=== PATIENT | male | born 1975 | race African-American/Black ===

== ENCOUNTER → 2016-12-22 | Outpatient (CLI) | payer MEDICARE, OTHER ==
[2016-12-22 14:58] LABS: ABSOLUTE EOSINOPHILS # (AUTO) 0.3 10^3/uL (0.0-0.6); ABSOLUTE LYMPHOCYTES (AUTO) 1.1 10^3/uL (0.5-4.7); ABSOLUTE MONOCYTES (AUTO) 0.8 10^3/uL (0.1-1.4); ABSOLUTE NEUT (AUTO) 9.3 10^3/uL (1.7-8.2); BASOPHILS % (AUTO) 0.4 % (0-2); EOSINOPHILS % (AUTO) 2.8 % (0-6); HEMATOCRIT 34.3 % (37.9-51.0); HEMOGLOBIN 10.4 g/dL (13.5-17.0); HGB HCT DIFFERENCE -3.1; LYMPHOCYTES % (AUTO) 9.8 % (13-45); MEAN CORPUSCULAR HEMOGLOBIN 25.9 pg (27.0-33.4); MEAN CORPUSCULAR HGB CONC 30.4 g/dL (32.0-36.0); MEAN CORPUSCULAR VOLUME 85 fl (80-97); MONOCYTES % (AUTO) 6.5 % (3-13); RED BLOOD COUNT 4.02 10^6/uL (4.35-5.55); RED CELL DISTRIBUTION WIDTH 18.9 % (11.5-14.0); SEGMENTED NEUTROPHILS % (AUTO) 80.5 % (42-78); WHITE BLOOD COUNT 11.6 10^3/uL (4.0-10.5)
[2016-12-22 15:19] LABS: ALANINE AMINOTRANSFERASE 25 U/L (21-72); ALKALINE PHOSPHATASE 111 U/L (38-126); ANION GAP 17 (5-19); ASPARTATE AMINO TRANSFERASE 13 U/L (17-59); BILIRUBIN,TOTAL 0.5 mg/dL (0.2-1.3); BLOOD UREA NITROGEN 10 mg/dL (7-20); C-REACTIVE PROTEIN 35.8 mg/L (<10.0); CALCIUM 9.6 mg/dL (8.4-10.2); CARBON DIOXIDE 27 mmol/L (22-30); CHLORIDE 99 mmol/L (98-107); CREATININE RESULT 0.44 mg/dL (0.52-1.25); GLUCOSE 138 mg/dL (75-110); TOTAL PROTEIN 8.3 g/dL (6.3-8.2)
[2016-12-22 15:35] LABS: ERYTHROCYTE SEDIMENTATION RATE 92 mm/hr (0-15)
== END ==
LOC: WC 13:48
PROVIDERS: ATTEND Surgery
DX: L89.104 Pressure ulcer of unspecified part of back, stage 4 (principal)
CPT/HCPCS: 36415; 72170; 80053; 85025; 85652; 86140

== ENCOUNTER 2017-01-15 22:07 | Emergency (ER) | payer MEDICARE, OTHER ==
[2017-01-16] LABS: ABSOLUTE BASOPHILS # (AUTO) 0.1 10^3/uL (0.0-0.2); ABSOLUTE EOSINOPHILS # (AUTO) 0.3 10^3/uL (0.0-0.6); ABSOLUTE LYMPHOCYTES (AUTO) 1.9 10^3/uL (0.5-4.7); ABSOLUTE MONOCYTES (AUTO) 0.8 10^3/uL (0.1-1.4); ABSOLUTE NEUT (AUTO) 7.8 10^3/uL (1.7-8.2); BASOPHILS % (AUTO) 0.7 % (0-2); EOSINOPHILS % (AUTO) 2.6 % (0-6); HEMATOCRIT 39.6 % (37.9-51.0); HEMOGLOBIN 12.7 g/dL (13.5-17.0); HGB HCT DIFFERENCE -1.5; LYMPHOCYTES % (AUTO) 17.2 % (13-45); MEAN CORPUSCULAR HEMOGLOBIN 27.5 pg (27.0-33.4); MEAN CORPUSCULAR HGB CONC 32.1 g/dL (32.0-36.0); MEAN CORPUSCULAR VOLUME 86 fl (80-97); MONOCYTES % (AUTO) 7.5 % (3-13); RED BLOOD COUNT 4.62 10^6/uL (4.35-5.55); RED CELL DISTRIBUTION WIDTH 18.1 % (11.5-14.0); WHITE BLOOD COUNT 10.9 10^3/uL (4.0-10.5)
[2017-01-16 00:08] LABS: APPEARANCE,URINE CLOUDY; BILIRUBIN,URINE NEGATIVE (NEGATIVE); CALCIUM OXALATE CRYSTALS,URINE MODERATE /HPF; GLUCOSE, URINE NEGATIVE (NEGATIVE); KETONES,URINE NEGATIVE (NEGATIVE); LEUKOCYTE ESTERASE,URINE LARGE (NEGATIVE); NITRITE,URINE POSITIVE (NEGATIVE); PROTEIN,URINE 100 mg/dL (NEGATIVE); URINE SPECIFIC GRAVITY 1.024; UROBILINOGEN,URINE NEGATIVE mg/dL (<2.0)
[2017-01-16 00:22] LABS: ALANINE AMINOTRANSFERASE 28 U/L (21-72); ALBUMIN 4.9 g/dL (3.5-5.0); ALKALINE PHOSPHATASE 150 U/L (38-126); ASPARTATE AMINO TRANSFERASE 21 U/L (17-59); BILIRUBIN,TOTAL 0.6 mg/dL (0.2-1.3); BLOOD UREA NITROGEN 18 mg/dL (7-20); CALCIUM 10.7 mg/dL (8.4-10.2); CREATININE RESULT 0.76 mg/dL (0.52-1.25); GLUCOSE 105 mg/dL (75-110); TOTAL PROTEIN 10.4 g/dL (6.3-8.2)
[2017-01-16 00:29] LABS: ANION GAP 18 (5-19); CARBON DIOXIDE 23 mmol/L (22-30); CHLORIDE 100 mmol/L (98-107); POTASSIUM 5.5 mmol/L (3.6-5.0); SODIUM 141.3 mmol/L (137-145)
[2017-01-16 02:22] LABS: PROTHROMBIN TIME 13.4 SEC (11.4-15.4)
[2017-01-16 02:37] LABS: VENOUS BLOOD BASE EXCESS 1.7 mmol/L; VENOUS BLOOD HCO3 28.6 mmol/L (20-32); VENOUS BLOOD PCO2 54.7 mmHg (35-63); VENOUS BLOOD PH 7.34 (7.30-7.42)
[2017-01-16] MEDS ORDERED: PIPERACILLIN/TAZOBACTAM 3.375 GM VIAL IV ONE (02:42)
--- NOTE | 2017-01-16 02:53 | ER Document Report ---
ED Neuro Symptoms/Deficit - General Mode of Arrival: Ambulatory Information source: Patient TRAVEL OUTSIDE OF THE [place] IN LAST 30 DAYS: No - HPI Patient complains to provider of: Other - Altered mental status Onset: Other - 2 days ago Baseline Cognitive: Alert, oriented X 3 Alert To: Name/Voice Associated symptoms: Other - see above <ALEX GUEVARA - Last Filed: 01/16/17 05:10> <GRACIE ORDONEZ - Last Filed: 01/16/17 08:13> - General Chief Complaint: Altered Mental Status Stated Complaint: ALTERED MENTAL STATUS/POSSIBLE UTI Notes: 41 year old male with history of multiple sclerosis presents to the ED accompanied by his who complains the patient has been confused an in an altered mental status for the past 2 days. states that the patient has been "in and out" and "delusion." also states that the patient's speech is "slowed" and that he is experiencing left sided weakness, both of which are typical during his MS flares. Patient denies any generalized pain or any new weakness. Patient has a [facility] Patient also has an ulcer to the right hip which is being monitored by the wound clinic. Patient had an MRI appointment today for his ulcer, but was unable to make it. Patient's neurologist is Dr. Durant. (ALEX GUEVARA) - Related Data Allergies/Adverse Reactions: No Known Allergies Allergy (Verified 01/15/17 22:54) Past Medical History - General Information source: Patient - Social History Smoking Status: Current Every Day Smoker Chew tobacco use (# tins/day): - <1/2 ppd Frequency of alcohol use: None Drug Abuse: None Family History: Reviewed & Not Pertinent Patient has suicidal ideation: No Patient has homicidal ideation: No Neurological Medical History: Reports: Other - multiple sclerosis Renal/ Medical History: Denies: Hx Peritoneal Dialysis Musculoskeltal Medical History: Reports Hx Multiple Sclerosis Surgical Hx: Negative - Immunizations Hx Diphtheria, Pertussis, Tetanus Vaccination: No <ALEX GUEVARA - Last Filed: 01/16/17 05:10> Physical Exam - General General appearance: Alert In distress: None - Respiratory Respiratory status: No respiratory distress Breath sounds: Normal - Cardiovascular Rhythm: Regular, Tachycardia - Abdominal Inspection: Normal Tenderness: Nontender - Back Back: Nontender - Extremities General upper extremity: Normal inspection General lower extremity: Normal inspection, Other - Lower extremities at baseline. Chronic weakness - Neurological Neuro grossly intact: Yes Cognition: Normal Orientation: AAOx4 Laie Coma Scale Eye Opening: Spontaneous Maria M Coma Scale Verbal: Oriented Laie Coma Scale Motor: Obeys Commands Laie Coma Scale Total: 15 Speech: Other - Slow speech <GRACIE ORDONEZ - Last Filed: 01/16/17 08:13> - Vital signs Vitals: Temp Pulse Resp BP Pulse Ox 98.1 F 96 20 110/68 100 01/15/17 22:40 01/15/17 22:40 01/15/17 22:40 01/15/17 22:40 01/15/17 22:40 (ALEX GUEVARA) (GRACIE ORDONEZ) Course - Laboratory Result Diagrams: 01/15/17 23:34 01/15/17 23:34 <ALEX GUEVARA - Last Filed: 01/16/17 05:10> - Laboratory Result Diagrams: 01/15/17 23:34 01/15/17 23:34 - Diagnostic Test Radiology reviewed: Reports reviewed <GRACIE ORDONEZ - Last Filed: 01/16/17 08:13> - Re-evaluation Re-evalutation: 01/16/17 04:22 Patient is a 41-year-old male who comes in with weakness of his left upper extremity and slow speech. This is consistent with his typical multiple sclerosis flare. Patient has been treated for urinary tract infection with Bactrim but significant other states that the patient is still having discharge from his Garcia catheter. Garcia catheter will be replaced. Microbiology has been reviewed. Patient will be switched to cephalosporin after being given a dose of Zosyn here in the emergency department. Patient feels better after fluids. Patient and significant other prefer that the patient home. Return immediately if any worsening or concerning symptoms. Also requesting high-dose steroids for MS flare. Solu-Medrol 500 given. Patient will be discharged home with prednisone is to call his neurologist later today. Understands agrees with plan. Stable at time of discharge. (GRACIE ORDONEZ) - Vital Signs Vital signs: Temp Pulse Resp BP Pulse Ox 97.5 F 107 H 18 119/71 100 01/16/17 03:23 01/16/17 02:06 01/16/17 03:41 01/16/17 03:41 01/16/17 03:41 (ALEX GUEVARA) (GRACIE ORDONEZ) - Laboratory Laboratory results interpreted by me: 01/15/17 01/15/17 01/15/17 23:34 23:34 23:34 WBC 10.9 H Hgb 12.7 L RDW 18.1 H Potassium 5.5 H Calcium 10.7 H Alkaline Phosphatase 150 H Total Protein 10.4 H Urine Protein 100 H Urine Blood MODERATE H Urine Nitrite POSITIVE H Ur Leukocyte Esterase LARGE H (ALEX GUEVARA) (GRACIE ORDONEZ) Discharge <ALEX GUEVARA - Last Filed: 01/16/17 05:10> <GRACIE ORDONEZ - Last Filed: 01/16/17 08:13> - Discharge Clinical Impression: Multiple sclerosis Urinary tract infection Qualifiers: Urinary tract infection type: site unspecified Hematuria presence: with hematuria Qualified Code(s): N39.0 - Urinary tract infection, site not specified ; R31.9 - Hematuria, unspecified Garcia catheter problem Qualifiers: Encounter type: initial encounter Qualified Code(s): T83.9XXA - Unspecified complication of genitourinary prosthetic device, implant and graft, initial encounter Condition: Stable Disposition: HOME, SELF-CARE Instructions: Urinary Tract Infection ([facility]), Steroid Medication Prescriptions: Cefdinir 300 mg PO BID #28 capsule Prednisone 80 mg PO DAILY #16 tablet Scribe Attestation: 01/16/17 08:13 I personally performed the services described in the documentation, reviewed and edited the documentation which was dictated to the scribe in my presence, and it accurately records my words and actions. (GRACIE ORDONEZ) Scribe Documentation - Scribe Written by Asmita:: Asmita Gonzalez, 01/16/2017 0530 acting as scribe for :: Aarti <ALEX GUEVARA - Last Filed: 01/16/17 05:10>
[2017-01-16] MEDS ORDERED: NORMAL SALINE 1000 ML 1,000 ML IV ONE (02:57)
[2017-01-16 04:08] VITALS: BP 119/71
[2017-01-16] MEDS ORDERED: METHYLPREDNISOLONE INJ 125 MG/2 ML SDV IV ONE (04:19)
--- NOTE | 2017-01-16 11:57 | EKG REPORT ---
SEVERITY:- ABNORMAL ECG - SINUS RHYTHM LORI, CONSIDER BIATRIAL ABNORMALITIES : Confirmed by: Carine Magallanes MD 16-Jan-2017 11:56:50
== END 2017-01-16 04:43 | disposition home or self-care (01) ==
LOC: ER 22:07
DX: R41.82 Altered mental status, unspecified (principal); G35 Multiple sclerosis; N39.0 Urinary tract infection, site not specified; T83.9XXA Unspecified complication of genitourinary prosthetic device, implant and graft, initial encounter; F17.210 Nicotine dependence, cigarettes, uncomplicated
CPT/HCPCS: 93005; 99285; 51702; 96375; 96365; 36415; 87040; 87086; 82962; 85025; 85610; 87088; 80053; 81001; 87186; 82803; 83605; 70450; 93010; J2930; J7030; J2543

== ENCOUNTER → 2017-01-23 | Outpatient (CLI) | payer MEDICARE, OTHER | LOC: RAD 10:53 | PROVIDERS: ATTEND Nurse Practitioner Family | DX: L97.322 Non-pressure chronic ulcer of left ankle with fat layer exposed (principal); M86.8X7 Other osteomyelitis, ankle and foot | CPT/HCPCS: 73720; A9576 ==

== ENCOUNTER 2017-01-24 13:22 | Emergency (ER) | payer MEDICARE, OTHER ==
[2017-01-24 14:22] LABS: APPEARANCE,URINE SLIGHTLY-CLOUDY; BILIRUBIN,URINE NEGATIVE (NEGATIVE); GLUCOSE, URINE NEGATIVE (NEGATIVE); KETONES,URINE NEGATIVE (NEGATIVE); LEUKOCYTE ESTERASE,URINE LARGE (NEGATIVE); NITRITE,URINE NEGATIVE (NEGATIVE); PROTEIN,URINE NEGATIVE (NEGATIVE); URINE SPECIFIC GRAVITY 1.013; UROBILINOGEN,URINE NEGATIVE mg/dL (<2.0)
--- NOTE | 2017-01-24 15:56 | ER Document Report ---
ED General - General Chief Complaint: Altered Mental Status Stated Complaint: ALTERED MENTAL STATUS Time seen by provider: 14:05 Mode of Arrival: Medic Information source: Patient Notes: 41-year-old male presented to ED for Y states hallucinations TRAVEL OUTSIDE OF THE [place] IN LAST 30 DAYS: No - HPI Onset: Other - 01/13/2017 Onset/Duration: Intermittent Quality of pain: No pain Severity: None Pain Level: Denies Associated symptoms: Other Exacerbated by: Denies Relieved by: Denies Similar symptoms previously: Yes Recently seen / treated by doctor: Yes - Related Data Allergies/Adverse Reactions: No Known Allergies Allergy (Verified 01/24/17 13:44) Home Medications: Current Home Medications Nitrofurantoin Monohyd/M-Cryst [Macrobid 100 mg Capsule] 100 mg PO BID 01/24/17 [History] Past Medical History - General Information source: Patient - Social History Smoking Status: Current Every Day Smoker Chew tobacco use (# tins/day): No Frequency of alcohol use: None Drug Abuse: None Family History: Reviewed & Not Pertinent Patient has suicidal ideation: No Patient has homicidal ideation: No - Past Medical History Cardiac Medical History: Reports: None Pulmonary Medical History: Reports: None EENT Medical History: Reports: None Neurological Medical History: Reports: Other - Multiple sclerosis, no feeling from waist down Endocrine Medical History: Reports: None Renal/ Medical History: Reports: Other - Indwelling Garcia catheter Musculoskeltal Medical History: Reports Hx Multiple Sclerosis Skin Medical History: Reports None Psychiatric Medical History: Reports: None Traumatic Medical History: Reports: None Infectious Medical History: Reports: None - Immunizations Hx Diphtheria, Pertussis, Tetanus Vaccination: No Review of Systems - Review of Systems Constitutional: No symptoms reported EENT: No symptoms reported Cardiovascular: No symptoms reported Respiratory: No symptoms reported Gastrointestinal: No symptoms reported Genitourinary: No symptoms reported Male Genitourinary: No symptoms reported Musculoskeletal: No symptoms reported Skin: No symptoms reported Hematologic/Lymphatic: No symptoms reported Neurological/Psychological: Other - His states he's been very confused and hallucinating at night. patient is alert oriented able to answer all questions appropriately when I examined him -: Yes All other systems reviewed and negative Physical Exam - Vital signs Vitals: Temp Pulse Resp BP Pulse Ox 98.3 F 72 16 142/90 H 100 01/24/17 13:39 01/24/17 13:39 01/24/17 13:39 01/24/17 13:39 01/24/17 13:39 Interpretation: Normal - General General appearance: Appears well, Alert Notes: Patient has a Garcia catheter is patent draining yellow cloudy urine. - HEENT Head: Normocephalic, Atraumatic Eyes: Normal Pupils: PERRL - Respiratory Respiratory status: No respiratory distress Chest status: Nontender Breath sounds: Normal Chest palpation: Normal - Cardiovascular Rhythm: Regular Heart sounds: Normal auscultation Murmur: No - Abdominal Inspection: Normal Distension: No distension Bowel sounds: Normal Tenderness: Nontender. No: Tender, McBurney's point Organomegaly: No organomegaly - Back Back: Normal, Nontender - Extremities General upper extremity: Normal inspection, Nontender, Normal color, Normal ROM , Normal temperature General lower extremity: Normal inspection, Nontender, Normal color, Normal ROM , Normal temperature, Normal weight bearing. No: Louis's sign - Neurological Neuro grossly intact: Yes Cognition: Normal Orientation: AAOx4 Maria M Coma Scale Eye Opening: Spontaneous Maria M Coma Scale Verbal: Oriented Aurora Coma Scale Motor: Obeys Commands Maria M Coma Scale Total: 15 Speech: Normal Motor strength normal: LUE, RUE, LLE, RLE Sensory: Normal - Psychological Associated symptoms: Normal affect, Normal mood - Skin Skin Temperature: Warm Skin Moisture: Dry Skin Color: Normal Course - Re-evaluation Re-evalutation: 01/24/17 16:01 Discussed patient's assessment his previous urine and today sure with Dr. Hand. He stated that the patient does not need to change antibiotics but to be sure to culture 2 days urine and have the patient call him on Sunday if he is unable to get li Goode on Sunday for the culture results. Paper with the urine results from last time and today given to patient with the phone number for Dr. Hand and Rupa call for the culture results. Patient to continue on his Macrobid which she has only had 1 dose of for his UTI. - Vital Signs Vital signs: Temp Pulse Resp BP Pulse Ox 98.3 F 72 16 142/90 H 100 01/24/17 13:39 01/24/17 13:39 01/24/17 13:39 01/24/17 13:39 01/24/17 13:39 - Laboratory Laboratory results interpreted by me: 01/24/17 14:08 Urine Blood MODERATE H Ur Leukocyte Esterase LARGE H Discharge - Discharge Clinical Impression: Urinary tract infection associated with catheterization of urinary tract Qualifiers: Encounter type: initial encounter Qualified Code(s): T83.51XA - Infection and inflammatory reaction due to indwelling urinary catheter, initial encounter Condition: Stable Disposition: HOME, SELF-CARE Additional Instructions: URINARY TRACT INFECTION: Your evaluation indicates that you have a urinary tract infection. This is due to germs growing in the bladder. This is a common problem. This infection usually responds quickly to antibiotics. Your antibiotic should be taken exactly as prescribed. Drink plenty of fluids -- three to four quarts a day. Occasionally, a bladder anesthetic will be prescribed to help stop the feeling of urgency until the antibiotic has a chance to clear the infection. This may cause your urine to be dark orange. Certain urine infections require a culture. If the doctor obtained a culture, the results will be back in two days. You should call to see if a change in treatment is needed. A repeat urinalysis after you finish treatment is often recommended. The physician will let you know if further testing is required. Call the doctor if you develop fever, chills, flank pain, inability to urinate, or blood in the urine. NITROFURANTOIN (MACRODANTIN, MACROBID): You have received a prescription for nitrofurantoin (Macrodantin). This antibiotic is used for urinary tract infections. Women who are or nursing should notify the physician before taking this medicine. If you have ever had a problem caused by this medication in the past, be sure the physician is aware of it. Common side effects of this medicine include nausea, vomiting, or decreased appetite. Notify your physician if these side effects become severe. Immediately stop this medicine and call the physician if you develop cough , shortness of breath, chest pain, weakness, jaundice (yellow color of the skin and whites of the eyes), or a skin rash. Insomnia Everybody has trouble sleeping now and then. When it becomes a frequent problem, you must look for an underlying cause. Depression can interfere with sleep. Anxiety keeps people from falling asleep, while true depression causes fitful sleep and early awakening. If you think anxiety or depression might be your problem, your doctor can help. Many medicines can interfere with sleep. Try cutting back or eliminating caffeine. Watch out for "energizing" vitamins and herbs! Alcohol interferes powerfully with normal sleep. "Rebound insomnia" results when you stop taking sedating medicines like antihistamines, antianxiety medicine, or sleeping pills. Any medical problem that causes pain or bladder discomfort can interfere with sleep. Discuss any problem you have with your doctor. Get regular exercise. Have regular sleep times. Don't "sleep in." Avoid late afternoon naps. Sleeping pills may be temporarily helpful, but are never a long-term solution. Diphenhydramine The use of diphenhydramine (Benadryl) has been recommended to control allergic symptoms. The 25 mg strength is available over- the-counter, as well as the elixir. This antihistamine is used for many symptoms. It's useful for itching, watering eyes and nose, allergic swelling, hives, and insect stings. The medication can be repeated four times daily. Age Elixir (12.5 mg/tsp) 25 mg pill 1 yr 1/4 tsp 2-3 yr 1/2 tsp 4-8 yr 1 tsp 9-14 yr 2 tsp one tab adult 1-2 tabs Antihistamines may cause drowsiness, especially with the first dose. Do not operate machinery or drive while under the effects of the medication. Do not combine the medication with alcohol, or with any other medication without talking to your doctor. FOLLOW-UP CARE: If you have been referred to a physician for follow-up care, call the physician s office for an appointment as you were instructed or within the next two days. If you experience worsening or a significant change in your symptoms, notify the physician immediately or return to the Emergency Department at any time for re-evaluation. Forms: Elevated Blood Pressure, Smoking Cessation Education
[2017-01-24 16:21] VITALS: BP 125/70
== END 2017-01-24 16:19 | disposition home or self-care (01) ==
LOC: ER 13:22
DX: T83.511A Infection and inflammatory reaction due to indwelling urethral catheter, initial encounter (principal); R41.82 Altered mental status, unspecified; F17.200 Nicotine dependence, unspecified, uncomplicated; G35 Multiple sclerosis
CPT/HCPCS: 81001; 87086; 87088; 87186; 99285

== ENCOUNTER 2017-02-03 18:45 | Inpatient (IN) | payer MEDICARE, OTHER ==
[2017-02-03] MEDS ORDERED: NORMAL SALINE 1000 ML 1,000 ML IV ONE (18:48)
[2017-02-03] MEDS ORDERED: CEFTRIAXONE 1 GM/D5W RTU 50 ML IV ONE (18:48)
--- NOTE | 2017-02-03 18:48 | ER Document Report ---
ED General - General Stated Complaint: ALTERED MENTAL STATUS Mode of Arrival: Medic Information source: Patient, Emergency Med Personnel, H Records Cannot obtain history due to: Altered mental status Notes: 41-year-old male history of multiple sclerosis presents by EMS for altered mental status. Patient has a history of recent UTI for which she is on Cipro before, as well as a wound sacral with wound VAC. Patient woke up today quite altered noted to be hypotensive tachycardic by EMS TRAVEL OUTSIDE OF THE [place] IN LAST 30 DAYS: No - HPI Onset: This morning Onset/Duration: Sudden Quality of pain: No pain Severity: Moderate Pain Level: Denies Associated symptoms: Weakness Exacerbated by: Denies Relieved by: Denies Similar symptoms previously: Yes Recently seen / treated by doctor: Yes - Related Data Allergies/Adverse Reactions: No Known Allergies Allergy (Verified 01/24/17 13:44) Past Medical History - Social History Smoking Status: Never Smoker Cigarette use (# per day): No Chew tobacco use (# tins/day): No Smoking Education Provided: No Family History: Reviewed & Not Pertinent Renal/ Medical History: Denies: Hx Peritoneal Dialysis Musculoskeltal Medical History: Reports Hx Multiple Sclerosis - Immunizations Hx Diphtheria, Pertussis, Tetanus Vaccination: No Review of Systems - Review of Systems Notes: REVIEW OF SYSTEMS: CONSTITUTIONAL : Denies fever, chills, or sweats. Denies recent illness. EENT: Denies eye, ear, throat, or mouth pain or symptoms. Denies nasal or sinus congestion or discharge. Denies throat, tongue, or mouth swelling or difficulty swallowing. CARDIOVASCULAR: Denies chest pain. Denies palpitations or racing or irregular heart beat. Denies ankle edema. RESPIRATORY: Denies cough, cold, or chest congestion. Denies shortness of breath, difficulty breathing, or wheezing. GASTROINTESTINAL: Denies abdominal pain or distention. Denies nausea, vomiting , or diarrhea. Denies blood in vomitus, stools, or per rectum. Denies black, tarry stools. Denies constipation. GENITOURINARY: Denies difficulty urinating, painful urination, burning, frequency, blood in urine, or discharge. MUSCULOSKELETAL: Denies back or neck pain or stiffness. Denies joint pain or swelling. SKIN: Denies rash, lesions or sores. HEMATOLOGIC : Denies easy bruising or bleeding. LYMPHATIC: Denies swollen, enlarged glands. NEUROLOGICAL: Admits to confusion weakness PSYCHIATRIC: Denies anxiety or stress. Denies depression, suicidal ideation, or homicidal ideation. ALL OTHER SYSTEMS REVIEWED AND NEGATIVE. Dictation was performed using [employer] voice recognition software PHYSICAL EXAMINATION: GENERAL: Well-appearing, well-nourished and in no acute distress. HEAD: Atraumatic, normocephalic. EYES: Pupils equal round and reactive to light, extraocular movements intact, sclera anicteric, conjunctiva are normal. ENT: Nares patent, oropharynx clear without exudates. Moist mucous membranes. NECK: Normal range of motion, supple without lymphadenopathy LUNGS: Breath sounds clear to auscultation bilaterally and equal. No wheezes rales or rhonchi. HEART: Tachycardic [id number] ABDOMEN: Soft, nontender, nondistended abdomen. No guarding, no rebound. Baclofen pump noted Musculoskeletal: Normal range of motion, no pitting or edema. No cyanosis. NEUROLOGICAL: Patient responds slowly to questioning but is alert PSYCH: Normal mood, normal affect. SKIN: Sacral decubitus wound with wound VAC in place Physical Exam - Vital signs Vitals: Resp Pulse Ox 16 98 02/03/17 18:56 02/03/17 18:56 Course - Re-evaluation Re-evalutation: 02/03/17 18:50 Patient meets sirs criteria with possible urinary tract infection as well. Lab work pending patient will be started on Rocephin IV fluids 02/03/17 21:01 Dr Stafford contacted, he will call back for admission uti noted 02/03/17 21:48 pt to be admitted for sepsis uti hypotension altered mental status - Vital Signs Vital signs: Temp Pulse Resp BP Pulse Ox 13 112/70 100 02/03/17 21:01 02/03/17 21:01 02/03/17 21:01 - Laboratory Result Diagrams: 02/03/17 19:00 02/03/17 20:12 Laboratory results interpreted by me: 02/03/17 02/03/17 02/03/17 19:00 20:12 20:20 WBC 25.8 H RBC 3.27 L Hgb 9.0 L Hct 28.3 L MCHC 31.8 L RDW 17.9 H Seg Neuts % (Manual) 86 H Band Neutrophils % 6 H Lymphocytes % (Manual) 4 L Abs Neuts (Manual) 23.7 H Glucose 112 H Albumin 3.3 L Urine Protein 100 H Urine Ketones TRACE H Urine Blood LARGE H Urine Urobilinogen 4.0 H Ur Leukocyte Esterase MODERATE H - Diagnostic Test Radiology reviewed: Image reviewed, Reports reviewed Critical Care Note - Critical Care Note Total time excluding time spent on procedures (mins): 34 Comments: minutes of critical care time spent in direct contact evaluating and reevaluating the patient, treating symptoms, reviewing labs and studies and speaking with family and consultants excluding any procedures Discharge - Discharge Clinical Impression: Multiple sclerosis, Acute focal neurological deficit Urinary tract infection associated with catheterization of urinary tract Qualifiers: Indwelling urinary catheter type: indwelling urethral catheter Encounter type: initial encounter Qualified Code(s): T83.511A - Infection and inflammatory reaction due to indwelling urethral catheter, initial encounter; N39.0 - Urinary tract infection, site not specified Sepsis Qualifiers: Sepsis type: sepsis due to unspecified organism Qualified Code(s): A41.9 - Sepsis, unspecified organism Condition: Fair Disposition: ADMITTED INPATIENT Admitting Provider: Hospitalist Unit Admitted: [facility]
[2017-02-03 19:21] LABS: VENOUS BLOOD BASE EXCESS 0.2 mmol/L; VENOUS BLOOD HCO3 26.2 mmol/L (20-32); VENOUS BLOOD PCO2 48.7 mmHg (35-63); VENOUS BLOOD PH 7.35 (7.30-7.42)
[2017-02-03 19:22] LABS: HEMATOCRIT 28.3 % (37.9-51.0); HGB HCT DIFFERENCE -1.3; MEAN CORPUSCULAR HEMOGLOBIN 27.5 pg (27.0-33.4); MEAN CORPUSCULAR HGB CONC 31.8 g/dL (32.0-36.0); MEAN CORPUSCULAR VOLUME 87 fl (80-97); RED BLOOD COUNT 3.27 10^6/uL (4.35-5.55); RED CELL DISTRIBUTION WIDTH 17.9 % (11.5-14.0); WHITE BLOOD COUNT 25.8 10^3/uL (4.0-10.5)
[2017-02-03 19:26] LABS: PROTHROMBIN TIME 15.4 SEC (11.4-15.4)
[2017-02-03 19:47] LABS: BAND NEUTROPHILS % (MANUAL) 6 % (3-5); BASOPHILS % (MANUAL) 0 % (0-2); EOSINOPHILS % (MANUAL) 1 % (0-6); LYMPHOCYTES % (MANUAL) 4 % (13-45); TOTAL CELLS COUNTED 100
[2017-02-03 19:49] LABS: ANISOCYTOSIS 1+; HYPOCHROMASIA SLIGHT; TOXIC GRANULATION 1+; TOXIC VACUOLATION PRESENT
[2017-02-03] MEDS: NORMAL SALINE 1000 ML 1,000 ML IV PRN ×2 (20:09→20:20)
[2017-02-03 20:42] LABS: ALANINE AMINOTRANSFERASE 34 U/L (21-72); ALBUMIN 3.3 g/dL (3.5-5.0); ALKALINE PHOSPHATASE 103 U/L (38-126); ANION GAP 9 (5-19); ASPARTATE AMINO TRANSFERASE 33 U/L (17-59); BILIRUBIN,TOTAL 0.7 mg/dL (0.2-1.3); BLOOD UREA NITROGEN 17 mg/dL (7-20); CALCIUM 8.7 mg/dL (8.4-10.2); CARBON DIOXIDE 26 mmol/L (22-30); CHLORIDE 106 mmol/L (98-107); CREATININE RESULT 0.64 mg/dL (0.52-1.25); GLUCOSE 112 mg/dL (75-110); POTASSIUM 3.8 mmol/L (3.6-5.0); SODIUM 140.9 mmol/L (137-145); TOTAL PROTEIN 7.3 g/dL (6.3-8.2)
[2017-02-03 20:46] LABS: APPEARANCE,URINE TURBID; BILIRUBIN,URINE NEGATIVE (NEGATIVE); GLUCOSE, URINE NEGATIVE (NEGATIVE); KETONES,URINE TRACE mg/dL (NEGATIVE); LEUKOCYTE ESTERASE,URINE MODERATE (NEGATIVE); NITRITE,URINE NEGATIVE (NEGATIVE); PROTEIN,URINE 100 mg/dL (NEGATIVE); URINE SPECIFIC GRAVITY 1.013
[2017-02-03] MEDS ORDERED: GENTAMICIN SULFATE 0 MG in DEXTROSE 5%-WATER 100 ML IV NR ×2 (21:45→23:45)
[2017-02-03] MEDS ORDERED: GENTAMICIN SULFATE INJ 80 MG/2 ML VIAL IV PRN (22:50)
[2017-02-03] MEDS ORDERED: DEXTROSE 5% IV SCH (23:00)
[2017-02-03] MEDS ORDERED: WATER IV SCH (23:00)
[2017-02-03] MEDS ORDERED: GENTAMICIN SULFATE IV SCH (23:00)
[2017-02-03] MEDS ORDERED: ACETAMINOPHEN 325 MG TABLET PO PRN (23:38)
[2017-02-03] MEDS ORDERED: POTASSI CL 20 MEQ/NS 1L 1,000 ML IV PRN (23:42)
[2017-02-04] MEDS ORDERED: GENTAMICIN SULFATE INJ 80 MG/2 ML VIAL IV PRN (00:10)
[2017-02-04 06:49] LABS: ABSOLUTE BASOPHILS # (AUTO) 0.1 10^3/uL (0.0-0.2); ABSOLUTE EOSINOPHILS # (AUTO) 0.2 10^3/uL (0.0-0.6); ABSOLUTE LYMPHOCYTES (AUTO) 1.2 10^3/uL (0.5-4.7); ABSOLUTE MONOCYTES (AUTO) 1.3 10^3/uL (0.1-1.4); ABSOLUTE NEUT (AUTO) 16.4 10^3/uL (1.7-8.2); BASOPHILS % (AUTO) 0.3 % (0-2); HEMATOCRIT 29.8 % (37.9-51.0); HEMOGLOBIN 9.5 g/dL (13.5-17.0); HGB HCT DIFFERENCE -1.3; LYMPHOCYTES % (AUTO) 6.4 % (13-45); MEAN CORPUSCULAR HEMOGLOBIN 27.6 pg (27.0-33.4); MEAN CORPUSCULAR VOLUME 86 fl (80-97); MONOCYTES % (AUTO) 6.9 % (3-13); RED BLOOD COUNT 3.45 10^6/uL (4.35-5.55); RED CELL DISTRIBUTION WIDTH 17.8 % (11.5-14.0); SEGMENTED NEUTROPHILS % (AUTO) 85.4 % (42-78); WHITE BLOOD COUNT 19.2 10^3/uL (4.0-10.5)
[2017-02-04] MEDS ORDERED: GENTAMICIN SULFATE 180 MG in DEXTROSE 5%-WATER 100 ML IV SCH (07:00)
[2017-02-04] MEDS ORDERED: ENOXAPARIN SODIUM INJ 40 MG/0.4 ML DISP.SYRIN SUBCUT SCH (08:00)
[2017-02-04] MEDS: DOCUSATE SODIUM 100 MG CAPSULE PO SCH ×2 (09:47→17:06)
--- NOTE | 2017-02-04 13:28 | OPERATIVE REPORT E ---
Operative Report NAME: VALENTE MOJICA : 1975 AGE: 41Y DATE OF SURGERY: 02/03/2017 ROOM: 322 INDICATION FOR PROCEDURE: This gentleman unfortunately has a history of multiple sclerosis and paralysis, cannot ambulate, bedridden. He has a decubitus ulceration in the sacral area and also in the right gluteal area. Admitted for a urinary tract infection, found to have some necrotic tissue in the decubitus ulcers. CONSULTATION: I examined him, and he has 2 ulcerations on the physical findings. One is in the sacral area up to the periosteum level, another one (the second one) in the right gluteal area. On examination, he does have some necrotic soft tissue. So, procedure was performed at the bedside. OPERATION: Excisional sharp debridement of necrotic soft tissue in the sacral decubitus ulcer and also in the right gluteal decubitus ulcer up to the fascia level. SURGEON: RUBI MONET M.D. PROCEDURE: Procedure was done at the bedside. Patient is already paraplegic, cannot feel any sensation. The area was cleaned and draped with sterile field. With a sharp curette, excisional debridement of all necrotic tissue was performed down to the fascial area until all the edges were clean and no more necrotic tissue was seen. Further wound care was advised to be wet-to-dry dressings, and I do not think he needs any further debridement in the near future. DICTATING PHYSICIAN: RUBI MONET M.D. [id number] PHY#: [id number] ID: [id number] JOB#: [id number] ACCT: [id number] cc:RUBI MONET M.D. >
[2017-02-04] MEDS: NICOTINE 14 MG/24 HR PATCH.TD24 TD SCH (15:09)
--- NOTE | 2017-02-04 17:25 | PDOC PROGRESS REPORT ---
Subjective Progress Note for:: 02/04/17 Subjective:: Patient remains slightly confused. He denies pain. Patient denies fever, chills , headache, new focal weakness, chest pain, shortness of breath, abdominal pain , nausea, vomiting, diarrhea, constipation. Physical Exam Vital Signs: Temp Pulse Resp BP Pulse Ox 97.4 F 89 18 113/74 100 02/04/17 15:14 02/04/17 15:14 02/04/17 15:14 02/04/17 15:14 02/04/17 15:14 Intake & Output 02/03/17 02/04/17 02/05/17 05:59 06:59 06:59 Intake Total Output Total Balance GENERAL: No acute distress HEENT: Conjunctiva clear, nonicteric, moist mucous membranes, no JVD, midline trachea RESPIRATORY: Clear to auscultation bilaterally, no wheezes, no rhonchi CARDIAC: Regular rate and rhythm, no murmurs/gallops/rubs ABDOMEN: Soft, nondistended, nontender, positive bowel sounds, no rebound, no guarding EXTREMETIES: No edema, cyanosis, clubbing NEUROLOGIC: Alert, oriented to person/place/time, CN's grossly intact, weakness and muscle wasting in all 4 extremities SKIN: No rash, wounds PSYCH: Normal mood, normal affect Results Laboratory Results: 02/04/17 06:30 02/04/17 06:30 WBC 19.2 H RBC 3.45 L Hgb 9.5 L Hct 29.8 L MCV 86 MCH 27.6 MCHC 32.0 RDW 17.8 H Plt Count 261 Seg Neutrophils % 85.4 H Lymphocytes % 6.4 L Monocytes % 6.9 Eosinophils % 1.0 Basophils % 0.3 Absolute Neutrophils 16.4 H Absolute Lymphocytes 1.2 Absolute Monocytes 1.3 Absolute Eosinophils 0.2 Absolute Basophils 0.1 Impressions: Chest X-Ray 02/03/17 18:49 IMPRESSION: NO SIGNIFICANT RADIOGRAPHIC FINDING IN THE CHEST. Assessment & Plan - Diagnosis (1) SIRS (systemic inflammatory response syndrome) Is this a current diagnosis for this admission?: YesPlan: Likely secondary to complicated urinary tract infection. Patient was started on IV gentamicin by admitting physician. (2) Urinary tract infection associated with catheterization of urinary tract Qualifiers: Indwelling urinary catheter type: indwelling urethral catheter Encounter type: initial encounter Qualified Code(s): T83.511A - Infection and inflammatory reaction due to indwelling urethral catheter, initial encounter ; N39.0 - Urinary tract infection, site not specified Is this a current diagnosis for this admission?: YesPlan: Continue IV gentamicin pending further cultures. It is noted that urine culture from 01/24/2017 grew Pseudomonas and Klebsiella both sensitive to gentamicin. (3) Acute encephalopathy Is this a current diagnosis for this admission?: YesPlan: Likely secondary to urinary tract infection. MS may also be contributing. (4) Anemia Qualifiers: Anemia type: unspecified type Qualified Code(s): D64.9 - Anemia, unspecified Is this a current diagnosis for this admission?: Yes (5) Multiple sclerosis Is this a current diagnosis for this admission?: YesPlan: Followed by Dr. Durant of neurology in [facility]. Patient takes Avonex 30 g IM weekly on Sunday. Patient has home health services in place already. (6) Presence of intrathecal baclofen pump Is this a current diagnosis for this admission?: Yes (7) Sacral decubitus ulcer Qualifiers: Pressure ulcer stage: unspecified pressure ulcer stage Qualified Code(s): L89.159 - Pressure ulcer of sacral region, unspecified stage Is this a current diagnosis for this admission?: YesPlan: Surgical consult appreciated. Patient had bedside debridement performed on 10/2017. - Time Time Spent with patient: 35 or more minutes - Inpatient Certification Based on my medical assessment, after consideration of the patient's comorbidities, presenting symptoms, or acuity I expect that the services needed warrant INPATIENT care.: Yes I certify that my determination is in accordance with my understanding of Medicare's requirements for reasonable and necessary INPATIENT services [42 CFR 412.3e].: Yes Medical Necessity: Significant Comorbidiites Make Outpatient Treatment Too Risky , Need Close Monitoring Due to Risk of Patient Decompensation, Need for IV Antibiotics, Need for Surgery
--- NOTE | 2017-02-04 17:46 | PDOC PROGRESS REPORT ---
Subjective Progress Note for:: 02/04/17 Physical Exam Vital Signs: Temp Pulse Resp BP Pulse Ox 97.4 F 89 18 113/74 100 02/04/17 15:14 02/04/17 15:14 02/04/17 15:14 02/04/17 15:14 02/04/17 15:14 Intake & Output 02/03/17 02/04/17 02/05/17 05:59 06:59 06:59 Intake Total Output Total Balance Results Laboratory Results: 02/04/17 06:30 02/04/17 06:30 WBC 19.2 H RBC 3.45 L Hgb 9.5 L Hct 29.8 L MCV 86 MCH 27.6 MCHC 32.0 RDW 17.8 H Plt Count 261 Seg Neutrophils % 85.4 H Lymphocytes % 6.4 L Monocytes % 6.9 Eosinophils % 1.0 Basophils % 0.3 Absolute Neutrophils 16.4 H Absolute Lymphocytes 1.2 Absolute Monocytes 1.3 Absolute Eosinophils 0.2 Absolute Basophils 0.1 Impressions: Chest X-Ray 02/03/17 18:49 IMPRESSION: NO SIGNIFICANT RADIOGRAPHIC FINDING IN THE CHEST. Assessment & Plan - Plan Summary Plan Summary: Cosult dictated Sacral decub ulcers debrided Wet to dressings.
[2017-02-04] MEDS ORDERED: NICOTINE 14 MG/24 HR PATCH.TD24 TD SCH (18:00)
--- NOTE | 2017-02-04 20:01 | EKG REPORT ---
SEVERITY:- BORDERLINE ECG - SINUS TACHYCARDIA ATRIAL PREMATURE COMPLEX BORDERLINE PROLONGED QT INTERVAL : Confirmed by: Jacek Tello 04-Feb-2017 20:00:48
[2017-02-04] MEDS ORDERED: LORAZEPAM INJ 2 MG/1 ML VIAL IV PRN (21:20)
[2017-02-04] MEDS: GENTAMICIN SULFATE 140 MG in DEXTROSE 5%-WATER 100 ML IV SCH (21:58)
[2017-02-05] MEDS: GENTAMICIN SULFATE 140 MG in DEXTROSE 5%-WATER 100 ML IV SCH (05:26)
[2017-02-05 05:51] LABS: ABSOLUTE BASOPHILS # (AUTO) 0.1 10^3/uL (0.0-0.2); ABSOLUTE EOSINOPHILS # (AUTO) 0.3 10^3/uL (0.0-0.6); ABSOLUTE LYMPHOCYTES (AUTO) 1.6 10^3/uL (0.5-4.7); ABSOLUTE MONOCYTES (AUTO) 1.2 10^3/uL (0.1-1.4); ABSOLUTE NEUT (AUTO) 10.3 10^3/uL (1.7-8.2); BASOPHILS % (AUTO) 0.5 % (0-2); HEMATOCRIT 30.8 % (37.9-51.0); HEMOGLOBIN 9.8 g/dL (13.5-17.0); HGB HCT DIFFERENCE -1.4; LYMPHOCYTES % (AUTO) 12.2 % (13-45); MEAN CORPUSCULAR HEMOGLOBIN 27.4 pg (27.0-33.4); MEAN CORPUSCULAR HGB CONC 31.9 g/dL (32.0-36.0); MEAN CORPUSCULAR VOLUME 86 fl (80-97); MONOCYTES % (AUTO) 9.2 % (3-13); RED CELL DISTRIBUTION WIDTH 17.7 % (11.5-14.0); SEGMENTED NEUTROPHILS % (AUTO) 76.1 % (42-78); WHITE BLOOD COUNT 13.5 10^3/uL (4.0-10.5)
[2017-02-05 06:06] LABS: ANION GAP 14 (5-19); BLOOD UREA NITROGEN 11 mg/dL (7-20); CALCIUM 9.5 mg/dL (8.4-10.2); CARBON DIOXIDE 22 mmol/L (22-30); CHLORIDE 104 mmol/L (98-107); CREATININE RESULT 0.43 mg/dL (0.52-1.25); GLUCOSE 90 mg/dL (75-110); SODIUM 140.2 mmol/L (137-145)
[2017-02-05 06:07] LABS: POTASSIUM 3.6 mmol/L (3.6-5.0)
[2017-02-05] MEDS: MULTIVITAMIN TABLET PO SCH (09:03)
[2017-02-05] MEDS: DOCUSATE SODIUM 100 MG CAPSULE PO SCH ×2 (09:03→17:09)
[2017-02-05] MEDS ORDERED: FERROUS SULFATE 325 MG TABLET PO SCH (10:00)
--- NOTE | 2017-02-05 11:34 | PDOC PROGRESS REPORT ---
Subjective Progress Note for:: 02/05/17 Subjective:: Patient continues to be very confused. He has pulled out his own Garcia catheter with balloon intact. He chewed through his telemetry leads. Review of systems is limited by the fact that he is making statements that don't make any sense. Physical Exam Vital Signs: Temp Pulse Resp BP Pulse Ox 98.0 F 100 20 131/60 H 100 02/05/17 07:33 02/05/17 08:22 02/05/17 07:33 02/05/17 07:33 02/05/17 07:33 Intake & Output 02/04/17 02/05/17 02/06/17 06:59 06:59 06:59 Intake Total 282 Output Total 925 Balance -643 Weight 62.5 kg GENERAL: No acute distress HEENT: Conjunctiva clear, nonicteric, moist mucous membranes, no JVD, midline trachea RESPIRATORY: Clear to auscultation bilaterally, no wheezes, no rhonchi CARDIAC: Regular rate and rhythm, no murmurs/gallops/rubs ABDOMEN: Soft, nondistended, nontender, positive bowel sounds, no rebound, no guarding EXTREMETIES: No edema, cyanosis, clubbing NEUROLOGIC: Alert, disoriented, CN's grossly intact, weakness and muscle wasting in all 4 extremities SKIN: No rash, wounds PSYCH: Normal mood, normal affect Results Laboratory Results: 02/05/17 04:37 02/05/17 04:37 02/05/17 02/05/17 04:37 04:37 WBC 13.5 H RBC 3.60 L Hgb 9.8 L Hct 30.8 L MCV 86 MCH 27.4 MCHC 31.9 L RDW 17.7 H Plt Count 288 Seg Neutrophils % 76.1 Lymphocytes % 12.2 L Monocytes % 9.2 Eosinophils % 2.0 Basophils % 0.5 Absolute Neutrophils 10.3 H Absolute Lymphocytes 1.6 Absolute Monocytes 1.2 Absolute Eosinophils 0.3 Absolute Basophils 0.1 Sodium 140.2 Potassium 3.6 Chloride 104 Carbon Dioxide 22 Anion Gap 14 BUN 11 Creatinine 0.43 L Est GFR ( Amer) > 60 Est GFR (Non-Af Amer) > 60 Glucose 90 Calcium 9.5 Impressions: Chest X-Ray 02/03/17 18:49 IMPRESSION: NO SIGNIFICANT RADIOGRAPHIC FINDING IN THE CHEST. Assessment & Plan - Diagnosis (1) SIRS (systemic inflammatory response syndrome) Is this a current diagnosis for this admission?: YesPlan: Likely secondary to complicated urinary tract infection. White blood count improving. Patient afebrile. (2) Urinary tract infection associated with catheterization of urinary tract Qualifiers: Indwelling urinary catheter type: indwelling urethral catheter Encounter type: initial encounter Qualified Code(s): T83.511A - Infection and inflammatory reaction due to indwelling urethral catheter, initial encounter ; N39.0 - Urinary tract infection, site not specified Is this a current diagnosis for this admission?: YesPlan: Urine culture growing Klebsiella sensitive to doxycycline. His continue IV gentamicin. Start oral doxycycline. Patient has chronic Garcia catheter and carries diagnosis of neurogenic bladder. (3) Acute encephalopathy Is this a current diagnosis for this admission?: YesPlan: Likely secondary to urinary tract infection. MS may also be contributing. If patient's mental status does not improve over the next couple days with treatment of infection we may need to consider repeat MRI of the brain and discussion with his neurologist. At this point we will have to use soft limb restraints and order a sitter so the patient doesn't harm himself. (4) Anemia Qualifiers: Anemia type: unspecified type Qualified Code(s): D64.9 - Anemia, unspecified Is this a current diagnosis for this admission?: Yes (5) Multiple sclerosis Is this a current diagnosis for this admission?: YesPlan: Followed by Dr. Durant of neurology in [facility]. Patient takes Avonex 30 g IM weekly on Sunday. Patient has home health services in place already and he lives with his is very supportive. (6) Presence of intrathecal baclofen pump Is this a current diagnosis for this admission?: Yes (7) Sacral decubitus ulcer Qualifiers: Pressure ulcer stage: unspecified pressure ulcer stage Qualified Code(s): L89.159 - Pressure ulcer of sacral region, unspecified stage Is this a current diagnosis for this admission?: YesPlan: Surgical consult appreciated. Patient had bedside debridement performed on 10/2017. - Time Time Spent with patient: 35 or more minutes
[2017-02-05] MEDS ORDERED: DOXYCYCLINE HYCLATE 100 MG TABLET PO ONE (12:30)
[2017-02-05] MEDS: NICOTINE 14 MG/24 HR PATCH.TD24 TD SCH (14:16)
[2017-02-05] MEDS: DOXYCYCLINE HYCLATE 100 MG TABLET PO SCH (22:00)
[2017-02-06 06:48] LABS: CREATININE RESULT 0.64 mg/dL (0.52-1.25)
[2017-02-06 06:59] LABS: GENTAMICIN-TROUGH < 0.6 ug/mL (<2.0)
[2017-02-06] MEDS: FERROUS SULFATE 325 MG TABLET PO SCH (09:10)
[2017-02-06] MEDS: MULTIVITAMIN TABLET PO SCH (09:10)
[2017-02-06] MEDS: DOXYCYCLINE HYCLATE 100 MG TABLET PO SCH ×2 (09:11→21:06)
[2017-02-06] MEDS: DOCUSATE SODIUM 100 MG CAPSULE PO SCH ×2 (09:11→17:11)
--- NOTE | 2017-02-06 11:17 | PDOC PROGRESS REPORT ---
Subjective Progress Note for:: 02/06/17 Subjective:: Patient is seen on morning rounds. He remains confused and at times agitated. He has periods of less confusion according to the nursing staff. There is no family presently at the bedside. Unable to do review of systems due to patient' s mentation. Physical Exam Vital Signs: Temp Pulse Resp BP Pulse Ox 98.5 F 96 20 109/64 99 02/06/17 07:40 02/06/17 08:23 02/06/17 07:40 02/06/17 07:40 02/06/17 07:40 Intake & Output 02/05/17 02/06/17 02/07/17 06:59 06:59 06:59 Intake Total 282 393 Output Total 925 900 Balance -643 -507 Weight 62.5 kg 64.1 kg General appearance: PRESENT: no acute distress, thin, well-developed Eye exam: PRESENT: conjunctiva pink, EOMI, PERRLA. ABSENT: scleral icterus Ear exam: PRESENT: normal external ear exam Mouth exam: PRESENT: moist, tongue midline Neck exam: ABSENT: carotid bruit, JVD, lymphadenopathy, thyromegaly Respiratory exam: PRESENT: clear to auscultation mirian. ABSENT: rales, rhonchi, wheezes Cardiovascular exam: PRESENT: RRR. ABSENT: diastolic murmur, rubs, systolic murmur Pulses: PRESENT: normal dorsalis pedis pul GI/Abdominal exam: PRESENT: normal bowel sounds, soft. ABSENT: distended, guarding, mass, organolmegaly, rebound, tenderness Rectal exam: PRESENT: deferred Extremities exam: PRESENT: full ROM. ABSENT: calf tenderness, clubbing, pedal edema Neurological exam: PRESENT: alert, altered, CN II-XII grossly intact Psychiatric exam: PRESENT: agitated Skin exam: PRESENT: other - Sacral wound with Results Laboratory Results: 02/05/17 04:37 02/06/17 05:41 02/06/17 05:41 Creatinine 0.64 Est GFR ( Amer) > 60 Est GFR (Non-Af Amer) > 60 Impressions: Chest X-Ray 02/03/17 18:49 IMPRESSION: NO SIGNIFICANT RADIOGRAPHIC FINDING IN THE CHEST. Assessment & Plan - Diagnosis (1) Acute encephalopathy Is this a current diagnosis for this admission?: YesPlan: Secondary to sepsis, improving with antibiotics and fluid (2) Sepsis Qualifiers: Sepsis type: sepsis due to unspecified organism Qualified Code(s): A41.9 - Sepsis, unspecified organism Is this a current diagnosis for this admission?: YesPlan: Improving . Patient with Klebsiella pneumonia. Blood cultures remain negative. No longer tachycardic or hypotensive (3) Urinary tract infection associated with catheterization of urinary tract Qualifiers: Indwelling urinary catheter type: indwelling urethral catheter Encounter type: initial encounter Qualified Code(s): T83.511A - Infection and inflammatory reaction due to indwelling urethral catheter, initial encounter ; N39.0 - Urinary tract infection, site not specified Is this a current diagnosis for this admission?: YesPlan: Patient with Klebsiella pneumoniae infection. 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 Sensitive to Doxycyline (4) Decubitus ulcer Qualifiers: Pressure ulcer location: foot, unspecified location Pressure ulcer stage: stage 4 Is this a current diagnosis for this admission?: YesPlan: Patient underwent debridement of both wounds by surgialist service (5) Multiple sclerosis Is this a current diagnosis for this admission?: YesPlan: Patient is followed by neurologist , Dr Durant. He lives at home with supportive and has home health services (6) Anemia Qualifiers: Anemia type: unspecified type Qualified Code(s): D64.9 - Anemia, unspecified Is this a current diagnosis for this admission?: YesPlan: Hemoglobin and hematocrit presently stable (7) Presence of intrathecal baclofen pump Is this a current diagnosis for this admission?: YesPlan: Continue - Time Time Spent with patient: 25-34 minutes Critical Time spent with patient: 15-24 minutes Medications reviewed and adjusted accordingly: Yes Anticipated discharge: Home with Homehealth
[2017-02-06] MEDS: NICOTINE 14 MG/24 HR PATCH.TD24 TD SCH (15:19)
[2017-02-07 06:03] LABS: ABSOLUTE BASOPHILS # (AUTO) 0.1 10^3/uL (0.0-0.2); ABSOLUTE EOSINOPHILS # (AUTO) 0.3 10^3/uL (0.0-0.6); ABSOLUTE LYMPHOCYTES (AUTO) 2.3 10^3/uL (0.5-4.7); ABSOLUTE MONOCYTES (AUTO) 0.9 10^3/uL (0.1-1.4); ABSOLUTE NEUT (AUTO) 6.2 10^3/uL (1.7-8.2); BASOPHILS % (AUTO) 0.8 % (0-2); EOSINOPHILS % (AUTO) 3.2 % (0-6); HEMATOCRIT 31.6 % (37.9-51.0); HGB HCT DIFFERENCE -1.6; LYMPHOCYTES % (AUTO) 23.7 % (13-45); MEAN CORPUSCULAR HEMOGLOBIN 27.2 pg (27.0-33.4); MEAN CORPUSCULAR HGB CONC 31.8 g/dL (32.0-36.0); MEAN CORPUSCULAR VOLUME 86 fl (80-97); MONOCYTES % (AUTO) 9.4 % (3-13); RED CELL DISTRIBUTION WIDTH 17.7 % (11.5-14.0); SEGMENTED NEUTROPHILS % (AUTO) 62.9 % (42-78); WHITE BLOOD COUNT 9.8 10^3/uL (4.0-10.5)
[2017-02-07 06:39] LABS: ALANINE AMINOTRANSFERASE 22 U/L (21-72); ALBUMIN 3.5 g/dL (3.5-5.0); ALKALINE PHOSPHATASE 98 U/L (38-126); ANION GAP 10 (5-19); ASPARTATE AMINO TRANSFERASE 13 U/L (17-59); BILIRUBIN,TOTAL 0.4 mg/dL (0.2-1.3); BLOOD UREA NITROGEN 19 mg/dL (7-20); CALCIUM 9.7 mg/dL (8.4-10.2); CARBON DIOXIDE 28 mmol/L (22-30); CHLORIDE 104 mmol/L (98-107); CREATININE RESULT 0.48 mg/dL (0.52-1.25); GLUCOSE 96 mg/dL (75-110); POTASSIUM 4.2 mmol/L (3.6-5.0); SODIUM 142.3 mmol/L (137-145); TOTAL PROTEIN 7.8 g/dL (6.3-8.2)
[2017-02-07] MEDS: FERROUS SULFATE 325 MG TABLET PO SCH (07:23)
[2017-02-07] MEDS: DOCUSATE SODIUM 100 MG CAPSULE PO SCH ×2 (09:56→17:05)
[2017-02-07] MEDS: MULTIVITAMIN TABLET PO SCH (09:56)
[2017-02-07] MEDS: DOXYCYCLINE HYCLATE 100 MG TABLET PO SCH ×2 (09:57→21:02)
[2017-02-07] MEDS: NICOTINE 14 MG/24 HR PATCH.TD24 TD SCH (14:44)
--- NOTE | 2017-02-07 15:18 | PDOC PROGRESS REPORT ---
Subjective Progress Note for:: 02/07/17 Subjective:: Patient is seen on morning rounds. He is appropriate today. He has periods of less confusion according to the nursing staff. There is no family presently at the bedside. He denies any fevers or chills. He denies any pain at the present time. Physical Exam Vital Signs: Temp Pulse Resp BP Pulse Ox 98.6 F 81 16 103/63 99 02/07/17 11:16 02/07/17 14:00 02/07/17 11:16 02/07/17 11:16 02/07/17 11:16 Intake & Output 02/06/17 02/07/17 02/08/17 06:59 06:59 06:59 Intake Total 393 690 Output Total 900 1100 Balance -507 -410 Weight 64.1 kg 63.6 kg General appearance: PRESENT: no acute distress, well-developed, well-nourished Head exam: PRESENT: atraumatic, normocephalic Eye exam: PRESENT: conjunctiva pink, EOMI, PERRLA. ABSENT: scleral icterus Ear exam: PRESENT: normal external ear exam Mouth exam: PRESENT: moist, tongue midline Neck exam: ABSENT: carotid bruit, JVD, lymphadenopathy, thyromegaly Respiratory exam: PRESENT: clear to auscultation mirian. ABSENT: rales, rhonchi, wheezes Cardiovascular exam: PRESENT: RRR. ABSENT: diastolic murmur, rubs, systolic murmur Pulses: PRESENT: normal dorsalis pedis pul Rectal exam: PRESENT: deferred Extremities exam: PRESENT: full ROM. ABSENT: calf tenderness, clubbing, pedal edema Neurological exam: PRESENT: alert, awake, oriented to person, oriented to place , oriented to situation, CN II-XII grossly intact. ABSENT: motor sensory deficit Psychiatric exam: PRESENT: appropriate affect, normal mood. ABSENT: homicidal ideation, suicidal ideation Skin exam: PRESENT: dry, intact, warm. ABSENT: cyanosis, rash Results Laboratory Results: 02/07/17 04:54 02/07/17 04:54 02/07/17 02/07/17 04:54 04:54 WBC 9.8 RBC 3.70 L Hgb 10.0 L Hct 31.6 L MCV 86 MCH 27.2 MCHC 31.8 L RDW 17.7 H Plt Count 366 Seg Neutrophils % 62.9 Lymphocytes % 23.7 Monocytes % 9.4 Eosinophils % 3.2 Basophils % 0.8 Absolute Neutrophils 6.2 Absolute Lymphocytes 2.3 Absolute Monocytes 0.9 Absolute Eosinophils 0.3 Absolute Basophils 0.1 Sodium 142.3 Potassium 4.2 Chloride 104 Carbon Dioxide 28 Anion Gap 10 BUN 19 Creatinine 0.48 L Est GFR ( Amer) > 60 Est GFR (Non-Af Amer) > 60 Glucose 96 Calcium 9.7 Total Bilirubin 0.4 AST 13 L ALT 22 Alkaline Phosphatase 98 Total Protein 7.8 Albumin 3.5 Impressions: Chest X-Ray 02/03/17 18:49 IMPRESSION: NO SIGNIFICANT RADIOGRAPHIC FINDING IN THE CHEST. Assessment & Plan - Diagnosis (1) Acute encephalopathy Is this a current diagnosis for this admission?: YesPlan: Secondary to sepsis, improving with antibiotics and fluid (2) Sepsis Qualifiers: Sepsis type: sepsis due to unspecified organism Qualified Code(s): A41.9 - Sepsis, unspecified organism Is this a current diagnosis for this admission?: YesPlan: Improving . Patient with Klebsiella pneumonia. Blood cultures remain negative. No longer tachycardic or hypotensive (3) Urinary tract infection associated with catheterization of urinary tract Qualifiers: Indwelling urinary catheter type: indwelling urethral catheter Encounter type: initial encounter Qualified Code(s): T83.511A - Infection and inflammatory reaction due to indwelling urethral catheter, initial encounter ; N39.0 - Urinary tract infection, site not specified Is this a current diagnosis for this admission?: YesPlan: Patient with Klebsiella pneumoniae infection. 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 Sensitive to Doxycyline (4) Decubitus ulcer Qualifiers: Pressure ulcer location: foot, unspecified location Pressure ulcer stage: stage 4 Is this a current diagnosis for this admission?: YesPlan: Patient underwent debridement of both wounds by surgialist service (5) Multiple sclerosis Is this a current diagnosis for this admission?: YesPlan: Patient is followed by neurologist , Dr Durant. He lives at home with supportive and has home health services (6) Anemia Qualifiers: Anemia type: unspecified type Qualified Code(s): D64.9 - Anemia, unspecified Is this a current diagnosis for this admission?: YesPlan: Hemoglobin and hematocrit presently stable (7) Presence of intrathecal baclofen pump Is this a current diagnosis for this admission?: YesPlan: Continue - Time Time Spent with patient: 25-34 minutes Medications reviewed and adjusted accordingly: Yes Anticipated discharge: Home with Homehealth
[2017-02-08] MEDS: FERROUS SULFATE 325 MG TABLET PO SCH (07:52)
--- NOTE | 2017-02-08 08:57 | PDOC PROGRESS REPORT ---
Subjective Progress Note for:: 02/08/17 Subjective:: Patient is seen on morning rounds. He is appropriate today. He has periods of less confusion according to the nursing staff. There is no family presently at the bedside. He denies any fevers or chills. He denies any pain at the present time. Physical Exam Vital Signs: Temp Pulse Resp BP Pulse Ox 98.4 F 96 16 104/72 100 02/08/17 07:49 02/08/17 08:46 02/08/17 07:49 02/08/17 07:49 02/08/17 07:49 Intake & Output 02/07/17 02/08/17 02/09/17 06:59 06:59 06:59 Intake Total 690 953 Output Total 1100 1350 Balance -410 -397 Weight 63.6 kg 64.5 kg General appearance: PRESENT: no acute distress, thin, well-developed Head exam: PRESENT: atraumatic, normocephalic Eye exam: PRESENT: conjunctiva pink, EOMI, PERRLA. ABSENT: scleral icterus Ear exam: PRESENT: normal external ear exam Mouth exam: PRESENT: moist, tongue midline Respiratory exam: PRESENT: clear to auscultation mirian. ABSENT: rales, rhonchi, wheezes Cardiovascular exam: PRESENT: RRR. ABSENT: diastolic murmur, rubs, systolic murmur Pulses: PRESENT: normal dorsalis pedis pul Vascular exam: PRESENT: normal capillary refill GI/Abdominal exam: PRESENT: normal bowel sounds, soft. ABSENT: distended, guarding, mass, organolmegaly, rebound, tenderness Rectal exam: PRESENT: deferred Extremities exam: PRESENT: full ROM. ABSENT: calf tenderness, clubbing, pedal edema Neurological exam: PRESENT: alert, awake, oriented to person, oriented to place , CN II-XII grossly intact. ABSENT: motor sensory deficit Psychiatric exam: PRESENT: appropriate affect, normal mood. ABSENT: homicidal ideation, suicidal ideation Skin exam: PRESENT: dry, intact, warm. ABSENT: cyanosis, rash Results Laboratory Results: 02/07/17 04:54 02/07/17 04:54 Impressions: Chest X-Ray 02/03/17 18:49 IMPRESSION: NO SIGNIFICANT RADIOGRAPHIC FINDING IN THE CHEST. Assessment & Plan - Diagnosis (1) Acute encephalopathy Is this a current diagnosis for this admission?: YesPlan: Secondary to sepsis, improving with antibiotics and fluid (2) Sepsis Qualifiers: Sepsis type: sepsis due to unspecified organism Qualified Code(s): A41.9 - Sepsis, unspecified organism Is this a current diagnosis for this admission?: YesPlan: Improving . Patient with Klebsiella pneumonia. Blood cultures remain negative. No longer tachycardic or hypotensive (3) Urinary tract infection associated with catheterization of urinary tract Qualifiers: Indwelling urinary catheter type: indwelling urethral catheter Encounter type: initial encounter Qualified Code(s): T83.511A - Infection and inflammatory reaction due to indwelling urethral catheter, initial encounter ; N39.0 - Urinary tract infection, site not specified Is this a current diagnosis for this admission?: YesPlan: Patient with Klebsiella pneumoniae infection. 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 Sensitive to Doxycyline (4) Decubitus ulcer Qualifiers: Pressure ulcer location: foot, unspecified location Pressure ulcer stage: stage 4 Is this a current diagnosis for this admission?: YesPlan: Patient underwent debridement of both wounds by surgialist service (5) Multiple sclerosis Is this a current diagnosis for this admission?: YesPlan: Patient is followed by neurologist , Dr Durant. He lives at home with supportive and has home health services (6) Anemia Qualifiers: Anemia type: unspecified type Qualified Code(s): D64.9 - Anemia, unspecified Is this a current diagnosis for this admission?: YesPlan: Hemoglobin and hematocrit presently stable (7) Presence of intrathecal baclofen pump Is this a current diagnosis for this admission?: YesPlan: Continue - Time Time Spent with patient: 25-34 minutes Medications reviewed and adjusted accordingly: Yes Anticipated discharge: Home with Homehealth Within: within 24 hours
[2017-02-08] MEDS: DOXYCYCLINE HYCLATE 100 MG TABLET PO SCH ×2 (09:13→21:45)
[2017-02-08] MEDS: MULTIVITAMIN TABLET PO SCH (09:13)
[2017-02-08] MEDS: DOCUSATE SODIUM 100 MG CAPSULE PO SCH ×2 (09:13→17:38)
--- NOTE | 2017-02-08 11:12 | EKG REPORT ---
SEVERITY:- NORMAL ECG - SINUS RHYTHM : Confirmed by: Jacek Tello 08-Feb-2017 11:11:57
[2017-02-08] MEDS: NICOTINE 14 MG/24 HR PATCH.TD24 TD SCH (14:38)
[2017-02-09 04:45] LABS: ABSOLUTE BASOPHILS # (AUTO) 0.1 10^3/uL (0.0-0.2); ABSOLUTE EOSINOPHILS # (AUTO) 0.4 10^3/uL (0.0-0.6); ABSOLUTE LYMPHOCYTES (AUTO) 2.1 10^3/uL (0.5-4.7); ABSOLUTE NEUT (AUTO) 7.5 10^3/uL (1.7-8.2); BASOPHILS % (AUTO) 0.7 % (0-2); EOSINOPHILS % (AUTO) 3.4 % (0-6); HEMATOCRIT 33.2 % (37.9-51.0); HEMOGLOBIN 10.6 g/dL (13.5-17.0); HGB HCT DIFFERENCE -1.4; LYMPHOCYTES % (AUTO) 19.2 % (13-45); MEAN CORPUSCULAR HEMOGLOBIN 27.5 pg (27.0-33.4); MEAN CORPUSCULAR HGB CONC 31.8 g/dL (32.0-36.0); MEAN CORPUSCULAR VOLUME 86 fl (80-97); RED BLOOD COUNT 3.85 10^6/uL (4.35-5.55); RED CELL DISTRIBUTION WIDTH 17.8 % (11.5-14.0); SEGMENTED NEUTROPHILS % (AUTO) 67.7 % (42-78); WHITE BLOOD COUNT 11.1 10^3/uL (4.0-10.5)
[2017-02-09] MEDS: FERROUS SULFATE 325 MG TABLET PO SCH (07:39)
[2017-02-09] MEDS: MULTIVITAMIN TABLET PO SCH (09:08)
[2017-02-09] MEDS: DOXYCYCLINE HYCLATE 100 MG TABLET PO SCH (09:08)
[2017-02-09] MEDS: DOCUSATE SODIUM 100 MG CAPSULE PO SCH (09:08)
[2017-02-09 13:28] VITALS: BP 106/59
--- NOTE | 2017-02-09 15:07 | PDOC DISCHARGE SUMMARY ---
General - Admit/Disc Date/PCP Admission Date/Primary Care Provider: 02/03/17 23:38 Discharge Date: 02/09/17 - Discharge Diagnosis (1) Acute encephalopathy Is this a current diagnosis for this admission?: YesSummary: Resolved. Secondary to urinary tract infection. Negative bacteremia (2) Sepsis Is this a current diagnosis for this admission?: YesSummary: Ruled out. Patient had negative blood cultures. Urine cultures show klebsiella pneumonaie (3) Urinary tract infection associated with catheterization of urinary tract Is this a current diagnosis for this admission?: YesSummary: Culture postive for Klebsiella pneumaonia (4) Decubitus ulcer Is this a current diagnosis for this admission?: YesSummary: Continue wound care per wound care center. Wound vac (5) Multiple sclerosis Is this a current diagnosis for this admission?: Yes (6) Anemia Is this a current diagnosis for this admission?: Yes (7) Presence of intrathecal baclofen pump Is this a current diagnosis for this admission?: Yes - Additional Information Resuscitation Status: Full Code Discharge Diet: Regular Discharge Activity: Activity As Tolerated Home Medications: Ferrous Sulfate [Feosol 325 mg Tablet] 325 mg PO DAILY 02/04/17 Interferon Beta-1A [Avonex Pen] 30 mcg IM SA@1000 02/04/17 Multivitamin [Multivitamins] 1 each PO DAILY 02/04/17 Acetaminophen [Tylenol 325 mg Tablet] 650 mg PO Q4HP PRN tablet 02/09/17 Docusate Sodium [Colace 100 mg Capsule] 100 mg PO BID #0 capsule 02/09/17 Doxycycline Hyclate [Vibramycin 100 mg Tablet] 100 mg PO Q12 #14 tablet History of Present Illness Patient complains of: Altered mental status History of Present Illness: VALENTE MOJICA is a 41 year old -Af[place] male with history of multiple sclerosis presented to [place] emergency room on 02/03/2017 with altered mental status. Patient has history of her recent he T I which he's been on Cipro for as well as a sacral decubitus wound with wound VAC. He woke up from a nap this afternoon was quite altered noted by his to be hypotensive and tachycardic. She states she did not have a fever. He's been like this before its use because he had some bad infection. She called 911 and he was brought to the emergency room. Hospital Course Hospital Course: Patient was admitted to the hospitalist service on telemetry in the [facility]. This started on empiric broad-spectrum antibiotics after blood cultures 2 were obtained and urine culture. Surgery was consult for sacral wound management. There is no signs of infection of the wound. They recommended wet-to-dry dressing changes to his sacrum and his left ankle decubitus while he was here. His tachycardia resolved with fluid. Blood cultures were shown to be negative for bacteremia. Urine culture grew Klebsiella pneumonia with multiple resistance, one being fluoroquinolones. He was placed on doxycycline which was sensitive. His mentation has improved back to baseline. He is eating well. He is back to his baseline. He will resume home health services and local wound care per wound management clinic Physical Exam Vital Signs: Temp Pulse Resp BP Pulse Ox 98.6 F 89 16 105/68 100 02/09/17 10:24 02/09/17 10:24 02/09/17 10:24 02/09/17 10:24 02/09/17 10:24 Intake & Output 02/08/17 02/09/17 02/10/17 06:59 06:59 06:59 Intake Total 953 869 Output Total 1350 800 Balance -397 69 Weight 64.5 kg 65.3 kg General appearance: PRESENT: no acute distress, thin, well-developed, well- nourished Head exam: PRESENT: atraumatic, normocephalic Eye exam: PRESENT: conjunctiva pink, EOMI, PERRLA. ABSENT: scleral icterus Ear exam: PRESENT: normal external ear exam Mouth exam: PRESENT: moist, tongue midline Neck exam: ABSENT: carotid bruit, JVD, lymphadenopathy, thyromegaly Respiratory exam: PRESENT: clear to auscultation mirian. ABSENT: rales, rhonchi, wheezes Cardiovascular exam: PRESENT: RRR. ABSENT: diastolic murmur, rubs, systolic murmur Pulses: PRESENT: normal carotid pulses, normal radial pulses Vascular exam: PRESENT: normal capillary refill GI/Abdominal exam: PRESENT: normal bowel sounds, soft. ABSENT: distended, guarding, mass, organolmegaly, rebound, tenderness Rectal exam: PRESENT: deferred Gentrourinary exam: PRESENT: other - indwelling hodge in place Extremities exam: PRESENT: other - left ankle decubitus with no drainage Musculoskeletal exam: PRESENT: other - paraplegic and wheelchair bound Neurological exam: PRESENT: alert, awake, oriented to person, oriented to place , oriented to time, oriented to situation, CN II-XII grossly intact. ABSENT: motor sensory deficit Psychiatric exam: PRESENT: appropriate affect, normal mood. ABSENT: homicidal ideation, suicidal ideation Skin exam: PRESENT: other Results Laboratory Results: 02/09/17 04:28 02/07/17 04:54 02/09/17 04:28 WBC 11.1 H RBC 3.85 L Hgb 10.6 L Hct 33.2 L MCV 86 MCH 27.5 MCHC 31.8 L RDW 17.8 H Plt Count 390 Seg Neutrophils % 67.7 Lymphocytes % 19.2 Monocytes % 9.0 Eosinophils % 3.4 Basophils % 0.7 Absolute Neutrophils 7.5 Absolute Lymphocytes 2.1 Absolute Monocytes 1.0 Absolute Eosinophils 0.4 Absolute Basophils 0.1 Impressions: Chest X-Ray 02/03/17 18:49 IMPRESSION: NO SIGNIFICANT RADIOGRAPHIC FINDING IN THE CHEST. Qualifiers PATEINT BEING DISCHARGED WITH ANY OF THE FOLLOWING DIAGNOSIS?: No Plan Discharge Plan: Home with home health and wound care clinic follow-up. Time Spent: Less than 30 Minutes
[2017-02-10] MEDS ORDERED: INTERFERON BETA 30 MCG IM SCH (10:00)
[2017-02-10] MEDS ORDERED: ALBUMIN IM SCH (10:00)
[2017-02-10] MEDS ORDERED: INTERFERON BETA IM SCH (10:00)
--- NOTE | 2017-02-13 19:17 | PDOC H&P ---
History of Present Illness Admission Date/PCP: 02/03/17 22:13 PCP [facility] Dr. May, [facility] Patient complains of: Altered mental status History of Present Illness: VALENTE MOJICA is a 41 year old -Finnish male with underlying multiple sclerosis, bedbound due to same, with chronic sacral decubitus ulcer secondary to same, currently on wound VAC and every Sunday dressing change, who presents to the emergency room for evaluation of above complaint. Patient has been discussed with emergency room physician who evaluated the patient. Patient himself seems somewhat vague about recent history, although is more knowledgeable about his chronic history. , who is his surrogate health care decision maker, and who is present at his side with his approval, is more knowledgeable and quite helpful concerning his recent medical history. She describes a 10 day history of intermittent confusion. no nausea vomiting, fever or chills, diarrhea, chest or abdominal pain. seen in the emergency room on the first of this month and started on Macrobid. started on Cipro 250 mg by mouth twice a day on the sixth of this month. Has a history of recurrent urinary tract infections. At one time, was self catheterizing. Now has a chronic indwelling Garcia, changed monthly. When EMS arrived this evening, he was reportedly hypotensive, although does not know a specific blood pressure. Was also reportedly tachycardic. Per nursing staff, has been hemodynamically stable in the emergency room. No temperature is recorded. Skin feels normothermic. Review of urine culture results from the first of this month reveals 2 organisms sensitive to amikacin, meropenem, and gentamicin. Discussed with emergency room physician. Gentamicin has been given. Not on daily prednisone. Baclofen pump is recharged every 6 months.. Laboratory results are listed in [facility] and are reviewed. X-ray summary results are listed below, with full report(s) reviewed. . EKG reviewed and compared to tracing from of last month. Social history/personal habits: . 3 children. Lives with . On disability due to long-standing multiple sclerosis. Nonambulatory. Occasional tobacco use, but not very much or very often. No alcohol or illicit drug use. Allergies/adverse reactions NKDA. Home medications Home medications initially autopopulated into [employer] may not accurately reflect patient's true medications, dosages, and/or frequencies. Unfortunately, patient uncertain of medications/dosages/frequencies. Order has been entered for staff to contact family, outpatient physician, and/or pharmacy to more accurately determine medications, dosages, and frequencies and to contact physician when that has been accomplished. REVIEW OF SYSTEMS: Constitutional: No fever or chills. Eyes: Wears glasses. ENT: No swallowing problems or complaints. Partial hearing loss. Pulmonary: No current complaints. Cardiovascular: No current complaints, including chest pain. Gastrointestinal: No current complaints, including nausea or vomiting. Skin: See history and present illness. Hematologic: No unusual easy bruising or bleeding. Neurologic: See history and present illness. No motor function or sensation in his lower extremities. Musculoskeletal: No current complaints, including painful joints. Psychiatric: No current complaints, including anxiety or depression. Endocrine: No current complaints, including polyuria. Genitourinary: No current complaints, including dysuria. PHYSICAL EXAMINATION: Temperature is not recorded on the chart. 5 feet 9 inches tall. 68.9 kg. Blood pressure 118/72. Pulse 86 and regular. 100% saturation on room air. Respirations are 12 and unlabored. Thin otherwise well-nourished well-developed -Finnish male appearing approximately his stated age. Pleasant awake alert and cooperative. Slightly fatigued in appearance. Mildly anxious, without agitation. Skin is warm and dry. No grossly obvious evidence of rash in areas of skin examined. No subcutaneous nodules palpated. Clean dry and intact dressings are present over the lateral aspect of his left foot and left ankle, and are left in place. Wound VAC dressing is present over his sacrum; this is left in place. ENT: Hearing grossly normal to normal conversation. Tongue midline on protrusion pink and slightly moist. Eyes: No scleral icterus. Pupils equal and reactive to light at 4 mm. Holmen conjunctivae. Neck is supple and nontender to gentle active range of motion and palpation. Midline trachea. No palpable thyroid nodule mass enlargement or tenderness. Lymphatic: No palpable cervical or clavicular nodes. Neck and lymphatic exams limited by patient body habitus. Psychiatric: Reasonable insight into chronic medical issues. Seems a bit confused as to recent events; thought it was 2016.. Lungs: Auscultation reveals clear and equal breath sounds bilaterally. No use of accessory respiratory muscles. Cardiovascular: Heart regular rate and rhythm, without gallop murmur or rub. No carotid or abdominal aortic bruits. No ankle or pedal edema. palpable dorsalis pedis pulses. Abdomen: soft, , slightly distended nontender with positive bowel sounds. Unable to adequately evaluate abdomen for masses or organomegaly due to distention. Extremities: Feet are warm and dry. No calf tenderness to compression. No grossly obvious visual evidence of calf swelling. Gentle manipulation of lower extremities decreased range of motion in knees and hips, likely due to long- standing nonambulatory status.. Neurologic: Moves upper extremities grossly normally. Light touch absent at feet, a chronic finding according to patient.. Flaccid lower extremities.. Past Medical History Cardiac Medical History: Denies: Coronary Artery Disease, DVT, Myocardial Infarction, Hyperlipidema, Hypertension, Pulmonary Embolism Pulmonary Medical History: Denies: Asthma, Chronic Obstructive Pulmonary Disease (COPD) EENT Medical History: Reports: Eyes - Glasses, Ears - Partial hearing loss Denies: Throat Neurological Medical History: Reports: Multiple Sclerosis Denies: Hemorrhagic CVA, Ischemic CVA, Seizures Endocrine Medical History: Denies: Diabetes Mellitus Type 1, Diabetes Mellitus Type 2, Hyperthyroidism, Hypothyroidism Renal/ Medical History: Reports: Other - Recurrent UTIs. GI Medical History: Denies: Cirrhosis, Gastroesophageal Reflux Disease, Hepatitis, Peptic Ulcer Disease Musculoskeltal Medical History: Reports: None Skin Medical History: Reports: Other - Chronic sacral decubitus ulcer Psychiatric Medical History: Reports: Tobacco Dependency - Smokes "on occasion. " Denies: Alcohol Dependency, Depression, General Anxiety Disorder, Substance Abuse Hematology: Reports: None Infectious Medical History: Denies: Hepatitis B, Hepatitis C Past Surgical History Past Surgical History: Reports: Other - Implantation of baclofen pump Social History Information Source: Patient, Emergency Med Personnel, [facility] Records Lives with: Spouse/Significant other Smoking Status: Current Some Day Smoker Frequency of Alcohol Use: None Hx Recreational Drug Use: No Hx Prescription Drug Abuse: No - Advance Directive Resuscitation Status: Full Code Surrogate healthcare decision maker:: Family History Family History: Reviewed & Not Pertinent Parental Family History Reviewed: Yes Children Family History Reviewed: Yes Sibling(s) Family History Reviewed.: Yes Medication/Allergy Home Medications: Ferrous Sulfate [Feosol 325 mg Tablet] 325 mg PO DAILY 02/04/17 Interferon Beta-1A [Avonex Pen] 30 mcg IM SA@1000 02/04/17 Multivitamin [Multivitamins] 1 each PO DAILY 02/04/17 Acetaminophen [Tylenol 325 mg Tablet] 650 mg PO Q4HP PRN tablet 02/09/17 Docusate Sodium [Colace 100 mg Capsule] 100 mg PO BID #0 capsule 02/09/17 Doxycycline Hyclate [Vibramycin 100 mg Tablet] 100 mg PO Q12 #14 tablet Allergies/Adverse Reactions: No Known Allergies Allergy (Verified 01/24/17 13:44) Physical Exam Vital Signs: Temp Pulse Resp BP Pulse Ox 13 112/70 100 02/03/17 21:01 02/03/17 21:01 02/03/17 21:01 Results Impressions: Chest X-Ray 02/03/17 18:49 IMPRESSION: NO SIGNIFICANT RADIOGRAPHIC FINDING IN THE CHEST. Assessment & Plan - Diagnosis (1) Acute encephalopathy Is this a current diagnosis for this admission?: YesPlan: Likely secondary to urinary tract infection, as has been the case in the past, per . Should resolve with time and treatment. (2) Urinary tract infection associated with catheterization of urinary tract Qualifiers: Indwelling urinary catheter type: indwelling urethral catheter Encounter type: initial encounter Qualified Code(s): T83.511A - Infection and inflammatory reaction due to indwelling urethral catheter, initial encounter; N39.0 - Urinary tract infection, site not specified Is this a current diagnosis for this admission?: YesPlan: Intravenous gentamicin, per culture results from the first of this month. blood and urine cultures have been redrawn. Knee high SCDs for DVT prophylaxis, along with subcutaneous Lovenox . Impression and plans were discussed with patient, and , both of whom concur. Time spent in evaluation and management of patient: 64 minutes. (3) Anemia Qualifiers: Anemia type: unspecified type Qualified Code(s): D64.9 - Anemia, unspecified Is this a current diagnosis for this admission?: YesPlan: Follow-up CBC with differential. No need for transfusion at present time. (4) Decubitus ulcer of left ankle Qualifiers: Pressure ulcer stage: unspecified pressure ulcer stage Qualified Code(s): L89.529 - Pressure ulcer of left ankle, unspecified stage Is this a current diagnosis for this admission?: YesPlan: Surgery consult. Innovative mattress. Turn every 2 hours. Dietary consult. (5) Decubitus ulcer of left foot Qualifiers: Pressure ulcer stage: unspecified pressure ulcer stage Qualified Code(s): L89.899 - Pressure ulcer of other site, unspecified stage Is this a current diagnosis for this admission?: Yes (6) Multiple sclerosis Is this a current diagnosis for this admission?: YesPlan: Resume home medications as appropriate once these have been determined and reviewed. (7) Presence of intrathecal baclofen pump Is this a current diagnosis for this admission?: Yes (8) Sacral decubitus ulcer Qualifiers: Pressure ulcer stage: unspecified pressure ulcer stage Qualified Code(s): L89.159 - Pressure ulcer of sacral region, unspecified stage Is this a current diagnosis for this admission?: Yes - Inpatient Certification Based on my medical assessment, after consideration of the patient's comorbidities, presenting symptoms, or acuity I expect that the services needed warrant INPATIENT care.: Yes I certify that my determination is in accordance with my understanding of Medicare's requirements for reasonable and necessary INPATIENT services [42 CFR 412.3e].: Yes Medical Necessity: Need Close Monitoring Due to Risk of Patient Decompensation, Need For IV Fluids, Need For Continuous Telemetry Monitoring, Need for IV Antibiotics, Risk of Complication if Not Cared For in Hospital, Risk of Diagnosis Which Will Require Inpatient Eval/Care/Monitoring Post Hospital Care: D/C or Transfer Summary
== END 2017-02-09 13:50 | disposition home health service (06) | DRG 673 ==
LOC: ER 18:45 → UNDOADMIN 22:13 → EH 22:13 → 3W 02-04 05:58
PROVIDERS: ADMIT Family Medicine; ATTEND Family Medicine
PROC: 0JB70ZZ Excision of Back Subcutaneous Tissue and Fascia, Open Approach (ICD-10-PCS; principal; 2017-02-03)
PROC: 0JB90ZZ Excision of Buttock Subcutaneous Tissue and Fascia, Open Approach (ICD-10-PCS; 2017-02-03)
DX: T83.511A Infection and inflammatory reaction due to indwelling urethral catheter, initial encounter (principal); L89.624 Pressure ulcer of left heel, stage 4; L89.523 Pressure ulcer of left ankle, stage 3; L89.154 Pressure ulcer of sacral region, stage 4; L89.313 Pressure ulcer of right buttock, stage 3; L89.893 Pressure ulcer of other site, stage 3; B96.1 Klebsiella pneumoniae [K. pneumoniae] as the cause of diseases classified elsewhere; N39.0 Urinary tract infection, site not specified; G35 Multiple sclerosis; D64.9 Anemia, unspecified; N31.9 Neuromuscular dysfunction of bladder, unspecified; I95.9 Hypotension, unspecified; Z78.1 Physical restraint status; Z16.23 Resistance to quinolones and fluoroquinolones; Z74.01 Bed confinement status; Z96.89 Presence of other specified functional implants; F43.10 Post-traumatic stress disorder, unspecified; Z99.3 Dependence on wheelchair; Z86.14 Personal history of Methicillin resistant Staphylococcus aureus infection
CPT/HCPCS: 11042; 11043; 11046; 36415; 71010; 80048; 80053; 80170; 81001; 82565; 82803; 83605; 85025; 85610; 87040; 87086; 87088; 87186; 93005; 93010; 96361; 96365; 97605; 99291; J0696; J1580; J1650; J2060; J3480; J3490; J7030

== ENCOUNTER 2017-03-05 23:48 | Emergency (ER) | payer MEDICARE, OTHER ==
--- NOTE | 2017-03-06 00:08 | ER Document Report ---
ED GI/ - General Stated Complaint: URINARY CATH REMOVED Time seen by provider: 00:06 Notes: Patient is a 41-year-old male that comes emergency department for chief complaint of accidental removal of his Garcia catheter earlier today. He states that he has multiple sclerosis, he is bedridden, he is dependent on a chronic indwelling Garcia catheter. He states the catheter was actually pulled out when it got caught on his shorts when his was helping him remove his shorts earlier. He states he had minimal bleeding. He denies any other symptoms. He states he was supposed to get his Garcia changed 2 weeks ago but had not made it back to his urologist yet. TRAVEL OUTSIDE OF THE [place] IN LAST 30 DAYS: No - Related Data Allergies/Adverse Reactions: No Known Allergies Allergy (Verified 03/06/17 00:32) Past Medical History - General Information source: Patient - Social History Smoking Status: Never Smoker Frequency of alcohol use: None Drug Abuse: None Lives with: Family Family History: Reviewed & Not Pertinent - Past Medical History Cardiac Medical History: Denies: Hx Coronary Artery Disease, Hx DVT, Hx Heart Attack, Hx Hypercholesterolemia, Hx Hypertension, Hx Pulmonary Embolism Pulmonary Medical History: Denies: Hx Asthma, Hx COPD Neurological Medical History: Reports: Other - Multiple sclerosis. Denies: Hx Seizures Endocrine Medical History: Denies: Hx Diabetes Mellitus Type 1, Hx Diabetes Mellitus Type 2, Hx Hyperthyroidism, Hx Hypothyroidism Renal/ Medical History: Denies: Hx Peritoneal Dialysis GI Medical History: Denies: Hx Cirrhosis, Hx Gastroesophageal Reflux Disease, Hx Hepatitis Musculoskeltal Medical History: Reports Hx Multiple Sclerosis Psychiatric Medical History: Denies: Hx Depression Infectious Medical History: Denies: Hx Hepatitis Past Surgical History: Reports: Hx Abdominal Surgery - wound pump, Other - Implantation of baclofen pump - Immunizations Hx Diphtheria, Pertussis, Tetanus Vaccination: No Review of Systems - Review of Systems Constitutional: No symptoms reported EENT: No symptoms reported Cardiovascular: No symptoms reported Respiratory: No symptoms reported Gastrointestinal: No symptoms reported Genitourinary: See HPI Male Genitourinary: No symptoms reported Musculoskeletal: No symptoms reported Skin: No symptoms reported Hematologic/Lymphatic: No symptoms reported Neurological/Psychological: No symptoms reported Physical Exam - Vital signs Vitals: Temp Pulse Resp BP Pulse Ox 98.3 F 85 16 147/88 H 100 03/05/17 23:49 03/05/17 23:49 04/10/17 23:49 03/05/17 23:49 03/05/17 23:49 Interpretation: Normal - General General appearance: Appears well, Alert In distress: None - HEENT Head: Normocephalic, Atraumatic Eyes: Normal Pupils: PERRL - Respiratory Respiratory status: No respiratory distress Chest status: Nontender Breath sounds: Normal Chest palpation: Normal - Cardiovascular Rhythm: Regular Heart sounds: Normal auscultation Murmur: No - Abdominal Inspection: Normal Distension: No distension Bowel sounds: Normal Tenderness: Nontender Organomegaly: No organomegaly - Genitourinary Inspection: Blood at meatus - Very small amount, no current hemorrhage Tenderness: Nontender Scrotum: Normal. No: Swelling, Redness, Hot to touch - Back Back: Normal, Nontender - Extremities General upper extremity: Normal inspection, Nontender, Normal color, Normal ROM , Normal temperature General lower extremity: Other - Somewhat emaciated lower extremities with normal distal vascular exam - Neurological Neuro grossly intact: Yes Cognition: Normal Orientation: AAOx4 [place] Coma Scale Eye Opening: Spontaneous Maria M Coma Scale Verbal: Oriented Maria M Coma Scale Motor: Obeys Commands Maria M Coma Scale Total: 15 Speech: Normal Motor strength normal: LUE, RUE, LLE, RLE Sensory: Normal - Psychological Associated symptoms: Normal affect, Normal mood - Skin Skin Temperature: Warm Skin Moisture: Dry Skin Color: Normal Course - Re-evaluation Re-evalutation: On examination patient has a small amount of dried blood at the urethra, after this was wiped away no additional bleeding was noted, I did not appreciate any gross hematuria or other abnormality in the newly placed Garcia catheter, no signs of trauma otherwise. Urinalysis is nonspecific given the trauma, does show white blood cells and red blood cells, no nitrites, culture placed. Spoke with , she states that patient was acting strange earlier today and has been doing so every day for the past couple of weeks, she states he is making statements like I need to go to my house when he is at home etc. On initial evaluation patient alert and oriented with no confusion, I reexamined him, he can tell me his name, location, the month, and responded any and all questions appropriately. No evidence of confusion. I did tell this to the , she states that she plans on taking him to the [place] for additional neurology and psychiatry evaluation, she declines having him stay for further evaluation, patient wants to go home when asked. Because of uncertain urine, frequent urinary tract infections and history of urosepsis reported, patient will be given dose of Rocephin and placed on Keflex pending urine culture. Discussed return precautions with patient and significant other. They state understanding and agreement. - Vital Signs Vital signs: Temp Pulse Resp BP Pulse Ox 98.5 F 81 16 153/80 H 100 03/06/17 02:59 03/06/17 02:59 03/06/17 02:59 03/06/17 02:59 03/06/17 02:59 - Laboratory Laboratory results interpreted by me: 03/06/17 01:31 Urine Protein 30 H Urine Blood LARGE H Ur Leukocyte Esterase LARGE H Discharge - Discharge Clinical Impression: Garcia catheter problem Qualifiers: Encounter type: initial encounter Qualified Code(s): T83.9XXA - Unspecified complication of genitourinary prosthetic device, implant and graft, initial encounter Condition: Stable Disposition: HOME, SELF-CARE Additional Instructions: There may be some minimal bleeding noted because of the injury. Urine is nonspecific, could be traumatic versus infectious, we have a urine culture growing in our lab. Please take the antibiotic as directed, you have been given a dose of Rocephin here tonight. Follow-up closely within the next several days with your urologist for a reevaluation. Return immediately for any concerning or worsening symptoms including abdominal pain, worsening or concerning bleeding, confusion, fever, or any other concerning symptoms. Prescriptions: Cephalexin Monohydrate [Keflex 500 mg Capsule] 500 mg PO BID #14 capsule
[2017-03-06 02:03] LABS: APPEARANCE,URINE CLOUDY; BILIRUBIN,URINE NEGATIVE (NEGATIVE); GLUCOSE, URINE NEGATIVE (NEGATIVE); KETONES,URINE NEGATIVE (NEGATIVE); LEUKOCYTE ESTERASE,URINE LARGE (NEGATIVE); NITRITE,URINE NEGATIVE (NEGATIVE); PROTEIN,URINE 30 mg/dL (NEGATIVE); UROBILINOGEN,URINE NEGATIVE mg/dL (<2.0)
[2017-03-06] MEDS ORDERED: CEFTRIAXONE INJ 1000 MG VIAL IM ONE (02:10)
[2017-03-06] MEDS ORDERED: LIDOCAINE 1% INJ-PF (10 MG/ML) 30 ML SDV INJ ONE (02:10)
[2017-03-06 03:06] VITALS: BP 153/80
== END 2017-03-06 03:18 | disposition home or self-care (01) ==
LOC: ER 23:48
DX: T83.9XXA Unspecified complication of genitourinary prosthetic device, implant and graft, initial encounter (principal)
CPT/HCPCS: 99283; 96372; 51702; 87086; 81001; J3490; J0696

== ENCOUNTER 2017-04-06 01:46 | Emergency (ER) | payer MEDICARE, OTHER ==
[2017-04-06 03:09] LABS: ALANINE AMINOTRANSFERASE 20 U/L (21-72); ALBUMIN 4.1 g/dL (3.5-5.0); ALKALINE PHOSPHATASE 116 U/L (38-126); ANION GAP 16 (5-19); ASPARTATE AMINO TRANSFERASE 18 U/L (17-59); BILIRUBIN,DIRECT 0.5 mg/dL (0.0-0.4); BILIRUBIN,TOTAL 0.8 mg/dL (0.2-1.3); BLOOD UREA NITROGEN 17 mg/dL (7-20); CALCIUM 9.7 mg/dL (8.4-10.2); CARBON DIOXIDE 25 mmol/L (22-30); CHLORIDE 99 mmol/L (98-107); CREATINE KINASE 49 U/L (55-170); CREATININE RESULT 0.49 mg/dL (0.52-1.25); GLUCOSE 96 mg/dL (75-110); POTASSIUM 4.7 mmol/L (3.6-5.0); SODIUM 139.7 mmol/L (137-145); TOTAL PROTEIN 9.1 g/dL (6.3-8.2)
[2017-04-06 03:26] LABS: APPEARANCE,URINE CLOUDY; BILIRUBIN,URINE NEGATIVE (NEGATIVE); GLUCOSE, URINE NEGATIVE (NEGATIVE); KETONES,URINE NEGATIVE (NEGATIVE); LEUKOCYTE ESTERASE,URINE LARGE (NEGATIVE); NITRITE,URINE POSITIVE (NEGATIVE); PROTEIN,URINE NEGATIVE (NEGATIVE); URINE SPECIFIC GRAVITY 1.013; UROBILINOGEN,URINE NEGATIVE mg/dL (<2.0)
[2017-04-06 03:55] LABS: ABSOLUTE EOSINOPHILS # (AUTO) 0.2 10^3/uL (0.0-0.6); ABSOLUTE LYMPHOCYTES (AUTO) 1.9 10^3/uL (0.5-4.7); ABSOLUTE MONOCYTES (AUTO) 1.1 10^3/uL (0.1-1.4); ABSOLUTE NEUT (AUTO) 4.2 10^3/uL (1.7-8.2); BASOPHILS % (AUTO) 0.4 % (0-2); EOSINOPHILS % (AUTO) 3.2 % (0-6); HEMATOCRIT 33.6 % (37.9-51.0); HEMOGLOBIN 10.7 g/dL (13.5-17.0); HGB HCT DIFFERENCE -1.5; LYMPHOCYTES % (AUTO) 25.5 % (13-45); MEAN CORPUSCULAR VOLUME 88 fl (80-97); MONOCYTES % (AUTO) 14.3 % (3-13); RED BLOOD COUNT 3.83 10^6/uL (4.35-5.55); RED CELL DISTRIBUTION WIDTH 16.9 % (11.5-14.0); SEGMENTED NEUTROPHILS % (AUTO) 56.6 % (42-78); WHITE BLOOD COUNT 7.4 10^3/uL (4.0-10.5)
--- NOTE | 2017-04-06 05:03 | ER Document Report ---
ED GI/ - General Mode of Arrival: Medic Information source: Relative TRAVEL OUTSIDE OF THE [place] IN LAST 30 DAYS: No <ARTHUR DODGE - Last Filed: 04/06/17 07:07> <RC MCDANIEL - Last Filed: 04/06/17 10:31> - General Chief Complaint: Urinary Problem Stated Complaint: ALTERED MENTAL STATUS Time Seen by Provider: 04/06/17 02:54 Notes: Patient is a 42-year-old -Maur[place] male brought into the emergency department by EMS for altered mental status per . Patient has multiple sclerosis and dementia and has been admitted here multiple times for altered mental status due to urinary tract infection. also states that he was started on Haldol, new medication 8 days ago. She states that it is 0.5 mg once a day at bedtime and that she has noticed no change with his "delusions." She states that his altered mental status this time began approximately 2 days ago, but that he goes from "being normal one-day to the next day being delusional and altered." She says "nobody will tell me what's wrong." He does have an indwelling urinary catheter. She denies a he's had any fevers that she knows of, vomiting, diarrhea. She describes his altered mental status as him "talking out of his head." She says that he says things that don't make sense or that you can't understand what's "coming out of his mouth." (ARTHUR DODGE) - Related Data Allergies/Adverse Reactions: No Known Allergies Allergy (Verified 03/06/17 00:32) Past Medical History - General Information source: Patient - Social History Smoking Status: Never Smoker Chew tobacco use (# tins/day): No Frequency of alcohol use: None Drug Abuse: None Family History: Reviewed & Not Pertinent Patient has suicidal ideation: No Patient has homicidal ideation: No - Past Medical History Cardiac Medical History: Denies: Hx Coronary Artery Disease, Hx DVT, Hx Heart Attack, Hx Hypercholesterolemia, Hx Hypertension, Hx Pulmonary Embolism Pulmonary Medical History: Denies: Hx Asthma, Hx COPD Neurological Medical History: Denies: Hx Seizures Endocrine Medical History: Denies: Hx Diabetes Mellitus Type 1, Hx Diabetes Mellitus Type 2, Hx Hyperthyroidism, Hx Hypothyroidism Renal/ Medical History: Denies: Hx Peritoneal Dialysis GI Medical History: Denies: Hx Cirrhosis, Hx Gastroesophageal Reflux Disease, Hx Hepatitis Musculoskeltal Medical History: Reports Hx Multiple Sclerosis Psychiatric Medical History: Denies: Hx Depression Infectious Medical History: Denies: Hx Hepatitis Past Surgical History: Reports: Hx Abdominal Surgery - wound pump, Other - Implantation of baclofen pump - Immunizations Hx Diphtheria, Pertussis, Tetanus Vaccination: No <ARTHUR DODGE - Last Filed: 04/06/17 07:07> Review of Systems - Review of Systems Constitutional: No symptoms reported EENT: No symptoms reported Cardiovascular: No symptoms reported Respiratory: No symptoms reported Gastrointestinal: No symptoms reported Genitourinary: See HPI Male Genitourinary: No symptoms reported Musculoskeletal: No symptoms reported Skin: No symptoms reported Hematologic/Lymphatic: No symptoms reported Neurological/Psychological: See HPI <ARTHUR DODGE - Last Filed: 04/06/17 07:07> Physical Exam <ARTHUR DODGE - Last Filed: 04/06/17 07:07> <RC MCDANIEL - Last Filed: 04/06/17 10:31> - Vital signs Vitals: Temp Pulse Resp BP Pulse Ox 97.8 F 84 16 116/75 99 04/06/17 02:00 04/06/17 02:00 04/06/17 02:00 04/06/17 02:00 04/06/17 02:00 - Notes Notes: PHYSICAL EXAMINATION: GENERAL: Obviously altered, rolling around in the bed, in no acute distress. HEAD: Atraumatic, normocephalic. EYES: Pupils equal round and reactive to light, extraocular movements intact, sclera anicteric, conjunctiva are normal. NECK: Normal range of motion, supple without lymphadenopathy LUNGS: CTAB and equal. No wheezes rales or rhonchi. HEART: Regular rate and rhythm without murmurs ABDOMEN: Soft, no tenderness. No guarding, no rebound GI/: Catheter in place, No CVA tenderness EXTREMITIES: Limited range of motion lower extremities, no pitting edema. No cyanosis. NEUROLOGICAL: Obviously altered, unable to assess PSYCH: Unable to assess SKIN: Warm, Dry, normal turgor, pressure ulcers on bilateral buttocks and left heel (ARTHUR DODGE) Course - Laboratory Result Diagrams: 04/06/17 03:43 04/06/17 02:30 <ARTHUR DODGE - Last Filed: 04/06/17 07:07> - Laboratory Result Diagrams: 04/06/17 03:43 04/06/17 02:30 - Diagnostic Test Radiology reviewed: Reports reviewed <RC MCDANIEL - Last Filed: 04/06/17 10:31> - Re-evaluation Re-evalutation: 04/06/17 06:33 Patient is afebrile with a normal white blood cell count, other lab work today is unremarkable except for urinalysis which reveals positive nitrites, large leukocytes in the 115 white blood cells. Patient does have an indwelling urinary catheter so it is unclear if this is a true infection or if this is bacteria growing in the catheter. Patient was started on Haldol 8 days ago, does admit that occasionally he'll go back and forth between her normal state of awareness and delusions. I am not quite sure today that he has any type of true emergent altered mental status or if this is just his dementia progressing. I have spoken with my attending about this patient who agrees that we should treat UTI, but without fever or WBC elevated and with history from that this mental status has been ongoing, it is more likely that this is part of his dementia then anything acute. 04/06/17 07:07 (ARTHUR DODGE) 04/06/17 07:25 Bedside report received from Olaf YOUNG. 04/06/17 08:00 Patient resting in room, patient alert and oriented. Discussed patient's , length of marriage and number of kids that he has at home. Patient answers questions appropriately. Patient repositioned. Patient requesting a breakfast tray. Radiologist called report of CT to this provider, consulted with Dr. farr regarding results and patient disposition. Agrees with plan of care. Spoke with patient's Victorina regarding plan of care and plan for discharge. Recommends calling [facility] 04/06/17 10:26 Patient's called stating that patient is again confused and talking to people in the room who weren't there. states that he has been having symptoms like this off and on since July of last year but symptoms seem to be worsening over the past few months. states that his primary doctor has mentioned dementia, although patient has not been formally diagnosed with dementia. states that he has acted like this in the past when he has had a UTI. states that she has been capable of handling his symptoms of paralysis but is having difficulty at home managing his episodes of confusion and when he attempts to pull out his Garcia catheter. states that she has been told by his primary doctor that they may need to see a mental health provider as well for his anger outbursts and occasional confusion. states these symptoms do come and go. states that she went into the room and he was answering appropriately, and that she left the room and that he started talking to someone who wasn't in the room. concerned that she is not capable of managing his condition. Discussed patient's diagnostic tests again with . Discussed outpatient follow-up with his primary doctor as well as a mental health provider. Advised that if she feels that he needs reevaluation that she can definitely have him sent back here for a repeat examination. Discussed conversation with with Dr. Walter who advises that if is concerned she may have has been brought back care for a reevaluation. (RC MCDANIEL) - Vital Signs Vital signs: Temp Pulse Resp BP Pulse Ox 98.2 F 88 18 122/74 97 04/06/17 08:19 04/06/17 08:19 04/06/17 08:19 04/06/17 08:19 04/06/17 08:19 - Laboratory Laboratory results interpreted by me: 04/06/17 04/06/17 04/06/17 02:30 02:30 03:43 RBC 3.83 L Hgb 10.7 L Hct 33.6 L RDW 16.9 H Monocytes % 14.3 H Creatinine 0.49 L Direct Bilirubin 0.5 H ALT 20 L Creatine Kinase 49 L Total Protein 9.1 H Urine Nitrite POSITIVE H Ur Leukocyte Esterase LARGE H Urine Ascorbic Acid 40 H 04/06/17 08:01 04/06/17 08:01 Labs- Entire Visit 04/06/17 04/06/17 04/06/17 02:30 02:30 02:30 WBC RBC Hgb Hct MCV MCH MCHC RDW Plt Count Seg Neutrophils % Lymphocytes % Monocytes % Eosinophils % Basophils % Absolute Neutrophils Absolute Lymphocytes Absolute Monocytes Absolute Eosinophils Absolute Basophils Sodium 139.7 Potassium 4.7 Chloride 99 Carbon Dioxide 25 Anion Gap 16 BUN 17 Creatinine 0.49 L Est GFR ( Amer) > 60 Est GFR (Non-Af Amer) > 60 Glucose 96 Calcium 9.7 Total Bilirubin 0.8 Direct Bilirubin 0.5 H Indirect Bilirubin Not Reportable Neonat Total Bilirubin Not Reportable AST 18 ALT 20 L Alkaline Phosphatase 116 Creatine Kinase 49 L CK-MB (CK-2) Troponin I Total Protein 9.1 H Albumin 4.1 Urine Color YELLOW Urine Appearance CLOUDY Urine pH 6.0 Ur Specific [place] 1.013 Urine Protein NEGATIVE Urine Glucose (UA) NEGATIVE Urine Ketones NEGATIVE Urine Blood NEGATIVE Urine Nitrite POSITIVE H Urine Bilirubin NEGATIVE Urine Urobilinogen NEGATIVE Ur Leukocyte Esterase LARGE H Urine WBC (Auto) 112 Urine RBC (Auto) 11 Urine Bacteria (Auto) 3+ Urine WBC Clumps MOD Urine Mucus (Auto) RARE Urine Ascorbic Acid 40 H Urine Opiates Screen Urine Methadone Screen Ur Barbiturates Screen Ur Phencyclidine Scrn Ur Amphetamines Screen U Benzodiazepines Scrn Urine Cocaine Screen U Marijuana (THC) Screen Serum Alcohol < 10 04/06/17 04/06/17 04/06/17 02:30 03:43 03:43 WBC 7.4 RBC 3.83 L Hgb 10.7 L Hct 33.6 L MCV 88 MCH 28.0 MCHC 32.0 RDW 16.9 H Plt Count 368 Seg Neutrophils % 56.6 Lymphocytes % 25.5 Monocytes % 14.3 H Eosinophils % 3.2 Basophils % 0.4 Absolute Neutrophils 4.2 Absolute Lymphocytes 1.9 Absolute Monocytes 1.1 Absolute Eosinophils 0.2 Absolute Basophils 0.0 Sodium Potassium Chloride Carbon Dioxide Anion Gap BUN Creatinine Est GFR ( Amer) Est GFR (Non-Af Amer) Glucose Calcium Total Bilirubin Direct Bilirubin Indirect Bilirubin Neonat Total Bilirubin AST ALT Alkaline Phosphatase Creatine Kinase CK-MB (CK-2) 0.82 Troponin I Total Protein Albumin Urine Color Urine Appearance Urine pH Ur Specific [place] Urine Protein Urine Glucose (UA) Urine Ketones Urine Blood Urine Nitrite Urine Bilirubin Urine Urobilinogen Ur Leukocyte Esterase Urine WBC (Auto) Urine RBC (Auto) Urine Bacteria (Auto) Urine WBC Clumps Urine Mucus (Auto) Urine Ascorbic Acid Urine Opiates Screen NEGATIVE Urine Methadone Screen NEGATIVE Ur Barbiturates Screen NEGATIVE Ur Phencyclidine Scrn NEGATIVE Ur Amphetamines Screen NEGATIVE U Benzodiazepines Scrn NEGATIVE Urine Cocaine Screen NEGATIVE U Marijuana (THC) Screen NEGATIVE Serum Alcohol 04/06/17 03:43 WBC RBC Hgb Hct MCV MCH MCHC RDW Plt Count Seg Neutrophils % Lymphocytes % Monocytes % Eosinophils % Basophils % Absolute Neutrophils Absolute Lymphocytes Absolute Monocytes Absolute Eosinophils Absolute Basophils Sodium Potassium Chloride Carbon Dioxide Anion Gap BUN Creatinine Est GFR ( Amer) Est GFR (Non-Af Amer) Glucose Calcium Total Bilirubin Direct Bilirubin Indirect Bilirubin Neonat Total Bilirubin AST ALT Alkaline Phosphatase Creatine Kinase CK-MB (CK-2) Troponin I < 0.012 Total Protein Albumin Urine Color Urine Appearance Urine pH Ur Specific [place] Urine Protein Urine Glucose (UA) Urine Ketones Urine Blood Urine Nitrite Urine Bilirubin Urine Urobilinogen Ur Leukocyte Esterase Urine WBC (Auto) Urine RBC (Auto) Urine Bacteria (Auto) Urine WBC Clumps Urine Mucus (Auto) Urine Ascorbic Acid Urine Opiates Screen Urine Methadone Screen Ur Barbiturates Screen Ur Phencyclidine Scrn Ur Amphetamines Screen U Benzodiazepines Scrn Urine Cocaine Screen U Marijuana (THC) Screen Serum Alcohol (RC MCDANIEL) Discharge <ARTHUR DODGE - Last Filed: 04/06/17 07:07> <RC MCDANIEL - Last Filed: 04/06/17 10:31> - Discharge Clinical Impression: Urinary tract infection associated with catheterization of urinary tract Qualifiers: Indwelling urinary catheter type: indwelling urethral catheter Encounter type: initial encounter Qualified Code(s): T83.511A - Infection and inflammatory reaction due to indwelling urethral catheter, initial encounter Dementia Qualifiers: Dementia type: associated with other underlying disease Dementia behavioral disturbance: with behavioral disturbance Qualified Code(s): F02.81 - Dementia in other diseases classified elsewhere with behavioral disturbance Condition: Stable Disposition: HOME, SELF-CARE Additional Instructions: Return immediately for any new or worsening symptoms. Follow up with primary care provider, call tomorrow to make followup appointment. Prescriptions: Amox Tr/Potassium Clavulanate [Augmentin 875-125 Tablet] 1 tab PO BID 10 Days
[2017-04-06 05:21] LABS: URINE BARBITURATES SCREEN NEGATIVE; URINE METHADONE SCREEN NEGATIVE; URINE OPIATES LOW NEGATIVE; URINE PHENCYCLIDINE SCREEN NEGATIVE
[2017-04-06] MEDS ORDERED: AMOXICILLIN TR/POT CLAVULANATE 500-125 MG TAB PO ONE (07:07)
[2017-04-06 08:20] VITALS: BP 122/74
--- NOTE | 2017-04-06 11:31 | EKG REPORT ---
SEVERITY:- BORDERLINE ECG - SINUS RHYTHM PROBABLE LEFT ATRIAL ABNORMALITY BORDERLINE PROLONGED QT INTERVAL : Confirmed by: Jacek Tello 06-Apr-2017 11:30:43
== END 2017-04-06 08:43 | disposition home or self-care (01) ==
LOC: ER 01:46
DX: T83.511A Infection and inflammatory reaction due to indwelling urethral catheter, initial encounter (principal); N39.0 Urinary tract infection, site not specified; Y73.8 Miscellaneous gastroenterology and urology devices associated with adverse incidents, not elsewhere classified; F02.81 Dementia in other diseases classified elsewhere, unspecified severity, with behavioral disturbance; G35 Multiple sclerosis; L89.329 Pressure ulcer of left buttock, unspecified stage; L89.319 Pressure ulcer of right buttock, unspecified stage; L89.629 Pressure ulcer of left heel, unspecified stage; Z79.899 Other long term (current) drug therapy
CPT/HCPCS: 93005; 99285; 36415; 87086; 82553; 80307 ×2; 82550; 85025; 87088; 80053; 81001; 84484; 87186; 71010; 70450; 93010; A9270

== ENCOUNTER 2017-04-07 01:28 | Emergency (ER) | payer MEDICARE, OTHER ==
[2017-04-07] MEDS ORDERED: CEFTRIAXONE INJ 1000 MG VIAL IV ONE ×2 (02:16→12:53)
--- NOTE | 2017-04-07 02:32 | ER Document Report ---
ED General - General Chief Complaint: Altered Mental Status Stated Complaint: ALTERED MENTAL STATUS Time Seen by Provider: 04/07/17 02:12 Mode of Arrival: Medic Information source: Patient, Relative TRAVEL OUTSIDE OF THE [place] IN LAST 30 DAYS: No - HPI Notes: 42-year-old male with history of advanced multiple sclerosis, currently bedbound with decubitus ulcers presents to the emergency department with report of gradually progressive psychosis and hallucinations and delirium since this past August. Patient was seen yesterday and diagnosed with a UTI and started on Augmentin, but he was afebrile with a normal white blood cell count and a chronic indwelling catheter that always showed contamination. Urine culture from yesterday grew gram-negative rods with further sensitivity pending. Patient has chronic decubiti on the sacral region and left foot and is single wound care clinic every Sunday and every Sunday home health comes by to change the wound dressings. Patient's states that the decubitus wounds are slightly improved. Patient has not had any fevers or cough, and he denies any abdominal pain or chest pain or headache or neck pain. There's been no head injury. Patient had a negative CT scan for acute intracranial process yesterday. Atrophy was demonstrated on CT scan. Patient's states his delirium is intermittent but gradually progressively worsening. - Related Data Allergies/Adverse Reactions: No Known Allergies Allergy (Verified 03/06/17 00:32) Past Medical History - General Information source: Patient, Relative - Social History Smoking Status: Never Smoker Frequency of alcohol use: Rare Drug Abuse: None Lives with: Family Family History: Reviewed & Not Pertinent Patient has suicidal ideation: No Patient has homicidal ideation: No - Past Medical History Cardiac Medical History: Denies: Hx Coronary Artery Disease, Hx DVT, Hx Heart Attack, Hx Hypercholesterolemia, Hx Hypertension, Hx Pulmonary Embolism Pulmonary Medical History: Denies: Hx Asthma, Hx COPD Neurological Medical History: Denies: Hx Seizures Endocrine Medical History: Denies: Hx Diabetes Mellitus Type 1, Hx Diabetes Mellitus Type 2, Hx Hyperthyroidism, Hx Hypothyroidism Renal/ Medical History: Denies: Hx Peritoneal Dialysis GI Medical History: Denies: Hx Cirrhosis, Hx Gastroesophageal Reflux Disease, Hx Hepatitis Musculoskeltal Medical History: Reports Hx Multiple Sclerosis Psychiatric Medical History: Denies: Hx Depression Infectious Medical History: Denies: Hx Hepatitis Past Surgical History: Reports: Hx Abdominal Surgery - wound pump, Other - Implantation of baclofen pump - Immunizations Hx Diphtheria, Pertussis, Tetanus Vaccination: No Review of Systems - Review of Systems Notes: REVIEW OF SYSTEMS: CONSTITUTIONAL : Denies fever, chills, or sweats. EENT: Denies eye, ear, throat, or mouth pain or symptoms. Denies nasal or sinus congestion or discharge. Denies throat, tongue, or mouth swelling or difficulty swallowing. CARDIOVASCULAR: Denies chest pain. Denies palpitations or racing or irregular heart beat. Denies ankle edema. RESPIRATORY: Denies cough, cold, or chest congestion. Denies shortness of breath, difficulty breathing, or wheezing. GASTROINTESTINAL: Denies abdominal pain or distention. Denies nausea, vomiting , or diarrhea. Denies blood in vomitus, stools, or per rectum. Denies black, tarry stools. Denies constipation. GENITOURINARY: Denies difficulty urinating, painful urination, burning, frequency, blood in urine, or discharge. MUSCULOSKELETAL: Denies back or neck pain or stiffness. Denies joint pain or swelling. SKIN: Decubitus ulcers and gluteal region and left foot HEMATOLOGIC : Denies easy bruising or bleeding. LYMPHATIC: Denies swollen, enlarged glands. NEUROLOGICAL: Denies passing out or loss of consciousness. Denies dizziness or lightheadedness. Denies headache. Denies weakness or paralysis or loss of use of either side. Denies problems with gait or speech. Denies sensory loss, numbness, or tingling. Denies seizures. PSYCHIATRIC: Denies anxiety or stress. Denies depression, suicidal ideation, or homicidal ideation. Patient's states that the patient has not been sleeping at night. Patient has active hallucinations intermittently. ALL OTHER SYSTEMS REVIEWED AND NEGATIVE. Dictation was performed using [employer] recognition software Physical Exam - Vital signs Vitals: Resp Pulse Ox 12 100 04/07/17 02:10 04/07/17 02:10 - Notes Notes: PHYSICAL EXAMINATION: GENERAL: Well-appearing, well-nourished and in no acute distress. Patient intermittently answers questions that nobody is asking. He does have flight of ideas. HEAD: Atraumatic, normocephalic. EYES: Pupils equal round and reactive to light, extraocular movements intact, sclera anicteric, conjunctiva are normal. ENT: Nares patent, oropharynx clear without exudates. Moist mucous membranes. NECK: Normal range of motion, supple without lymphadenopathy. No meningismus. LUNGS: Breath sounds clear to auscultation bilaterally and equal. No wheezes rales or rhonchi. HEART: Regular rate and rhythm without murmurs ABDOMEN: Soft, nontender, nondistended abdomen. No guarding, no rebound. No masses appreciated. Musculoskeletal: Normal range of motion, no pitting or edema. No cyanosis. NEUROLOGICAL: Normal speech at times and mumbles and other times. Cranial nerves II through XII are intact. There is mild bilateral weakness in both upper extremities with profound weakness and contractures in both lower extremities. Patient is in a diaper chronically. Mild tremor noted. PSYCH: Labile affect. Patient is responding to some internal hallucinations, but will answer questions correctly at times. No suicidal or homicidal ideation. SKIN: Warm, Dry, normal turgor, decubitus ulceration stage IV on the gluteal region and sacral region with a decubitus stage III on the left foot lateral aspect. No gross evidence for cellulitis or active abscess. Course - Re-evaluation Re-evalutation: 04/07/17 07:11 Wounds were cleaned and dressed. Medication list was reviewed which showed that the patient was only taking 0.5 mg of Haldol daily at bedtime which had started 5 days ago related to the psychosis. This is thought to be an extremely low dose and most likely is unaffected. Patient is given Risperdal 1 mg and Cogentin 1 mg to better combat the psychosis. Discussion was undertaken with the hospitalist to agree that there was no medical reason to admit him with improved decubitus ulcers and no fever or elevation of the white blood cell count that would signify a severe UTI. Patient was given Rocephin 1 g IV to cover for UTI. Urine culture from 04/06/17 still pending but didn't show gram-negative rods preliminarily. Patient is medically cleared for psychiatric evaluation, and a psychiatric consultation is ordered. No evidence for significant anemia or SIRS or sepsis or significant dehydration or hypoglycemia. 04/07/17 07:13 - Vital Signs Vital signs: Temp Pulse Resp BP Pulse Ox 13 143/88 H 100 04/07/17 06:01 04/07/17 06:01 04/07/17 02:10 - Laboratory Result Diagrams: 04/07/17 02:18 04/07/17 02:18 Laboratory results interpreted by me: 04/07/17 04/07/17 02:18 02:18 RBC 4.27 L Hgb 12.2 L Hct 37.6 L RDW 17.3 H Chloride 97 L Creatinine 0.45 L Alkaline Phosphatase 127 H Total Protein 9.2 H Discharge - Discharge Clinical Impression: Decubital ulcer Qualifiers: Pressure ulcer location: foot, unspecified location Pressure ulcer stage: stage 3 Laterality: left Qualified Code(s): L89.893 - Pressure ulcer of other site, stage 3 UTI (urinary tract infection) Qualifiers: Urinary tract infection type: catheter-associated UTI Indwelling urinary catheter type: indwelling urethral catheter Encounter type: initial encounter Qualified Code(s): T83.511A - Infection and inflammatory reaction due to indwelling urethral catheter, initial encounter Psychosis Qualifiers: Psychosis type: unspecified psychosis type Qualified Code(s): F29 - Unspecified psychosis not due to a substance or known physiological condition
[2017-04-07 03:13] LABS: ABSOLUTE BASOPHILS # (AUTO) 0.1 10^3/uL (0.0-0.2); ABSOLUTE EOSINOPHILS # (AUTO) 0.3 10^3/uL (0.0-0.6); ABSOLUTE LYMPHOCYTES (AUTO) 1.7 10^3/uL (0.5-4.7); ABSOLUTE MONOCYTES (AUTO) 0.8 10^3/uL (0.1-1.4); ABSOLUTE NEUT (AUTO) 5.3 10^3/uL (1.7-8.2); BASOPHILS % (AUTO) 0.8 % (0-2); EOSINOPHILS % (AUTO) 3.2 % (0-6); HEMATOCRIT 37.6 % (37.9-51.0); HEMOGLOBIN 12.2 g/dL (13.5-17.0); LYMPHOCYTES % (AUTO) 21.3 % (13-45); MEAN CORPUSCULAR HEMOGLOBIN 28.6 pg (27.0-33.4); MEAN CORPUSCULAR HGB CONC 32.5 g/dL (32.0-36.0); MEAN CORPUSCULAR VOLUME 88 fl (80-97); MONOCYTES % (AUTO) 9.4 % (3-13); RED BLOOD COUNT 4.27 10^6/uL (4.35-5.55); RED CELL DISTRIBUTION WIDTH 17.3 % (11.5-14.0); SEGMENTED NEUTROPHILS % (AUTO) 65.3 % (42-78); WHITE BLOOD COUNT 8.1 10^3/uL (4.0-10.5)
[2017-04-07 04:44] LABS: ALANINE AMINOTRANSFERASE 23 U/L (21-72); ALBUMIN 4.2 g/dL (3.5-5.0); ALKALINE PHOSPHATASE 127 U/L (38-126); ANION GAP 18 (5-19); ASPARTATE AMINO TRANSFERASE 18 U/L (17-59); BILIRUBIN,DIRECT 0.4 mg/dL (0.0-0.4); BILIRUBIN,TOTAL 0.5 mg/dL (0.2-1.3); BLOOD UREA NITROGEN 10 mg/dL (7-20); CARBON DIOXIDE 26 mmol/L (22-30); CHLORIDE 97 mmol/L (98-107); CREATININE RESULT 0.45 mg/dL (0.52-1.25); GLUCOSE 107 mg/dL (75-110); POTASSIUM 4.6 mmol/L (3.6-5.0); SODIUM 140.7 mmol/L (137-145); TOTAL PROTEIN 9.2 g/dL (6.3-8.2)
[2017-04-07] MEDS ORDERED: RISPERIDONE 1 MG TABLET PO ONE (05:47)
[2017-04-07] MEDS ORDERED: BENZTROPINE MESYLATE 1 MG TABLET PO ONE (05:47)
--- NOTE | 2017-04-07 10:08 | ER Document Report ---
Doctor's Note Notes: 04/07/17 10:07 As the rounding physician for our psychiatric patients, I have reviewed the chart, vitals, lab work. Patient has been examined and noted to be stable. I am awaiting mental health in put.
--- NOTE | 2017-04-07 17:01 | PSYCHOLOGICAL NOTE ---
Psych Note - Psych Note Psych Note: 42-year-old male with history of advanced multiple sclerosis, currently bedbound with decubitus ulcers presents to the emergency department with report of gradually progressive psychosis and hallucinations and delirium since this past August. c had some concerns about mental health Clinician was unable to wake patient. Clinician spoke with patient's . She states "He is not being himself. I can't have a conversations with him when he is not there." She continued to disclose the patient is having auditory and visual hallucinations; seen by talking to himself. She states he verbalizes wanting to and be with his mother. She is concerned he is a danger to himself becuase "he threw himself off the bed because 'they told him to get on the ground.'" "Its like he is schizophrenic and it is mainly at night." she states that he pulled his Garcia out. 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 Patient's reported behaviors are congruent with his advanced multiple sclerosis diagnosis. It is also noted the patient currently has a urinary tract infection which could also affect his mental status. Behavior health team provided medication recommendations. Dr. Timmons was consulted on the care and management of this patient; attending physician is in agreement with recommendations and disposition.
[2017-04-07] MEDS ORDERED: BUSPIRONE HCL 10 MG TABLET PO SCH (22:00)
[2017-04-08] MEDS ORDERED: DIVALPROEX SODIUM 250 MG TAB.SR.24H PO ONE (04:00)
[2017-04-08] MEDS: DIVALPROEX SODIUM 250 MG TAB.SR.24H PO SCH ×2 (11:28→18:08)
[2017-04-08] MEDS ORDERED: AMOXICILLIN TR/POT CLAVULANATE 500-125 MG TAB PO SCH (18:30)
--- NOTE | 2017-04-09 09:44 | ER Document Report ---
Doctor's Note Notes: 04/09/17 09:40 Asked by nurse nicole srinivasan to see the patient he was pending discharge planning. Patient was recently brought to the emergency department by significant other he has end-stage MS chronic indwelling Garcia catheter with UTI. According to the case management [facility]'re [facility] as they have decreased her ability to have home health care for him. On examination the patient is awake alert he is afebrile with mild dementia which is consistent with his baseline. Discharge planning has been involved and they don't feel like he needs anything additional. They spoke with his nicole [email or web address] who states he can come home where she can care for him until the [facility] the plan for potentially prison placement. At this point discharge instructions have been written for by the initial physician that saw him including pressure ulcers urinary tract infection. Patient has history of hallucinations he has been seen by psychiatric folks and deemed not needing to stay or be transferred to a facility. This sideways recommended follow-up with his primary care physician in 2-3 days and discussed reasons for ED return sooner
[2017-04-09 10:20] VITALS: BP 138/85
== END 2017-04-09 10:33 | disposition home or self-care (01) ==
LOC: ER 01:28
DX: F29 Unspecified psychosis not due to a substance or known physiological condition (principal); T83.511A Infection and inflammatory reaction due to indwelling urethral catheter, initial encounter; N39.0 Urinary tract infection, site not specified; B96.20 Unspecified Escherichia coli [E. coli] as the cause of diseases classified elsewhere; Y73.8 Miscellaneous gastroenterology and urology devices associated with adverse incidents, not elsewhere classified; L89.154 Pressure ulcer of sacral region, stage 4; L89.304 Pressure ulcer of unspecified buttock, stage 4; L89.893 Pressure ulcer of other site, stage 3; G35 Multiple sclerosis; Z74.01 Bed confinement status
CPT/HCPCS: 99285; 51702; 96365; 36415; 87040; 87070; 87205; 85025; 87075; 87077; 80053; 87186; A9270 ×2; J0696

== ENCOUNTER 2017-05-24 10:11 | Emergency (ER) | payer MEDICARE, OTHER ==
[2017-05-24] MEDS ORDERED: CLONIDINE HCL 0.1 MG TABLET PO ONE ×2 (10:52→11:48)
--- NOTE | 2017-05-24 11:07 | ER Document Report ---
ED General - General Chief Complaint: Decreased LOC Stated Complaint: ALTERED MENTAL STATUS Time Seen by Provider: 05/24/17 10:24 Mode of Arrival: Medic Information source: Patient Notes: 6-year-old male history of progressive multiple sclerosis presents with complaints of blood pressure. notes no previous history of high blood pressure that has been treated however he has had intermittent high blood pressure in the past Was recently discharged after an extensive workup for his worsening altered mental status which was diagnosed as worsening multiple sclerosis TRAVEL OUTSIDE OF THE [place] IN LAST 30 DAYS: No - HPI Onset: Just prior to arrival Onset/Duration: Sudden Quality of pain: No pain Severity: Mild Pain Level: Denies Associated symptoms: Other Exacerbated by: Denies Relieved by: Denies Similar symptoms previously: Yes Recently seen / treated by doctor: Yes - Related Data Allergies/Adverse Reactions: No Known Allergies Allergy (Verified 05/24/17 10:37) Past Medical History - Social History Smoking Status: Never Smoker Cigarette use (# per day): No Chew tobacco use (# tins/day): No Smoking Education Provided: No Frequency of alcohol use: None Drug Abuse: None Family History: Reviewed & Not Pertinent Patient has suicidal ideation: No Patient has homicidal ideation: No - Past Medical History Cardiac Medical History: Denies: Hx Coronary Artery Disease, Hx DVT, Hx Heart Attack, Hx Hypercholesterolemia, Hx Hypertension, Hx Pulmonary Embolism Pulmonary Medical History: Denies: Hx Asthma, Hx COPD Neurological Medical History: Denies: Hx Seizures Endocrine Medical History: Denies: Hx Diabetes Mellitus Type 1, Hx Diabetes Mellitus Type 2, Hx Hyperthyroidism, Hx Hypothyroidism Renal/ Medical History: Denies: Hx Peritoneal Dialysis GI Medical History: Denies: Hx Cirrhosis, Hx Gastroesophageal Reflux Disease, Hx Hepatitis Musculoskeltal Medical History: Reports Hx Multiple Sclerosis Psychiatric Medical History: Denies: Hx Depression Infectious Medical History: Denies: Hx Hepatitis Past Surgical History: Reports: Hx Abdominal Surgery - wound pump, Other - Implantation of baclofen pump - Immunizations Hx Diphtheria, Pertussis, Tetanus Vaccination: No Review of Systems - Review of Systems Notes: REVIEW OF SYSTEMS: CONSTITUTIONAL : Denies fever, chills, or sweats. Denies recent illness. EENT: Denies eye, ear, throat, or mouth pain or symptoms. Denies nasal or sinus congestion or discharge. Denies throat, tongue, or mouth swelling or difficulty swallowing. CARDIOVASCULAR: Denies chest pain. Denies palpitations or racing or irregular heart beat. Denies ankle edema. RESPIRATORY: Denies cough, cold, or chest congestion. Denies shortness of breath, difficulty breathing, or wheezing. GASTROINTESTINAL: Denies abdominal pain or distention. Denies nausea, vomiting , or diarrhea. Denies blood in vomitus, stools, or per rectum. Denies black, tarry stools. Denies constipation. GENITOURINARY: Denies difficulty urinating, painful urination, burning, frequency, blood in urine, or discharge. MUSCULOSKELETAL: Denies back or neck pain or stiffness. Denies joint pain or swelling. SKIN: Denies rash, lesions or sores. HEMATOLOGIC : Denies easy bruising or bleeding. LYMPHATIC: Denies swollen, enlarged glands. NEUROLOGICAL: Weakness altered mental status PSYCHIATRIC: Denies anxiety or stress. Denies depression, suicidal ideation, or homicidal ideation. ALL OTHER SYSTEMS REVIEWED AND NEGATIVE. Dictation was performed using [employer] voice recognition software PHYSICAL EXAMINATION: GENERAL: Well-appearing, well-nourished and in no acute distress. HEAD: Atraumatic, normocephalic. EYES: Anisocoria noted right eye dilated chronic ENT: Nares patent, oropharynx clear without exudates. Moist mucous membranes. NECK: Normal range of motion, supple without lymphadenopathy LUNGS: Breath sounds clear to auscultation bilaterally and equal. No wheezes rales or rhonchi. HEART: Regular rate and rhythm without murmurs ABDOMEN: Soft, nontender, nondistended abdomen. No guarding, no rebound. No masses appreciated. pain pump RLQ NEUROLOGICAL: chronic altered mental status SKIN: Warm, Dry, normal turgor, no rashes or lesions noted. Physical Exam - Vital signs Vitals: Temp Pulse Resp BP Pulse Ox 97.4 F 67 10 L 186/112 H 100 05/24/17 10:13 05/24/17 10:13 05/24/17 10:13 05/24/17 10:13 05/24/17 10:13 Course - Re-evaluation Re-evalutation: 05/24/17 11:04 Physical examination notes no acute abnormality however the patient is quite altered, he has had an extensive workup and I believe hospice care is necessary at this point. I will treat the patient's high blood pressure and have family evaluate findings 3 times a day 05/24/17 14:50 Patient's blood pressures improved significantly, last recheck of blood pressures 138/112. He will be discharged at this time After performing a Medical Screening Examination, I estimate there is LOW risk for ACUTE CORONARY SYNDROME, RESPIRATORY FAILURE, SEPSIS OR MENINGITIS, thus I consider the discharge disposition reasonable. I have reevaluated this patient multiple times and no significant life threatening changes are noted. The patients and I have discussed the diagnosis and risks, and we agree with discharging home with close follow-up. We also discussed returning to the Emergency Department immediately if new or worsening symptoms occur. We have discussed the symptoms which are most concerning (e.g., changing or worsening pain, trouble swallowing or breathing, neck stiffness, fever) that necessitate immediate return. - Vital Signs Vital signs: Temp Pulse Resp BP Pulse Ox 97.4 F 68 12 140/109 H 98 05/24/17 10:13 05/24/17 11:30 05/24/17 13:50 05/24/17 13:50 05/24/17 13:50 Discharge - Discharge Clinical Impression: Altered mental state Qualifiers: Altered mental status type: persistent vegetative state Qualified Code(s): R40.3 - Persistent vegetative state Hypertension Qualifiers: Hypertension type: essential hypertension Qualified Code(s): I10 - Essential ( primary) hypertension Condition: Stable Disposition: HOME, SELF-CARE Additional Instructions: Follow up with your physician tomorrow for further care or return to the ED IMMEDIATELY if symptoms worsen or new concerns occur. If you cannot afford to follow up with your primary care physician a list of low cost clinics have been provided at the end of your discharge papers as well. Prescriptions: Clonidine HCl 0.1 mg PO DAILY #30 tablet Forms: Elevated Blood Pressure
[2017-05-24 20:26] VITALS: BP 162/112
== END 2017-05-24 20:15 | disposition home or self-care (01) ==
LOC: ER 10:11
DX: I10 Essential (primary) hypertension (principal); G35 Multiple sclerosis; R40.3 Persistent vegetative state; H57.02 Anisocoria
CPT/HCPCS: 99285; A9270

== ENCOUNTER 2017-05-25 17:43 | Emergency (ER) | payer MEDICARE, OTHER ==
[2017-05-25 18:08] LABS: ABSOLUTE BASOPHILS # (AUTO) 0.1 10^3/uL (0.0-0.2); ABSOLUTE EOSINOPHILS # (AUTO) 0.2 10^3/uL (0.0-0.6); ABSOLUTE LYMPHOCYTES (AUTO) 1.5 10^3/uL (0.5-4.7); ABSOLUTE MONOCYTES (AUTO) 0.7 10^3/uL (0.1-1.4); ABSOLUTE NEUT (AUTO) 4.5 10^3/uL (1.7-8.2); BASOPHILS % (AUTO) 0.9 % (0-2); EOSINOPHILS % (AUTO) 2.6 % (0-6); HEMATOCRIT 33.7 % (37.9-51.0); HEMOGLOBIN 10.7 g/dL (13.5-17.0); HGB HCT DIFFERENCE -1.6; LYMPHOCYTES % (AUTO) 21.5 % (13-45); MEAN CORPUSCULAR HEMOGLOBIN 27.9 pg (27.0-33.4); MEAN CORPUSCULAR HGB CONC 31.7 g/dL (32.0-36.0); MEAN CORPUSCULAR VOLUME 88 fl (80-97); MONOCYTES % (AUTO) 10.2 % (3-13); RED BLOOD COUNT 3.83 10^6/uL (4.35-5.55); RED CELL DISTRIBUTION WIDTH 15.7 % (11.5-14.0); SEGMENTED NEUTROPHILS % (AUTO) 64.8 % (42-78)
[2017-05-25 18:22] LABS: ALANINE AMINOTRANSFERASE 15 U/L (21-72); ALKALINE PHOSPHATASE 89 U/L (38-126); ANION GAP 19 (5-19); ASPARTATE AMINO TRANSFERASE 29 U/L (17-59); BILIRUBIN,DIRECT 0.4 mg/dL (0.0-0.4); BILIRUBIN,TOTAL 0.5 mg/dL (0.2-1.3); BLOOD UREA NITROGEN 67 mg/dL (7-20); CALCIUM 9.9 mg/dL (8.4-10.2); CARBON DIOXIDE 24 mmol/L (22-30); CHLORIDE 112 mmol/L (98-107); CREATININE RESULT 2.02 mg/dL (0.52-1.25); GLUCOSE 126 mg/dL (75-110); MAGNESIUM 2.2 mg/dL (1.6-2.3); POTASSIUM 4.4 mmol/L (3.6-5.0); SODIUM 154.8 mmol/L (137-145); TOTAL PROTEIN 9.1 g/dL (6.3-8.2)
[2017-05-25 18:32] LABS: ALCOHOL < 10 mg/dL (NONE DETECTED)
--- NOTE | 2017-05-25 18:34 | ER Document Report ---
ED General - General Chief Complaint: Seizure Stated Complaint: POSSIBLE SEIZURE Time Seen by Provider: 05/25/17 18:28 Mode of Arrival: Medic Information source: Relative Notes: This is a 42-year-old man with a history of MS (followed in [place] by Dr. Durant), hypertension, PTSD brought in by EMS after 3 witnessed generalized tonic -clonic seizures. Patient does not have a history of seizure disorder. Patient is accompanied by his who is his caregiver. The patient's baseline is ambulatory (gets around in a wheelchair) and is communicative. Patient's states that the patient was here yesterday for elevated blood pressure. She states that the systolic blood pressure was 220 at that time. Treated with an oral medicine and the blood pressure did come down and he was discharged TRAVEL OUTSIDE OF THE [place] IN LAST 30 DAYS: No - HPI Onset: Just prior to arrival Onset/Duration: Sudden Quality of pain: No pain Associated symptoms: None. denies: Diarrhea, Fever, Nausea, Vomiting Exacerbated by: Denies Relieved by: Denies Similar symptoms previously: No Recently seen / treated by doctor: Yes - Related Data Allergies/Adverse Reactions: No Known Allergies Allergy (Verified 05/25/17 18:07) Past Medical History - General Information source: Parent - Social History Smoking Status: Never Smoker Cigarette use (# per day): No Chew tobacco use (# tins/day): No Frequency of alcohol use: None Drug Abuse: None Lives with: Family Family History: Reviewed & Not Pertinent Patient has suicidal ideation: No Patient has homicidal ideation: No - Past Medical History Cardiac Medical History: Reports: Hx Hypertension Denies: Hx Coronary Artery Disease, Hx DVT, Hx Heart Attack, Hx Hypercholesterolemia, Hx Pulmonary Embolism Pulmonary Medical History: Denies: Hx Asthma, Hx COPD Neurological Medical History: Denies: Hx Seizures Endocrine Medical History: Denies: Hx Diabetes Mellitus Type 1, Hx Diabetes Mellitus Type 2, Hx Hyperthyroidism, Hx Hypothyroidism Renal/ Medical History: Denies: Hx Peritoneal Dialysis GI Medical History: Denies: Hx Cirrhosis, Hx Gastroesophageal Reflux Disease, Hx Hepatitis Musculoskeltal Medical History: Reports Hx Multiple Sclerosis Psychiatric Medical History: Denies: Hx Depression Infectious Medical History: Denies: Hx Hepatitis Past Surgical History: Reports: Hx Abdominal Surgery - wound pump, Other - Implantation of baclofen pump - Immunizations Hx Diphtheria, Pertussis, Tetanus Vaccination: No Review of Systems - Review of Systems Constitutional: denies: Chills, Fever EENT: No symptoms reported Cardiovascular: No symptoms reported Respiratory: No symptoms reported Gastrointestinal: No symptoms reported Genitourinary: No symptoms reported Male Genitourinary: No symptoms reported Musculoskeletal: No symptoms reported Skin: No symptoms reported Hematologic/Lymphatic: No symptoms reported Neurological/Psychological: See HPI Physical Exam - Vital signs Vitals: Resp 20 05/25/17 17:45 Notes: Physical exam: GENERAL: 32-year-old man, appears lethargic, eyes open, nonverbal. He is lethargic as per patient's HEAD: Atraumatic, normocephalic. EYES: Pupils equal round and reactive to light, extraocular movements intact, sclera anicteric, conjunctiva are normal. ENT: TMs normal, nares patent, oropharynx clear without exudates. Moist mucous membranes. NECK: Supple, no obvious lymphadenopathy LUNGS: Breath sounds clear to auscultation bilaterally and equal. No wheezes rales or rhonchi. HEART: Regular rate and rhythm without murmurs, rubs or gallops. ABDOMEN: Soft, normoactive bowel sounds. No tenderness to palpation. No guarding, no rebound. No masses appreciated. EXTREMITIES: Does have an ulcer to the lateral portion of the left foot which is clean, no odor, no foul smell. Back: No decubiti appears clean, no foul odor, no discharge, no erythema. NEUROLOGICAL: Allergic, eyes open. Obvious seizure activity at this time. He is postictal at this time. He does not have any open areas lower extremities. PSYCH: Normal mood, normal affect. SKIN: Warm, Dry, normal turgor, no rashes or lesions noted. Course - Re-evaluation Re-evalutation: 05/26/17 00:[address] Reed of neurosurgery at [facility]. I have spoken with Dr Fiore at MICU at [facility]. He will accept the patient to the MICU with neurosurgery consulting. SONU Husain given. Spoken to the family about the results of the CT scan - Vital Signs Vital signs: Temp Pulse Resp BP Pulse Ox 97.9 F 67 14 126/89 H 99 05/25/17 21:50 05/25/17 19:15 05/25/17 21:01 05/25/17 20:00 05/25/17 21:01 - Laboratory Result Diagrams: 05/25/17 17:45 05/25/17 17:45 Laboratory results interpreted by me: 05/25/17 05/25/17 05/25/17 17:45 17:45 19:04 RBC 3.83 L Hgb 10.7 L Hct 33.7 L MCHC 31.7 L RDW 15.7 H Sodium 154.8 H Chloride 112 H BUN 67 H Creatinine 2.02 H Est GFR ( Amer) 44 L Est GFR (Non-Af Amer) 37 L Glucose 126 H ALT 15 L Total Protein 9.1 H Ur Leukocyte Esterase TRACE H - Diagnostic Test Radiology reviewed: Image reviewed, Reports reviewed - The head shows 25 mm left frontal bleed with 2 mm shift. Patient also has left midbrain bleeding at approximately 11 mm in diameter. no Mass-effect Critical Care Note - Critical Care Note Total time excluding time spent on procedures (mins): 90 Discharge - Discharge Clinical Impression: Intracranial bleed, New onset seizure Condition: Serious Disposition: [facility] Referrals: [facility] [Primary Care Provider] - Follow up as needed
--- NOTE | 2017-05-25 19:19 | RADIOLOGY REPORT (SQ) ---
EXAM DESCRIPTION: CT HEAD WITHOUT COMPLETED DATE/TIME: 05/25/2017 7:09 pm REASON FOR STUDY: seizure-new onset COMPARISON: 04/06/2017 TECHNIQUE: Axial images acquired through the brain without intravenous contrast. Images reviewed wi th bone, brain and subdural windows. Images stored on PACS. All CT scanners at this facility use dose modulation, iterative reconstruction, and/or weight based d osing when appropriate to reduce radiation dose to as low as reasonably achievable (ALARA). [facility]: Dose Right [facility]: CareDose [facility]: Dose Right [facility]: Teradose 4D [facility]: [employer] RADIATION DOSE: mGy. LIMITATIONS: None. FINDINGS: VENTRICLES: Prominent. CEREBRUM: Acute hematoma in the left frontal lobe measuring 3 x 2.6 cm. 2.4 mm midline shift. 1.2 c m hemorrhage in the left midbrain without significant mass effect. . No masses. Areas of low densi ty in the white matter most likely due to chronic micro-vascular ischemic change. No evidence for ac elim ira infarction. CEREBELLUM: No masses. No hemorrhage. No alteration of density. No evidence for acute infarction. EXTRAAXIAL SPACES: Age-related involutional change. No fluid collections. No masses. ORBITS AND GLOBE: No intra- or extraconal masses. Normal contour of globe without masses. CALVARIUM: No fracture. PARANASAL SINUSES: No fluid or mucosal thickening. SOFT TISSUES: No mass or hematoma. OTHER: No other significant finding. IMPRESSION: Acute hematoma left frontal lobe and in the left midbrain without significant mass effec t. 2.4 mm midline shift. CHRONIC CHANGES OF ATROPHY AND MICROVASCULAR ISCHEMIA. NO ACUTE PROCESS. COMMENT: Pertinent findings on the imaging study reported as a CRITICAL RESULT to NU RAMOS MD at19:14 on 05/25/2017. Category of Critical Result: Acute cerebral hemorrhage TECHNICAL DOCUMENTATION: JOB ID: [id number] Quality ID # [id number]: Final reports with documentation of one or more dose reduction techniques (e.g., Au tomated exposure control, adjustment of the mA and/or kV according to patient size, use of iterative reconstruction technique) 2010 [employer]- All Rights Reserved
--- NOTE | 2017-05-25 19:22 | RADIOLOGY REPORT (SQ) ---
EXAM DESCRIPTION: CHEST SINGLE VIEW COMPLETED DATE/TIME: 05/25/2017 7:14 pm REASON FOR STUDY: seizure COMPARISON: 04/06/2017 EXAM PARAMETERS: NUMBER OF VIEWS: One view. TECHNIQUE: Single frontal radiographic view of the chest acquired. RADIATION DOSE: NA LIMITATIONS: None. FINDINGS: LUNGS AND PLEURA: No opacities, masses or pneumothorax. No pleural effusion. MEDIASTINUM AND HILAR STRUCTURES: No masses. Contour normal. HEART AND VASCULAR STRUCTURES: Heart normal in size. Normal vasculature. BONES: No acute findings. HARDWARE: None in the chest. OTHER: No other significant finding. IMPRESSION: NO ACUTE RADIOGRAPHIC FINDING IN THE CHEST. TECHNICAL DOCUMENTATION: JOB ID: [id number]
[2017-05-25 19:26] LABS: APPEARANCE,URINE CLEAR; BILIRUBIN,URINE NEGATIVE (NEGATIVE); GLUCOSE, URINE NEGATIVE (NEGATIVE); KETONES,URINE NEGATIVE (NEGATIVE); LEUKOCYTE ESTERASE,URINE TRACE (NEGATIVE); NITRITE,URINE NEGATIVE (NEGATIVE); PROTEIN,URINE NEGATIVE (NEGATIVE); URINE SPECIFIC GRAVITY 1.012; UROBILINOGEN,URINE NEGATIVE mg/dL (<2.0)
[2017-05-25 19:36] LABS: URINE BARBITURATES SCREEN NEGATIVE; URINE METHADONE SCREEN NEGATIVE; URINE OPIATES LOW NEGATIVE; URINE PHENCYCLIDINE SCREEN NEGATIVE
[2017-05-25] MEDS ORDERED: 1/2 NORMAL SALINE 1,000 ML IV ONE (20:09)
[2017-05-25] MEDS ORDERED: LEVETIRACETAM 1000 MG/NACL-ISO 100 ML IV ONE (20:09)
[2017-05-25 21:46] VITALS: BP 126/89
== END 2017-05-25 22:23 | disposition short-term general hospital (02) ==
LOC: ER 17:43
DX: I62.9 Nontraumatic intracranial hemorrhage, unspecified (principal); R56.9 Unspecified convulsions; I10 Essential (primary) hypertension; G35 Multiple sclerosis; L97.529 Non-pressure chronic ulcer of other part of left foot with unspecified severity
CPT/HCPCS: 99291; 99292; 96361; 96374; 36415; 80307 ×2; 83735; 85025; 80053; 81001; 71010; 70450; J1953

== ENCOUNTER → 2017-07-12 | Outpatient (CLI) | payer MEDICARE, OTHER ==
--- NOTE | 2017-07-13 18:34 | RADIOLOGY REPORT (SQ) ---
EXAM DESCRIPTION: CT HEAD WITHOUT COMPLETED DATE/TIME: 07/12/2017 1:23 pm REASON FOR STUDY: NONTRAUMATIC INTRACEREBRAL HEMORRHAGE, UNSPECIFIED I61.9 NONTRAUMATIC INTRACEREBR AL HEMORRHAGE, UNSPECIFIED COMPARISON: CT brain 05/25/2017, 04/06/2017, 09/18/2014 TECHNIQUE: Axial images acquired through the brain without intravenous contrast. Images reviewed wi th bone, brain and subdural windows. Images stored on PACS. All CT scanners at this facility use dose modulation, iterative reconstruction, and/or weight based d osing when appropriate to reduce radiation dose to as low as reasonably achievable (ALARA). [facility]: Dose Right [facility]: CareDose [facility]: Dose Right [facility]: Teradose 4D [facility]: [employer] RADIATION DOSE: 48 mGy. LIMITATIONS: None. FINDINGS: VENTRICLES: Mild prominence of the cerebral ventricles, similar compared to 05/25/2017, new compared to the baseline CT in 2013. CEREBRUM: Left frontal white matter and left full buckner X parenchymal hemorrhages seen on 05/25/2017 are no longer identified. No acute parenchymal hemorrhage is identified. There is extensive bifrontal and biparietal low atten uation in the white matter from small vessel disease. CEREBELLUM: Cerebellar and pontine atrophy with prominent CSF spaces. No hemorrhage. No alteration of density. No evidence for acute infarction. EXTRAAXIAL SPACES: Prominent extra-axial CSF spaces, similar compared to 05/25/2017, new compared to b aseline CT in 2013. ORBITS AND GLOBE: No intra- or extraconal masses. Normal contour of globe without masses. CALVARIUM: No fracture. PARANASAL SINUSES: No fluid or mucosal thickening. SOFT TISSUES: No mass or hematoma. OTHER: No other significant finding. IMPRESSION: Brain parenchymal hemorrhages seen on 05/25/2017 have resolved. Atrophy, white matter disease. No acute findings on today's study TECHNICAL DOCUMENTATION: JOB ID: [id number] Quality ID # [id number]: Final reports with documentation of one or more dose reduction techniques (e.g., Au tomated exposure control, adjustment of the mA and/or kV according to patient size, use of iterative reconstruction technique) 2010 [employer]- All Rights Reserved
== END ==
LOC: RAD 13:08
PROVIDERS: ATTEND Internal Medicine
DX: I61.9 Nontraumatic intracerebral hemorrhage, unspecified (principal)
CPT/HCPCS: 70450

== ENCOUNTER 2018-01-15 09:22 | Inpatient (IN) | payer MEDICARE ==
[2018-01-15] MEDS ORDERED: SILVER NITRATE APPLICATOR 1 APPLIC STICK..EA. 10/PACKAGE TOP ONE (09:35)
[2018-01-15] MEDS ORDERED: LIDOCAINE 2% URO-JET 5 ML KIT MM ONE (09:37)
--- NOTE | 2018-01-15 09:37 | ER Document Report ---
ED General - General Stated Complaint: URINARY ISSUES Time Seen by Provider: 01/15/18 09:34 Notes: 42-year-old male with history of stroke currently on Lovenox with PEG and indwelling Garcia presents from [facility] after pulling out his Garcia catheter and having bleeding. History not available either from EMS or the facility. Unknown Garcia size. Limited urologic records available, patient cannot give a history secondary to dementia. TRAVEL OUTSIDE OF THE [place] IN LAST 30 DAYS: No - Related Data Allergies/Adverse Reactions: Sulfa (Sulfonamide Antibiotics) Allergy (Verified 01/15/18 09:59) Past Medical History - General Cannot obtain history due to: Dementia - Social History Smoking Status: Unknown if Ever Smoked Family History: Reviewed & Not Pertinent - Past Medical History Cardiac Medical History: Reports: Hx Hypertension Denies: Hx Coronary Artery Disease, Hx DVT, Hx Heart Attack, Hx Hypercholesterolemia, Hx Pulmonary Embolism Pulmonary Medical History: Denies: Hx Asthma, Hx COPD Neurological Medical History: Denies: Hx Seizures Endocrine Medical History: Denies: Hx Diabetes Mellitus Type 1, Hx Diabetes Mellitus Type 2, Hx Hyperthyroidism, Hx Hypothyroidism Renal/ Medical History: Denies: Hx Peritoneal Dialysis GI Medical History: Denies: Hx Cirrhosis, Hx Gastroesophageal Reflux Disease, Hx Hepatitis Musculoskeltal Medical History: Reports Hx Multiple Sclerosis Psychiatric Medical History: Denies: Hx Depression Infectious Medical History: Denies: Hx Hepatitis Past Surgical History: Reports: Hx Abdominal Surgery - wound pump, Other - Implantation of baclofen pump - Immunizations Hx Diphtheria, Pertussis, Tetanus Vaccination: No Review of Systems - Review of Systems Notes: REVIEW OF SYSTEMS Obtain secondary to dementia PHYSICAL EXAMINATION General: No acute distress, well-nourished Head: Atraumatic, normocephalic. Chronic scaly rash with exudates on the left face along the line of the cox. ENT: Mouth normal, oropharynx moist, no exudates or tonsillar enlargement Eyes: Conjunctiva normal, pupils equal, lids normal Neck: No JVD, supple, no guarding CVS: Normal rate, regular rhythm, no murmurs Resp: No resp distress, equal and normal breath sounds bilaterally GI: Nondistended, soft, no tenderness to palpation, no rebound or guarding. PEG tube in place. Genitourinary: Superficial excoriations and ulcerations on the penis and scrotum. There is oozing blood from the urethral meatus, which is severely eroded in the inferior aspect of the penis Ext: No deformities, no edema, normal range of motion in upper and lower ext Back: No CVA or midline TTP Skin: Rash on face Lymphatic: No lymphadeopathy noted Neuro: Arouses to loud voice. Chronic contractures. -: Yes ROS unobtainable due to patient's medical condition Physical Exam - Vital signs Vitals: Resp Pulse Ox 10 L 96 01/15/18 11:20 01/15/18 11:20 Course - Re-evaluation Re-evalutation: 01/15/18 09:50 Acute injury to the urethral mucosa after pulling out Garcia. Chronic erosion and Lovenox complicates the picture. Patient looks overall quite well and the bleeding is slowing oozing. Will place a Garcia in hopes of [place] nodding injury , will cauterize as needed with silver nitrate. At this time I do not think there is any need for a full workup on the patient. 01/15/18 11:14 Garcia has been inserted. Juan Jose blood is coming out and there is blood leaking around. Discussed with on-call urologist Dr. Manriquez who said that it is very difficult to manage these and surgical correction does not work especially if they are on anticoagulation. He recommended over inflating the Garcia balloon pulling traction on the Garcia intermittent irrigation and admission for observation. He will consult. Page Dr. Bettencourt for admission at 11:10 AM. - Vital Signs Vital signs: Temp Pulse Resp BP Pulse Ox 11 L 101/81 100 01/15/18 15:01 01/15/18 15:00 01/15/18 15:01 - Laboratory Result Diagrams: 01/15/18 13:58 01/15/18 13:58 Discharge - Discharge Clinical Impression: Bleeding from urethra in male Condition: Fair Disposition: ADMITTED INPATIENT Admitting Provider: Hospitalist Unit Admitted: Medical Floor
--- NOTE | 2018-01-15 13:00 | PDOC H&P ---
History of Present Illness Admission Date/PCP: 01/15/18 11:58 FOLRINA LYNCH Patient complains of: hematuria History of Present Illness: VALENTE MOJICA is a 42 year old male with history of multiple sclerosis, chronic sacral decub, and recurrent UTIs who presents from [facility] after pulling out his indwelling hodge catheter. He was brought to the ED due to hematuria. Per discussion with ER physician, patient has a history of hemorrhagic CVA however there is no documentation of stroke in previous charts. He also is currently on Lovenox for reasons that are also not clear. Patient was unable to provide any information at time of my evaluation. I also attempted to call his (home and mobile phone on record) without success. A hodge was placed in ER today however he continues to have hematuria. Case was discussed with local urologist who will see patient, however no emergent procedure was needed at this time. Labs are currently pending. Past Medical History Past Medical History: Unable to verify due to patient status Cardiac Medical History: Reports: Hypertension Denies: Coronary Artery Disease, DVT, Myocardial Infarction, Hyperlipidema, Pulmonary Embolism Pulmonary Medical History: Denies: Asthma, Chronic Obstructive Pulmonary Disease (COPD) Neurological Medical History: Reports: Multiple Sclerosis Denies: Seizures Endocrine Medical History: Denies: Diabetes Mellitus Type 1, Diabetes Mellitus Type 2, Hyperthyroidism, Hypothyroidism GI Medical History: Denies: Cirrhosis, Gastroesophageal Reflux Disease, Hepatitis Skin History Note: Sacral decub ulcer Psychiatric Medical History: Denies: Depression Past Surgical History Past Surgical History: Reports: Other - Implantation of baclofen pump Social History Information Source: [facility] Records Lives with: Custodial Smoking Status: Never Smoker Frequency of Alcohol Use: None Hx Recreational Drug Use: No Drugs: None Hx Prescription Drug Abuse: No Family History Family History: Reviewed & Not Pertinent Parental Family History Reviewed: No - unable to obtain Children Family History Reviewed: Unknown Sibling(s) Family History Reviewed.: Unknown Medication/Allergy Home Medications: Ferrous Sulfate [Feosol 325 mg Tablet] 325 mg PO DAILY 02/04/17 Interferon Beta-1A [Avonex Pen] 30 mcg IM SA@1000 02/04/17 Multivitamin [Multivitamins] 1 each PO DAILY 02/04/17 Acetaminophen [Tylenol 325 mg Tablet] 650 mg PO Q4HP PRN tablet 02/09/17 Docusate Sodium [Colace 100 mg Capsule] 100 mg PO BID #0 capsule 02/09/17 Doxycycline Hyclate [Vibramycin 100 mg Tablet] 100 mg PO Q12 #14 tablet Cephalexin Monohydrate [Keflex 500 mg Capsule] 500 mg PO BID #14 capsule Amox Tr/Potassium Clavulanate [Augmentin 875-125 Tablet] 1 tab PO BID 10 Days tablet 04/06/17 Clonidine HCl 0.1 mg PO DAILY #30 tablet 05/24/17 Allergies/Adverse Reactions: Sulfa (Sulfonamide Antibiotics) Allergy (Verified 01/15/18 09:59) Review of Systems All systems: reviewed and no additional remarkable complaints except as stated - Unable to obtain due to patient's status Physical Exam Vital Signs: Temp Pulse Resp BP Pulse Ox 12 112/75 96 01/15/18 11:24 01/15/18 11:25 01/15/18 11:25 General appearance: PRESENT: no acute distress, well-developed, well-nourished, other - Sleeping, opened eyes but not answering questions. Head exam: PRESENT: atraumatic, normocephalic Mouth exam: PRESENT: moist Respiratory exam: PRESENT: clear to auscultation mirian - Anteriorly, symmetrical, unlabored Cardiovascular exam: PRESENT: RRR, +S1, +S2 GI/Abdominal exam: PRESENT: soft. ABSENT: distended, tenderness Gentrourinary exam: PRESENT: other - Per ER description "Superficial excoriations and ulcerations on the penis and scrotum. There is oozing blood from the urethral meatus, which is severely eroded in the inferior aspect of the penis". Did not re-exam to prevent pt discomfort Skin exam: PRESENT: other - Facial rash on left side noted Results Laboratory Results: Labs currently pending. Assessment & Plan - Diagnosis (1) Bleeding from urethra in male Plan: Patient was baseline indwelling hodge catheter, pulled out today at nursing facility - Hodge changed in ER today - Noted to have persistent hematuria - Labs including H&H checked, baseline Hg ~8-9 - If persistent bleeding, low threshold to transfusion. Hg goal >7 - Urology aware, will see patient, appreciate recommendations (2) Sacral decubitus ulcer Qualifiers: Pressure ulcer stage: unspecified pressure ulcer stage Qualified Code(s): L89.159 - Pressure ulcer of sacral region, unspecified stage Plan: Known history of decub ulcer. CTM (3) Anticoagulation adequate Is this a current diagnosis for this admission?: Yes Plan: Patient is currently on Lovenox at home for unclear reasons. Will need to evaluate further - Will hold for now given hematuria. Of note patient reportedly has history of hemorrhagic stroke - Will not given DVT ppx in setting of active bleeding - Time Time Spent: 50 to 70 Minutes Critical Time spent with patient: Less than 15 minutes Anticipated discharge: SNF Within: within 72 hours - Inpatient Certification Medical Necessity: Significant Comorbidiites Make Outpatient Treatment Too Risky , Risk of Complication if Not Cared For in Hospital
[2018-01-15 14:18] LABS: ABSOLUTE EOSINOPHILS # (AUTO) 0.5 10^3/uL (0.0-0.6); ABSOLUTE LYMPHOCYTES (AUTO) 1.1 10^3/uL (0.5-4.7); ABSOLUTE MONOCYTES (AUTO) 0.7 10^3/uL (0.1-1.4); ABSOLUTE NEUT (AUTO) 12.3 10^3/uL (1.7-8.2); BASOPHILS % (AUTO) 0.3 % (0-2); EOSINOPHILS % (AUTO) 3.4 % (0-6); HEMATOCRIT 33.2 % (37.9-51.0); HEMOGLOBIN 10.7 g/dL (13.5-17.0); LYMPHOCYTES % (AUTO) 7.5 % (13-45); MEAN CORPUSCULAR HEMOGLOBIN 26.1 pg (27.0-33.4); MEAN CORPUSCULAR HGB CONC 32.1 g/dL (32.0-36.0); MEAN CORPUSCULAR VOLUME 81 fl (80-97); MONOCYTES % (AUTO) 4.8 % (3-13); PLATELET COUNT 283 10^3/uL (150-450); RED BLOOD COUNT 4.08 10^6/uL (4.35-5.55); RED CELL DISTRIBUTION WIDTH 20.2 % (11.5-14.0); TOTAL CELLS COUNTED % (AUTO) 100 %; WHITE BLOOD COUNT 14.6 10^3/uL (4.0-10.5)
[2018-01-15 14:22] LABS: ANION GAP 13 (5-19); BLOOD UREA NITROGEN 16 mg/dL (7-20); CALCIUM 9.4 mg/dL (8.4-10.2); CARBON DIOXIDE 30 mmol/L (22-30); CHLORIDE 102 mmol/L (98-107); GLUCOSE 96 mg/dL (75-110); POTASSIUM 3.7 mmol/L (3.6-5.0)
[2018-01-15] MEDS: PANTOT AC/MIN OIL/PET HY-PHL OINT 50 GM TOP SCH (20:33)
[2018-01-15] MEDS: LEVETIRACETAM ORAL SOLN 500 MG/5 ML UDCUP PEG SCH (21:38)
[2018-01-15] MEDS: QUETIAPINE FUMARATE 25 MG TABLET PEG SCH (21:38)
[2018-01-16] MEDS ORDERED: NORMAL SALINE 500 ML IV ONE (01:45)
[2018-01-16 07:06] LABS: PROTHROMBIN TIME 14.9 SEC (11.4-15.4)
[2018-01-16 07:21] LABS: HEMATOCRIT 28.1 % (37.9-51.0); HEMOGLOBIN 9.1 g/dL (13.5-17.0); MEAN CORPUSCULAR HEMOGLOBIN 26.3 pg (27.0-33.4); MEAN CORPUSCULAR HGB CONC 32.3 g/dL (32.0-36.0); MEAN CORPUSCULAR VOLUME 81 fl (80-97); RED BLOOD COUNT 3.46 10^6/uL (4.35-5.55); RED CELL DISTRIBUTION WIDTH 19.8 % (11.5-14.0); WHITE BLOOD COUNT 11.9 10^3/uL (4.0-10.5)
[2018-01-16 07:34] LABS: PLATELET COUNT 263 10^3/uL (150-450)
[2018-01-16 08:00] LABS: ANION GAP 16 (5-19); BLOOD UREA NITROGEN 24 mg/dL (7-20); CALCIUM 9.3 mg/dL (8.4-10.2); CARBON DIOXIDE 28 mmol/L (22-30); CHLORIDE 103 mmol/L (98-107); GLUCOSE 131 mg/dL (75-110); POTASSIUM 3.7 mmol/L (3.6-5.0); SODIUM 146.7 mmol/L (137-145)
[2018-01-16] MEDS ORDERED: CLONIDINE HCL 0.1 MG TABLET PEG SCH (10:00)
[2018-01-16] MEDS: LEVETIRACETAM ORAL SOLN 500 MG/5 ML UDCUP PEG SCH ×2 (11:41→21:36)
[2018-01-16] MEDS: SERTRALINE HCL 50 MG TABLET PEG SCH (11:42)
[2018-01-16] MEDS: PANTOT AC/MIN OIL/PET HY-PHL OINT 50 GM TOP SCH ×2 (11:43→21:37)
[2018-01-16] MEDS: QUETIAPINE FUMARATE 25 MG TABLET PEG SCH (21:37)
--- NOTE | 2018-01-16 22:59 | PDOC PROGRESS REPORT ---
Subjective Progress Note for:: 01/16/18 Subjective:: With MS who resides at [facility] presenting after he pulled out his Garcia resulting in hematuria. Patient did spike a temp of 100.6. Patient states he is doing okay. Reason For Visit: BLEEDING FROM URETHRA IN MALE Physical Exam Vital Signs: Temp Pulse Resp BP Pulse Ox 98.3 F 101 H 16 106/54 L 98 01/16/18 19:27 01/16/18 19:27 01/16/18 19:27 01/16/18 19:27 01/16/18 19:27 Intake & Output 01/15/18 01/16/18 01/17/18 06:59 06:59 06:59 Intake Total 505 260 Output Total 200 230 Balance 305 30 Weight 64.7 kg 67.8 kg General appearance: PRESENT: no acute distress Head exam: PRESENT: normocephalic Eye exam: PRESENT: EOMI. ABSENT: scleral icterus Ear exam: PRESENT: normal external ear exam Mouth exam: PRESENT: moist Neck exam: ABSENT: carotid bruit, JVD, lymphadenopathy, thyromegaly Respiratory exam: PRESENT: clear to auscultation mirian. ABSENT: rales, rhonchi, wheezes Cardiovascular exam: PRESENT: RRR. ABSENT: diastolic murmur, rubs, systolic murmur Pulses: PRESENT: normal dorsalis pedis pul Vascular exam: PRESENT: normal capillary refill GI/Abdominal exam: PRESENT: normal bowel sounds, soft, other - Tube in place. ABSENT: distended, guarding, mass, organolmegaly, rebound, tenderness Rectal exam: PRESENT: deferred Gentrourinary exam: PRESENT: lesions - The scrotal area with urethral tear, indwelling catheter - Sediment and catheter Extremities exam: PRESENT: other - Clubbing of the left foot. ABSENT: calf tenderness, clubbing, pedal edema Neurological exam: PRESENT: alert, awake, oriented to person, other - Patient moves his left hand but flaccid on the right side. ABSENT: motor sensory deficit Psychiatric exam: PRESENT: appropriate affect, normal mood. ABSENT: homicidal ideation, suicidal ideation Skin exam: PRESENT: dry, intact, warm, other - Flaking and hyperkeratotic areas on the face especially in the bearded area. ABSENT: cyanosis, rash Results Laboratory Results: 01/16/18 06:08 01/16/18 06:08 01/15/18 01/16/18 01/16/18 13:58 06:08 06:08 WBC 11.9 H RBC 3.46 L Hgb 9.1 L Hct 28.1 L MCV 81 MCH 26.3 L MCHC 32.3 RDW 19.8 H Plt Count 263 Sodium 146.7 H Potassium 3.7 Chloride 103 Carbon Dioxide 28 Anion Gap 16 BUN 24 H Creatinine 0.46 L Est GFR ( Amer) > 60 Est GFR (Non-Af Amer) > 60 Glucose 131 H Calcium 9.3 Antibody Screen NEGATIVE Assessment & Plan - Diagnosis (1) Anticoagulation adequate Is this a current diagnosis for this admission?: Yes Plan: Patient was on Lovenox which she is being held. Patient apparently has a history of hemorrhagic stroke therefore should not be on Lovenox. Does not know why patient is on Lovenox. (2) Bleeding from urethra in male Is this a current diagnosis for this admission?: Yes Plan: Secondary to trauma from patient pulling out his Garcia. Patient no longer has bleeding. Patient hemoglobin did trend down however patient was given fluids. Despite it being 9.1 this appears to be about his baseline. Will continue to trend. (3) Fever Qualifiers: Fever type: unspecified Qualified Code(s): R50.9 - Fever, unspecified Is this a current diagnosis for this admission?: Yes Plan: She did have a low-grade temp but has a history of recurrent UTIs. Will check UA and urine culture. Patient may require a course of antibiotics. Will monitor for any further fevers and start antibiotics if patient continues to spike temps. (4) Multiple sclerosis Plan: Continue supportive care. (5) Sacral decubitus ulcer Qualifiers: Pressure ulcer stage: unspecified pressure ulcer stage Qualified Code(s): L89.159 - Pressure ulcer of sacral region, unspecified stage Is this a current diagnosis for this admission?: Yes Plan: Continue wound care. (6) Hypernatremia Is this a current diagnosis for this admission?: Yes Plan: With mild hyponatremia. Patient free water flushes have been adjusted. Will monitor and follow-up sodium in the morning. - Time Time Spent with patient: Less than 15 minutes Anticipated discharge: SNF Within: within 72 hours
[2018-01-17 00:07] LABS: AMORPHOUS SEDIMENT,URINE TRACE /HPF; APPEARANCE,URINE CLOUDY; BILIRUBIN,URINE NEGATIVE (NEGATIVE); CALCIUM OXALATE CRYSTALS,URINE FEW /HPF; COLOR,URINE YELLOW; GLUCOSE, URINE NEGATIVE (NEGATIVE); KETONES,URINE NEGATIVE (NEGATIVE); LEUKOCYTE ESTERASE,URINE LARGE (NEGATIVE); NITRITE,URINE POSITIVE (NEGATIVE); PROTEIN,URINE 100 mg/dL (NEGATIVE); TRIPLE PHOSPHATE CRYSTAL,URINE FEW /HPF; URINE SPECIFIC GRAVITY 1.018; UROBILINOGEN,URINE NEGATIVE mg/dL (<2.0)
[2018-01-17] MEDS ORDERED: CEFEPIME 1 GM/D5W RTU 1 GM/50 ML RTUPB IV ONE (03:00)
[2018-01-17] MEDS ORDERED: CEFEPIME INJ 1 GM VIAL ONE (03:09)
[2018-01-17 08:07] LABS: ABSOLUTE EOSINOPHILS # (AUTO) 0.6 10^3/uL (0.0-0.6); ABSOLUTE NEUT (AUTO) 8.5 10^3/uL (1.7-8.2); BASOPHILS % (AUTO) 0.4 % (0-2); EOSINOPHILS % (AUTO) 4.9 % (0-6); HEMATOCRIT 28.3 % (37.9-51.0); LYMPHOCYTES % (AUTO) 16.3 % (13-45); MEAN CORPUSCULAR HEMOGLOBIN 25.6 pg (27.0-33.4); MEAN CORPUSCULAR HGB CONC 31.7 g/dL (32.0-36.0); MEAN CORPUSCULAR VOLUME 81 fl (80-97); MONOCYTES % (AUTO) 8.6 % (3-13); PLATELET COUNT 269 10^3/uL (150-450); RED CELL DISTRIBUTION WIDTH 19.5 % (11.5-14.0); SEGMENTED NEUTROPHILS % (AUTO) 69.8 % (42-78); TOTAL CELLS COUNTED % (AUTO) 100 %; WHITE BLOOD COUNT 12.1 10^3/uL (4.0-10.5)
[2018-01-17 08:32] LABS: ALANINE AMINOTRANSFERASE 24 U/L (21-72); ALBUMIN 3.5 g/dL (3.5-5.0); ALKALINE PHOSPHATASE 103 U/L (38-126); ANION GAP 13 (5-19); ASPARTATE AMINO TRANSFERASE 20 U/L (17-59); BILIRUBIN,DIRECT 0.1 mg/dL (0.0-0.4); BILIRUBIN,TOTAL 0.3 mg/dL (0.2-1.3); BLOOD UREA NITROGEN 21 mg/dL (7-20); CALCIUM 9.4 mg/dL (8.4-10.2); CARBON DIOXIDE 32 mmol/L (22-30); CHLORIDE 103 mmol/L (98-107); GLUCOSE 123 mg/dL (75-110); POTASSIUM 3.8 mmol/L (3.6-5.0); SODIUM 148.1 mmol/L (137-145); TOTAL PROTEIN 7.9 g/dL (6.3-8.2)
--- NOTE | 2018-01-17 09:12 | Physician Advisory Note ---
Physician Advisor ProgressNote .: Pursuant to the plan for [facility], I have reviewed the medical record for this patient. Physician Advisor Statement: Please consider documenting, if you agree ( & [facility] 1. "sacral decubitus ulcer, stage II, present on adm" (need to specify stage of any decubs) 2. "paraplegia due to ____", "Rt hemiparesis due to " 3. "suspected protein-calorie malnutrition [state mild, mod, or severe] with BMI 21.2, low Cr, PEG tube feedings, ____[?wt loss, ?appetite loss, ]" [if possible, give specifics on intake, wt loss, loss of SQ fat & muscle mass, diminished hand computer programming manager strength, & clinical importance such as (A) nutritional assessment ordered, (B) modified diet or supplements ordered, (C) additional labs ordered, (D) prolonged wound healing time, (E) delayed infxn clearance] Thanks! CK
[2018-01-17] MEDS: LEVETIRACETAM ORAL SOLN 500 MG/5 ML UDCUP PEG SCH ×2 (09:55→21:43)
[2018-01-17] MEDS: SERTRALINE HCL 50 MG TABLET PEG SCH (09:55)
[2018-01-17] MEDS: CEFEPIME 1 GM/D5W RTU 1 GM/50 ML RTUPB IV SCH ×2 (09:55→21:43)
[2018-01-17] MEDS: PANTOT AC/MIN OIL/PET HY-PHL OINT 50 GM TOP SCH ×2 (09:56→17:36)
--- NOTE | 2018-01-17 11:53 | PROGRESS NOTE E ---
Progress Note NAME: VALENTE MOJICA : 1975 AGE: 42Y DATE: 01/17/2018 ROOM: 427 SUBJECTIVE: The patient is lying in bed. The patient appears to be at his baseline. He is nonverbal but does respond to noxious stimuli. The patient has had no episodes of vomiting, diarrhea. There has been no evidence of any more bleeding. The patient's temp yesterday at 1616 was 100.6. The patient has had no episodes of vomiting nor diarrhea. The patient is unable to voice any concerns at this time. REVIEW OF SYSTEMS A full review of systems cannot be appreciated given the patient's mental status. MEDICATIONS Medications have been reviewed. OBJECTIVE: GENERAL: The patient is an unfortunate 42-year-old -[place] male that is nonverbal. He does not appear to be distressed. VITAL SIGNS: As follows: Temperature 97.4, pulse 78, respirations 14, blood pressure is 118/87, oxygen saturation 99% on room air. SKIN: Warm, dry. The patient does have significant erosive, hyperkeratosis-appearing areas of his face especially in his cox. He does have some areas that appear excoriated from trauma from the patient picking at them. HEENT: Pupils are reactive. There is no evidence of JVP. Mucous membranes appear moist. CARDIOVASCULAR: Heart is regular. No rubs. CHEST: Clear, symmetrical, and unlabored. ABDOMEN: Soft, nontender, nondistended. EXTREMITIES: No clubbing, cyanosis, contracted. GENITOURINARY: Garcia is draining clear yellow urine. DIAGNOSTICS: Lab values are as follows: Hematology done on 01/17/2018: WBC 12.1, hemoglobin is 9.0, hematocrit is 28.3, platelet count is 269,000. Chemistries done on 01/17/2018: Sodium is 148, potassium 3.8, chloride 103, carbon dioxide 32. BUN 21, creatinine is 0.51. Glucose is 123. Calcium is 5.4, magnesium is 3.4. Bilirubin is 0.3. AST 20, ALT 24. IMPRESSION AND PLAN: 1. Bleeding from urethra in male. Overall, this is improved. This was secondary to trauma from the Garcia being pulled out. Hemoglobin did trend down but was given fluids. Will monitor in the a.m. 2. Abnormal urinalysis. Given this paired with the patient's fever, I am concerned for a urinary tract infection. We will continue antibiotic coverage. The patient also has a white count. Will follow. 3. Multiple sclerosis. Continue supportive care. 4. Stage 2 sacral decubitus ulcer present on admission. Continue wound care. 5. Hypernatremia. Will increase the patient's free water flushes. 6. Paraplegia secondary to the patient's multiple sclerosis. 7. Right hemiparesis. The patient is not exhibiting given his poor response; however, the patient did have a hemorrhagic cerebrovascular accident it appears back in 2012. 8. Protein/calorie malnourishment. We will Dietary to see the patient. DISPOSITION The patient is a FULL CODE. Pending the patient's symptomatology and diagnostic findings, we will reevaluate in the a.m. Time spent on this followup including assessment, plan, physical examination, patient education, review of records is 25 minutes. DICTATING PHYSICIAN: BOBBY OCONNOR NP [id number] PHY#: [id number] ID: [id number] JOB#: [id number] ACCT: [id number] cc: >
[2018-01-17] MEDS: QUETIAPINE FUMARATE 25 MG TABLET PEG SCH (21:43)
[2018-01-17] MEDS: SILVER SULFADIAZINE 1% CREAM 50 GM TP SCH (23:21)
[2018-01-18 05:06] LABS: HEMATOCRIT 27.5 % (37.9-51.0); HEMOGLOBIN 9.1 g/dL (13.5-17.0); MEAN CORPUSCULAR HEMOGLOBIN 26.7 pg (27.0-33.4); MEAN CORPUSCULAR HGB CONC 33.1 g/dL (32.0-36.0); MEAN CORPUSCULAR VOLUME 81 fl (80-97); PLATELET COUNT 249 10^3/uL (150-450); RED CELL DISTRIBUTION WIDTH 19.6 % (11.5-14.0); WHITE BLOOD COUNT 10.2 10^3/uL (4.0-10.5)
[2018-01-18 05:26] LABS: ANION GAP 11 (5-19); BLOOD UREA NITROGEN 22 mg/dL (7-20); CALCIUM 9.8 mg/dL (8.4-10.2); CARBON DIOXIDE 34 mmol/L (22-30); CHLORIDE 103 mmol/L (98-107); GLUCOSE 106 mg/dL (75-110); POTASSIUM 4.2 mmol/L (3.6-5.0); SODIUM 148.1 mmol/L (137-145)
[2018-01-18] MEDS ORDERED: VANCOMYCIN HCL 0 MG in DEXTROSE 5%-WATER 250 ML IV NR (08:30)
[2018-01-18] MEDS: LEVETIRACETAM ORAL SOLN 500 MG/5 ML UDCUP PEG SCH ×2 (09:21→21:24)
[2018-01-18] MEDS: SERTRALINE HCL 50 MG TABLET PEG SCH (09:22)
[2018-01-18] MEDS: SILVER SULFADIAZINE 1% CREAM 50 GM TP SCH ×2 (09:22→21:14)
[2018-01-18] MEDS: MEROPENEM 1 GM in NORMAL SALINE 100 ML IV SCH ×2 (09:29→17:03)
[2018-01-18] MEDS: PANTOT AC/MIN OIL/PET HY-PHL OINT 50 GM TOP SCH ×2 (09:30→17:03)
[2018-01-18] MEDS ORDERED: MEROPENEM 1 GM in NORMAL SALINE 50 ML IV SCH (10:00)
--- NOTE | 2018-01-18 12:03 | PROGRESS NOTE E ---
Progress Note NAME: VALENTE MOJICA : 1975 AGE: 42Y DATE: 01/18/2018 ROOM: 427 SUBJECTIVE: The patient is lying in bed. The patient overall clinically appears about the same as he did yesterday. He is minimally responsive. The patient has been hypothermic this morning and there have been no reported episodes of vomiting nor diarrhea. The patient's heart rate has been in acceptable range. I called and discussed the patient's care with his , Gema, who is also his surrogate decision maker. I reached her at [phone]. She was helping her son move into an apartment in college about 4 hours away. She stated that the patient had made his wishes clear to her that he wanted a natural should the time occur. I did communicate the patient's clinical status at this point and all questions were answered. REVIEW OF SYSTEMS: Unobtainable. MEDICATIONS: Medications have been reviewed. OBJECTIVE: GENERAL: The patient is a 42-year-old -[place] male who is minimally responsive and does not appear to be distressed. VITAL SIGNS: Temperature is 94, pulse rate 63, respirations 16, blood pressure is 136/79, oxygen saturation is 100% on room air. SKIN: The patient does have excessive dryness of his cox with areas of excoriation, ulceration. He is not diaphoretic. HEENT: The patient does have conjunctival irritation, scleral irritation of the right eye. No evidence of JVP. CARDIOVASCULAR SYSTEM: Heart is regular. No rub. CHEST: Clear, symmetrical, unlabored. ABDOMEN: Soft, nontender, nondistended. EXTREMITIES: No edema. The patient does have chronic pema. PSYCHIATRIC: Unable to assess. DIAGNOSTICS: Lab values are as follows: Hematology obtained on 01/18/2018: WBCs are 10.2, hemoglobin is 9.1, hematocrit is 37.5, platelet count is 249,000. Chemistry obtained on 01/18/2018: Sodium is 148, potassium 4.2, chloride is 103, carbon dioxide 34, BUN 22, creatinine is 0.23, glucose 106, calcium is 9.8, magnesium is 2.4. IMPRESSION AND PLAN: 1. GRAM-NEGATIVE PAULO URINARY TRACT INFECTION. Will expand the patient's antibiotic coverage for now given that the patient appears to be having a septic response. Will obtain blood cultures and follow. 2. SEPSIS SECONDARY TO NUMBER 1. The patient has been appropriately volume resuscitated, is however, hypothermic at this time. Will place him on a warming blanket. 3. BLEEDING FROM THE URETHRA IN MALE. OVERALL IMPROVED. MOST LIKELY DUE TO BERMAN TRAUMA FROM HIM PULLING HIS OWN BERMAN OUT. The patient's chronic Lovenox has been stopped. He was receiving Lovenox for chronic DVT prophylaxis given his immobility. 4. MULTIPLE SCLEROSIS. Continue supportive care. The patient would be an excellent candidate for palliative management. 5. STAGE 2 SACRAL DECUBITUS PRESENT ON ADMISSION. Will continue wound care. 6. HYPERNATREMIA. Have increased the patient's free water flushes. 7. PARAPLEGIA SECONDARY TO THE PATIENT'S MS. 8. RIGHT HEMIPARESIS. The patient does not have any symptoms of this given his poor response. The patient had an hemorrhagic cerebrovascular accident back in 2012. 9. PROTEIN CALORIE MALNOURISHMENT. DISPOSITION: The patient is a DO NOT RESUSCITATE/DO NOT INTUBATE. Pending patient's symptomatology and diagnostic findings, will re-evaluate in the a.m. Time spent on this followup including assessment, plan, physical examination, patient education, review of records, and family discussion is 30 minutes. DICTATING PHYSICIAN: BOBBY OCONNOR NP [id number] PHY#: [id number] ID: [id number] JOB#: [id number] ACCT: [id number] cc: >
[2018-01-18] MEDS: VANCOMYCIN HCL 1,000 MG in DEXTROSE 5%-WATER 250 ML IV SCH ×2 (13:14→21:25)
[2018-01-18] MEDS: QUETIAPINE FUMARATE 25 MG TABLET PEG SCH (21:24)
[2018-01-19] MEDS: MEROPENEM 1 GM in NORMAL SALINE 100 ML IV SCH ×3 (02:29→17:51)
[2018-01-19] MEDS: VANCOMYCIN HCL 1,000 MG in DEXTROSE 5%-WATER 250 ML IV SCH ×3 (05:10→21:38)
[2018-01-19 06:50] LABS: ABSOLUTE BASOPHILS # (AUTO) 0.1 10^3/uL (0.0-0.2); ABSOLUTE EOSINOPHILS # (AUTO) 1.2 10^3/uL (0.0-0.6); ABSOLUTE LYMPHOCYTES (AUTO) 1.9 10^3/uL (0.5-4.7); ABSOLUTE MONOCYTES (AUTO) 0.6 10^3/uL (0.1-1.4); ABSOLUTE NEUT (AUTO) 5.6 10^3/uL (1.7-8.2); BASOPHILS % (AUTO) 0.6 % (0-2); HEMATOCRIT 27.1 % (37.9-51.0); HEMOGLOBIN 8.9 g/dL (13.5-17.0); LYMPHOCYTES % (AUTO) 19.9 % (13-45); MEAN CORPUSCULAR HGB CONC 32.9 g/dL (32.0-36.0); MEAN CORPUSCULAR VOLUME 82 fl (80-97); MONOCYTES % (AUTO) 6.5 % (3-13); PLATELET COUNT 244 10^3/uL (150-450); RED BLOOD COUNT 3.31 10^6/uL (4.35-5.55); RED CELL DISTRIBUTION WIDTH 19.1 % (11.5-14.0); TOTAL CELLS COUNTED % (AUTO) 100 %; WHITE BLOOD COUNT 9.4 10^3/uL (4.0-10.5)
[2018-01-19 07:32] LABS: ALANINE AMINOTRANSFERASE 23 U/L (21-72); ALBUMIN 3.3 g/dL (3.5-5.0); ALKALINE PHOSPHATASE 98 U/L (38-126); ANION GAP 13 (5-19); ASPARTATE AMINO TRANSFERASE 23 U/L (17-59); BILIRUBIN,DIRECT 0.1 mg/dL (0.0-0.4); BILIRUBIN,TOTAL 0.1 mg/dL (0.2-1.3); BLOOD UREA NITROGEN 19 mg/dL (7-20); CALCIUM 9.2 mg/dL (8.4-10.2); CARBON DIOXIDE 31 mmol/L (22-30); CHLORIDE 102 mmol/L (98-107); GLUCOSE 124 mg/dL (75-110); POTASSIUM 4.3 mmol/L (3.6-5.0); SODIUM 146.1 mmol/L (137-145); TOTAL PROTEIN 7.7 g/dL (6.3-8.2)
[2018-01-19] MEDS: LEVETIRACETAM ORAL SOLN 500 MG/5 ML UDCUP PEG SCH ×2 (10:19→21:38)
[2018-01-19] MEDS: SERTRALINE HCL 50 MG TABLET PEG SCH (10:19)
[2018-01-19] MEDS: PANTOT AC/MIN OIL/PET HY-PHL OINT 50 GM TOP SCH ×2 (10:20→17:50)
[2018-01-19] MEDS: SILVER SULFADIAZINE 1% CREAM 50 GM TP SCH ×2 (10:20→21:32)
[2018-01-19 14:29] LABS: VANCOMYCIN,TROUGH 17.2 ug/mL (5.0-20.0)
--- NOTE | 2018-01-19 16:25 | PDOC PROGRESS REPORT ---
Subjective Progress Note for:: 01/19/18 Subjective:: Patient seen laying in bed. She was actually able to communicate somewhat with me. He denies any pain. Of course he is confused. His left eye is noted to be red but patient denies any pain or difficulty with his vision. It appears patient was pancultured yesterday due to suspicion of a sepsis. He has since remained afebrile. Reason For Visit: BLEEDING FROM URETHRA IN MALE Physical Exam Vital Signs: Temp Pulse Resp BP Pulse Ox 97.5 F 79 12 131/71 H 97 01/19/18 11:16 01/19/18 11:16 01/19/18 11:16 01/19/18 11:16 01/19/18 11:16 Intake & Output 01/18/18 01/19/18 01/20/18 06:59 06:59 06:59 Intake Total 1658 2598 Output Total 930 Balance 728 2598 Weight 68.6 kg 68.6 kg General appearance: PRESENT: no acute distress, other - chronically ill looking Head exam: PRESENT: atraumatic Eye exam: PRESENT: conjunctival injection Mouth exam: PRESENT: dry mucosa Neck exam: ABSENT: carotid bruit, JVD, lymphadenopathy, thyromegaly Cardiovascular exam: PRESENT: RRR. ABSENT: diastolic murmur, rubs, systolic murmur GI/Abdominal exam: PRESENT: other - PEG tube in place Extremities exam: ABSENT: full ROM Neurological exam: PRESENT: other - R sided hemiparesis Results Laboratory Results: 01/19/18 05:30 01/19/18 01/19/18 05:30 05:30 WBC 9.4 RBC 3.31 L Hgb 8.9 L Hct 27.1 L MCV 82 MCH 27.0 MCHC 32.9 RDW 19.1 H Plt Count 244 Seg Neutrophils % 60.0 Lymphocytes % 19.9 Monocytes % 6.5 Eosinophils % 13.0 H Basophils % 0.6 Absolute Neutrophils 5.6 Absolute Lymphocytes 1.9 Absolute Monocytes 0.6 Absolute Eosinophils 1.2 H Absolute Basophils 0.1 Sodium 146.1 H Potassium 4.3 Chloride 102 Carbon Dioxide 31 H Anion Gap 13 BUN 19 Creatinine 0.39 L Est GFR ( Amer) > 60 Est GFR (Non-Af Amer) > 60 Glucose 124 H Calcium 9.2 Magnesium 2.1 Total Bilirubin 0.1 L AST 23 ALT 23 Alkaline Phosphatase 98 Total Protein 7.7 Albumin 3.3 L 01/17/18 03:00 Nasophary (Mrsa Only) MRSA Surveillance Culture - Final MRSA RECOVERED Assessment & Plan - Time Time Spent with patient: 15-24 minutes Medications reviewed and adjusted accordingly: Yes Within: within 72 hours - Plan Summary Plan Summary: P Assessment and plan Urinary tract infection secondary to gram-negative lizzie. Will reevaluate cultures and de-escalate antibiotics as appropriate. 2. Sepsis secondary to above which appears to have resolved. Patient was volume resuscitated and apparently was hypothermic. 3. Likely conjunctival hemorrhage with no intervention planned 4. Hematuria apparently secondary to trauma from Garcia catheter secondary to patient pulling this out he was receiving Lovenox for chronic DVT but this has been discontinued. This of course places patient at a higher risk for DVT due to his immobility. 5. Multiple sclerosis currently on supportive management 6. Stage II sacral decubitus present on admission 7. Hypernatremia will follow labs 8. Paraplegia secondary to multiple sclerosis 9. Protein calorie malnutrition continue supplemental nutrition 10. Right hemiparesis secondary to old cerebrovascular accident. 11. Patient is a DO NOT RESUSCITATE
[2018-01-19] MEDS: QUETIAPINE FUMARATE 25 MG TABLET PEG SCH (21:38)
[2018-01-20] MEDS: MEROPENEM 1 GM in NORMAL SALINE 100 ML IV SCH ×2 (02:00→11:15)
[2018-01-20] MEDS: VANCOMYCIN HCL 1,000 MG in DEXTROSE 5%-WATER 250 ML IV SCH (05:32)
[2018-01-20] MEDS: LEVETIRACETAM ORAL SOLN 500 MG/5 ML UDCUP PEG SCH ×2 (11:14→21:06)
[2018-01-20] MEDS: SERTRALINE HCL 50 MG TABLET PEG SCH (11:14)
[2018-01-20] MEDS: PANTOT AC/MIN OIL/PET HY-PHL OINT 50 GM TOP SCH ×2 (11:15→18:00)
[2018-01-20] MEDS: SILVER SULFADIAZINE 1% CREAM 50 GM TP SCH ×2 (11:15→21:06)
[2018-01-20] MEDS: AMOXICILLIN TR/POT CLAVULANATE 500-125 MG TAB PO SCH (21:06)
[2018-01-20] MEDS: QUETIAPINE FUMARATE 25 MG TABLET PEG SCH (21:06)
[2018-01-21] MEDS: AMOXICILLIN TR/POT CLAVULANATE 500-125 MG TAB PO SCH ×3 (05:02→21:29)
[2018-01-21] MEDS: SERTRALINE HCL 50 MG TABLET PEG SCH (10:07)
[2018-01-21] MEDS: SILVER SULFADIAZINE 1% CREAM 50 GM TP SCH ×2 (10:07→21:30)
[2018-01-21] MEDS: LEVETIRACETAM ORAL SOLN 500 MG/5 ML UDCUP PEG SCH ×2 (10:07→21:29)
[2018-01-21] MEDS: PANTOT AC/MIN OIL/PET HY-PHL OINT 50 GM TOP SCH ×2 (10:08→18:15)
--- NOTE | 2018-01-21 16:33 | PDOC PROGRESS REPORT ---
Subjective Progress Note for:: 01/20/18 Subjective:: Patient seen laying in bed. She was actually able to communicate somewhat with me. He denies any pain. Of course he is confused. His left eye is noted to be red but patient denies any pain or difficulty with his vision. It appears patient was pancultured due to suspicion of a sepsis with negative reults. He has since remained afebrile. Reason For Visit: BLEEDING FROM URETHRA IN MALE Physical Exam Vital Signs: Temp Pulse Resp BP Pulse Ox 98.8 F 89 12 109/64 97 01/20/18 07:19 01/20/18 07:19 01/20/18 07:19 01/20/18 07:19 01/20/18 07:19 Intake & Output 01/19/18 01/20/18 01/21/18 06:59 06:59 06:59 Intake Total 2598 1875 Output Total 1980 Balance 2598 -105 Weight 68.6 kg 71.9 kg General appearance: PRESENT: no acute distress, other - chronically ill looking Head exam: PRESENT: atraumatic Eye exam: PRESENT: conjunctival injection Neck exam: ABSENT: carotid bruit, JVD, lymphadenopathy, thyromegaly Respiratory exam: PRESENT: clear to auscultation mirian. ABSENT: accessory muscle use, crackles, rales, retraction, stridor Cardiovascular exam: PRESENT: RRR. ABSENT: diastolic murmur, rubs, systolic murmur Rectal exam: PRESENT: deferred Musculoskeletal exam: PRESENT: other - contracted RUE Neurological exam: PRESENT: awake, oriented to person, oriented to place, motor sensory deficit - paraplegic, RUE plegia Skin exam: PRESENT: abrasion, rash - xple skin scabs and lesions on face and abdominal wall, urticaria, other - multiple scabs and lesions on face and abdominal wall Decubitus ulcer on sacrum Results Laboratory Results: 01/19/18 05:30 01/19/18 13:32 01/19/18 13:32 Creatinine 0.41 L Est GFR ( Amer) > 60 Est GFR (Non-Af Amer) > 60 01/16/18 23:36 Catheterized Urine Urine Culture - Final Proteus Mirabilis Staph Coagulase Negative Assessment & Plan - Plan Summary Plan Summary: Urinary tract infection secondary to gram-negative lizzie. Changed to Augmentin 2. Sepsis secondary to above which appears to have resolved. 3. Likely conjunctival hemorrhage with no intervention planned- improved 4. Hematuria apparently secondary to trauma from Garcia catheter secondary to patient pulling this out he was receiving Lovenox for chronic DVT. This has been restarted 5. Multiple sclerosis currently on supportive management 6. Stage II sacral decubitus present on admission 7. Hypernatremia will follow labs 8. Paraplegia secondary to multiple sclerosis 9. Protein calorie malnutrition continue supplemental nutrition 10. Right hemiparesis secondary to old cerebrovascular accident. 11. Patient is a DO NOT RESUSCITATE 12. DC IV antibiotics, start Augmentin and dc home in am if stable. F?U with PCP re lesions on face Decubitus ulcer, tunnel sacral, present on admission
--- NOTE | 2018-01-21 16:46 | PDOC PROGRESS REPORT ---
Subjective Progress Note for:: 01/21/18 Subjective:: Patient seen laying in bed. She was actually able to communicate somewhat with me. He denies any pain. Of course he is confused. His left eye is noted to be red but patient denies any pain or difficulty with his vision. It appears patient was pancultured due to suspicion of a sepsis with negative reults. He has since remained afebrile. Feels better today Reason For Visit: BLEEDING FROM URETHRA IN MALE Physical Exam Vital Signs: Temp Pulse Resp BP Pulse Ox 98.0 F 90 18 108/69 99 01/21/18 16:00 01/21/18 16:00 01/21/18 16:00 01/21/18 16:00 01/21/18 16:00 Intake & Output 01/20/18 01/21/18 01/22/18 06:59 06:59 06:59 Intake Total 1875 1697 Output Total 1980 900 Balance -105 797 Weight 71.9 kg 71.5 kg General appearance: PRESENT: thin - chronically ill looking Head exam: PRESENT: atraumatic Eye exam: PRESENT: conjunctival injection - less erythematous Ear exam: PRESENT: normal external ear exam Neck exam: ABSENT: carotid bruit, JVD, lymphadenopathy, thyromegaly Respiratory exam: PRESENT: clear to auscultation mirian. ABSENT: rales, rhonchi, wheezes Cardiovascular exam: PRESENT: RRR. ABSENT: diastolic murmur, rubs, systolic murmur GI/Abdominal exam: PRESENT: normal bowel sounds, soft, other - PEG tube. ABSENT : distended, guarding, mass, organolmegaly, rebound, tenderness Rectal exam: PRESENT: deferred Skin exam: PRESENT: other - Xple scab, lesions on face and anterior abdominal and chest wall Decubitus ulcer on sacrum Results Laboratory Results: 01/19/18 05:30 01/19/18 13:32 Assessment & Plan - Time Time Spent with patient: 15-24 minutes Medications reviewed and adjusted accordingly: Yes Anticipated discharge: SNF Within: within 72 hours - Inpatient Certification Medical Necessity: Need for Surgery - Decubitus ulcers - Plan Summary Plan Summary: 1.Urinary tract infection secondary to gram-negative lizzie. Completed treatment then patient developed a fever so was started on antibiotics and now changed to oral Augmentin 2. Sepsis secondary to above which appears to have resolved. 3. Likely conjunctival hemorrhage with no intervention planned- Resolving 4. Hematuria apparently secondary to trauma from Garcia catheter secondary to patient pulling this out he was receiving Lovenox for chronic DVT. This has been restarted 5. Multiple sclerosis currently on supportive management 6. Stage II sacral decubitus present on admission- surgical consult 7. Hypernatremia will follow labs 8. Paraplegia secondary to multiple sclerosis 9. Protein calorie malnutrition continue supplemental nutrition 10. Right hemiparesis secondary to old cerebrovascular accident. 11. Patient is a DO NOT RESUSCITATE 12. DC IV antibiotics, start Augmentin and dc home in am if stable. F?U with PCP re lesions on face Decubitus ulcer, tunnel sacral, present on admission
[2018-01-21] MEDS: QUETIAPINE FUMARATE 25 MG TABLET PEG SCH (21:29)
[2018-01-22] MEDS: AMOXICILLIN TR/POT CLAVULANATE 500-125 MG TAB PO SCH ×3 (05:12→22:24)
[2018-01-22 05:16] LABS: HEMATOCRIT 26.7 % (37.9-51.0); HEMOGLOBIN 8.5 g/dL (13.5-17.0); MEAN CORPUSCULAR HEMOGLOBIN 26.3 pg (27.0-33.4); MEAN CORPUSCULAR HGB CONC 31.8 g/dL (32.0-36.0); MEAN CORPUSCULAR VOLUME 83 fl (80-97); PLATELET COUNT 293 10^3/uL (150-450); RED BLOOD COUNT 3.23 10^6/uL (4.35-5.55); RED CELL DISTRIBUTION WIDTH 19.1 % (11.5-14.0); WHITE BLOOD COUNT 10.7 10^3/uL (4.0-10.5)
[2018-01-22 05:33] LABS: ANION GAP 12 (5-19); BLOOD UREA NITROGEN 26 mg/dL (7-20); CALCIUM 9.2 mg/dL (8.4-10.2); CARBON DIOXIDE 30 mmol/L (22-30); CHLORIDE 101 mmol/L (98-107); GLUCOSE 110 mg/dL (75-110); POTASSIUM 4.5 mmol/L (3.6-5.0); SODIUM 142.8 mmol/L (137-145)
[2018-01-22] MEDS: SILVER SULFADIAZINE 1% CREAM 50 GM TP SCH ×2 (10:25→22:24)
[2018-01-22] MEDS: SERTRALINE HCL 50 MG TABLET PEG SCH (10:25)
[2018-01-22] MEDS: PANTOT AC/MIN OIL/PET HY-PHL OINT 50 GM TOP SCH ×2 (10:25→18:31)
[2018-01-22] MEDS: LEVETIRACETAM ORAL SOLN 500 MG/5 ML UDCUP PEG SCH ×2 (10:25→22:24)
--- NOTE | 2018-01-22 16:06 | PDOC PROGRESS REPORT ---
Subjective Progress Note for:: 01/22/18 Subjective:: Patient seen laying in bed. She was actually able to communicate somewhat with me. He denies any pain. Of course he is confused. His left eye is noted to be red but patient denies any pain or difficulty with his vision. It appears patient was pancultured due to suspicion of a sepsis with negative reults. He has since remained afebrile on Augmentin. Feels better today Reason For Visit: BLEEDING FROM URETHRA IN MALE Physical Exam Vital Signs: Temp Pulse Resp BP Pulse Ox 98.3 F 95 18 108/67 96 01/22/18 11:58 01/22/18 11:58 01/22/18 11:58 01/22/18 11:58 01/22/18 11:58 Intake & Output 01/21/18 01/22/18 01/23/18 06:59 06:59 06:59 Intake Total 0288 142 5055 Output Total 900 300 Balance 029 200 1285 Weight 71.5 kg 71 kg General appearance: PRESENT: no acute distress, other - Chronically ill looking Head exam: PRESENT: atraumatic Eye exam: PRESENT: conjunctival injection - Resolving mild Cardiovascular exam: PRESENT: RRR. ABSENT: diastolic murmur, rubs, systolic murmur Pulses: PRESENT: normal dorsalis pedis pul Rectal exam: PRESENT: deferred Extremities exam: ABSENT: full ROM Musculoskeletal exam: PRESENT: deformity. ABSENT: ambulatory Neurological exam: PRESENT: awake, motor sensory deficit, other - Right-sided hemiplegia as well as left lower extremity. ABSENT: oriented to person, oriented to place, oriented to time, oriented to situation, CN II-XII grossly intact Skin exam: PRESENT: abrasion, rash - There is lesions on face as well as on anterior abdominal and chest wall Results Laboratory Results: 01/22/18 05:00 01/22/18 05:00 01/22/18 01/22/18 05:00 05:00 WBC 10.7 H RBC 3.23 L Hgb 8.5 L Hct 26.7 L MCV 83 MCH 26.3 L MCHC 31.8 L RDW 19.1 H Plt Count 293 Sodium 142.8 Potassium 4.5 Chloride 101 Carbon Dioxide 30 Anion Gap 12 BUN 26 H Creatinine 0.49 L Est GFR ( Amer) > 60 Est GFR (Non-Af Amer) > 60 Glucose 110 Calcium 9.2 Assessment & Plan - Time Time Spent with patient: 15-24 minutes Medications reviewed and adjusted accordingly: Yes Anticipated discharge: SNF Within: within 48 hours - Plan Summary Plan Summary: 1.Urinary tract infection secondary to gram-negative lizzie. Completed treatment then patient developed a fever so was started on antibiotics and now changed to oral Augmentin I would likely DC antibiotics in a.m. 2. Sepsis secondary to above which has resolved. 3. Likely conjunctival hemorrhage with no intervention planned- Resolving 4. Hematuria apparently secondary to trauma from Garcia catheter secondary to patient pulling this out he was receiving Lovenox for chronic DVT. This has been restarted 5. Multiple sclerosis currently on supportive management 6. Stage II sacral decubitus present on admission- surgical consult 7. Hypernatremia -resolved 8. Paraplegia secondary to multiple sclerosis 9. Protein calorie malnutrition continue supplemental nutrition 10. Right hemiparesis secondary to old cerebrovascular accident. 11. Patient is a DO NOT RESUSCITATE 12.F/U with PCP re lesions on face Decubitus ulcer, tunnel sacral, present on admission
[2018-01-22] MEDS: QUETIAPINE FUMARATE 25 MG TABLET PEG SCH (22:24)
--- NOTE | 2018-01-23 00:12 | PDOC CONSULTATION ---
Consultation Consult Date: 01/22/18 Consult reason:: sacral decubitus History of Present Illness Admission Date/PCP: 01/15/18 11:58 FLORINA LYNCH History of Present Illness: Patient apparently had stroke and bedridden. Noted sacral decubitus Past Medical History Cardiac Medical History: Reports: Hypertension Denies: Coronary Artery Disease, DVT, Myocardial Infarction, Hyperlipidema, Pulmonary Embolism Pulmonary Medical History: Denies: Asthma, Chronic Obstructive Pulmonary Disease (COPD) Neurological Medical History: Reports: Multiple Sclerosis, Seizures Endocrine Medical History: Denies: Diabetes Mellitus Type 1, Diabetes Mellitus Type 2, Hyperthyroidism, Hypothyroidism GI Medical History: Reports: Gastroesophageal Reflux Disease Denies: Cirrhosis, Hepatitis Psychiatric Medical History: Reports: Depression - PTSD Hematology: Reports: Anemia Past Surgical History Past Surgical History: Reports: Other - Implantation of baclofen pump Social History Lives with: Assisted Smoking Status: Former Smoker Cigarettes Packs Per Day: 0.3 Number of Years Smokin Last Time Smoked: 02/24/2013 Frequency of Alcohol Use: None Hx Recreational Drug Use: No Drugs: None Hx Prescription Drug Abuse: No Family History Family History: Reviewed & Not Pertinent Parental Family History Reviewed: No Children Family History Reviewed: No Sibling(s) Family History Reviewed.: No Medication/Allergy Home Medications: Clonidine HCl [Catapres 0.1 mg Tablet] 0.1 mg PEG DAILY 01/15/18 Ferrous Sulfate [Ferrous Sulfate Liquid 300 mg/5 ml Udcup] 325 mg PEG DAILY Interferon Beta-1A/Albumin [Avonex Inj 30 Mcg Kit] 30 mcg IM TH@0800 01/15/18 Levetiracetam 1,000 mg PEG Q12 01/15/18 Petrolatum,White [Aquaphor] 1 applic TOP BID 01/15/18 Polyethylene Glycol 3350 [Miralax Powder 17 gm/Packet] 17 gm PEG DAILY 01/15/18 Quetiapine Fumarate [Seroquel 25 mg Tablet] 25 mg PEG QHS 01/15/18 Sennosides [Senna] 8.6 mg PEG DAILY 01/15/18 Sertraline HCl [Zoloft] 100 mg PEG DAILY 01/15/18 Allergies/Adverse Reactions: Sulfa (Sulfonamide Antibiotics) Allergy (Verified 01/15/18 09:59) Review of Systems Review of Systems: unable to obtain because patient is noncommunicative Physical Exam Vital Signs: Temp Pulse Resp BP Pulse Ox 97.5 F 78 18 109/60 94 01/22/18 16:32 01/22/18 16:32 01/22/18 16:32 01/22/18 16:32 01/22/18 16:32 Intake & Output 01/21/18 01/22/18 01/23/18 06:59 06:59 06:59 Intake Total 7250 656 5278 Output Total 900 300 760 Balance 797 656 810 Weight 71.5 kg 71 kg General appearance: PRESENT: no acute distress Head exam: PRESENT: atraumatic Eye exam: PRESENT: conjunctiva pink Mouth exam: PRESENT: moist Respiratory exam: PRESENT: clear to auscultation mirian Cardiovascular exam: PRESENT: RRR Pulses: PRESENT: normal radial pulses Vascular exam: PRESENT: normal capillary refill GI/Abdominal exam: PRESENT: soft Rectal exam: PRESENT: deferred Neurological exam: PRESENT: awake, other - non communicative Skin exam: PRESENT: other - Has a 1.5 cm sacral ulcer with what appears to be bone underneath Results Laboratory Results: 01/22/18 05:00 01/22/18 05:00 01/22/18 01/22/18 05:00 05:00 WBC 10.7 H RBC 3.23 L Hgb 8.5 L Hct 26.7 L MCV 83 MCH 26.3 L MCHC 31.8 L RDW 19.1 H Plt Count 293 Sodium 142.8 Potassium 4.5 Chloride 101 Carbon Dioxide 30 Anion Gap 12 BUN 26 H Creatinine 0.49 L Est GFR ( Amer) > 60 Est GFR (Non-Af Amer) > 60 Glucose 110 Calcium 9.2 Assessment & Plan - Diagnosis (1) Sacral decubitus ulcer Qualifiers: Pressure ulcer stage: unspecified pressure ulcer stage Qualified Code(s): L89.159 - Pressure ulcer of sacral region, unspecified stage Is this a current diagnosis for this admission?: Yes - Time Time Spent: 30 to 50 Minutes - Plan Summary Plan Summary: Ordered a wound vac. Follow up with wound care center on OPD basis when discharged
[2018-01-23] MEDS: AMOXICILLIN TR/POT CLAVULANATE 500-125 MG TAB PO SCH ×3 (05:30→21:44)
[2018-01-23] MEDS: SERTRALINE HCL 50 MG TABLET PEG SCH (11:12)
[2018-01-23] MEDS: LEVETIRACETAM ORAL SOLN 500 MG/5 ML UDCUP PEG SCH ×2 (11:12→21:44)
[2018-01-23] MEDS: PANTOT AC/MIN OIL/PET HY-PHL OINT 50 GM TOP SCH ×2 (11:20→18:41)
[2018-01-23] MEDS: SILVER SULFADIAZINE 1% CREAM 50 GM TP SCH ×2 (11:20→21:45)
--- NOTE | 2018-01-23 14:41 | PDOC PROGRESS REPORT ---
Subjective Progress Note for:: 01/23/18 Subjective:: Bleeding from Garcia, irrigated with blood clots retrieved Patient seen laying in bed. She was actually able to communicate somewhat with me. He denies any pain. Of course he is confused. His left eye is noted to be red but patient denies any pain or difficulty with his vision. It appears patient was pancultured due to suspicion of a sepsis with negative reults. He has since remained afebrile on Augmentin. Reason For Visit: BLEEDING FROM URETHRA IN MALE Physical Exam Vital Signs: Temp Pulse Resp BP Pulse Ox 98.3 F 108 H 18 107/56 L 97 01/23/18 11:20 01/23/18 11:20 01/23/18 11:20 01/23/18 11:20 01/23/18 11:20 Intake & Output 01/22/18 01/23/18 01/24/18 06:59 06:59 06:59 Intake Total 956 1570 Output Total 300 1120 Balance 656 450 Weight 71 kg 76.2 kg General appearance: PRESENT: thin, other - chronically ill looking Head exam: PRESENT: atraumatic Eye exam: PRESENT: conjunctival injection Mouth exam: PRESENT: dry mucosa Neck exam: ABSENT: carotid bruit, JVD, lymphadenopathy, thyromegaly Respiratory exam: PRESENT: clear to auscultation mirian. ABSENT: rales, rhonchi, wheezes Pulses: PRESENT: normal dorsalis pedis pul GI/Abdominal exam: PRESENT: normal bowel sounds, soft, other - PEG tube in place. ABSENT: distended, guarding, mass, organolmegaly, rebound, tenderness Rectal exam: PRESENT: deferred Gentrourinary exam: PRESENT: other - Hematuria Musculoskeletal exam: ABSENT: ambulatory, full ROM Neurological exam: PRESENT: alert, awake, other - paraplegic. ABSENT: oriented to person, oriented to place, oriented to time, oriented to situation Psychiatric exam: PRESENT: appropriate affect Skin exam: PRESENT: abrasion, rash, other - Multiple rashes and lesions on his face and upper abdominal and chest wall Results Laboratory Results: 01/22/18 05:00 01/22/18 05:00 01/18/18 12:08 Blood Blood Culture - Final NO GROWTH IN 5 DAYS 01/18/18 12:15 Blood Blood Culture - Final NO GROWTH IN 5 DAYS Assessment & Plan - Time Time Spent with patient: 15-24 minutes Medications reviewed and adjusted accordingly: Yes Anticipated discharge: Acute Rehab Within: within 72 hours - Plan Summary Plan Summary: 1. Hematuria, unclear etiology. This was the presenting etiology. It had cleared but returned today. Will obtain Sonogram, Urology consult when available, dc Lovenox, monitor H and h 2. Sepsis secondary to above which has resolved. 3. Likely conjunctival hemorrhage with no intervention planned- Resolved 4. Urinary tract infection secondary to gram-negative lizzie. Completed treatment then patient developed a fever so was started on antibiotics and now changed to oral Augmentin 5. Multiple sclerosis currently on supportive management 6. Stage II sacral decubitus present on admission- surgical consult appreciated. 7. Hypernatremia -resolved 8. Paraplegia secondary to multiple sclerosis 9. Protein calorie malnutrition continue supplemental nutrition 10. Right hemiparesis secondary to old cerebrovascular accident. 11. Patient is a DO NOT RESUSCITATE 12.F/U with PCP re lesions on face Decubitus ulcer, tunnel sacral, present on admission
[2018-01-23] MEDS: QUETIAPINE FUMARATE 25 MG TABLET PEG SCH (21:44)
--- NOTE | 2018-01-23 22:07 | RADIOLOGY REPORT (SQ) ---
EXAM DESCRIPTION: U/S RETROPERITON LTD COMPLETED DATE/TIME: 01/23/2018 9:58 pm REASON FOR STUDY: Hematuria COMPARISON: None. TECHNIQUE: Dynamic and static grayscale images acquired of the kidneys and bladder and recorded on P ACS. Additional selected color Doppler and spectral images recorded. LIMITATIONS: Limited study due to bowel gas and limited patient mobility. FINDINGS: RIGHT KIDNEY: Poorly visualized. No gross lesions or significant hydronephrosis. LEFT KIDNEY: Obscured by bowel gas. BLADDER: Catheter present. OTHER FINDINGS: No other significant finding. IMPRESSION: MARKEDLY LIMITED STUDY. LEFT KIDNEY NOT VISUALIZED. TECHNICAL DOCUMENTATION: JOB ID: [id number] [facility]- All Rights Reserved Reading location - IP/workstation name: [email or web address]
[2018-01-24] MEDS: AMOXICILLIN TR/POT CLAVULANATE 500-125 MG TAB PO SCH ×3 (05:34→21:27)
[2018-01-24 05:53] LABS: HEMATOCRIT 25.2 % (37.9-51.0); MEAN CORPUSCULAR HEMOGLOBIN 26.7 pg (27.0-33.4); MEAN CORPUSCULAR HGB CONC 31.5 g/dL (32.0-36.0); MEAN CORPUSCULAR VOLUME 85 fl (80-97); PLATELET COUNT 318 10^3/uL (150-450); RED BLOOD COUNT 2.98 10^6/uL (4.35-5.55); RED CELL DISTRIBUTION WIDTH 19.4 % (11.5-14.0); WHITE BLOOD COUNT 11.2 10^3/uL (4.0-10.5)
[2018-01-24 06:06] LABS: ANION GAP 10 (5-19); BLOOD UREA NITROGEN 35 mg/dL (7-20); CALCIUM 9.2 mg/dL (8.4-10.2); CARBON DIOXIDE 34 mmol/L (22-30); CHLORIDE 103 mmol/L (98-107); GLUCOSE 104 mg/dL (75-110); SODIUM 146.5 mmol/L (137-145)
[2018-01-24 06:16] LABS: POTASSIUM 4.4 mmol/L (3.6-5.0)
[2018-01-24] MEDS: SERTRALINE HCL 50 MG TABLET PEG SCH (11:28)
[2018-01-24] MEDS: LEVETIRACETAM ORAL SOLN 500 MG/5 ML UDCUP PEG SCH ×2 (11:29→21:27)
[2018-01-24] MEDS: SILVER SULFADIAZINE 1% CREAM 50 GM TP SCH ×2 (11:36→21:33)
[2018-01-24] MEDS: PANTOT AC/MIN OIL/PET HY-PHL OINT 50 GM TOP SCH ×2 (11:36→18:18)
--- NOTE | 2018-01-24 11:48 | PDOC PROGRESS REPORT ---
Subjective Progress Note for:: 01/24/18 Subjective:: Bleeding from Garcia, irrigated with blood clots retrieved Patient seen laying in bed. She was actually able to communicate somewhat with me. He denies any pain. Of course he is confused. His left eye is noted to be red but patient denies any pain or difficulty with his vision. It appears patient was pancultured due to suspicion of a sepsis with negative reults. He has since remained afebrile. Will dc Augmentin. Patient continues to have hematuria, Renal sono was not very revealing Reason For Visit: BLEEDING FROM URETHRA IN MALE Physical Exam Vital Signs: Temp Pulse Resp BP Pulse Ox 97.7 F 80 16 100/58 L 94 01/24/18 07:20 01/24/18 07:20 01/24/18 07:20 01/24/18 07:20 01/24/18 07:20 Intake & Output 01/23/18 01/24/18 01/25/18 06:59 06:59 06:59 Intake Total 1570 781 Output Total 1120 700 Balance 450 81 Weight 76.2 kg 69.1 kg General appearance: PRESENT: no acute distress, thin Head exam: PRESENT: atraumatic Eye exam: PRESENT: PERRLA. ABSENT: conjunctival injection Ear exam: PRESENT: normal external ear exam Neck exam: ABSENT: carotid bruit, JVD, lymphadenopathy, thyromegaly Respiratory exam: PRESENT: clear to auscultation mirian. ABSENT: rales, rhonchi, wheezes Cardiovascular exam: PRESENT: RRR. ABSENT: diastolic murmur, rubs, systolic murmur GI/Abdominal exam: PRESENT: normal bowel sounds, soft, other - PEG in place Rectal exam: PRESENT: deferred Gentrourinary exam: PRESENT: other - hematuria Musculoskeletal exam: PRESENT: other - Bedridden Neurological exam: PRESENT: alert, awake, motor sensory deficit - Paraplegia. ABSENT: oriented to person, oriented to time, oriented to situation Skin exam: PRESENT: abrasion, rash, other - xple lesions on face and ant abdominal and chest wall Decubitus ulcer Results Laboratory Results: 01/24/18 05:21 01/24/18 05:21 01/24/18 01/24/18 05:21 05:21 WBC 11.2 H RBC 2.98 L Hgb 8.0 L Hct 25.2 L MCV 85 MCH 26.7 L MCHC 31.5 L RDW 19.4 H Plt Count 318 Sodium 146.5 H Potassium 4.4 Chloride 103 Carbon Dioxide 34 H Anion Gap 10 BUN 35 H Creatinine 0.50 L Est GFR ( Amer) > 60 Est GFR (Non-Af Amer) > 60 Glucose 104 Calcium 9.2 01/18/18 12:08 Blood Blood Culture - Final NO GROWTH IN 5 DAYS 01/18/18 12:15 Blood Blood Culture - Final NO GROWTH IN 5 DAYS Impressions: Renal Ultrasound 01/23/18 00:00 IMPRESSION: MARKEDLY LIMITED STUDY. LEFT KIDNEY NOT VISUALIZED. Assessment & Plan - Plan Summary Plan Summary: 1. Hematuria, unclear etiology. This was the initial presenting etiology and apparently this was thought to be due to trauma. It had cleared but returned and continues today. Sonogram really shows no significant findings and I have ordered a CT of the abdomen and pelvis for further review. Unfortunately there is no urologist information resources director today but will await CT findings before any further decisions as to management. Patient's hemoglobin is noted to be trending down slightly and he also has azotemia so he will need to have further management prior to discharge. He is off Lovenox, continue to monitor H and h and transfuse as needed 2. Sepsis secondary to above which has resolved. 3. Likely conjunctival hemorrhage with no intervention planned- Resolved 4. Urinary tract infection secondary to gram-negative lizzie. Completed treatment then patient developed a fever so was started on antibiotics and now changed to oral Augmentin which will be discontinued today 5. Multiple sclerosis currently on supportive management 6. Stage II sacral decubitus present on admission- surgical consult appreciated. No further interventions planned 7. Hypernatremia -resolved 8. Paraplegia secondary to multiple sclerosis 9. Protein calorie malnutrition continue supplemental nutrition. He is also able to eat orally 10. Right hemiparesis secondary to old cerebrovascular accident. 11. Patient is a DO NOT RESUSCITATE 12.F/U with PCP re lesions on face Decubitus ulcer, present on admission 13. Anemia secondary to chronic disease with acute worsening from the acute illness and hematuria
[2018-01-24] MEDS: QUETIAPINE FUMARATE 25 MG TABLET PEG SCH (21:27)
[2018-01-25] MEDS: AMOXICILLIN TR/POT CLAVULANATE 500-125 MG TAB PO SCH ×3 (05:30→21:13)
[2018-01-25 06:10] LABS: ABSOLUTE BASOPHILS # (AUTO) 0.1 10^3/uL (0.0-0.2); ABSOLUTE EOSINOPHILS # (AUTO) 0.9 10^3/uL (0.0-0.6); ABSOLUTE LYMPHOCYTES (AUTO) 2.1 10^3/uL (0.5-4.7); BASOPHILS % (AUTO) 0.8 % (0-2); HEMATOCRIT 21.9 % (37.9-51.0); LYMPHOCYTES % (AUTO) 20.8 % (13-45); MEAN CORPUSCULAR HEMOGLOBIN 26.9 pg (27.0-33.4); MEAN CORPUSCULAR HGB CONC 32.4 g/dL (32.0-36.0); MEAN CORPUSCULAR VOLUME 83 fl (80-97); MONOCYTES % (AUTO) 9.6 % (3-13); PLATELET COUNT 404 10^3/uL (150-450); RED BLOOD COUNT 2.64 10^6/uL (4.35-5.55); RED CELL DISTRIBUTION WIDTH 19.3 % (11.5-14.0); SEGMENTED NEUTROPHILS % (AUTO) 59.8 % (42-78); TOTAL CELLS COUNTED % (AUTO) 100 %
[2018-01-25 06:31] LABS: ANION GAP 9 (5-19); BLOOD UREA NITROGEN 28 mg/dL (7-20); CALCIUM 9.1 mg/dL (8.4-10.2); CARBON DIOXIDE 34 mmol/L (22-30); CHLORIDE 100 mmol/L (98-107); GLUCOSE 110 mg/dL (75-110); POTASSIUM 4.7 mmol/L (3.6-5.0); SODIUM 143.3 mmol/L (137-145)
[2018-01-25 06:34] LABS: HEMOGLOBIN 7.1 g/dL (13.5-17.0)
--- NOTE | 2018-01-25 08:20 | RADIOLOGY REPORT (SQ) ---
EXAM DESCRIPTION: CT ABD/PELVIS WITH IV ORAL COMPLETED DATE/TIME: 01/24/2018 6:52 pm REASON FOR STUDY: Hematuria, Anemia COMPARISON: Renal ultrasound dated 01/23/2018 TECHNIQUE: CT scan of the abdomen and pelvis performed with intravenous and oral contrast using kristina jewel scanning technique with dynamic intravenous contrast injection. Images reviewed with lung, soft t issue, and bone windows. Reconstructed coronal and sagittal MPR images reviewed. Delayed images for e valuation of the urinary system also acquired. All images stored on PACS. All CT scanners at this facility use dose modulation, iterative reconstruction, and/or weight based d osing when appropriate to reduce radiation dose to as low as reasonably achievable (ALARA). [facility]: Dose Right [facility]: CareDose [facility]: Dose Right [facility]: Teradose 4D [facility]: lmbang CONTRAST TYPE AND DOSE: contrast/concentration: Isovue 370.00 mg/ml; Total Contrast Delivered: 100.0 ml; Total Saline Delivered: 40.9 ml RENAL FUNCTION: Creatinine 0.5 RADIATION DOSE: CT Rad equipment meets quality standard of care and radiation dose reduction techniq ues were employed. CTDIvol: 5.5 - 6.4 mGy. DLP: 637 mGy-cm. . LIMITATIONS: None. FINDINGS: LOWER CHEST: No significant findings. No nodules or infiltrates. Calcified granuloma is i dentified in the left lung base. Linear scarring or subsegmental atelectasis is identified in the le ft lung base LIVER: Normal size. No masses. No dilated ducts. SPLEEN: Normal size. No focal lesions. PANCREAS: No masses. No significant calcifications. No adjacent inflammation or peripancreatic fluid collections. Pancreatic duct not dilated. GALLBLADDER: No identified stones by CT criteria. No inflammatory changes to suggest cholecystitis. ADRENAL GLANDS: No significant masses or asymmetry. RIGHT KIDNEY AND URETER: No solid masses. No significant calcifications. No hydronephrosis or hyd roureter. LEFT KIDNEY AND URETER: No solid masses. No significant calcifications. No hydronephrosis or hydr oureter. AORTA AND VESSELS: No aneurysm. No dissection. Renal arteries, SMA, celiac without stenosis. RETROPERITONEUM: No retroperitoneal adenopathy, hemorrhage or masses. BOWEL AND PERITONEAL CAVITY: No obstruction. No visualized masses. No free fluid. No inflammatory ch anges or thickening of bowel wall. A large amount of fecal material is identified in the distal sigm oid colon and rectosigmoid and the possibility of a fecal impaction should be considered. APPENDIX: Not identified PELVIS: No significant masses. Garcia catheter is identified in the bladder. No free fluid. ABDOMINAL WALL: No masses. No hernias. BONES: No significant or acute findings. OTHER: No other significant finding. IMPRESSION: Large amount of fecal material in the distal sigmoid colon and rectosigmoid and the poss ibility of fecal impaction should be considered. Other findings as noted above TECHNICAL DOCUMENTATION: JOB ID: [id number] Quality ID # [id number]: Final reports with documentation of one or more dose reduction techniques (e.g., Au tomated exposure control, adjustment of the mA and/or kV according to patient size, use of iterative reconstruction technique) 2010 [employer]- All Rights Reserved Reading location - IP/workstation name: [email or web address]
[2018-01-25] MEDS: SERTRALINE HCL 50 MG TABLET PEG SCH (10:51)
[2018-01-25] MEDS: PANTOT AC/MIN OIL/PET HY-PHL OINT 50 GM TOP SCH ×2 (10:52→17:59)
[2018-01-25] MEDS: LEVETIRACETAM ORAL SOLN 500 MG/5 ML UDCUP PEG SCH ×2 (10:52→21:13)
[2018-01-25] MEDS: SILVER SULFADIAZINE 1% CREAM 50 GM TP SCH ×2 (10:53→21:13)
--- NOTE | 2018-01-25 18:07 | PDOC PROGRESS REPORT ---
Subjective Progress Note for:: 01/25/18 Subjective:: Patient is very sleepy this afternoon, wants to take a nap, agrees to let me examine him but does not want to talk. Nods yes or no to a few things. He nods no to are you having any new pain. He nods no to are you hungry. When asked if he is comfortable he nods yes. Reason For Visit: BLEEDING FROM URETHRA IN MALE Physical Exam Vital Signs: Temp Pulse Resp BP Pulse Ox 98.2 F 75 17 103/54 L 93 01/25/18 07:21 01/25/18 07:21 01/25/18 07:21 01/25/18 07:21 01/25/18 07:21 Intake & Output 01/24/18 01/25/18 01/26/18 06:59 06:59 06:59 Intake Total 781 680 Output Total 700 1000 Balance 81 -320 Weight 69.1 kg 71.9 kg General appearance: PRESENT: no acute distress, thin Head exam: PRESENT: atraumatic, normocephalic Eye exam: PRESENT: conjunctiva pink. ABSENT: scleral icterus Mouth exam: PRESENT: moist Respiratory exam: PRESENT: clear to auscultation mirian, unlabored. ABSENT: rales , rhonchi, wheezes Cardiovascular exam: PRESENT: RRR, systolic murmur Pulses: PRESENT: normal radial pulses GI/Abdominal exam: PRESENT: hypoactive bowel sounds, soft. ABSENT: distended, guarding, tenderness Rectal exam: PRESENT: deferred Extremities exam: PRESENT: other - Bilateral feet and pressure reduction boots Musculoskeletal exam: ABSENT: ambulatory Neurological exam: PRESENT: other - Difficult to assess as patient not willing to participate with exam and interview today. Psychiatric exam: ABSENT: agitated, anxious Skin exam: PRESENT: dry, warm Results Laboratory Results: 01/25/18 05:28 01/25/18 05:28 01/25/18 01/25/18 05:28 05:28 WBC 10.0 RBC 2.64 L Hgb 7.1 L Hct 21.9 L MCV 83 MCH 26.9 L MCHC 32.4 RDW 19.3 H Plt Count 404 Seg Neutrophils % 59.8 Lymphocytes % 20.8 Monocytes % 9.6 Eosinophils % 9.0 H Basophils % 0.8 Absolute Neutrophils 6.0 Absolute Lymphocytes 2.1 Absolute Monocytes 1.0 Absolute Eosinophils 0.9 H Absolute Basophils 0.1 Sodium 143.3 Potassium 4.7 Chloride 100 Carbon Dioxide 34 H Anion Gap 9 BUN 28 H Creatinine 0.64 Est GFR ( Amer) > 60 Est GFR (Non-Af Amer) > 60 Glucose 110 Calcium 9.1 Impressions: Renal Ultrasound 01/23/18 00:00 IMPRESSION: MARKEDLY LIMITED STUDY. LEFT KIDNEY NOT VISUALIZED. Abdomen/Pelvis CT 01/24/18 00:00 IMPRESSION: Large amount of fecal material in the distal sigmoid colon and rectosigmoid and the possibility of fecal impaction should be considered. Other findings as noted above Assessment & Plan - Diagnosis (1) Acute blood loss anemia Is this a current diagnosis for this admission?: Yes Plan: Patient has been having intermittent hematuria. Etiology not entirely clear though he does have a urinary tract infection. Hemoglobin is 7.1 today. He is not actively bleeding now. Check hemoglobin again in the morning or if he starts bleeding to see if transfusion is warranted. Also if patient continues to bleed will need to have urology consult. (2) Hematuria Is this a current diagnosis for this admission?: Yes Plan: Etiology unclear. Possibly due to UTI that we are treating. Does have chronic Garcia. There was some Garcia trauma. Please see plan above. (3) Urinary tract infection associated with catheterization of urinary tract Qualifiers: Indwelling urinary catheter type: indwelling urethral catheter Encounter type: initial encounter Qualified Code(s): T83.511A - Infection and inflammatory reaction due to indwelling urethral catheter, initial encounter Is this a current diagnosis for this admission?: Yes Plan: Patient grew Proteus in his urine. Continue current antibiotic to which the bacteria is susceptible, for 10-14 days. (4) Multiple sclerosis Is this a current diagnosis for this admission?: Yes Plan: Advanced, patient has paraplegia and spasticity. He is bedbound and has an indwelling Garcia catheter. Continue his current medications. - Time Time Spent with patient: 25-34 minutes Medications reviewed and adjusted accordingly: Yes - Inpatient Certification Based on my medical assessment, after consideration of the patient's comorbidities, presenting symptoms, or acuity I expect that the services needed warrant INPATIENT care.: Yes I certify that my determination is in accordance with my understanding of Medicare's requirements for reasonable and necessary INPATIENT services [42 CFR 412.3e].: Yes Medical Necessity: Significant Comorbidiites Make Outpatient Treatment Too Risky , Need Close Monitoring Due to Risk of Patient Decompensation, Risk of Complication if Not Cared For in Hospital
[2018-01-25] MEDS: QUETIAPINE FUMARATE 25 MG TABLET PEG SCH (21:13)
[2018-01-26] MEDS: AMOXICILLIN TR/POT CLAVULANATE 500-125 MG TAB PO SCH ×3 (05:09→21:30)
[2018-01-26 05:10] LABS: HEMATOCRIT 22.6 % (37.9-51.0); MEAN CORPUSCULAR HEMOGLOBIN 26.7 pg (27.0-33.4); MEAN CORPUSCULAR HGB CONC 31.6 g/dL (32.0-36.0); MEAN CORPUSCULAR VOLUME 85 fl (80-97); PLATELET COUNT 487 10^3/uL (150-450); RED BLOOD COUNT 2.68 10^6/uL (4.35-5.55); RED CELL DISTRIBUTION WIDTH 19.5 % (11.5-14.0); WHITE BLOOD COUNT 10.7 10^3/uL (4.0-10.5)
[2018-01-26 05:31] LABS: HEMOGLOBIN 7.1 g/dL (13.5-17.0)
[2018-01-26] MEDS: SERTRALINE HCL 50 MG TABLET PEG SCH (11:30)
[2018-01-26] MEDS: PANTOT AC/MIN OIL/PET HY-PHL OINT 50 GM TOP SCH ×2 (11:30→17:50)
[2018-01-26] MEDS: SILVER SULFADIAZINE 1% CREAM 50 GM TP SCH ×2 (11:30→21:30)
[2018-01-26] MEDS: LEVETIRACETAM ORAL SOLN 500 MG/5 ML UDCUP PEG SCH ×2 (11:31→21:30)
--- NOTE | 2018-01-26 20:39 | PDOC PROGRESS REPORT ---
Subjective Progress Note for:: 01/26/18 Subjective:: Pt is only speaking a little bit today. Did say a few words. His aunt is in his room feeding him. She believes that he is getting back to his usual self. Patient reports no new pain. No new weakness though difficult to assess given his underlying comorbidities, he slept well last night. Appetite is pretty good. Reason For Visit: BLEEDING FROM URETHRA IN MALE Physical Exam Vital Signs: Temp Pulse Resp BP Pulse Ox 97.3 F 85 16 125/67 100 01/26/18 16:00 01/26/18 16:00 01/26/18 16:00 01/26/18 16:00 01/26/18 16:00 Intake & Output 01/25/18 01/26/18 01/27/18 06:59 06:59 06:59 Intake Total 680 3139 549 Output Total 1000 1575 Balance -320 1564 549 Weight 71.9 kg 71.9 kg General appearance: PRESENT: no acute distress, cooperative, thin Head exam: PRESENT: atraumatic, normocephalic Eye exam: PRESENT: conjunctival injection, other - Right eye, erythema improving Ear exam: PRESENT: normal external ear exam Mouth exam: PRESENT: moist Respiratory exam: PRESENT: clear to auscultation mirian, unlabored Pulses: PRESENT: normal radial pulses GI/Abdominal exam: PRESENT: normal bowel sounds, soft. ABSENT: distended, tenderness Rectal exam: PRESENT: deferred Gentrourinary exam: PRESENT: indwelling catheter - No blood in Garcia bag today Musculoskeletal exam: PRESENT: other. ABSENT: ambulatory - Patient has chronic weakness and debility secondary to multiple sclerosis. Neurological exam: PRESENT: alert, awake, oriented to person, oriented to place Psychiatric exam: PRESENT: appropriate affect. ABSENT: anxious Skin exam: PRESENT: dry, warm Results Laboratory Results: 01/26/18 04:44 01/25/18 05:28 01/26/18 04:44 WBC 10.7 H RBC 2.68 L Hgb 7.1 L Hct 22.6 L MCV 85 MCH 26.7 L MCHC 31.6 L RDW 19.5 H Plt Count 487 H Impressions: Renal Ultrasound 01/23/18 00:00 IMPRESSION: MARKEDLY LIMITED STUDY. LEFT KIDNEY NOT VISUALIZED. Abdomen/Pelvis CT 01/24/18 00:00 IMPRESSION: Large amount of fecal material in the distal sigmoid colon and rectosigmoid and the possibility of fecal impaction should be considered. Other findings as noted above Assessment & Plan - Diagnosis (1) Acute blood loss anemia Is this a current diagnosis for this admission?: Yes Plan: Globin low but stable. No active bleeding. Continue to monitor again overnight and check CBC tomorrow. If he drops below 7 we will transfuse. (2) Hematuria Is this a current diagnosis for this admission?: Yes Plan: Possibly secondary to urinary tract infection versus Garcia trauma versus other such as tumor. Patient will need urologic evaluation. (3) Urinary tract infection associated with catheterization of urinary tract Qualifiers: Indwelling urinary catheter type: indwelling urethral catheter Encounter type: initial encounter Qualified Code(s): T83.511A - Infection and inflammatory reaction due to indwelling urethral catheter, initial encounter Is this a current diagnosis for this admission?: Yes Plan: Continue Augmentin 10 days. (4) Multiple sclerosis Is this a current diagnosis for this admission?: Yes Plan: Continue current medications. Patient seems to be close to baseline. No new pain reported. - Time Time Spent with patient: 25-34 minutes Medications reviewed and adjusted accordingly: Yes Anticipated discharge: SNF - Inpatient Certification Based on my medical assessment, after consideration of the patient's comorbidities, presenting symptoms, or acuity I expect that the services needed warrant INPATIENT care.: Yes I certify that my determination is in accordance with my understanding of Medicare's requirements for reasonable and necessary INPATIENT services [42 CFR 412.3e].: Yes Medical Necessity: Significant Comorbidiites Make Outpatient Treatment Too Risky , Need Close Monitoring Due to Risk of Patient Decompensation, Risk of Complication if Not Cared For in Hospital
[2018-01-26] MEDS: QUETIAPINE FUMARATE 25 MG TABLET PEG SCH (21:30)
[2018-01-27] MEDS: AMOXICILLIN TR/POT CLAVULANATE 500-125 MG TAB PO SCH ×2 (05:32→16:13)
[2018-01-27 05:52] LABS: MEAN CORPUSCULAR HEMOGLOBIN 27.1 pg (27.0-33.4); MEAN CORPUSCULAR HGB CONC 31.7 g/dL (32.0-36.0); MEAN CORPUSCULAR VOLUME 85 fl (80-97); PLATELET COUNT 557 10^3/uL (150-450); RED BLOOD COUNT 2.46 10^6/uL (4.35-5.55); RED CELL DISTRIBUTION WIDTH 19.2 % (11.5-14.0); WHITE BLOOD COUNT 11.4 10^3/uL (4.0-10.5)
[2018-01-27 05:54] LABS: HEMOGLOBIN 6.6 g/dL (13.5-17.0)
[2018-01-27] MEDS ORDERED: NORMAL SALINE 250 ML IV PRN ×2 (08:23)
[2018-01-27] MEDS ORDERED: (PENDING PHARMACY ID) (Sennosides [Senna] 8.6 MG) PEG SCH (10:00)
[2018-01-27] MEDS: POLYETHYLENE GLYCOL 3350 POWDER 17 GM/1 PACKET PEG SCH (11:45)
[2018-01-27] MEDS: SERTRALINE HCL 50 MG TABLET PEG SCH (11:46)
[2018-01-27] MEDS: SILVER SULFADIAZINE 1% CREAM 50 GM TP SCH ×2 (11:47→23:33)
[2018-01-27] MEDS: PANTOT AC/MIN OIL/PET HY-PHL OINT 50 GM TOP SCH ×2 (11:47→18:03)
[2018-01-27] MEDS: FERROUS SULFATE LIQUID 300 MG/5 ML UDC PEG SCH (11:47)
[2018-01-27] MEDS: LEVETIRACETAM ORAL SOLN 500 MG/5 ML UDCUP PEG SCH ×2 (11:47→23:32)
[2018-01-27] MEDS: SENNOSIDES/DOCUSATE 8.6-50 MG 1 EACH TABLET PEG SCH (11:48)
--- NOTE | 2018-01-27 16:41 | PDOC PROGRESS REPORT ---
Subjective Progress Note for:: 01/27/18 Subjective:: Pt more animated today, tells me he is ready for supper tray, no new pain, no new shortness of breath. His speech is somewhat slurred and difficult to comprehend. He is following commands appropriately. No adverse events overnight per RN. No blood in hodge overnight or today. Reason For Visit: BLEEDING FROM URETHRA IN MALE Physical Exam Vital Signs: Temp Pulse Resp BP Pulse Ox 98.6 F 92 18 120/57 L 99 01/27/18 12:05 01/27/18 12:05 01/27/18 08:00 01/27/18 12:05 01/27/18 12:05 Intake & Output 01/26/18 01/27/18 01/28/18 06:59 06:59 06:59 Intake Total 3139 1134 Output Total 1575 1150 Balance 1564 -16 Weight 71.9 kg 76.3 kg General appearance: PRESENT: no acute distress, cooperative, disheveled Head exam: PRESENT: atraumatic, normocephalic Eye exam: PRESENT: conjunctiva pink, EOMI Mouth exam: PRESENT: moist, neck supple Respiratory exam: PRESENT: clear to auscultation mirian, unlabored. ABSENT: crackles, rhonchi, tachypnea, wheezes Cardiovascular exam: PRESENT: RRR, systolic murmur Pulses: PRESENT: normal radial pulses GI/Abdominal exam: PRESENT: normal bowel sounds, soft, other - feeding tube in place without complication, tube feed infusing. ABSENT: distended, tenderness Rectal exam: PRESENT: deferred Gentrourinary exam: PRESENT: indwelling catheter, other - yellow clear urine, no blood or discoloration or clots Neurological exam: PRESENT: alert, awake, oriented to person, oriented to place Psychiatric exam: PRESENT: appropriate affect. ABSENT: anxious Skin exam: PRESENT: dry, warm Results Laboratory Results: 01/27/18 05:20 01/25/18 05:28 01/27/18 01/27/18 05:20 09:57 WBC 11.4 H RBC 2.46 L Hgb 6.6 L Hct 21.0 L MCV 85 MCH 27.1 MCHC 31.7 L RDW 19.2 H Plt Count 557 H Blood Type O POSITIVE Antibody Screen NEGATIVE Impressions: Renal Ultrasound 01/23/18 00:00 IMPRESSION: MARKEDLY LIMITED STUDY. LEFT KIDNEY NOT VISUALIZED. Abdomen/Pelvis CT 01/24/18 00:00 IMPRESSION: Large amount of fecal material in the distal sigmoid colon and rectosigmoid and the possibility of fecal impaction should be considered. Other findings as noted above Assessment & Plan - Diagnosis (1) Acute blood loss anemia Is this a current diagnosis for this admission?: Yes Plan: today hgb dropped below 7. 2 units PRBC ordered and will chk CBC in the am. No sign of active bleeding today. (2) Hematuria Is this a current diagnosis for this admission?: Yes Plan: either due to infection which is being treated, hodge trauma or other. WIll need urology eval once they are available or once he is DCed from [facility]. (3) Urinary tract infection associated with catheterization of urinary tract Qualifiers: Indwelling urinary catheter type: indwelling urethral catheter Encounter type: initial encounter Qualified Code(s): T83.511A - Infection and inflammatory reaction due to indwelling urethral catheter, initial encounter Is this a current diagnosis for this admission?: Yes Plan: proteus sensitive to augmentin. Today is day 8 of either -14. (4) Multiple sclerosis Is this a current diagnosis for this admission?: Yes Plan: stable, lives in SNF, no med changes today, he states he is comfortable. (6) Seizure disorder Is this a current diagnosis for this admission?: Yes Plan: stable, cont keppra - Time Time Spent with patient: 25-34 minutes Medications reviewed and adjusted accordingly: Yes Anticipated discharge: SNF - Inpatient Certification Based on my medical assessment, after consideration of the patient's comorbidities, presenting symptoms, or acuity I expect that the services needed warrant INPATIENT care.: Yes I certify that my determination is in accordance with my understanding of Medicare's requirements for reasonable and necessary INPATIENT services [42 CFR 412.3e].: Yes Medical Necessity: Need Close Monitoring Due to Risk of Patient Decompensation, Risk of Complication if Not Cared For in Hospital
[2018-01-27] MEDS: QUETIAPINE FUMARATE 25 MG TABLET PEG SCH (23:32)
[2018-01-28 03:29] LABS: ABSOLUTE LYMPHOCYTES (AUTO) 1.9 10^3/uL (0.5-4.7); ABSOLUTE MONOCYTES (AUTO) 0.7 10^3/uL (0.1-1.4); ABSOLUTE NEUT (AUTO) 8.9 10^3/uL (1.7-8.2); BASOPHILS % (AUTO) 0.3 % (0-2); HEMATOCRIT 26.4 % (37.9-51.0); HEMOGLOBIN 8.6 g/dL (13.5-17.0); LYMPHOCYTES % (AUTO) 15.3 % (13-45); MEAN CORPUSCULAR HEMOGLOBIN 27.9 pg (27.0-33.4); MEAN CORPUSCULAR HGB CONC 32.5 g/dL (32.0-36.0); MEAN CORPUSCULAR VOLUME 86 fl (80-97); MONOCYTES % (AUTO) 5.7 % (3-13); PLATELET COUNT 567 10^3/uL (150-450); RED BLOOD COUNT 3.08 10^6/uL (4.35-5.55); RED CELL DISTRIBUTION WIDTH 18.6 % (11.5-14.0); SEGMENTED NEUTROPHILS % (AUTO) 70.7 % (42-78); TOTAL CELLS COUNTED % (AUTO) 100 %; WHITE BLOOD COUNT 12.6 10^3/uL (4.0-10.5)
[2018-01-28] MEDS: LEVETIRACETAM ORAL SOLN 500 MG/5 ML UDCUP PEG SCH ×2 (09:30→21:26)
[2018-01-28] MEDS: SENNOSIDES/DOCUSATE 8.6-50 MG 1 EACH TABLET PEG SCH (09:31)
[2018-01-28] MEDS: SERTRALINE HCL 50 MG TABLET PEG SCH (09:31)
[2018-01-28] MEDS: POLYETHYLENE GLYCOL 3350 POWDER 17 GM/1 PACKET PEG SCH (09:31)
[2018-01-28] MEDS: FERROUS SULFATE LIQUID 300 MG/5 ML UDC PEG SCH (09:31)
[2018-01-28] MEDS: PANTOT AC/MIN OIL/PET HY-PHL OINT 50 GM TOP SCH ×2 (09:39→21:27)
[2018-01-28] MEDS: SILVER SULFADIAZINE 1% CREAM 50 GM TP SCH ×2 (09:50→21:27)
--- NOTE | 2018-01-28 10:06 | PDOC PROGRESS REPORT ---
Subjective Progress Note for:: 01/28/18 Subjective:: Pt awake today, being moved by staff in bed, tells me he has no new pain, feels hungry, nods no that he does not need anything, slept well overnight.Per staging technician was calm. No adverse reactions to transfusion. Reason For Visit: BLEEDING FROM URETHRA IN MALE Physical Exam Vital Signs: Temp Pulse Resp BP Pulse Ox 97.5 F 70 16 118/72 100 01/28/18 08:35 01/28/18 08:35 01/28/18 00:30 01/28/18 08:35 01/28/18 08:35 Intake & Output 01/27/18 01/28/18 01/29/18 06:59 06:59 06:59 Intake Total 1134 3312 Output Total 1150 1700 Balance -16 1612 Weight 76.3 kg 75.7 kg General appearance: PRESENT: no acute distress, cooperative, disheveled Head exam: PRESENT: other - left face and scalp with lesions that could be ? hidrandinitis though he does nto carry this diagnosis. RN states says this is a [facility] problem. Not new. Lesions not draining or bleeding but he picks at them and they then bleed. Eye exam: PRESENT: conjunctiva pink. ABSENT: scleral icterus Mouth exam: PRESENT: moist, tongue midline. ABSENT: neck supple Respiratory exam: PRESENT: clear to auscultation mirian, unlabored. ABSENT: rales , rhonchi, tachypnea, wheezes GI/Abdominal exam: PRESENT: soft, other - ?pump in place right abd wall. ABSENT : distended, tenderness Rectal exam: PRESENT: deferred Gentrourinary exam: PRESENT: indwelling catheter, other - clear yellow non bloody urine in bag Extremities exam: PRESENT: pedal edema Neurological exam: PRESENT: alert, awake, oriented to person, oriented to place Psychiatric exam: PRESENT: appropriate affect. ABSENT: anxious Skin exam: PRESENT: other Results Laboratory Results: 01/28/18 03:10 01/25/18 05:28 01/27/18 01/28/18 09:57 03:10 WBC 12.6 H RBC 3.08 L Hgb 8.6 L Hct 26.4 L MCV 86 MCH 27.9 MCHC 32.5 RDW 18.6 H Plt Count 567 H Seg Neutrophils % 70.7 Lymphocytes % 15.3 Monocytes % 5.7 Eosinophils % 8.0 H Basophils % 0.3 Absolute Neutrophils 8.9 H Absolute Lymphocytes 1.9 Absolute Monocytes 0.7 Absolute Eosinophils 1.0 H Absolute Basophils 0.0 Blood Type O POSITIVE Antibody Screen NEGATIVE Impressions: Renal Ultrasound 01/23/18 00:00 IMPRESSION: MARKEDLY LIMITED STUDY. LEFT KIDNEY NOT VISUALIZED. Abdomen/Pelvis CT 01/24/18 00:00 IMPRESSION: Large amount of fecal material in the distal sigmoid colon and rectosigmoid and the possibility of fecal impaction should be considered. Other findings as noted above Assessment & Plan - Diagnosis (1) Acute blood loss anemia Is this a current diagnosis for this admission?: Yes Plan: 2 units PRBC given yesterday for hgb below 6, hgb up 2 pints and appropriate, no bleeding seen today in hodge bag (2) Hematuria Is this a current diagnosis for this admission?: Yes Plan: Resolved for past 3 days, etiology due to infectio vs hodge trauma vs other and will need urology eval once DCed. We have no availability in this hospital until 02/01. (3) Urinary tract infection associated with catheterization of urinary tract Qualifiers: Indwelling urinary catheter type: indwelling urethral catheter Encounter type: initial encounter Qualified Code(s): T83.511A - Infection and inflammatory reaction due to indwelling urethral catheter, initial encounter; N39.0 - Urinary tract infection, site not specified; N39.0 - Urinary tract infection, site not specified Is this a current diagnosis for this admission?: Yes Plan: cont augmentin for 10-14 days for proteus in urine. (4) Multiple sclerosis Is this a current diagnosis for this admission?: Yes Plan: stable, lives in RN home, cont current meds (5) Sacral decubitus ulcer, stage IV Plan: I viewed his wound today while wound vac being changed. There was no obvious drainage or flutuance, This is a deep tissue wound with some areas of beefy red tissue developing. There was a foul odor. Will consult surgeon to eval due to odor and increasing WBC count (without other obvious source). (6) Seizure disorder Is this a current diagnosis for this admission?: Yes Plan: no sxrs while admitted, shashi munson (7) Leukocytosis Is this a current diagnosis for this admission?: Yes Plan: No clear etiology, no fever, no other vitals instability, treating UTI. acral decub wound vac removed today and there is a foul odor. WIll consult surgeon to eval wound to see if there may be a deeper infection. - Time Time Spent with patient: 35 or more minutes Medications reviewed and adjusted accordingly: Yes Anticipated discharge: SNF - Inpatient Certification Based on my medical assessment, after consideration of the patient's comorbidities, presenting symptoms, or acuity I expect that the services needed warrant INPATIENT care.: Yes I certify that my determination is in accordance with my understanding of Medicare's requirements for reasonable and necessary INPATIENT services [42 CFR 412.3e].: Yes Medical Necessity: Need Close Monitoring Due to Risk of Patient Decompensation, Risk of Complication if Not Cared For in Hospital
--- NOTE | 2018-01-28 17:00 | PDOC PROGRESS REPORT ---
Subjective Reason For Visit: BLEEDING FROM URETHRA IN MALE Patient noncommunicative Physical Exam Vital Signs: Temp Pulse Resp BP Pulse Ox 97.5 F 70 16 118/72 100 01/28/18 08:35 01/28/18 08:35 01/28/18 00:30 01/28/18 08:35 01/28/18 08:35 Intake & Output 01/27/18 01/28/18 01/29/18 06:59 06:59 06:59 Intake Total 1134 3312 120 Output Total 1150 1700 Balance -16 1612 120 Weight 76.3 kg 75.7 kg General appearance: PRESENT: no acute distress Rectal exam: PRESENT: other - Patient rolled in the right lateral decubitus position. All dressings removed including wound VAC over the sacral decubitus and a some absorbent dressing over the patient's right ischial decubitus Findings are significant for chronic wounds that are essentially epithelialized. The only non-epithelialized areas to the central portion of the sacral decubitus. There is no fecal contamination Results Laboratory Results: 01/28/18 03:10 01/25/18 05:28 01/27/18 01/28/18 09:57 03:10 WBC 12.6 H RBC 3.08 L Hgb 8.6 L Hct 26.4 L MCV 86 MCH 27.9 MCHC 32.5 RDW 18.6 H Plt Count 567 H Seg Neutrophils % 70.7 Lymphocytes % 15.3 Monocytes % 5.7 Eosinophils % 8.0 H Basophils % 0.3 Absolute Neutrophils 8.9 H Absolute Lymphocytes 1.9 Absolute Monocytes 0.7 Absolute Eosinophils 1.0 H Absolute Basophils 0.0 Blood Type O POSITIVE Antibody Screen NEGATIVE Impressions: Renal Ultrasound 01/23/18 00:00 IMPRESSION: MARKEDLY LIMITED STUDY. LEFT KIDNEY NOT VISUALIZED. Abdomen/Pelvis CT 01/24/18 00:00 IMPRESSION: Large amount of fecal material in the distal sigmoid colon and rectosigmoid and the possibility of fecal impaction should be considered. Other findings as noted above Assessment & Plan - Diagnosis (1) Sacral decubitus ulcer, stage IV Is this a current diagnosis for this admission?: Yes Plan: This is my first encounter with this wound. The chronic pressure wounds of the sacral issue region have epithelialized satisfactorily. There is no indication for further VAC therapy Recommendations: 1. Discontinue VAC therapy 2. Continue side to side rotation, keeping pressure off of the mid sacrum 3. Suggested Allevyn dressings to the mid sacral and right ischial wounds. 4. Will sign off for now; reconsult if needed
[2018-01-28] MEDS: QUETIAPINE FUMARATE 25 MG TABLET PEG SCH (21:26)
[2018-01-29 07:31] LABS: HEMATOCRIT 27.3 % (37.9-51.0); HEMOGLOBIN 8.8 g/dL (13.5-17.0); MEAN CORPUSCULAR HEMOGLOBIN 27.8 pg (27.0-33.4); MEAN CORPUSCULAR HGB CONC 32.1 g/dL (32.0-36.0); MEAN CORPUSCULAR VOLUME 87 fl (80-97); RED BLOOD COUNT 3.15 10^6/uL (4.35-5.55); RED CELL DISTRIBUTION WIDTH 18.8 % (11.5-14.0); WHITE BLOOD COUNT 11.9 10^3/uL (4.0-10.5)
[2018-01-29 08:38] LABS: PLATELET COUNT 428 10^3/uL (150-450)
[2018-01-29 08:42] LABS: ABSOLUTE LYMPHOCYTES# (MANUAL) 3.5 10^3/uL (0.5-4.7); ABSOLUTE MONOCYTES # (MANUAL) 0.2 10^3/uL (0.1-1.4); BASOPHILS % (MANUAL) 1 % (0-2); EOSINOPHILS % (MANUAL) 7 % (0-6); LYMPHOCYTES % (MANUAL) 28 % (13-45); MONOCYTES % (MANUAL) 2 % (3-13); SEGMENTED NEUTROPHILS % (MAN) 60 % (42-78); TOTAL CELLS COUNTED 100
[2018-01-29 08:43] LABS: ABSOLUTE NEUTROPHILS# (MANUAL) 7.3 10^3/uL (1.7-8.2); METAMYELOCYTES % (MANUAL) 1 % (0)
[2018-01-29 08:44] LABS: ANISOCYTOSIS 2+; POLYCHROMASIA 1+
[2018-01-29 08:45] LABS: HYPOCHROMASIA SLIGHT; PLATELET CLUMPS PRESENT; STOMATOCYTES 1+; TOXIC GRANULATION SLIGHT; TOXIC VACUOLATION PRESENT
[2018-01-29] MEDS: SERTRALINE HCL 50 MG TABLET PEG SCH (10:55)
[2018-01-29] MEDS: LEVETIRACETAM ORAL SOLN 500 MG/5 ML UDCUP PEG SCH ×2 (10:55→22:20)
[2018-01-29] MEDS: FERROUS SULFATE LIQUID 300 MG/5 ML UDC PEG SCH (10:55)
[2018-01-29] MEDS: POLYETHYLENE GLYCOL 3350 POWDER 17 GM/1 PACKET PEG SCH (10:55)
[2018-01-29] MEDS: PANTOT AC/MIN OIL/PET HY-PHL OINT 50 GM TOP SCH ×2 (10:56→17:08)
[2018-01-29] MEDS: SILVER SULFADIAZINE 1% CREAM 50 GM TP SCH ×2 (10:56→22:21)
[2018-01-29] MEDS: SENNOSIDES/DOCUSATE 8.6-50 MG 1 EACH TABLET PEG SCH (11:21)
[2018-01-29 16:41] LABS: APPEARANCE,URINE CLEAR; BILIRUBIN,URINE NEGATIVE (NEGATIVE); COLOR,URINE YELLOW; GLUCOSE, URINE NEGATIVE (NEGATIVE); KETONES,URINE NEGATIVE (NEGATIVE); LEUKOCYTE ESTERASE,URINE NEGATIVE (NEGATIVE); NITRITE,URINE NEGATIVE (NEGATIVE); PROTEIN,URINE NEGATIVE (NEGATIVE)
--- NOTE | 2018-01-29 16:49 | PDOC PROGRESS REPORT ---
Subjective Progress Note for:: 01/29/18 Subjective:: With MS who resides at [facility] presenting after he pulled out his Garcia resulting in hematuria. Patient no longer having hematuria. Patient did have a UTI. Patient had an infection of his decubiti. Patient was to the OR for debridement. Patient now receiving local dressing. Patient appears to be doing well. Will discharge patient back to [facility] in a day or so. Reason For Visit: BLEEDING FROM URETHRA IN MALE Physical Exam Vital Signs: Temp Pulse Resp BP Pulse Ox 97.8 F 67 18 106/62 100 01/29/18 12:00 01/29/18 12:00 01/29/18 12:00 01/29/18 12:00 01/29/18 12:00 Intake & Output 01/28/18 01/29/18 01/30/18 06:59 06:59 06:59 Intake Total 3312 1302 Output Total 1700 975 Balance 1612 327 Weight 75.7 kg 76.7 kg General appearance: PRESENT: no acute distress Head exam: PRESENT: normocephalic Eye exam: PRESENT: EOMI. ABSENT: scleral icterus Ear exam: PRESENT: normal external ear exam Mouth exam: PRESENT: moist Neck exam: ABSENT: carotid bruit, JVD, lymphadenopathy, thyromegaly Respiratory exam: PRESENT: clear to auscultation mirian. ABSENT: rales, rhonchi, wheezes Cardiovascular exam: PRESENT: RRR. ABSENT: diastolic murmur, rubs, systolic murmur GI/Abdominal exam: PRESENT: normal bowel sounds, soft, other - PEG tube in place. ABSENT: distended, guarding, mass, organolmegaly, rebound, tenderness Rectal exam: PRESENT: deferred Extremities exam: PRESENT: full ROM. ABSENT: calf tenderness, clubbing, pedal edema Neurological exam: PRESENT: alert, awake, oriented to person. ABSENT: motor sensory deficit Psychiatric exam: PRESENT: appropriate affect, normal mood. ABSENT: homicidal ideation, suicidal ideation Skin exam: PRESENT: dry, intact, warm, other - Wounds on face in cox line. ABSENT: cyanosis, rash Results Laboratory Results: 01/29/18 06:50 01/25/18 05:28 01/29/18 06:50 WBC 11.9 H RBC 3.15 L Hgb 8.8 L Hct 27.3 L MCV 87 MCH 27.8 MCHC 32.1 RDW 18.8 H Plt Count 428 Seg Neutrophils % Not Reportable Lymphocytes % Not Reportable Monocytes % Not Reportable Eosinophils % Not Reportable Basophils % Not Reportable Absolute Neutrophils Not Reportable Absolute Lymphocytes Not Reportable Absolute Monocytes Not Reportable Absolute Eosinophils Not Reportable Absolute Basophils Not Reportable Impressions: Renal Ultrasound 01/23/18 00:00 IMPRESSION: MARKEDLY LIMITED STUDY. LEFT KIDNEY NOT VISUALIZED. Abdomen/Pelvis CT 01/24/18 00:00 IMPRESSION: Large amount of fecal material in the distal sigmoid colon and rectosigmoid and the possibility of fecal impaction should be considered. Other findings as noted above Assessment & Plan - Diagnosis (1) Sacral decubitus ulcer, stage IV Is this a current diagnosis for this admission?: Yes Plan: Patient was taken to the OR for debridement. Patient had a wound VAC in place. Wound VAC has since been removed. Patient now with local wound care. Will start patient on keflex. (2) Anticoagulation adequate Is this a current diagnosis for this admission?: Yes Plan: Patient was on Lovenox which she is being held. Patient apparently has a history of hemorrhagic stroke therefore should not be on Lovenox. Does not know why patient is on Lovenox. (3) Bleeding from urethra in male Is this a current diagnosis for this admission?: Yes Plan: Secondary to trauma from patient pulling out his Garcia. Bleeding improved. Will check UA to see if there is any blood present. (4) Fever Qualifiers: Fever type: unspecified Qualified Code(s): R50.9 - Fever, unspecified Is this a current diagnosis for this admission?: Yes Plan: Resolved. Likely secondary to UTI. (5) Multiple sclerosis Is this a current diagnosis for this admission?: Yes Plan: Continue supportive care. (6) Hypernatremia Is this a current diagnosis for this admission?: Yes (7) Acute blood loss anemia Is this a current diagnosis for this admission?: Yes Plan: Certain of the cause of the blood loss. Patient was transfused 2 units of packed RBCs. Hemoglobin went from 6-8 which is appropriate. Will monitor hemoglobin. If stable will transfer back to [facility]. (8) Hematuria Is this a current diagnosis for this admission?: Yes (9) Leukocytosis Is this a current diagnosis for this admission?: Yes Plan: Possibly leukemoid reaction. Patient also had a debridement of his sacral wound. Patient currently on Keflex for both his UTI and wounds. (10) Seizure disorder Is this a current diagnosis for this admission?: Yes Plan: Continue Keppra. - Time Time Spent with patient: Less than 15 minutes Anticipated discharge: SNF Within: within 24 hours
[2018-01-29] MEDS: LACTOBACILLUS ACIDOPHILUS 250 MG TAB PO SCH (17:07)
[2018-01-29] MEDS: QUETIAPINE FUMARATE 25 MG TABLET PEG SCH (22:19)
[2018-01-29] MEDS: CEPHALEXIN 500 MG CAPSULE PO SCH (22:19)
[2018-01-30] MEDS: CEPHALEXIN 500 MG CAPSULE PO SCH ×3 (05:27→21:28)
[2018-01-30 06:17] LABS: ABSOLUTE BASOPHILS # (AUTO) 0.1 10^3/uL (0.0-0.2); ABSOLUTE EOSINOPHILS # (AUTO) 0.6 10^3/uL (0.0-0.6); ABSOLUTE LYMPHOCYTES (AUTO) 1.6 10^3/uL (0.5-4.7); ABSOLUTE MONOCYTES (AUTO) 0.8 10^3/uL (0.1-1.4); BASOPHILS % (AUTO) 1.2 % (0-2); EOSINOPHILS % (AUTO) 5.3 % (0-6); HEMATOCRIT 27.1 % (37.9-51.0); LYMPHOCYTES % (AUTO) 13.1 % (13-45); MEAN CORPUSCULAR HEMOGLOBIN 28.5 pg (27.0-33.4); MEAN CORPUSCULAR VOLUME 86 fl (80-97); MONOCYTES % (AUTO) 6.9 % (3-13); PLATELET COUNT 645 10^3/uL (150-450); RED BLOOD COUNT 3.14 10^6/uL (4.35-5.55); SEGMENTED NEUTROPHILS % (AUTO) 73.5 % (42-78); TOTAL CELLS COUNTED % (AUTO) 100 %; WHITE BLOOD COUNT 12.2 10^3/uL (4.0-10.5)
[2018-01-30 06:41] LABS: ANION GAP 15 (5-19); BLOOD UREA NITROGEN 21 mg/dL (7-20); CALCIUM 9.6 mg/dL (8.4-10.2); CARBON DIOXIDE 24 mmol/L (22-30); CHLORIDE 106 mmol/L (98-107); GLUCOSE 101 mg/dL (75-110); POTASSIUM 4.8 mmol/L (3.6-5.0)
[2018-01-30] MEDS: SENNOSIDES/DOCUSATE 8.6-50 MG 1 EACH TABLET PEG SCH (09:22)
[2018-01-30] MEDS: LACTOBACILLUS ACIDOPHILUS 250 MG TAB PO SCH ×2 (09:22→18:05)
[2018-01-30] MEDS: POLYETHYLENE GLYCOL 3350 POWDER 17 GM/1 PACKET PEG SCH (09:22)
[2018-01-30] MEDS: LEVETIRACETAM ORAL SOLN 500 MG/5 ML UDCUP PEG SCH ×2 (09:22→21:28)
[2018-01-30] MEDS: SERTRALINE HCL 50 MG TABLET PEG SCH (09:22)
[2018-01-30] MEDS: FERROUS SULFATE LIQUID 300 MG/5 ML UDC PEG SCH (09:22)
[2018-01-30] MEDS: SILVER SULFADIAZINE 1% CREAM 50 GM TP SCH ×2 (09:23→21:28)
[2018-01-30] MEDS: PANTOT AC/MIN OIL/PET HY-PHL OINT 50 GM TOP SCH ×2 (09:23→18:02)
--- NOTE | 2018-01-30 17:32 | PDOC TRANSFER SUMMARY ---
General - Admit/Disc Date/PCP Admission Date/Primary Care Provider: 01/15/18 11:58 FLORINA LYNCH Discharge Date: 01/30/18 - Discharge Diagnosis (1) Sacral decubitus ulcer, stage IV Is this a current diagnosis for this admission?: Yes (2) Anticoagulation adequate Is this a current diagnosis for this admission?: Yes (3) Bleeding from urethra in male Is this a current diagnosis for this admission?: Yes (4) Fever Is this a current diagnosis for this admission?: Yes (5) Multiple sclerosis Is this a current diagnosis for this admission?: Yes (6) Hypernatremia Is this a current diagnosis for this admission?: Yes (7) Acute blood loss anemia Is this a current diagnosis for this admission?: Yes (8) Hematuria Is this a current diagnosis for this admission?: Yes (9) Leukocytosis Is this a current diagnosis for this admission?: Yes (10) Seizure disorder Is this a current diagnosis for this admission?: Yes - Additional Information Discharge Activity: Bedrest Prescriptions: Cephalexin Monohydrate [Keflex 500 mg Capsule] 500 mg PO Q8 10 Days #30 capsule Lactobacillus Acidophilus [Acidophilus Lactobacilli] 1 each PO BID 10 Days #20 capsule Home Medications: Clonidine HCl [Catapres 0.1 mg Tablet] 0.1 mg PEG DAILY 01/15/18 Ferrous Sulfate [Ferrous Sulfate Liquid 300 mg/5 ml Udcup] 325 mg PEG DAILY Interferon Beta-1A/Albumin [Avonex Inj 30 Mcg Kit] 30 mcg IM TH@0800 01/15/18 Levetiracetam 1,000 mg PEG Q12 01/15/18 Petrolatum,White [Aquaphor] 1 applic TOP BID 01/15/18 Polyethylene Glycol 3350 [Miralax Powder 17 gm/Packet] 17 gm PEG DAILY 01/15/18 Quetiapine Fumarate [Seroquel 25 mg Tablet] 25 mg PEG QHS 01/15/18 Sennosides [Senna] 8.6 mg PEG DAILY 01/15/18 Sertraline HCl [Zoloft] 100 mg PEG DAILY 01/15/18 Cephalexin Monohydrate [Keflex 500 mg Capsule] 500 mg PO Q8 10 Days #30 capsule 01/30/18 Lactobacillus Acidophilus [Acidophilus Lactobacilli] 1 each PO BID 10 Days #20 capsule 01/30/18 Silver Sulfadiazine [Silvadene 1% Cream 50 gm] 1 applic TP Q12 tube 01/30/18 History of Present Illness Admission Date/PCP: 01/15/18 11:58 FLORINA LYNCH History of Present Illness: VALENTE MOJICA is a 42 year old male with history of multiple sclerosis, chronic sacral decub, and recurrent UTIs who presents from [facility] after pulling out his indwelling hodge catheter. He was brought to the ED due to hematuria. Per discussion with ER physician, patient has a history of hemorrhagic CVA however there is no documentation of stroke in previous charts. He also is currently on Lovenox for reasons that are also not clear. Patient was unable to provide any information at time of my evaluation. I also attempted to call his (home and mobile phone on record) without success. A hodge was placed in ER today however he continues to have hematuria. Case was discussed with local urologist who will see patient, however no emergent procedure was needed at this time. Labs are currently pending. Hospital Course Hospital Course: Presented with hematuria. Patient was on Lovenox which was being held. Uncertain as to why patient was on Lovenox as he did have a history of hemorrhagic stroke in the past. Patient Lovenox was held. Patient was bleeding most likely due to his anticoagulation. Patient was found to have a UTI. Patient was started on treatment for his Proteus UTI with ceftriaxone. Patient was transitioned to Keflex. Patient was evaluated by surgery for his chronic right sacral decubiti and left heel ulcer. Patient had a wound VAC placed briefly. Per surgery the pressure wounds have epithelialized satisfactorily. Patient then had the wound VAC removed and Allevyn dressing was placed. Patient advised to follow-up at the wound clinic. Also developed acute blood loss anemia. Patient hemoglobin dropped to 6. There is no clear signs of bleeding. Patient was transfused 2 units. Patient hemoglobin increased to 8. Patient hemoglobin is 9. Patient has leukocytosis which could be a leukemoid reaction. Patient remained afebrile with mild leukocytosis. Patient will complete treatment for UTI with Keflex. Patient was continued on Keppra for his seizure disorder. Patient did not demonstrate any seizure activity. Patient did have some mild hypernatremia which was corrected during his hospitalization. Physical Exam Vital Signs: Temp Pulse Resp BP Pulse Ox 99.4 F 87 18 112/62 95 01/29/18 22:44 01/29/18 22:44 01/29/18 22:44 01/29/18 22:44 01/29/18 22:44 Intake & Output 01/29/18 01/30/18 01/31/18 06:59 06:59 06:59 Intake Total 1302 1568 358 Output Total 975 1400 400 Balance 327 168 -42 Weight 76.7 kg 75 kg General appearance: PRESENT: no acute distress, well-nourished Head exam: PRESENT: normocephalic Eye exam: PRESENT: EOMI. ABSENT: scleral icterus Mouth exam: PRESENT: moist Neck exam: ABSENT: carotid bruit, JVD, lymphadenopathy, thyromegaly Respiratory exam: PRESENT: clear to auscultation mirian. ABSENT: rales, rhonchi, wheezes Cardiovascular exam: PRESENT: RRR. ABSENT: diastolic murmur, rubs, systolic murmur GI/Abdominal exam: PRESENT: normal bowel sounds, soft, other - PEG tube in place. ABSENT: distended, guarding, mass, organolmegaly, rebound, tenderness Rectal exam: PRESENT: deferred Extremities exam: PRESENT: full ROM. ABSENT: calf tenderness, clubbing, pedal edema Musculoskeletal exam: PRESENT: deformity Neurological exam: PRESENT: alert, altered, awake, oriented to person. ABSENT: motor sensory deficit Psychiatric exam: PRESENT: appropriate affect. ABSENT: homicidal ideation, suicidal ideation Skin exam: PRESENT: dry, intact, warm. ABSENT: cyanosis, rash Results Laboratory Results: 01/30/18 05:37 01/30/18 05:37 01/30/18 01/30/18 05:37 05:37 WBC 12.2 H RBC 3.14 L Hgb 9.0 L Hct 27.1 L MCV 86 MCH 28.5 MCHC 33.0 RDW 19.0 H Plt Count 645 H Seg Neutrophils % 73.5 Lymphocytes % 13.1 Monocytes % 6.9 Eosinophils % 5.3 Basophils % 1.2 Absolute Neutrophils 9.0 H Absolute Lymphocytes 1.6 Absolute Monocytes 0.8 Absolute Eosinophils 0.6 Absolute Basophils 0.1 Sodium 145.0 Potassium 4.8 Chloride 106 Carbon Dioxide 24 Anion Gap 15 BUN 21 H Creatinine 0.43 L Est GFR ( Amer) > 60 Est GFR (Non-Af Amer) > 60 Glucose 101 Calcium 9.6 Magnesium 2.0 Impressions: Renal Ultrasound 01/23/18 00:00 IMPRESSION: MARKEDLY LIMITED STUDY. LEFT KIDNEY NOT VISUALIZED. Abdomen/Pelvis CT 01/24/18 00:00 IMPRESSION: Large amount of fecal material in the distal sigmoid colon and rectosigmoid and the possibility of fecal impaction should be considered. Other findings as noted above Transfer Plan - Time Spent with Patient Time spent with patient: Greater than 30 Minutes - Patient being discharge back to [facility] on keflex. Patient to continue wound care with the application of Allevyn to the mid sacral and right ischial wounds. Patient to follow up in wound clinic. Qualifiers - * PATEINT BEING DISCHARGED WITH ANY OF THE FOLLOWING DIAGNOSIS?: No Plan Time Spent: Greater than 30 Minutes
[2018-01-30] MEDS: QUETIAPINE FUMARATE 25 MG TABLET PEG SCH (21:28)
[2018-01-31] MEDS: CEPHALEXIN 500 MG CAPSULE PO SCH ×2 (05:35→13:51)
[2018-01-31] MEDS ORDERED: INTERFERON BETA IM SCH (08:00)
[2018-01-31] MEDS ORDERED: ALBUMIN IM SCH (08:00)
[2018-01-31] MEDS: FERROUS SULFATE LIQUID 300 MG/5 ML UDC PEG SCH (11:39)
[2018-01-31] MEDS: LACTOBACILLUS ACIDOPHILUS 250 MG TAB PO SCH (11:39)
[2018-01-31] MEDS: SERTRALINE HCL 50 MG TABLET PEG SCH (11:39)
[2018-01-31] MEDS: SENNOSIDES/DOCUSATE 8.6-50 MG 1 EACH TABLET PEG SCH (11:39)
[2018-01-31] MEDS: LEVETIRACETAM ORAL SOLN 500 MG/5 ML UDCUP PEG SCH (11:40)
[2018-01-31] MEDS: POLYETHYLENE GLYCOL 3350 POWDER 17 GM/1 PACKET PEG SCH (11:41)
[2018-01-31] MEDS: SILVER SULFADIAZINE 1% CREAM 50 GM TP SCH (11:41)
[2018-01-31] MEDS: PANTOT AC/MIN OIL/PET HY-PHL OINT 50 GM TOP SCH (11:41)
[2018-01-31 13:02] VITALS: BP 122/76
--- NOTE | 2018-01-31 13:27 | PDOC PROGRESS REPORT ---
Subjective Progress Note for:: 01/31/18 Subjective:: With MS who resides at [facility] presenting after he pulled out his Garcia resulting in hematuria. Patient no longer having hematuria. Patient did have a UTI. She has been on antibiotics. Patient has some scleral injection of the right eye. Patient is not in any pain. Patient is going back to [facility] today. Reason For Visit: BLEEDING FROM URETHRA IN MALE Physical Exam Vital Signs: Temp Pulse Resp BP Pulse Ox 98.7 F 79 20 122/76 100 01/31/18 12:00 01/31/18 12:00 01/31/18 12:00 01/31/18 12:00 01/31/18 12:00 Intake & Output 01/30/18 01/31/18 02/01/18 06:59 06:59 06:59 Intake Total 1568 822 60 Output Total 1400 700 900 Balance 168 122 -840 Weight 75 kg 75.2 kg General appearance: PRESENT: no acute distress, well-developed, well-nourished Head exam: PRESENT: normocephalic Eye exam: PRESENT: conjunctival injection - Right eye, EOMI. ABSENT: scleral icterus Ear exam: PRESENT: normal external ear exam Mouth exam: PRESENT: moist Neck exam: ABSENT: carotid bruit, JVD, lymphadenopathy, thyromegaly Respiratory exam: PRESENT: clear to auscultation mirian. ABSENT: rales, rhonchi, wheezes Cardiovascular exam: PRESENT: RRR. ABSENT: diastolic murmur, rubs, systolic murmur GI/Abdominal exam: PRESENT: normal bowel sounds, soft. ABSENT: distended, guarding, mass, organolmegaly, rebound, tenderness Rectal exam: PRESENT: deferred Extremities exam: PRESENT: full ROM. ABSENT: calf tenderness, clubbing, pedal edema Neurological exam: PRESENT: alert, awake. ABSENT: motor sensory deficit Psychiatric exam: PRESENT: appropriate affect, normal mood. ABSENT: homicidal ideation, suicidal ideation Skin exam: PRESENT: dry, intact, warm, other - Ulcerations in the hairline especially in the bearded area. Patient also has decubiti. Patient has a left foot ulcer. ABSENT: cyanosis, rash Results Laboratory Results: 01/30/18 05:37 01/30/18 05:37 Impressions: Renal Ultrasound 01/23/18 00:00 IMPRESSION: MARKEDLY LIMITED STUDY. LEFT KIDNEY NOT VISUALIZED. Abdomen/Pelvis CT 01/24/18 00:00 IMPRESSION: Large amount of fecal material in the distal sigmoid colon and rectosigmoid and the possibility of fecal impaction should be considered. Other findings as noted above Assessment & Plan - Diagnosis (1) Sacral decubitus ulcer, stage IV Is this a current diagnosis for this admission?: Yes Plan: The patient was actually evaluated at bedside and wound VAC was placed. Patient had a wound VAC in place. Wound VAC has since been removed. Patient now with local wound care. Continue Keflex (2) Anticoagulation adequate Is this a current diagnosis for this admission?: Yes Plan: Patient was on Lovenox which she is being held. Patient apparently has a history of hemorrhagic stroke therefore should not be on Lovenox. Does not know why patient is on Lovenox. (3) Bleeding from urethra in male Is this a current diagnosis for this admission?: Yes Plan: Secondary to trauma from patient pulling out his Garcia. Bleeding improved. Patient urine did grow Proteus. Patient being treated for UTI. (4) Fever Qualifiers: Fever type: unspecified Qualified Code(s): R50.9 - Fever, unspecified Is this a current diagnosis for this admission?: Yes Plan: Resolved. Likely secondary to UTI. (5) Multiple sclerosis Is this a current diagnosis for this admission?: Yes Plan: Continue supportive care. (6) Hypernatremia Is this a current diagnosis for this admission?: Yes Plan: With mild hypernatremia. Patient free water flushes have been adjusted. Will monitor and follow-up sodium in the morning. (7) Acute blood loss anemia Is this a current diagnosis for this admission?: Yes Plan: Certain of the cause of the blood loss. Patient was transfused 2 units of packed RBCs. Hemoglobin went from 6-8 which is appropriate. Will monitor hemoglobin. Plan is for transfer back to [facility] today. (8) Hematuria Is this a current diagnosis for this admission?: Yes Plan: Most likely secondary to trauma. Now resolved. (9) Leukocytosis Is this a current diagnosis for this admission?: Yes Plan: Possibly leukemoid reaction. Patient also had a debridement of his sacral wound. Patient currently on Keflex for both his UTI and wounds. (10) Seizure disorder Is this a current diagnosis for this admission?: Yes Plan: Continue Keppra. - Time Time Spent with patient: Less than 15 minutes Anticipated discharge: SNF Within: Other - Today
[2018-01-31] MEDS ORDERED: POLYVINYL ALCOHOL 1.4% OPH SOLN 15 ML OD ONE (15:30)
[2018-01-31] MEDS ORDERED: POLYVINYL ALCOHOL 1.4% OPH SOLN 15 ML OD SCH (18:00)
== END 2018-01-31 17:15 | DRG 698 ==
LOC: ER 09:22 → EH 11:58 → 4S 23:48
PROVIDERS: ADMIT Emergency Medicine; ATTEND Emergency Medicine
PROC: 30233N1 Transfusion of Nonautologous Red Blood Cells into Peripheral Vein, Percutaneous Approach (ICD-10-PCS; principal; 2018-01-27)
DX: S37.39XA Other injury of urethra, initial encounter (principal); L89.154 Pressure ulcer of sacral region, stage 4; N39.0 Urinary tract infection, site not specified; N02.8 Recurrent and persistent hematuria with other morphologic changes; E87.0 Hyperosmolality and hypernatremia; E46 Unspecified protein-calorie malnutrition; I69.351 Hemiplegia and hemiparesis following cerebral infarction affecting right dominant side; Z66 Do not resuscitate; D64.9 Anemia, unspecified; I10 Essential (primary) hypertension; G35 Multiple sclerosis; G40.909 Epilepsy, unspecified, not intractable, without status epilepticus; F03.90 Unspecified dementia, unspecified severity, without behavioral disturbance, psychotic disturbance, mood disturbance, and anxiety; B96.4 Proteus (mirabilis) (morganii) as the cause of diseases classified elsewhere; X58.XXXA Exposure to other specified factors, initial encounter; Y92.129 Unspecified place in nursing home as the place of occurrence of the external cause; Z79.01 Long term (current) use of anticoagulants; Z93.1 Gastrostomy status; Z46.6 Encounter for fitting and adjustment of urinary device; Z68.24 Body mass index [BMI] 24.0-24.9, adult
CPT/HCPCS: 36415; 36430; 51702; 74177; 76775; 80048; 80053; 80202; 81001; 82565; 83735; 85025; 85027; 85610; 86850; 86900; 86901; 86920; 87040; 87086; 87088; 87186; 99284; G8996-GN; G8997-GN; G8998-GN; J0692; J2185; J3370; J3490; J7050; J7060; P9016; Q3027

== ENCOUNTER 2018-02-19 06:19 | Emergency (ER) | payer MEDICARE ==
[2018-02-19] MEDS ORDERED: NORMAL SALINE 1000 ML 1,000 ML IV ONE (06:34)
--- NOTE | 2018-02-19 06:37 | ER Document Report ---
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 Currently patient is sleeping. Cannot get any history from him directly. REVIEW OF SYSTEMS: not possible to obtain, postictal ALL OTHER SYSTEMS REVIEWED AND NEGATIVE. Dictation was performed using [employer] voice recognition software PHYSICAL EXAMINATION: GENERAL: Sleepy, contracted upper and lower limbs HEAD: Atraumatic, normocephalic. EYES: Pupils equal round and reactive to light, extraocular movements intact, sclera anicteric, conjunctiva are normal. ENT: Nares patent, oropharynx clear without exudates. Moist mucous membranes. NECK: Normal range of motion, supple without lymphadenopathy LUNGS: Breath sounds clear to auscultation bilaterally and equal. No wheezes rales or rhonchi. HEART: Regular rate and rhythm without murmurs ABDOMEN: Soft, nontender, nondistended abdomen. No guarding, no rebound. No masses appreciated. Musculoskeletal: Normal range of motion, no pitting or edema. No cyanosis. NEUROLOGICAL: Cranial nerves grossly intact. Normal speech, normal gait. Normal sensory, motor exams PSYCH: Normal mood, normal affect. SKIN: Warm, Dry, normal turgor, no rashes or lesions noted. (DORINA VELASQUEZ) - Related Data Allergies/Adverse Reactions: Sulfa (Sulfonamide Antibiotics) Allergy (Verified 02/19/18 08:21) Past Medical History - Social History Smoking Status: Unknown if Ever Smoked Frequency of alcohol use: Unknown Drug Abuse: Other - Unknown Family History: Reviewed & Not Pertinent - Past Medical History Cardiac Medical History: Reports: Hx Hypertension Denies: Hx Coronary Artery Disease, Hx DVT, Hx Heart Attack, Hx Hypercholesterolemia, Hx Pulmonary Embolism Pulmonary Medical History: Denies: Hx Asthma, Hx COPD Neurological Medical History: Reports: Hx Seizures Endocrine Medical History: Denies: Hx Diabetes Mellitus Type 1, Hx Diabetes Mellitus Type 2, Hx Hyperthyroidism, Hx Hypothyroidism Renal/ Medical History: Denies: Hx Peritoneal Dialysis GI Medical History: Reports: Hx Gastroesophageal Reflux Disease. Denies: Hx Cirrhosis, Hx Hepatitis Musculoskeltal Medical History: Reports Hx Multiple Sclerosis Psychiatric Medical History: Reports: Hx Depression - PTSD Infectious Medical History: Denies: Hx Hepatitis Past Surgical History: Reports: Hx Abdominal Surgery, Other - Implantation of baclofen pump - Immunizations Hx Diphtheria, Pertussis, Tetanus Vaccination: No <DORINA VELASQUEZ - Last Filed: 02/19/18 16:05> Review of Systems - Review of Systems -: Yes ROS unobtainable due to patient's medical condition <DORINA VELASQUEZ - Last Filed: 02/19/18 16:05> - Vital signs Vitals: Resp 10 L 02/19/18 06:45 Course - Laboratory Result Diagrams: 02/19/18 06:05 02/19/18 06:05 <DORINA VELASQUEZ - Last Filed: 02/19/18 16:05> - Laboratory Result Diagrams: 02/19/18 06:05 02/19/18 06:05 <JYOTI YAÑEZ - Last Filed: 02/19/18 23:36> - Re-evaluation Re-evalutation: 02/19/18 16:06 He had multiple seizures in the ER most of them petit mal seizures. Therefore he was given rather started on Dilantin IV (DORINA VELASQUEZ) 02/19/18 19:[address] Velasquez, phenytoin was given at 1630, no further seizures since 1630. Patient is borderline febrile with a temperature of 100.2 however there is no focal evidence of infection on Dr. Velasquez's exam. Urinalysis appears to be colonized rather than true infection however this been sent for culture. Acetaminophen will not be given at this time, care facility will be asked to continue to monitor the patient's temperature and if he develops a true fever of 100.4 or greater they should continue to monitor for him for any concerning signs of infection and return for further workup should they be concerned. 02/19/18 19:50 Patient had another seizure while transport crew was at bedside, he just been taken off a environmental professional and IV had been discontinued, it is localized to his right arm which is rhythmic jerking as well as some twitching to the right side of his face and his eyes have horizontal nystagmus to the right. At this point patient will be given another milligram of Ativan and I will discuss his case further with his , likely will be need to be transferred to a tertiary facility for continuous EEG for status epilepticus. 02/19/18 23:33 As previously noted sign out was received from Dr. Velasquez. Patient had been seizure-free for at least 2 hours and then as he was about to be transferred back to the care facility he had another focal seizure as noted in the record above. Patient continued to have 2 more seizures here in the emergency department each which were treated with Ativan. I did have an extensive discussion with his regarding the need for transfer to a center that has neurology and continuous EEG. is agreeable to transfer, patient has received care before at [facility], she would like us to avoid intubation if at all possible however if he continues to seize and has to be intubated for seizure control or due to unacceptable levels of sedation she is agreeable to having him intubated. I spoke with Ayde the neurology PA who accepted the patient on behalf of Dr. Nguyen to the ICU at [facility]. At present the patient is sedated but still protecting his airway continuing to have intermittent seizures but no desaturations. I did order a chest x-ray given the leukocytosis and the elevated temperature that did not quite meet fever criteria. It shows left lower lobe pneumonia. This pneumonia is likely what is causing his lowered seizure threshold. Patient was covered with vancomycin and Zosyn for possible infection causing these seizures prior to receiving the results of the chest x-ray. (JYOTI YAÑEZ) - Vital Signs Vital signs: Temp Pulse Resp BP Pulse Ox 99.5 F 18 125/75 96 02/19/18 22:10 02/19/18 19:00 02/19/18 19:00 02/19/18 19:00 - Laboratory Laboratory results interpreted by me: 02/19/18 02/19/18 02/19/18 06:05 06:05 06:58 WBC 13.9 H RBC 4.07 L Hgb 11.2 L Hct 35.6 L MCHC 31.6 L RDW 18.0 H Seg Neutrophils % 88.3 H Lymphocytes % 6.6 L Absolute Neutrophils 12.3 H Sodium 145.4 H Creatinine 0.41 L Glucose 115 H POC Glucose Total Bilirubin 0.1 L ALT 17 L Alkaline Phosphatase 133 H Total Protein 9.2 H Urine Protein 100 H Urine Blood LARGE H Ur Leukocyte Esterase TRACE H Urine Ascorbic Acid 20 H 02/19/18 18:55 WBC RBC Hgb Hct MCHC RDW Seg Neutrophils % Lymphocytes % Absolute Neutrophils Sodium Creatinine Glucose POC Glucose 129 H Total Bilirubin ALT Alkaline Phosphatase Total Protein Urine Protein Urine Blood Ur Leukocyte Esterase Urine Ascorbic Acid Discharge <DORINA VELASQUEZ - Last Filed: 02/19/18 16:05> <JYOTI YAÑEZ - Last Filed: 02/19/18 23:36> - Discharge Clinical Impression: 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 Seizure disorder, complex partial Qualifiers: Epilepsy type: partial symptomatic Intractability: not intractable Status epilepticus: without status epilepticus Qualified Code(s): G40.209 - Localization-related (focal) (partial) symptomatic epilepsy and epileptic syndromes with complex partial seizures, not intractable, without status epilepticus Pneumonia Qualifiers: Pneumonia type: due to unspecified organism Laterality: left Lung location: lower lobe of lung Qualified Code(s): J18.1 - Lobar pneumonia, unspecified organism Condition: Serious Disposition: [facility] Prescriptions: Lorazepam [Ativan 1 mg Tablet] 1 mg PO Q4 PRN #30 tab PRN Reason: Phenytoin [Dilantin Susp 100 Mg/4 Ml Udcup] 200 mg GT BID #480 ml
[2018-02-19] MEDS ORDERED: LEVETIRACETAM 1500 MG/NACL-ISO 1,500 MG/100 ML RTUPB IV ONE (06:42)
[2018-02-19 06:52] LABS: ABSOLUTE EOSINOPHILS # (AUTO) 0.3 10^3/uL (0.0-0.6); ABSOLUTE LYMPHOCYTES (AUTO) 0.9 10^3/uL (0.5-4.7); ABSOLUTE MONOCYTES (AUTO) 0.4 10^3/uL (0.1-1.4); ABSOLUTE NEUT (AUTO) 12.3 10^3/uL (1.7-8.2); BASOPHILS % (AUTO) 0.2 % (0-2); EOSINOPHILS % (AUTO) 1.9 % (0-6); HEMATOCRIT 35.6 % (37.9-51.0); HEMOGLOBIN 11.2 g/dL (13.5-17.0); LYMPHOCYTES % (AUTO) 6.6 % (13-45); MEAN CORPUSCULAR HEMOGLOBIN 27.6 pg (27.0-33.4); MEAN CORPUSCULAR HGB CONC 31.6 g/dL (32.0-36.0); MEAN CORPUSCULAR VOLUME 88 fl (80-97); PLATELET COUNT 207 10^3/uL (150-450); RED BLOOD COUNT 4.07 10^6/uL (4.35-5.55); SEGMENTED NEUTROPHILS % (AUTO) 88.3 % (42-78); TOTAL CELLS COUNTED % (AUTO) 100 %; WHITE BLOOD COUNT 13.9 10^3/uL (4.0-10.5)
[2018-02-19 07:15] LABS: ALANINE AMINOTRANSFERASE 17 U/L (21-72); ALBUMIN 4.1 g/dL (3.5-5.0); ALKALINE PHOSPHATASE 133 U/L (38-126); ANION GAP 18 (5-19); ASPARTATE AMINO TRANSFERASE 27 U/L (17-59); BILIRUBIN,DIRECT 0.1 mg/dL (0.0-0.4); BILIRUBIN,TOTAL 0.1 mg/dL (0.2-1.3); BLOOD UREA NITROGEN 13 mg/dL (7-20); CALCIUM 9.5 mg/dL (8.4-10.2); CARBON DIOXIDE 27 mmol/L (22-30); CHLORIDE 100 mmol/L (98-107); GLUCOSE 115 mg/dL (75-110); POTASSIUM 4.2 mmol/L (3.6-5.0); SODIUM 145.4 mmol/L (137-145); TOTAL PROTEIN 9.2 g/dL (6.3-8.2)
[2018-02-19 07:16] LABS: ALCOHOL < 10 mg/dL (NONE DETECTED)
[2018-02-19 07:27] LABS: AMORPHOUS SEDIMENT,URINE TRACE /HPF; APPEARANCE,URINE SLIGHTLY-CLOUDY; BILIRUBIN,URINE NEGATIVE (NEGATIVE); COLOR,URINE YELLOW; GLUCOSE, URINE NEGATIVE (NEGATIVE); KETONES,URINE NEGATIVE (NEGATIVE); LEUKOCYTE ESTERASE,URINE TRACE (NEGATIVE); NITRITE,URINE NEGATIVE (NEGATIVE); PROTEIN,URINE 100 mg/dL (NEGATIVE); URINE SPECIFIC GRAVITY 1.014; UROBILINOGEN,URINE NEGATIVE mg/dL (<2.0)
[2018-02-19 07:41] LABS: URINE AMPHETAMINES SCREEN NEGATIVE; URINE BARBITURATES SCREEN NEGATIVE; URINE BENZODIAZEPINES SCREEN NEGATIVE; URINE COCAINE SCREEN NEGATIVE; URINE MARIJUANA (THC) SCREEN NEGATIVE; URINE METHADONE SCREEN NEGATIVE; URINE PHENCYCLIDINE SCREEN NEGATIVE
[2018-02-19] MEDS: NORMAL SALINE 1000 ML 1,000 ML IV PRN ×2 (07:51→21:55)
[2018-02-19] MEDS ORDERED: LORAZEPAM INJ 2 MG/1 ML VIAL IV ONE ×5 (09:23→21:44)
[2018-02-19] MEDS ORDERED: LEVETIRACETAM 1500 MG/NACL-ISO 1,500 MG/100 ML RTUPB IV SCH (10:00)
[2018-02-19] MEDS ORDERED: LEVETIRACETAM 500 MG/NACL-ISO 500 MG/100 ML RTUPB IV ONE (12:50)
--- NOTE | 2018-02-19 15:22 | RADIOLOGY REPORT (SQ) ---
EXAM DESCRIPTION: CT HEAD WITHOUT COMPLETED DATE/TIME: 02/19/2018 3:07 pm REASON FOR STUDY: Persistent seizure COMPARISON: 07/12/2017 TECHNIQUE: Axial images acquired through the brain without intravenous contrast. Images reviewed wi th bone, brain and subdural windows. Images stored on PACS. All CT scanners at this facility use dose modulation, iterative reconstruction, and/or weight based d osing when appropriate to reduce radiation dose to as low as reasonably achievable (ALARA). [facility]: Dose Right [facility]: CareDose [facility]: Dose Right [facility]: Teradose 4D [facility]: [employer] [facility] RADIATION DOSE: mGy. LIMITATIONS: Motion. Positioning. FINDINGS: VENTRICLES: Prominent. CEREBRUM: No masses. No hemorrhage. No midline shift. Old left TIFFANIE territory infarct. Areas of lo w density in the white matter most likely due to chronic micro-vascular ischemic change. No evidence for acute infarction. CEREBELLUM: No masses. No hemorrhage. No alteration of density. No evidence for acute infarction. EXTRAAXIAL SPACES: Age-related involutional change. No fluid collections. No masses. ORBITS AND GLOBE: No intra- or extraconal masses. Normal contour of globe without masses. CALVARIUM: No fracture. PARANASAL SINUSES: No fluid or mucosal thickening. SOFT TISSUES: No mass or hematoma. OTHER: No other significant finding. IMPRESSION: CHRONIC CHANGES OF ATROPHY AND MICROVASCULAR ISCHEMIA. NO ACUTE PROCESS. EVIDENCE OF ACUTE STROKE: NO. TECHNICAL DOCUMENTATION: JOB ID: [id number] Quality ID # [id number]: Final reports with documentation of one or more dose reduction techniques (e.g., Au tomated exposure control, adjustment of the mA and/or kV according to patient size, use of iterative reconstruction technique) 2010 [employer]- All Rights Reserved Reading location - IP/workstation name: [email or web address]
[2018-02-19] MEDS ORDERED: PHENYTOIN SODIUM INJ/PF 250 MG/5 ML SDV IV ONE (15:34)
[2018-02-19] MEDS ORDERED: VANCOMYCIN HCL INJ 1000 MG VIAL IV ONE (21:55)
[2018-02-19] MEDS ORDERED: PIPERACILLIN/TAZOBACTAM 3.375 GM VIAL IV ONE (21:55)
--- NOTE | 2018-02-19 22:30 | RADIOLOGY REPORT (SQ) ---
EXAM DESCRIPTION: CHEST SINGLE VIEW COMPLETED DATE/TIME: 02/19/2018 10:16 pm REASON FOR STUDY: AMS, increased seizures COMPARISON: 05/25/2017 EXAM PARAMETERS: NUMBER OF VIEWS: One view. TECHNIQUE: Single frontal radiographic view of the chest acquired. RADIATION DOSE: NA LIMITATIONS: None. FINDINGS: LUNGS AND PLEURA: There is considerable retrocardiac opacification on the left. MEDIASTINUM AND HILAR STRUCTURES: No masses. Contour normal. HEART AND VASCULAR STRUCTURES: Heart size is borderline. There is no evidence of failure. BONES: No acute findings. HARDWARE: None in the chest. OTHER: No other significant finding. IMPRESSION: Borderline cardiomegaly without failure. Left lower lobe pneumonia. TECHNICAL DOCUMENTATION: JOB ID: [id number] [employer]- All Rights Reserved Reading location - IP/workstation name: [email or web address]
[2018-02-19 23:46] VITALS: BP 104/61
== END 2018-02-19 23:56 | disposition short-term general hospital (02) ==
LOC: ER 06:19
DX: G40.201 Localization-related (focal) (partial) symptomatic epilepsy and epileptic syndromes with complex partial seizures, not intractable, with status epilepticus (principal); Z79.899 Other long term (current) drug therapy; J18.9 Pneumonia, unspecified organism; G35 Multiple sclerosis; G82.50 Quadriplegia, unspecified; I10 Essential (primary) hypertension; Z88.2 Allergy status to sulfonamides; D72.829 Elevated white blood cell count, unspecified
CPT/HCPCS: 96376; 99291; 96361; 96375; 96365; 96367; 96368; 36415; 87040; 87086; 82962; 80307 ×2; 83735; 85025; 80053; 81001; 71045; 70450; J2060; J1165; J7030; J3370; J1953 ×2; J2543

== ENCOUNTER 2018-03-26 07:05 | Emergency (ER) | payer MEDICARE, OTHER ==
--- NOTE | 2018-03-26 07:32 | ER Document Report ---
ED General - General Chief Complaint: Needs Urinary Cath Replaced Stated Complaint: CATHETER PROBLEM Time Seen by Provider: 03/26/18 07:10 Notes: 42-year-old male with history of multiple sclerosis and hemorrhagic infarct presents to the ER after pulling out his suprapubic catheter. Patient is nonverbal and really has no complaints. He has been treated before for sacral decub and has pulled out catheters before. [facility] found the patient to have pulled out the catheter. It is unknown when it was put in. The patient has no complaints. Is been no history of fevers or otherwise. Patient is well- known for pulling out the devices. TRAVEL OUTSIDE OF THE [place] IN LAST 30 DAYS: No - Related Data Allergies/Adverse Reactions: Sulfa (Sulfonamide Antibiotics) Allergy (Verified 03/26/18 07:21) Past Medical History - Social History Smoking Status: Unknown if Ever Smoked Family History: Reviewed & Not Pertinent - Past Medical History Cardiac Medical History: Reports: Hx Hypertension Denies: Hx Coronary Artery Disease, Hx DVT, Hx Heart Attack, Hx Hypercholesterolemia, Hx Pulmonary Embolism Pulmonary Medical History: Denies: Hx Asthma, Hx COPD Neurological Medical History: Reports: Hx Seizures Endocrine Medical History: Denies: Hx Diabetes Mellitus Type 1, Hx Diabetes Mellitus Type 2, Hx Hyperthyroidism, Hx Hypothyroidism Renal/ Medical History: Denies: Hx Peritoneal Dialysis GI Medical History: Reports: Hx Gastroesophageal Reflux Disease. Denies: Hx Cirrhosis, Hx Hepatitis Musculoskeltal Medical History: Reports Hx Multiple Sclerosis Psychiatric Medical History: Reports: Hx Depression - PTSD Infectious Medical History: Denies: Hx Hepatitis Past Surgical History: Reports: Hx Abdominal Surgery, Other - Implantation of baclofen pump - Immunizations Hx Diphtheria, Pertussis, Tetanus Vaccination: No Review of Systems - Review of Systems Constitutional: denies: Chills, Fever Respiratory: denies: Short of breath Genitourinary: denies: Hematuria -: Yes All other systems reviewed and negative Physical Exam - Vital signs Vitals: Temp Pulse Resp BP Pulse Ox 97.3 F 68 16 101/73 98 03/26/18 07:10 03/26/18 07:10 03/26/18 07:10 03/26/18 07:10 03/26/18 07:10 - Notes Notes: GENERAL_APPEARANCE: Chronically ill, alert, cooperative, no_acute_distress, no_ obvious_discomfort. VITALS: reviewed, see vital signs table. HEAD: Patient has some wounds around his face and neck from picking. EYES: conjunctiva_clear. NOSE: no_nasal_discharge. MOUTH: (-)decreased moisture. THROAT: no_airway_obstruction. no_lymphadenopathy NECK: supple, no_neck_tenderness, (-)thyromegaly. LUNGS: no_wheezing, no_rales, no_rhonchi, (-)accessory muscle use, good air exchange bilateral. HEART: normal_rate, normal_rhythm, normal_S1, normal_S2, (-)S3, (-)S4, no_ murmur, no_rub. ABDOMEN: Abdomen is soft and supple, there is a PEG tube in the left upper quadrant there is an area in the suprapubic area where there was a suprapubic cath EXTREMITIES: All extremities are contracted SKIN: warm, dry, good_color, no_rash. Sacral decub noted, picking wounds and seeping around the face on the right MENTAL_STATUS: Patient is nonverbal, responds to basic commands Course - Re-evaluation Re-evalutation: 03/26/18 07:30 Patient has pulled out his suprapubic catheter. I look back at old records and there is no mention of the patient having a suprapubic catheter. The patient had a Garcia catheter for which he had pulled and caused hematuria. The patient was sent to [facility] on February 19 and then has returned. May have had a catheter placed at [facility] -this would make the catheter less than a month old at most. I did make an attempt to try to place a catheter and a 14 Andorran catheter but it would not pass. Investigate when and where the catheter was placed. 03/26/18 08:[address] Sylvester Cronin urology at [facility]. Interventional radiology placed the suprapubic catheter with a pigtail type catheter February 26, 2018 Dr. Cronin's instructions were to try to place a conventional catheter through the urethra if able to place have the patient schedule with [facility] for an outpatient suprapubic catheter placement otherwise if unable to pass the catheter through the urethra the patient will need to be transferred. 03/26/18 10:51 Radiology was able to replace the suprapubic catheter here under ultrasound guidance. Recommend follow-up with their regular urologist in [place]. Patient will be [facility] back [facility] [place] [facility]. - Vital Signs Vital signs: Temp Pulse Resp BP Pulse Ox 97.3 F 68 16 101/73 98 03/26/18 07:10 03/26/18 07:10 03/26/18 07:10 03/26/18 07:10 03/26/18 07:10 Discharge - Discharge Clinical Impression: Suprapubic catheter dysfunction Qualifiers: Encounter type: initial encounter Qualified Code(s): T83.010A - Breakdown ( mechanical) of cystostomy catheter, initial encounter Condition: Good Disposition: HOME, SELF-CARE Instructions: Garcia Catheter Care ([facility]) Additional Instructions: Please follow-up with your urologist in [place]. Your catheter will likely need to be upsized in about 1 month. Otherwise follow-up with a local urologist.
[2018-03-26] MEDS ORDERED: LIDOCAINE 1% INJ-PF (10 MG/ML) 30 ML SDV ONE (09:50)
[2018-03-26 11:23] VITALS: BP 105/63
--- NOTE | 2018-03-26 12:28 | RADIOLOGY REPORT (SQ) ---
EXAM DESCRIPTION: CHGE PERC TUBE/DRN CTH W COMPLETED DATE/TIME: 03/26/2018 11:44 am REASON FOR STUDY: Suprapubic cath COMPARISON: CT abdomen pelvis 01/24/2018 FLUOROSCOPY TIME: 22 seconds 5 series of digital radiographic images saved to PACS. KILN TESTER: Myself TECHNIQUE: Replacement of suprapubic catheter under fluoroscopy LIMITATIONS: None. FINDINGS: No patient was placed supine on the fluoro table. The patient's suprapubic catheter fell out. The site of the skin entry site for the pre-existing suprapubic catheter tract was wrapped with ChloraPrep, draped in sterile towels. Injection of 30 mL of Isovue-300 was performed through the 5 Bahraini dilator, which confirmed intravesical placement of the dilator tip. Using a 5 Bahraini dilator and Glidewire, the urinary bladder was accessed through the pre-existing tra ct. The tract was dilated to 12 Bahraini over a J-wire. A 12 Bahraini Garcia was placed over the guidewire, with the tip and balloon in the urinary bladder. Fo isatu catheter adequately drained the bladder under fluoroscopy. No immediate complications. IMPRESSION: Replacement of a 12 Bahraini Garcia through pre-existing suprapubic catheter tract. Curren tly, a 12 Bahraini Garcia catheter is present with the tip and balloon in the urinary bladder. Good pablo inage of contrast from the urinary bladder. COMMENT: Quality ID 145: Final reports for procedures using fluoroscopy that document radiation exp osure indices, or exposure time and number of fluorographic images (if radiation exposure indices are not available) TECHNICAL DOCUMENTATION: JOB ID: [id number] [employer]- All Rights Reserved Reading location - IP/workstation name: [email or web address]
== END 2018-03-26 11:47 | disposition home or self-care (01) ==
LOC: ER 07:05
DX: T83.010A Breakdown (mechanical) of cystostomy catheter, initial encounter (principal); Y73.8 Miscellaneous gastroenterology and urology devices associated with adverse incidents, not elsewhere classified; Y84.6 Urinary catheterization as the cause of abnormal reaction of the patient, or of later complication, without mention of misadventure at the time of the procedure; G35 Multiple sclerosis; L89.159 Pressure ulcer of sacral region, unspecified stage; I10 Essential (primary) hypertension; Z93.1 Gastrostomy status; Z88.2 Allergy status to sulfonamides
CPT/HCPCS: 99283; 51702; 75984; C1894; C1887; C1892; C1769; J3490

== ENCOUNTER 2018-04-19 14:32 | Emergency (ER) | payer OTHER, MEDICARE ==
[2018-04-19] MEDS ORDERED: NORMAL SALINE 1000 ML 1,000 ML IV PRN (14:56)
--- NOTE | 2018-04-19 15:16 | ER Document Report ---
ED General - General Chief Complaint: Altered Mental Status Stated Complaint: ALTERED MENTAL STATUS Time Seen by Provider: 04/19/18 14:53 TRAVEL OUTSIDE OF THE [place] IN LAST 30 DAYS: No - HPI Notes: Patient is a 43-year-old male with a history of multiple sclerosis, hemorrhagic infarct, paraplegia, bedbound, in custodial, h/o MRSA, seizure disorder, g- tube placement who presents to the ED from the custodial with possible AMS even though the patient does not speak. Nurse at the facility state that he did not open his eyes when they asked him to so they called for an ambulance. EMS noted O2 saturation in the 80's(%), but placed his head in a new position and his O2 increased to >95% on RA. He is reported to be on gentamycin for his face (MRSA) and augmentin for UTI. Unable to obtain further history at this time due to condition. - Related Data Allergies/Adverse Reactions: Sulfa (Sulfonamide Antibiotics) Allergy (Verified 04/19/18 15:15) Past Medical History - Social History Smoking Status: Unknown if Ever Smoked Family History: Reviewed & Not Pertinent Patient has suicidal ideation: No Patient has homicidal ideation: No - Past Medical History Cardiac Medical History: Reports: Hx Hypertension Denies: Hx Coronary Artery Disease, Hx DVT, Hx Heart Attack, Hx Hypercholesterolemia, Hx Pulmonary Embolism Pulmonary Medical History: Denies: Hx Asthma, Hx COPD Neurological Medical History: Reports: Hx Seizures Endocrine Medical History: Denies: Hx Diabetes Mellitus Type 1, Hx Diabetes Mellitus Type 2, Hx Hyperthyroidism, Hx Hypothyroidism Renal/ Medical History: Denies: Hx Peritoneal Dialysis GI Medical History: Reports: Hx Gastroesophageal Reflux Disease. Denies: Hx Cirrhosis, Hx Hepatitis Musculoskeltal Medical History: Reports Hx Multiple Sclerosis Psychiatric Medical History: Reports: Hx Depression - PTSD Infectious Medical History: Denies: Hx Hepatitis Past Surgical History: Reports: Hx Abdominal Surgery, Other - Implantation of baclofen pump - Immunizations Hx Diphtheria, Pertussis, Tetanus Vaccination: No Review of Systems - Review of Systems -: Yes ROS unobtainable due to patient's medical condition Physical Exam - Vital signs Vitals: Resp Pulse Ox 23 H 94 04/19/18 14:36 04/19/18 14:36 - Notes Notes: PHYSICAL EXAMINATION: GENERAL: moving his left arm and hand minimally. Looking around and follows my light. HEAD: Atraumatic, normocephalic. EYES: Pupils (left minimally larger than the right) round and reactive to light , extraocular movements intact, sclera anicteric, conjunctiva are normal. ENT: EAC clear b/l. TM's intact b/l without erythema, fluid, or perforation. Nares patent and without discharge. oropharynx clear without exudates. NECK: Normal range of motion, supple without lymphadenopathy LUNGS: Breath sounds clear to auscultation bilaterally and equal. No wheezes rales or rhonchi. HEART: Regular rate and rhythm without murmurs, rubs, gallops. ABDOMEN: Soft, nontender, nondistended abdomen. No guarding, no rebound. No masses appreciated. Normal bowel sounds present. No CVA tenderness bilaterally. G-tube in place. Extremities: No cyanosis, clubbing, or edema b/l. Peripheral pulses 2+. Capillary refill less than 3 seconds. PSYCH: Normal mood, normal affect. SKIN: Warm, Dry, normal turgor, no rashes or lesions noted. Course - Re-evaluation Re-evalutation: 04/19/18 18:20 Patient is an afebrile, well-hydrated, 43-year-old male who presents to the ED with what appears to be all chronic issues that are being addressed currently with leukocytosis and UTI. Vitals are acceptable. PE is otherwise unremarkable. He has not had any significant tachycardia, tachypnea, or hypoxia. No report of seizures prior to arrival and no seizures while in the ED today. I did review this case with Dr. Hand as well as Dr. Mason ( hospitalist). Both are in agreement that this patient has chronic issues ongoing and he is already on two antibiotics and can be discharged home. His anemia appears to be chronic so no transfusion is warranted at this time. He was originally sent due to concerns of not acting normally, but was back to his 'reported' baseline prior to arrival. CT scan of the head, CXR, cardiac enzyme/ ekg, lactic, CMP, VBG were otherwise unremarkable for acute pathology at this time. Low suspicion for any sepsis, meningitis, severe dehydration, respiratory compromise, acute cranial pathology, or other systemic emergent condition at this time. Prescription for iron and Colace provided. Recommend conservative measures for symptoms. Recheck with your PCM in 2-3 days. Return to the ED with any worsening/concerning symptoms otherwise as reviewed discharge. - Vital Signs Vital signs: Temp Pulse Resp BP Pulse Ox 99.8 F 17 112/74 98 04/19/18 15:21 04/19/18 18:16 04/19/18 18:16 04/19/18 18:16 - Laboratory Result Diagrams: 04/19/18 15:50 04/19/18 15:50 Laboratory results interpreted by me: 04/19/18 04/19/18 04/19/18 15:35 15:50 15:50 WBC 15.5 H RBC 2.74 L Hgb 7.8 L Hct 23.9 L RDW 17.9 H Plt Count 466 H Seg Neutrophils % 80.1 H Lymphocytes % 8.9 L Absolute Neutrophils 12.4 H Absolute Monocytes 1.5 H BUN 28 H Creatinine 0.49 L Glucose 124 H AST 74 H Alkaline Phosphatase 194 H Total Protein 8.6 H Urine Protein >=500 H Urine Bilirubin SMALL H Ur Leukocyte Esterase LARGE H Phenytoin Crossmatch 04/19/18 04/19/18 15:50 17:35 WBC RBC Hgb Hct RDW Plt Count Seg Neutrophils % Lymphocytes % Absolute Neutrophils Absolute Monocytes BUN Creatinine Glucose AST Alkaline Phosphatase Total Protein Urine Protein Urine Bilirubin Ur Leukocyte Esterase Phenytoin 5.8 L Crossmatch See Detail Discharge - Discharge Clinical Impression: Urinary tract infection associated with catheterization of urinary tract Qualifiers: Indwelling urinary catheter type: unspecified Encounter type: sequela Qualified Code(s): T83.511S - Infection and inflammatory reaction due to indwelling urethral catheter, sequela Leukocytosis Qualifiers: Leukocytosis type: unspecified Qualified Code(s): D72.829 - Elevated white blood cell count, unspecified Anemia Qualifiers: Anemia type: unspecified type Qualified Code(s): D64.9 - Anemia, unspecified Condition: Stable Disposition: HOME, SELF-CARE Additional Instructions: Push fluids (i.e. water, cranberry juice) Proper hygenic technique Keep the skin clean Tylenol/ibuprofen as needed Take medications as directed Take iron and colace daily F/u with your PCM in 3-5 days for a recheck Consider consult with a Urologist for ongoing/worsening symptoms. Return to the ED with any worsening symptoms and/or development of fever, headache, chest pain, palpitations, syncope, shortness of breath, trouble breathing, abdominal pain, n/v/d, blood in stool/urine, loss of control of bowel /bladder, urinary retention, or other worsening symptoms that are concerning to you. Prescriptions: Docusate Sodium [Colace 100 mg Capsule] 100 mg PO DAILY #15 capsule Ferrous Sulfate 325 mg PO DAILY #15 tablet Referrals: FLORINA LYNCH MD [Primary Care Provider] - 04/23/18
[2018-04-19 16:16] LABS: ABSOLUTE BASOPHILS # (AUTO) 0.1 10^3/uL (0.0-0.2); ABSOLUTE EOSINOPHILS # (AUTO) 0.1 10^3/uL (0.0-0.6); ABSOLUTE LYMPHOCYTES (AUTO) 1.4 10^3/uL (0.5-4.7); ABSOLUTE MONOCYTES (AUTO) 1.5 10^3/uL (0.1-1.4); ABSOLUTE NEUT (AUTO) 12.4 10^3/uL (1.7-8.2); BASOPHILS % (AUTO) 0.4 % (0-2); EOSINOPHILS % (AUTO) 0.9 % (0-6); HEMATOCRIT 23.9 % (37.9-51.0); LYMPHOCYTES % (AUTO) 8.9 % (13-45); MEAN CORPUSCULAR HEMOGLOBIN 28.3 pg (27.0-33.4); MEAN CORPUSCULAR HGB CONC 32.5 g/dL (32.0-36.0); MEAN CORPUSCULAR VOLUME 87 fl (80-97); MONOCYTES % (AUTO) 9.7 % (3-13); PLATELET COUNT 466 10^3/uL (150-450); RED BLOOD COUNT 2.74 10^6/uL (4.35-5.55); RED CELL DISTRIBUTION WIDTH 17.9 % (11.5-14.0); SEGMENTED NEUTROPHILS % (AUTO) 80.1 % (42-78); TOTAL CELLS COUNTED % (AUTO) 100 %; WHITE BLOOD COUNT 15.5 10^3/uL (4.0-10.5)
[2018-04-19 16:17] LABS: INTERNATIONAL RATION (INR) 1.13; PROTHROMBIN TIME 15.1 SEC (11.4-15.4)
[2018-04-19 16:25] LABS: APPEARANCE,URINE TURBID; BILIRUBIN,URINE SMALL (NEGATIVE); COLOR,URINE YELLOW; GLUCOSE, URINE NEGATIVE (NEGATIVE); KETONES,URINE NEGATIVE (NEGATIVE); LEUKOCYTE ESTERASE,URINE LARGE (NEGATIVE); NITRITE,URINE NEGATIVE (NEGATIVE); PROTEIN,URINE >=500 mg/dL (NEGATIVE); TRIPLE PHOSPHATE CRYSTAL,URINE TOO NUMEROUS TO CNT /HPF; URINE SPECIFIC GRAVITY 1.016; UROBILINOGEN,URINE NEGATIVE mg/dL (<2.0)
[2018-04-19 16:25] LABS: VENOUS BLOOD HCO3 25.8 mmol/L (20-32); VENOUS BLOOD PCO2 41.6 mmHg (35-63); VENOUS BLOOD PH 7.41 (7.30-7.42)
--- NOTE | 2018-04-19 16:25 | RADIOLOGY REPORT (SQ) ---
EXAM DESCRIPTION: CHEST SINGLE VIEW COMPLETED DATE/TIME: 04/19/2018 4:17 pm REASON FOR STUDY: AMS COMPARISON: 02/19/2018 EXAM PARAMETERS: NUMBER OF VIEWS: One view. TECHNIQUE: Single frontal radiographic view of the chest acquired. RADIATION DOSE: NA LIMITATIONS: None. FINDINGS: LUNGS AND PLEURA: Ill-defined opacification in the right base. MEDIASTINUM AND HILAR STRUCTURES: No masses. Contour normal. HEART AND VASCULAR STRUCTURES: Borderline cardiomegaly with no failure. BONES: No acute findings. HARDWARE: None in the chest. OTHER: No other significant finding. IMPRESSION: Cardiomegaly without CHF. Cannot exclude limited infiltrate in the right middle lobe or lower lobe. TECHNICAL DOCUMENTATION: JOB ID: [id number] [employer]- All Rights Reserved Reading location - IP/workstation name: [email or web address]
[2018-04-19 16:27] LABS: ALANINE AMINOTRANSFERASE 68 U/L (21-72); ALBUMIN 3.7 g/dL (3.5-5.0); ALKALINE PHOSPHATASE 194 U/L (38-126); ANION GAP 12 (5-19); ASPARTATE AMINO TRANSFERASE 74 U/L (17-59); BILIRUBIN,DIRECT 0.2 mg/dL (0.0-0.4); BILIRUBIN,TOTAL 0.2 mg/dL (0.2-1.3); BLOOD UREA NITROGEN 28 mg/dL (7-20); CALCIUM 9.4 mg/dL (8.4-10.2); CARBON DIOXIDE 28 mmol/L (22-30); CHLORIDE 103 mmol/L (98-107); GLUCOSE 124 mg/dL (75-110); POTASSIUM 4.6 mmol/L (3.6-5.0); SODIUM 143.4 mmol/L (137-145); TOTAL PROTEIN 8.6 g/dL (6.3-8.2)
[2018-04-19 16:28] LABS: HEMOGLOBIN 7.8 g/dL (13.5-17.0)
[2018-04-19] MEDS ORDERED: NORMAL SALINE 250 ML IV PRN (16:42)
--- NOTE | 2018-04-19 17:32 | RADIOLOGY REPORT (SQ) ---
EXAM DESCRIPTION: CT HEAD WITHOUT COMPLETED DATE/TIME: 04/19/2018 5:20 pm REASON FOR STUDY: AMS COMPARISON: 02/19/2018 TECHNIQUE: Axial images acquired through the brain without intravenous contrast. Images reviewed wi th bone, brain and subdural windows. Images stored on PACS. All CT scanners at this facility use dose modulation, iterative reconstruction, and/or weight based d osing when appropriate to reduce radiation dose to as low as reasonably achievable (ALARA). [facility]: Dose Right [facility]: CareDose [facility]: Dose Right [facility]: Teradose 4D [facility]: Smart PanX RADIATION DOSE: CT Rad equipment meets quality standard of care and radiation dose reduction techniq ues were employed. CTDIvol: 53.2 mGy. DLP: 1124 mGy-cm.mGy. LIMITATIONS: None. FINDINGS: VENTRICLES: Prominent. CEREBRUM: No masses. No hemorrhage. No midline shift. Areas of low density in the white matter mos t likely due to chronic micro-vascular ischemic change. No evidence for acute infarction. CEREBELLUM: No masses. No hemorrhage. No alteration of density. No evidence for acute infarction. EXTRAAXIAL SPACES: Age-related involutional change. No fluid collections. No masses. ORBITS AND GLOBE: No intra- or extraconal masses. Normal contour of globe without masses. CALVARIUM: No fracture. PARANASAL SINUSES: No fluid or mucosal thickening. SOFT TISSUES: Posterior soft tissue swelling. OTHER: No other significant finding. IMPRESSION: No intracranial hemorrhage. EVIDENCE OF ACUTE STROKE: NO. TECHNICAL DOCUMENTATION: JOB ID: [id number] Quality ID # [id number]: Final reports with documentation of one or more dose reduction techniques (e.g., Au tomated exposure control, adjustment of the mA and/or kV according to patient size, use of iterative reconstruction technique) 2010 [employer]- All Rights Reserved Reading location - IP/workstation name: [email or web address]
[2018-04-19] MEDS ORDERED: FERROUS SULFATE LIQUID 300 MG/5 ML UDC PO ONE (18:22)
[2018-04-19 20:13] VITALS: BP 102/66
--- NOTE | 2018-04-20 07:04 | EKG REPORT ---
SEVERITY:- ABNORMAL ECG - SINUS TACHYCARDIA NONSPECIFIC ANTEROSEPTAL T INVERSION : Confirmed by: Bryant Yost MD 20-Apr-2018 07:04:15
== END 2018-04-19 20:15 | disposition home or self-care (01) ==
LOC: ER 14:32
DX: R41.82 Altered mental status, unspecified (principal); D72.829 Elevated white blood cell count, unspecified; D64.9 Anemia, unspecified; T83.511S Infection and inflammatory reaction due to indwelling urethral catheter, sequela; G35 Multiple sclerosis; I69.369 Other paralytic syndrome following cerebral infarction affecting unspecified side; G82.20 Paraplegia, unspecified; Z86.14 Personal history of Methicillin resistant Staphylococcus aureus infection; Z93.1 Gastrostomy status
CPT/HCPCS: 93005; 99285; 96360; 86900; 86901; 36415; 87040; 87086; 86850; 80185; 85025; 85610; 87088; 80053; 81001; 84484; 87186; 86920; 82803; 83605; 71045; 70450; 93010; J3490; J7030

== ENCOUNTER → 2018-04-21 | Outpatient (CLI) | payer OTHER, MEDICARE | LOC: PNR 12:00 | PROVIDERS: ATTEND Internal Medicine | DX: K12.2 Cellulitis and abscess of mouth (principal); Z53.8 Procedure and treatment not carried out for other reasons ==

== ENCOUNTER 2018-05-06 21:43 | Inpatient (IN) | payer OTHER, MEDICARE ==
--- NOTE | 2018-05-06 22:27 | ER Document Report ---
ED General - General Stated Complaint: GENERAL WEAKNESS Time Seen by Provider: 05/06/18 22:10 Notes: Patient is a 43-year-old male with a history of MS as well as a history of nontraumatic intracerebral hemorrhages. He is bedbound because of all this. He states that the [facility] at [place]. He presents today because of hypoxia and fever. Temp was over 101. Oxygen saturation 69% room air when paramedics arrived. They placed on nonrebreather and brought into the ER. Patient is nonverbal and unable to speak to me at this time. He does open his eyes and she will nod his head some. Patient on exam does have multiple skin breakdown especially over his sacral area. He does have suprapubic catheter as well as a feeding tube in place. I did review his records from his last admission at [facility] back in February of this year. He does mention and then their notes that discussion with the was at the patient is a full code but the rather avoid intubation at all costs unless absolutely 100% necessary. I did try to call the family with the family did not fish bait picker the phone and told her son fish bait picker the phone and they had just arrived to the ER and therefore I spoke to family in the room. There is still want him to be full code with intubation only 100% necessary. I did talk to him about placing the patient on BiPAP and informed them that there is some aspiration risk with this however we keep him on nonrebreather he would eventually have to be intubated. They were understanding of this and prefer to take the risk of aspiration and placed on the BiPAP as opposed to keeping a nonrebreather and therefore likely having to switch to eventual ventilation intubation. Family's other concern is that the patient has a baclofen pump that is almost out and is due to be changed on the . She is found members concerned that may be the baclofen pump is wearing out. At this time I do not think withdrawal from baclofen is causing his fever and hypoxemia. TRAVEL OUTSIDE OF THE [place] IN LAST 30 DAYS: No - Related Data Allergies/Adverse Reactions: Sulfa (Sulfonamide Antibiotics) Allergy (Verified 04/19/18 15:15) Past Medical History - Social History Smoking Status: Unknown if Ever Smoked Frequency of alcohol use: None Drug Abuse: None Family History: Reviewed & Not Pertinent - Past Medical History Cardiac Medical History: Reports: Hx Hypertension Denies: Hx Coronary Artery Disease, Hx DVT, Hx Heart Attack, Hx Hypercholesterolemia, Hx Pulmonary Embolism Pulmonary Medical History: Denies: Hx Asthma, Hx COPD Neurological Medical History: Reports: Hx Seizures Endocrine Medical History: Denies: Hx Diabetes Mellitus Type 1, Hx Diabetes Mellitus Type 2, Hx Hyperthyroidism, Hx Hypothyroidism Renal/ Medical History: Denies: Hx Peritoneal Dialysis GI Medical History: Reports: Hx Gastroesophageal Reflux Disease. Denies: Hx Cirrhosis, Hx Hepatitis Musculoskeltal Medical History: Reports Hx Multiple Sclerosis Psychiatric Medical History: Reports: Hx Depression - PTSD Infectious Medical History: Denies: Hx Hepatitis Past Surgical History: Reports: Hx Abdominal Surgery, Other - Implantation of baclofen pump - Immunizations Hx Diphtheria, Pertussis, Tetanus Vaccination: No Review of Systems - Review of Systems -: Yes ROS unobtainable due to patient's medical condition - Patient is nonverbal Physical Exam - Vital signs Vitals: Pulse Ox 95 05/06/18 21:59 - Notes Notes: General Appearance: somnolent, cooperative, moderate acute distress, no obvious discomfort. Vitals: reviewed, See vital signs table. Head: no swelling or tenderness to the head Eyes: PERRL, EOMI, Conjuctiva clear Mouth: No decreasd moisture Throat: No tonsillar inflammation, No airway obstruction, No lymphadenopathy Neck: Supple, no neck tenderness, No thyromegaly Lungs: No wheezing, No rales, No rhonci, mild to moderate accessory muscle use, good air exchange bilaterally. Heart: Normal rate, Regular rythm, No murmur, no rub Abdomen: Normal BS, soft, No rigidity, No abdominal tenderness, No guarding, no rebound, patient has a feeding tube in place. Patient also has a suprapubic catheter that is actually somewhat inferior than expected. No redness or swelling surrounding either sites. Extremities: good pulses in all extremities, no swelling or tenderness in the extremities, no edema. Skin: Areas of skin breakdown. Patient has stage III decubitus ulcer over the sacral region without secondary signs of infection. Multiple areas of abrasion excoriation on face and ears. Neuro: Patient awake but somnolent. Patient does not answer questions. Patient does not move any of his 4 extremities on his own. Will open his eyes and look around. Course - Re-evaluation Re-evalutation: 06/12/18 00:11 Patient presents with signs of sepsis. After one fluid bolus his heart rate has normalized and his blood pressure is normalized as well. He is doing well on BiPAP. I did speak with the family at length about the fact that he could vomit and aspirate with the BiPAP mask. I informed him that we could intubate him; however, it may be difficult to wean him off the ventilator and the family says that they only want him to be on the ventilator it is a last ditch effort to save his life. He is otherwise a full code. They therefore agreed to go forward with the BiPAP. Chest x-ray does show large pneumonia. He does have urinary tract infection. These are both potential sources of his infection. Clinically patient is looking some improvement after IV fluid bolus and placed on BiPAP. I spoke with the hospitalist, Dr. Sim, who agrees to admit the patient. The is concerned about the potential baclofen pump needing to be refilled on the 08 of May. I informed the patient's that currently he is not showing any signs of withdrawal and I feel that his symptoms are related to sepsis. She is understanding of this. Dictation of this chart was performed using voice recognition software; therefore, there may be some unintended grammatical errors. - Vital Signs Vital signs: Temp Pulse Resp BP Pulse Ox 10 L 92/58 L 92 05/06/18 23:01 05/06/18 23:01 05/06/18 23:01 - Laboratory Result Diagrams: 05/06/18 22:20 05/06/18 22:20 Laboratory results interpreted by me: 05/06/18 05/06/18 05/06/18 22:20 22:20 22:20 WBC 20.7 H RBC 2.66 L Hgb 8.1 L Hct 24.3 L RDW 19.7 H Plt Count 484 H Seg Neuts % (Manual) 81 H Band Neutrophils % 2 L Lymphocytes % (Manual) 12 L Abs Neuts (Manual) 17.2 H BUN 42 H Glucose 221 H Lactic Acid 2.9 H Alkaline Phosphatase 212 H Total Protein 9.0 H Urine Protein Urine Glucose (UA) Urine Blood Urine Urobilinogen Ur Leukocyte Esterase Urine Ascorbic Acid Phenytoin 05/06/18 05/06/18 23:00 23:00 WBC RBC Hgb Hct RDW Plt Count Seg Neuts % (Manual) Band Neutrophils % Lymphocytes % (Manual) Abs Neuts (Manual) BUN Glucose Lactic Acid Alkaline Phosphatase Total Protein Urine Protein 30 H Urine Glucose (UA) 50 H Urine Blood LARGE H Urine Urobilinogen 2.0 H Ur Leukocyte Esterase LARGE H Urine Ascorbic Acid 40 H Phenytoin 9.1 L - EKG Interpretation by Me Additional EKG results interpreted by me: 05/06/18 23:05 EKG is reviewed and interpreted by me. EKG shows normal sinus rhythm with rate [address] segment elevation in leads II, III and aVF which are unchanged comparison to his previous EKG from April 19, 2018. No reciprocal ST segment depression.. No ischemic T-wave inversions. IA interval, QRS duration are within normal range. QTc interval slightly prolonged. Discharge - Discharge Clinical Impression: Multiple sclerosis Pneumonia Qualifiers: Pneumonia type: due to unspecified organism Laterality: right Lung location: lower lobe of lung Qualified Code(s): J18.1 - Lobar pneumonia, unspecified organism Fever Qualifiers: Fever type: unspecified Qualified Code(s): R50.9 - Fever, unspecified Condition: Stable Disposition: ADMITTED INPATIENT Admitting Provider: Hospitalist Unit Admitted: ICU Referrals: FLORINA LYNCH MD [Primary Care Provider] - Follow up as needed
[2018-05-06 22:32] LABS: VENOUS BLOOD BASE EXCESS 0.9 mmol/L; VENOUS BLOOD HCO3 26.5 mmol/L (20-32); VENOUS BLOOD PCO2 47.3 mmHg (35-63); VENOUS BLOOD PH 7.37 (7.30-7.42)
[2018-05-06] MEDS ORDERED: NORMAL SALINE 1000 ML 1,000 ML IV ONE (22:34)
[2018-05-06 22:37] LABS: HEMATOCRIT 24.3 % (37.9-51.0); HEMOGLOBIN 8.1 g/dL (13.5-17.0); MEAN CORPUSCULAR HEMOGLOBIN 30.5 pg (27.0-33.4); MEAN CORPUSCULAR HGB CONC 33.4 g/dL (32.0-36.0); PLATELET COUNT 484 10^3/uL (150-450); RED BLOOD COUNT 2.66 10^6/uL (4.35-5.55); RED CELL DISTRIBUTION WIDTH 19.7 % (11.5-14.0); WHITE BLOOD COUNT 20.7 10^3/uL (4.0-10.5)
[2018-05-06 22:45] LABS: ALANINE AMINOTRANSFERASE 63 U/L (21-72); ALBUMIN 3.8 g/dL (3.5-5.0); ALKALINE PHOSPHATASE 212 U/L (38-126); ANION GAP 13 (5-19); ASPARTATE AMINO TRANSFERASE 57 U/L (17-59); BILIRUBIN,DIRECT 0.4 mg/dL (0.0-0.4); BILIRUBIN,TOTAL 0.4 mg/dL (0.2-1.3); BLOOD UREA NITROGEN 42 mg/dL (7-20); CALCIUM 9.4 mg/dL (8.4-10.2); CARBON DIOXIDE 27 mmol/L (22-30); CHLORIDE 98 mmol/L (98-107); GLUCOSE 221 mg/dL (75-110); POTASSIUM 4.8 mmol/L (3.6-5.0)
[2018-05-06 22:58] LABS: ABSOLUTE LYMPHOCYTES# (MANUAL) 2.5 10^3/uL (0.5-4.7); ABSOLUTE NEUTROPHILS# (MANUAL) 17.2 10^3/uL (1.7-8.2); BAND NEUTROPHILS % (MANUAL) 2 % (3-5); BASOPHILS % (MANUAL) 0 % (0-2); EOSINOPHILS % (MANUAL) 0 % (0-6); LYMPHOCYTES % (MANUAL) 12 % (13-45); MONOCYTES % (MANUAL) 5 % (3-13); SEGMENTED NEUTROPHILS % (MAN) 81 % (42-78); TOTAL CELLS COUNTED 100
[2018-05-06 22:59] LABS: ANISOCYTOSIS 2+; PLATELET CLUMPS PRESENT; PLATELET COMMENT INCREASED
[2018-05-06 23:00] LABS: MEAN CORPUSCULAR VOLUME 91 fl (80-97)
--- NOTE | 2018-05-06 23:01 | RADIOLOGY REPORT (SQ) ---
CXR Clinical History: 43-year-old male with fever and respiratory distress. Comparison: 19 February 2018 Technique: 1 view of the chest submitted for review. Findings: Airspace opacity seen in the right lobe with blunting of the costophrenic angle. The lungs are hyperaerated. The cardiac silhouette measures within normal. Pulmonary vascularity is unremarkable. Osseous structures are normal for age. Impression: Right lower lobe pneumonia with effusion.
--- NOTE | 2018-05-06 23:12 | RADIOLOGY REPORT (SQ) ---
NONCONTRAST CT SCAN OF THE HEAD Clinical history: Headache Technique: Multiple axial images are taken from the level the vertex down to the base of the skull without the use of IV contrast. Images were then reconstructed in the sagittal and coronal planes. This exam was performed according to our departmental dose-optimization program which includes use of Automated Exposure Control, adjustment of the mA and/or kV according to patient size and/or use of iterative reconstruction technique. Comparison: Study is compared to prior dated April 19, 2018. Findings: There is diffuse atrophy along with decreased attenuation in a periventricular distribution. There is no evidence for acute intracranial hemorrhage. There is no midline shift. There is no abnormal extra-axial fluid collection. The ventricles are prominent but stable. The sinuses are well aerated. There is no evidence for depressed calvarial skull fracture. Soft tissues are grossly unremarkable. Impression: 1. Chronic small vessel ischemic change. 2. Otherwise, no noncontrast CT evidence for acute intracranial pathology.
[2018-05-06] MEDS ORDERED: PIPERACILLIN/TAZOBACTAM 4.5 GM VIAL IV ONE (23:22)
[2018-05-06] MEDS ORDERED: VANCOMYCIN HCL INJ 1000 MG VIAL IV ONE (23:23)
[2018-05-06 23:29] LABS: AMORPHOUS SEDIMENT,URINE TRACE /HPF; APPEARANCE,URINE CLOUDY; BILIRUBIN,URINE NEGATIVE (NEGATIVE); COLOR,URINE AMBER; GLUCOSE, URINE 50 mg/dL (NEGATIVE); KETONES,URINE NEGATIVE (NEGATIVE); LEUKOCYTE ESTERASE,URINE LARGE (NEGATIVE); NITRITE,URINE NEGATIVE (NEGATIVE); PROTEIN,URINE 30 mg/dL (NEGATIVE); URINE SPECIFIC GRAVITY 1.017
[2018-05-07] MEDS ORDERED: NORMAL SALINE 1000 ML 1,000 ML IV ONE (00:37)
[2018-05-07] MEDS ORDERED: DEXTROSE 5%-WATER 250 ML with NOREPINEPHRINE BITARTRATE 4 MG IV PRN ×2 (01:19)
[2018-05-07] MEDS ORDERED: NOREPINEPHRINE BITARTRATE INJ/PF 4 MG/4 ML SDV IV ONE (01:32)
[2018-05-07 02:19] LABS: ARTERIAL BLOOD BASE EXCESS -1.4 mmol/L; ARTERIAL BLOOD H2CO3 1.48 mmol/L (1.05-1.35); ARTERIAL BLOOD HCO3 24.7 mmol/L (20-26); ARTERIAL BLOOD O2 SATURATION 83.9 % (94-98); ARTERIAL BLOOD PCO2 49.2 mmHg (35-45); ARTERIAL BLOOD PH 7.32 (7.35-7.45); ARTERIAL BLOOD PO2 52.4 mmHg (80-100); ARTERIAL BLOOD TOTAL CO2 26.2 mmol/L (23-27)
[2018-05-07 02:20] LABS: ARTERIAL BLOOD FIO2 30%
[2018-05-07] MEDS ORDERED: LORAZEPAM 1 MG TABLET PO PRN (02:31)
[2018-05-07] MEDS ORDERED: ACETAMINOPHEN 325 MG TABLET PO PRN (02:32)
[2018-05-07] MEDS ORDERED: DEXTROSE 50%-WATER 25 GM/50 ML DISP.SYRIN IV PRN ×2 (02:32)
[2018-05-07] MEDS ORDERED: ONDANSETRON HCL INJ/PF 4 MG/2 ML SDV IV PRN (02:32)
[2018-05-07] MEDS ORDERED: GLUCAGON,HUMAN RECOMB 1 MG INJ SUBCUT PRN (02:32)
[2018-05-07] MEDS ORDERED: DEXTROSE 40% GEL 15 GM TUBE PO PRN ×2 (02:32)
[2018-05-07] MEDS ORDERED: VANCOMYCIN HCL 0 MG in DEXTROSE 5%-WATER 250 ML IV NR (02:45)
[2018-05-07] MEDS: NORMAL SALINE 1000 ML 1,000 ML IV PRN ×5 (03:29→21:19)
--- NOTE | 2018-05-07 03:51 | RADIOLOGY REPORT (SQ) ---
Clinical History : post central line placement , Exam : Portable AP view of the chest 05/07/2018 1:22 AM CDT Comparisons : Portable AP view of the chest May 06, 2018 Findings : There is a right IJ CVC with its tip in the mid SVC. There is no evidence of pneumothorax. There is confluent right lower lobe airspace disease. The left lung remains largely clear The heart is normal in size. The mediastinal contours are normal in appearance. The thoracic spine is age appropriate. The shoulders are unremarkable. Limited evaluation of the upper abdomen demonstrates no gross abnormalities. Impression: 1. Right IJ CVC tip in the mid SVC without pneumothorax. 2. Stable right lower lobe airspace disease.
[2018-05-07] MEDS ORDERED: CEFEPIME 1 GM/D5W RTU 1 GM/50 ML RTUPB IV SCH (06:00)
[2018-05-07] MEDS: HEPARIN SOD (PORCINE) 5,000 UNIT/ML 1 ML SYRINGE SUBCUT SCH ×3 (06:05→21:21)
--- NOTE | 2018-05-07 06:38 | PDOC H&P ---
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 Patient presents from nursing facility after an episode of vomiting resulting in hypoxia and fever. In the emergency room he is found to have right lower lobe infiltrate, hypotension and tachycardia. A grave prognosis is explained however His CODE STATUS is verified to be full code per patient's and power of real estate attorney at bedside. A central line is placed, he started on BiPAP, IV fluid bolus, Levophed and empiric antibiotics. He is referred to the hospitalist for admission. Past Medical History Cardiac Medical History: Reports: Hypertension Denies: Coronary Artery Disease, DVT, Myocardial Infarction, Hyperlipidema, Pulmonary Embolism Pulmonary Medical History: Denies: Asthma, Chronic Obstructive Pulmonary Disease (COPD) Neurological Medical History: Reports: Seizures Endocrine Medical History: Denies: Diabetes Mellitus Type 1, Diabetes Mellitus Type 2, Hyperthyroidism, Hypothyroidism GI Medical History: Reports: Gastroesophageal Reflux Disease Denies: Cirrhosis, Hepatitis Psychiatric Medical History: Reports: Depression - PTSD Hematology: Reports: Anemia Past Surgical History Past Surgical History: Reports: Other - Implantation of baclofen pump Social History Information Source: [facility] Records Lives with: Retirement Smoking Status: Unknown if Ever Smoked Frequency of Alcohol Use: None Hx Recreational Drug Use: No Drugs: None Hx Prescription Drug Abuse: No - Advance Directive Resuscitation Status: Full Code Family History Family History: Other - Unobtainable Parental Family History Reviewed: No - Unobtainable Children Family History Reviewed: No - Unobtainable Sibling(s) Family History Reviewed.: No - Unobtainable Medication/Allergy Home Medications: Clonidine HCl [Catapres 0.1 mg Tablet] 0.1 mg PEG DAILY 01/15/18 Ferrous Sulfate [Ferrous Sulfate Liquid 300 mg/5 ml Udcup] 325 mg PEG DAILY Interferon Beta-1A/Albumin [Avonex Inj 30 Mcg Kit] 30 mcg IM TH@0800 01/15/18 Levetiracetam 1,000 mg PEG Q12 01/15/18 Petrolatum,White [Aquaphor] 1 applic TOP BID 01/15/18 Polyethylene Glycol 3350 [Miralax Powder 17 gm/Packet] 17 gm PEG DAILY 01/15/18 Quetiapine Fumarate [Seroquel 25 mg Tablet] 25 mg PEG QHS 01/15/18 Sennosides [Senna] 8.6 mg PEG DAILY 01/15/18 Sertraline HCl [Zoloft] 100 mg PEG DAILY 01/15/18 Cephalexin Monohydrate [Keflex 500 mg Capsule] 500 mg PO Q8 10 Days #30 capsule 01/30/18 Lactobacillus Acidophilus [Acidophilus Lactobacilli] 1 each PO BID 10 Days #20 capsule 01/30/18 Silver Sulfadiazine [Silvadene 1% Cream 50 gm] 1 applic TP Q12 tube 01/30/18 Lorazepam [Ativan 1 mg Tablet] 1 mg PO Q4 PRN #30 tab 02/19/18 Phenytoin [Dilantin Susp 100 Mg/4 Ml Udcup] 200 mg GT BID #480 ml 02/19/18 Docusate Sodium [Colace 100 mg Capsule] 100 mg PO DAILY #15 capsule 04/19/18 Ferrous Sulfate [Ferrous Sulfate Liquid 300 mg/5 ml Udcup] 300 mg PO DAILY 15 Days #15 04/19/18 Allergies/Adverse Reactions: Sulfa (Sulfonamide Antibiotics) Allergy (Verified 04/19/18 15:15) Review of Systems ROS unobtainable: Due to mental status - Unobtainable Physical Exam Vital Signs: Temp Pulse Resp BP Pulse Ox 98 F 80 11 L 97/63 L 99 05/07/18 05:01 05/07/18 03:32 05/07/18 06:04 05/07/18 06:04 05/07/18 06:04 Intake & Output 05/05/18 05/06/18 05/07/18 11:59 11:59 11:59 Output Total 300 Balance -300 Weight 65.4 kg General appearance: PRESENT: severe distress, thin, other - Poorly responsive. ABSENT: cooperative, disheveled Head exam: PRESENT: atraumatic, normocephalic Eye exam: PRESENT: conjunctiva pink, EOMI. ABSENT: PERRLA - Right pupil unresponsive, scleral icterus Ear exam: PRESENT: normal external ear exam Mouth exam: PRESENT: moist, tongue midline Neck exam: ABSENT: carotid bruit, JVD, lymphadenopathy, thyromegaly Respiratory exam: PRESENT: accessory muscle use, crackles, rales, retraction, rhonchi, tachypnea Cardiovascular exam: PRESENT: gallop, RRR, +S1, +S2, tachycardia Pulses: PRESENT: normal dorsalis pedis pul Vascular exam: PRESENT: normal capillary refill GI/Abdominal exam: PRESENT: normal bowel sounds, soft. ABSENT: distended, guarding, mass, organolmegaly, rebound, tenderness Rectal exam: PRESENT: deferred Extremities exam: PRESENT: full ROM. ABSENT: calf tenderness, clubbing, pedal edema Neurological exam: PRESENT: alert, awake, oriented to person, oriented to place , oriented to time, oriented to situation, CN II-XII grossly intact. ABSENT: motor sensory deficit Skin exam: ABSENT: intact - 2 x 2 centimeter deep tracking stage IV sacral decubiti with probe contacting bone. Results Laboratory Results: 05/07/18 05/07/18 02:00 02:23 Carbonic Acid 1.48 H HCO3/H2CO3 Ratio 16:1 ABG pH 7.32 L ABG pCO2 49.2 H ABG pO2 52.4 L ABG HCO3 24.7 ABG O2 Saturation 83.9 L ABG Base Excess -1.4 FiO2 30% Lactic Acid 1.5 Assessment & Plan - Diagnosis (1) Severe sepsis Is this a current diagnosis for this admission?: Yes Plan: Secondary to pneumonia, complicated by chronic illness. Patient is 4 L positive , levo fed dependent. Vancomycin and cefepime initiated. Follow-up blood culture and CBC (2) Pneumonia Qualifiers: Pneumonia type: due to unspecified organism Laterality: right Lung location: lower lobe of lung Qualified Code(s): J18.1 - Lobar pneumonia, unspecified organism Is this a current diagnosis for this admission?: Yes Plan: Empiric antibiotics, trial BiPAP, reevaluate ABG, suggest contacting prior to intubation given poor overall prognosis. (3) Multiple sclerosis Is this a current diagnosis for this admission?: Yes Plan: Supportive care (4) Acute encephalopathy Is this a current diagnosis for this admission?: Yes Plan: Correction of #1 (5) Sacral decubitus ulcer, stage IV Is this a current diagnosis for this admission?: Yes Plan: Possible source of sepsis, surgical consult - Time Time Spent: 50 to 70 Minutes - Inpatient Certification Medical Necessity: Need Close Monitoring Due to Risk of Patient Decompensation
[2018-05-07 06:44] LABS: ARTERIAL BLOOD BASE EXCESS -0.8 mmol/L; ARTERIAL BLOOD H2CO3 1.38 mmol/L (1.05-1.35); ARTERIAL BLOOD HCO3 24.8 mmol/L (20-26); ARTERIAL BLOOD O2 SATURATION 96.5 % (94-98); ARTERIAL BLOOD PCO2 45.9 mmHg (35-45); ARTERIAL BLOOD PH 7.35 (7.35-7.45); ARTERIAL BLOOD PO2 90.1 mmHg (80-100); ARTERIAL BLOOD TOTAL CO2 26.2 mmol/L (23-27)
[2018-05-07 06:47] LABS: ARTERIAL BLOOD FIO2 50%
--- NOTE | 2018-05-07 07:33 | EKG REPORT ---
SEVERITY:- BORDERLINE ECG - SINUS RHYTHM BORDERLINE T ABNORMALITIES, ANT-LAT LEADS ST ELEV, PROBABLE NORMAL EARLY REPOL PATTERN : Confirmed by: Bryant Yost MD 07-May-2018 07:32:42
--- NOTE | 2018-05-07 07:43 | RADIOLOGY REPORT (SQ) ---
EXAM DESCRIPTION: XR ABDOMEN 2 VIEWS SUPINE ERECT COMPLETED DATE/TME: 05/07/2018 06:26 CLINICAL HISTORY: 43 years, Male, vomiting COMPARISON: None. FINDINGS: Upright and supine views of the abdomen. Gastrostomy tube with tip overlying the stomach. Right-sided medication pump. No dilated loops of large or small bowel. No definite free intraperitoneal air. Visualized lung bases are clear. No definite organomegaly. No definite abnormal calcifications. Degenerative change of the spine and hips. IMPRESSION: 1. Nonobstructive bowel gas pattern. 2. Gastrostomy tube overlying the stomach. 2011 [employer]- All Rights Reserved
[2018-05-07] MEDS: IPRATROPIUM/ALBUTEROL 0.5-2.5 MG/3 ML AMPUL NEB SCH ×2 (08:07→20:59)
--- NOTE | 2018-05-07 08:27 | RADIOLOGY REPORT (SQ) ---
EXAM DESCRIPTION: CHEST SINGLE VIEW COMPLETED DATE/TIME: 05/07/2018 3:30 am REASON FOR STUDY: CENTRAL LINE PLACEMENT COMPARISON: 05/06/2018 EXAM PARAMETERS: NUMBER OF VIEWS: One view. TECHNIQUE: Single frontal radiographic view of the chest acquired. RADIATION DOSE: NA LIMITATIONS: None. FINDINGS: LUNGS AND PLEURA: Improved aeration infiltrate process right lower lung zone that now incl udes visualization of the right hemidiaphragm. Persistent. Extensive infiltrate. Left lung remains free of infiltrate. No pneumothorax. MEDIASTINUM AND HILAR STRUCTURES: No masses. Contour normal. HEART AND VASCULAR STRUCTURES: Heart normal in size. Normal vasculature. BONES: No acute findings. HARDWARE: Tip of the central line on the right projected over the superior vena cava. OTHER: No other significant finding. IMPRESSION: Improved aeration and partial regression of the infiltrate right lower lung zone with c onsiderable residual infiltrate. TECHNICAL DOCUMENTATION: JOB ID: [id number] [employer]- All Rights Reserved Reading location - IP/workstation name: [email or web address]
[2018-05-07 08:45] LABS: HEMATOCRIT 19.1 % (37.9-51.0); MEAN CORPUSCULAR HEMOGLOBIN 29.8 pg (27.0-33.4); MEAN CORPUSCULAR HGB CONC 32.5 g/dL (32.0-36.0); MEAN CORPUSCULAR VOLUME 92 fl (80-97); PLATELET COUNT 397 10^3/uL (150-450); RED BLOOD COUNT 2.09 10^6/uL (4.35-5.55); RED CELL DISTRIBUTION WIDTH 18.9 % (11.5-14.0); WHITE BLOOD COUNT 28.4 10^3/uL (4.0-10.5)
[2018-05-07 08:53] LABS: HEMOGLOBIN 6.2 g/dL (13.5-17.0)
[2018-05-07 09:00] LABS: ANION GAP 10 (5-19); BLOOD UREA NITROGEN 26 mg/dL (7-20); CALCIUM 8.1 mg/dL (8.4-10.2); CARBON DIOXIDE 24 mmol/L (22-30); CHLORIDE 110 mmol/L (98-107); GLUCOSE 131 mg/dL (75-110); SODIUM 144.1 mmol/L (137-145)
[2018-05-07 09:09] LABS: POTASSIUM 3.4 mmol/L (3.6-5.0)
[2018-05-07 09:40] LABS: EOSINOPHILS % (MANUAL) 0 % (0-6); TOTAL CELLS COUNTED 100
[2018-05-07 09:53] LABS: TOXIC GRANULATION 2+
[2018-05-07 09:54] LABS: TOXIC VACUOLATION PRESENT
[2018-05-07 09:57] LABS: ANISOCYTOSIS 1+; HYPOCHROMASIA 1+; PLATELET COMMENT ADEQUATE; PLATELET LARGE PRESENT; STOMATOCYTES SLIGHT
[2018-05-07 10:05] LABS: ABSOLUTE LYMPHOCYTES# (MANUAL) 1.4 10^3/uL (0.5-4.7); ABSOLUTE MONOCYTES # (MANUAL) 0.9 10^3/uL (0.1-1.4); ABSOLUTE NEUTROPHILS# (MANUAL) 26.1 10^3/uL (1.7-8.2); BAND NEUTROPHILS % (MANUAL) 15 % (3-5); BASOPHILS % (MANUAL) 0 % (0-2); LYMPHOCYTES % (MANUAL) 5 % (13-45); MONOCYTES % (MANUAL) 3 % (3-13); SEGMENTED NEUTROPHILS % (MAN) 77 % (42-78)
[2018-05-07] MEDS: VANCOMYCIN HCL 750 MG in DEXTROSE 5%-WATER 250 ML IV SCH ×2 (10:56→17:16)
[2018-05-07] MEDS: POLYETHYLENE GLYCOL 3350 POWDER 17 GM/1 PACKET PEG SCH (10:57)
[2018-05-07] MEDS: PHENYTOIN 100 MG/4 ML SUSP GT SCH ×2 (10:57→17:15)
[2018-05-07] MEDS: DEXTROSE 5%-WATER 250 ML with NOREPINEPHRINE BITARTRATE 4 MG IV PRN ×4 (10:58→21:19)
[2018-05-07] MEDS: SERTRALINE HCL 50 MG TABLET PEG SCH (10:58)
[2018-05-07] MEDS: LEVETIRACETAM ORAL SOLN 500 MG/5 ML UDCUP PEG SCH ×2 (11:21→21:20)
[2018-05-07] MEDS ORDERED: PIPERACILLIN/TAZOBACTAM 3.375 GM VIAL IV SCH (14:00)
[2018-05-07] MEDS: PIPERACILLIN SODIUM/TAZOBACTAM 3.375 GM in NORMAL SALINE 100 ML IV SCH ×2 (14:02→21:20)
[2018-05-07] MEDS: FENTANYL CITRATE INJ/PF 100 MCG/2 ML AMPUL IV PRN (17:04)
[2018-05-07] MEDS: FAMOTIDINE INJ/PF 20 MG/2 ML SDV IV SCH (17:15)
[2018-05-07] MEDS: IPRATROPIUM/ALBUTEROL 0.5-2.5 MG/3 ML AMPUL NEB PRN (20:54)
[2018-05-07] MEDS: BACLOFEN 10 MG TABLET PEG SCH (21:20)
[2018-05-07] MEDS: QUETIAPINE FUMARATE 25 MG TABLET PEG SCH (21:20)
[2018-05-08] MEDS: FENTANYL CITRATE INJ/PF 100 MCG/2 ML AMPUL IV PRN (00:26)
[2018-05-08] MEDS: VANCOMYCIN HCL 750 MG in DEXTROSE 5%-WATER 250 ML IV SCH ×3 (01:05→17:59)
[2018-05-08 04:45] LABS: ARTERIAL BLOOD BASE EXCESS 0.1 mmol/L; ARTERIAL BLOOD H2CO3 1.48 mmol/L (1.05-1.35); ARTERIAL BLOOD HCO3 25.9 mmol/L (20-26); ARTERIAL BLOOD O2 SATURATION 98.1 % (94-98); ARTERIAL BLOOD PCO2 49.2 mmHg (35-45); ARTERIAL BLOOD PH 7.34 (7.35-7.45); ARTERIAL BLOOD PO2 120.5 mmHg (80-100); ARTERIAL BLOOD TOTAL CO2 27.5 mmol/L (23-27)
[2018-05-08 04:46] LABS: ARTERIAL BLOOD FIO2 40%
[2018-05-08 04:53] LABS: ABSOLUTE RETICS # 0.045 10^6/uL (0.028-0.122); HEMATOCRIT 19.9 % (37.9-51.0); MEAN CORPUSCULAR HEMOGLOBIN 29.1 pg (27.0-33.4); MEAN CORPUSCULAR HGB CONC 31.5 g/dL (32.0-36.0); MEAN CORPUSCULAR VOLUME 93 fl (80-97); PLATELET COUNT 411 10^3/uL (150-450); RED BLOOD COUNT 2.15 10^6/uL (4.35-5.55); RED CELL DISTRIBUTION WIDTH 19.1 % (11.5-14.0); RETICULOCYTE COUNT (AUTO) 2.11 % (0.66-2.85)
[2018-05-08 05:05] LABS: ANION GAP 12 (5-19); BLOOD UREA NITROGEN 13 mg/dL (7-20); CALCIUM 8.7 mg/dL (8.4-10.2); CARBON DIOXIDE 26 mmol/L (22-30); CHLORIDE 107 mmol/L (98-107); GLUCOSE 144 mg/dL (75-110); POTASSIUM 3.2 mmol/L (3.6-5.0); SODIUM 144.5 mmol/L (137-145)
[2018-05-08 05:14] LABS: IRON(TIBC) < 10.1 ug/dL (49-181)
[2018-05-08 05:16] LABS: WHITE BLOOD COUNT 34.9 10^3/uL (4.0-10.5)
[2018-05-08 05:17] LABS: HEMOGLOBIN 6.3 g/dL (13.5-17.0)
[2018-05-08 05:24] LABS: ABSOLUTE LYMPHOCYTES# (MANUAL) 2.1 10^3/uL (0.5-4.7); ABSOLUTE NEUTROPHILS# (MANUAL) 31.1 10^3/uL (1.7-8.2); BAND NEUTROPHILS % (MANUAL) 14 % (3-5); BASOPHILS % (MANUAL) 1 % (0-2); EOSINOPHILS % (MANUAL) 1 % (0-6); LYMPHOCYTES % (MANUAL) 6 % (13-45); MONOCYTES % (MANUAL) 3 % (3-13); SEGMENTED NEUTROPHILS % (MAN) 75 % (42-78); TOTAL CELLS COUNTED 100
[2018-05-08 05:26] LABS: ANISOCYTOSIS 2+; HYPOCHROMASIA SLIGHT; PLATELET COMMENT ADEQUATE
[2018-05-08 05:28] LABS: POIKILOCYTOSIS SLIGHT; TARGET CELLS SLIGHT
[2018-05-08] MEDS: FAMOTIDINE INJ/PF 20 MG/2 ML SDV IV SCH ×2 (05:29→17:59)
[2018-05-08] MEDS: PIPERACILLIN SODIUM/TAZOBACTAM 3.375 GM in NORMAL SALINE 100 ML IV SCH ×3 (05:30→22:51)
[2018-05-08] MEDS: BACLOFEN 10 MG TABLET PEG SCH ×3 (05:30→23:12)
[2018-05-08] MEDS: HEPARIN SOD (PORCINE) 5,000 UNIT/ML 1 ML SYRINGE SUBCUT SCH ×3 (05:30→22:50)
[2018-05-08] MEDS: POTASSIUM CHLORIDE 20 MEQ/50 ML RTU IV SCH ×4 (06:13→15:09)
[2018-05-08] MEDS: IPRATROPIUM/ALBUTEROL 0.5-2.5 MG/3 ML AMPUL NEB SCH ×2 (08:27→20:06)
[2018-05-08] MEDS: PHENYTOIN 100 MG/4 ML SUSP GT SCH ×2 (09:08→17:58)
[2018-05-08] MEDS: LEVETIRACETAM ORAL SOLN 500 MG/5 ML UDCUP PEG SCH ×2 (09:08→22:50)
[2018-05-08] MEDS: POLYETHYLENE GLYCOL 3350 POWDER 17 GM/1 PACKET PEG SCH (09:09)
[2018-05-08] MEDS: DEXTROSE 5%-WATER 250 ML with NOREPINEPHRINE BITARTRATE 4 MG IV PRN ×4 (09:09→15:10)
[2018-05-08] MEDS: SERTRALINE HCL 50 MG TABLET PEG SCH (09:09)
--- NOTE | 2018-05-08 09:42 | PDOC PROGRESS REPORT ---
Subjective Progress Note for:: 05/08/18 Subjective:: Patient noted to be more hypotensive today. He is however more awake though non verbal. He is noted to be more anemic and although no evidence of acute blood loss he is to be transfused today Reason For Visit: ACUTE RESP FAILURE SEPSIS PNA Physical Exam Vital Signs: Temp Pulse Resp BP Pulse Ox 94.7 F L 57 L 10 L 97/61 L 100 05/08/18 08:00 05/08/18 08:00 05/08/18 08:00 05/08/18 08:00 05/08/18 08:00 Intake & Output 05/07/18 05/08/18 05/09/18 06:59 06:59 06:59 Intake Total 4668 Output Total 300 4300 320 Balance -300 368 -320 Weight 65.4 kg 66.7 kg General appearance: PRESENT: no acute distress, other - poorly nourished Head exam: PRESENT: atraumatic Eye exam: PRESENT: other - R anisocoria Mouth exam: PRESENT: dry mucosa Respiratory exam: PRESENT: decreased breath sounds, symmetrical. ABSENT: wheezes Cardiovascular exam: PRESENT: RRR, +S1, +S2 GI/Abdominal exam: PRESENT: normal bowel sounds, other - PEG tube intact Urostomy tube in place, no discharges or erythema Rectal exam: PRESENT: deferred Gentrourinary exam: PRESENT: indwelling catheter Extremities exam: PRESENT: pedal edema Musculoskeletal exam: PRESENT: deformity - foot drop, inverted R foot Neurological exam: PRESENT: alert, awake, aphasic. ABSENT: oriented to person, oriented to place, oriented to time, oriented to situation, reflexes normal, CN II-XII grossly intact Psychiatric exam: PRESENT: other - difficult to evaluate Skin exam: PRESENT: abrasion. ABSENT: intact Results Laboratory Results: 05/08/18 04:19 05/08/18 04:19 05/08/18 05/08/18 05/08/18 04:19 04:19 04:19 WBC 34.9 H* RBC 2.15 L Hgb 6.3 L Hct 19.9 L MCV 93 MCH 29.1 MCHC 31.5 L RDW 19.1 H Plt Count 411 Seg Neutrophils % Not Reportable Lymphocytes % Not Reportable Monocytes % Not Reportable Eosinophils % Not Reportable Basophils % Not Reportable Absolute Neutrophils Not Reportable Absolute Lymphocytes Not Reportable Absolute Monocytes Not Reportable Absolute Eosinophils Not Reportable Absolute Basophils Not Reportable Retic Count (auto) 2.11 Absolute Retic 0.045 Carbonic Acid 1.48 H HCO3/H2CO3 Ratio 17:1 ABG pH 7.34 L ABG pCO2 49.2 H ABG pO2 120.5 H ABG HCO3 25.9 ABG O2 Saturation 98.1 H ABG Base Excess 0.1 FiO2 40% Sodium 144.5 Potassium 3.2 L Chloride 107 Carbon Dioxide 26 Anion Gap 12 BUN 13 Creatinine 0.36 L Est GFR ( Amer) > 60 Est GFR (Non-Af Amer) > 60 Glucose 144 H Calcium 8.7 Iron < 10.1 L TIBC 188 L % Saturation UNABLE TO CALCULATE Ferritin 311.00 Vitamin B12 920.0 Folate 17.40 Blood Type Antibody Screen 05/08/18 06:02 WBC RBC Hgb Hct MCV MCH MCHC RDW Plt Count Seg Neutrophils % Lymphocytes % Monocytes % Eosinophils % Basophils % Absolute Neutrophils Absolute Lymphocytes Absolute Monocytes Absolute Eosinophils Absolute Basophils Retic Count (auto) Absolute Retic Carbonic Acid HCO3/H2CO3 Ratio ABG pH ABG pCO2 ABG pO2 ABG HCO3 ABG O2 Saturation ABG Base Excess FiO2 Sodium Potassium Chloride Carbon Dioxide Anion Gap BUN Creatinine Est GFR ( Amer) Est GFR (Non-Af Amer) Glucose Calcium Iron TIBC % Saturation Ferritin Vitamin B12 Folate Blood Type O POSITIVE Antibody Screen NEGATIVE Impressions: Abdomen X-Ray 05/07/18 06:26 IMPRESSION: 1. Nonobstructive bowel gas pattern. 2. Gastrostomy tube overlying the stomach. 2010 [employer]- All Rights Reserved Assessment & Plan - Diagnosis (1) Catheter-associated urinary tract infection Is this a current diagnosis for this admission?: Yes Plan: Patient has a chronic urostomy tube. Will follow up on cultures (2) Anemia Qualifiers: Anemia type: iron deficiency Iron deficiency anemia type: chronic blood loss Qualified Code(s): D50.0 - Iron deficiency anemia secondary to blood loss (chronic) Is this a current diagnosis for this admission?: Yes Plan: Plan is to transfuse blood as well as Iron IV subsequently (3) Pneumonia Qualifiers: Pneumonia type: aspiration pneumonia Laterality: right Lung location: lower lobe of lung Qualified Code(s): J18.1 - Lobar pneumonia, unspecified organism Is this a current diagnosis for this admission?: Yes Plan: Will continue antibiotics and deescalate as appropriate (4) Severe sepsis Is this a current diagnosis for this admission?: Yes Plan: Will continue with Levophed, antibiotics, IVF and blood. Will add other vasopressors as indicated (5) Multiple sclerosis Is this a current diagnosis for this admission?: Yes (6) Decubitus ulcer Qualifiers: Pressure ulcer location: foot, unspecified location Pressure ulcer stage: stage 4 Is this a current diagnosis for this admission?: Yes (7) Sacral decubitus ulcer, stage IV Is this a current diagnosis for this admission?: Yes (8) Presence of intrathecal baclofen pump Is this a current diagnosis for this admission?: Yes Plan: chronic. started on Baclofen via PEg (9) Sacral decubitus ulcer Qualifiers: Pressure ulcer stage: unspecified pressure ulcer stage Qualified Code(s): L89.159 - Pressure ulcer of sacral region, unspecified stage Is this a current diagnosis for this admission?: Yes - Time Time Spent with patient: 25-34 minutes Medications reviewed and adjusted accordingly: Yes Anticipated discharge: SNF Within: within 72 hours
[2018-05-08 09:53] LABS: VANCOMYCIN,TROUGH 17.2 ug/mL (5.0-20.0)
[2018-05-08 10:11] LABS: PATH REVIEW PATHOLOGIST REVIEWED
[2018-05-08 10:13] LABS: PATH REVIEW PATHOLOGIST REVIEWED
--- NOTE | 2018-05-08 11:54 | CONSULTATION REPORT E ---
Consultation Report NAME: VALENTE MOJICA : 1975 AGE: 43Y DATE: 05/07/2018 606 A TO: MAGDI LAGUNA M.D. FROM: MASOUD DIXON M.D. Requesting Physician REASON FOR CONSULTATION: The patient is a 43-year-old male long-term group home resident for end stage multiple sclerosis, status post hemorrhagic stroke, nonverbal, status post PEG tube, and chronic indwelling catheter who came into long-term nursing facility on April 06, 2018 for increased vomiting, increased cough, SOB and fever. Patient was found to have right lower lobe infiltrate, hypotension, tachycardia, and thus, patient was admitted. A central line was placed and BiPAP was also initiated in the patient. Patient's saturation is about 90 % on BiPAP of 12/6, rate of 8 and FiO2 of 40%. Blood pressure has been stable, 99/57 and heart rate of 69 beats per minute over the last several hours in the ICU. PAST MEDICAL HISTORY: 1. History of hypertension. 2. History of stroke. 3. BPV. 4. Depression. 5. Multiple sclerosis. 6. Hemorrhagic stroke. SURGICAL HISTORY: History of "Baclofen pump". SOCIAL HISTORY: Patient lives in a group home. Smoking status unknown. Unknown social history. FAMILY HISTORY: Unknown. MEDICATIONS: 1. Clonidine. 3. Interferon beta. 4. Levetiracetam. 5. Aquaphor. 6. MiraLax powder. 8. Sertraline. 9. Zoloft. 11. Keflex. 12. Lactobacillus. 11. Silvadene. 12. Ativan 1 mg tablet. 13. Phenytoin. 14. Colace. ALLERGIES: ZOFRAN. REVIEW OF SYSTEMS: Unobtainable. Patient's mental status is nonverbal. PHYSICAL EXAMINATION: GENERAL: Patient appears sleeping, afebrile, not in acute respiratory distress. VITAL SIGNS: Temperature 97.7, heart rate of 70, blood pressure 116/76, respiratory rate is 22, saturation is 99% on FiO2 35%, BiPAP of 12/6, and rate of 12. EYES: No jaundice or pallor. EARS, NOSE, AND THROAT: No ear drainage. No nasal discharge. HEAD AND NECK: No scalp swelling, no tenderness. Central line is in the right neck. Patient is placed on BiPAP. CHEST AND LUNGS: No wheezing. No rhonchi. No coarse crackles. CARDIOVASCULAR: S1 and S2 distinct. Normal rate, regular rhythm. ABDOMEN: Flabby, positive bowel sounds, soft, nondistended, nontender. EXTREMITIES: No joint swelling, no cellulitis. DIAGNOSTIC STUDIES: CBC done today showed white count of 20.4 from 20.7, hemoglobin 6.2, hematocrit 19.1, platelet count is 307, bands are 15. ASSESSMENT: 1. Acute respiratory failure requiring management with mechanical ventilation on BiPAP, settings of 12/6, FiO2 35%, and rate of 12. 2. Pneumonia with severe sepsis and slight hypotension, improved on norepinephrine. PLAN/RECOMMENDATION: 1. Will add Zosyn to the current regimen at 3.375 g IVPB q. 8 hours. 2. Will continue vancomycin 1 g IV once daily. 3. GI prophylaxis with Pepcid 40 mg once daily. 4. Continue BiPAP as currently prescribed and titrate FiO2 to keep saturation 91 to 95%. 5. Will do a sputum culture. 6. Will discontinue the cefepime IV. 7. Will repeat the CBC and chemistry tomorrow. DICTATING PHYSICIAN: MAGDI LAGUNA MD,BRISA,MPH [id number] PHY#: [id number] ID: [id number] JOB#: [id number] ACCT: [id number] cc:MAGDI LAGUNA M.D. > MTDD
[2018-05-08 17:04] LABS: HEMATOCRIT 22.3 % (37.9-51.0); MEAN CORPUSCULAR HEMOGLOBIN 30.5 pg (27.0-33.4); MEAN CORPUSCULAR HGB CONC 33.1 g/dL (32.0-36.0); MEAN CORPUSCULAR VOLUME 92 fl (80-97); PLATELET COUNT 370 10^3/uL (150-450); RED BLOOD COUNT 2.43 10^6/uL (4.35-5.55); RED CELL DISTRIBUTION WIDTH 18.3 % (11.5-14.0)
[2018-05-08 17:25] LABS: WHITE BLOOD COUNT 31.8 10^3/uL (4.0-10.5)
[2018-05-08 17:26] LABS: HEMOGLOBIN 7.4 g/dL (13.5-17.0)
[2018-05-08] MEDS: NORMAL SALINE 1000 ML 1,000 ML IV PRN (18:01)
[2018-05-08 21:03] LABS: ANION GAP 12 (5-19); BLOOD UREA NITROGEN 9 mg/dL (7-20); CALCIUM 8.7 mg/dL (8.4-10.2); CARBON DIOXIDE 25 mmol/L (22-30); CHLORIDE 108 mmol/L (98-107); GLUCOSE 155 mg/dL (75-110); SODIUM 144.9 mmol/L (137-145)
[2018-05-08 21:08] LABS: POTASSIUM 4.3 mmol/L (3.6-5.0)
[2018-05-08] MEDS ORDERED: GENTAMICIN SULFATE INJ 80 MG/2 ML VIAL IV SCH (22:00)
[2018-05-08] MEDS: QUETIAPINE FUMARATE 25 MG TABLET PEG SCH (22:50)
[2018-05-08] MEDS ORDERED: BACLOFEN 10 MG TABLET ONE (22:55)
[2018-05-08] MEDS: GENTAMICIN SULFATE 120 MG in DEXTROSE 5%-WATER 100 ML IV SCH (23:33)
[2018-05-09] MEDS: DEXTROSE 5%-WATER 250 ML with NOREPINEPHRINE BITARTRATE 4 MG IV PRN ×4 (02:27→21:50)
[2018-05-09] MEDS: VANCOMYCIN HCL 750 MG in DEXTROSE 5%-WATER 250 ML IV SCH ×3 (02:28→18:05)
[2018-05-09] MEDS ORDERED: BACLOFEN 10 MG TABLET ONE (04:33)
[2018-05-09] MEDS: FAMOTIDINE INJ/PF 20 MG/2 ML SDV IV SCH ×2 (05:17→18:05)
[2018-05-09] MEDS: BACLOFEN 10 MG TABLET PEG SCH ×3 (05:17→21:20)
[2018-05-09] MEDS: PIPERACILLIN SODIUM/TAZOBACTAM 3.375 GM in NORMAL SALINE 100 ML IV SCH ×3 (05:17→21:19)
[2018-05-09] MEDS: HEPARIN SOD (PORCINE) 5,000 UNIT/ML 1 ML SYRINGE SUBCUT SCH ×3 (05:18→21:21)
[2018-05-09 05:56] LABS: ANION GAP 11 (5-19); BLOOD UREA NITROGEN 9 mg/dL (7-20); CALCIUM 8.7 mg/dL (8.4-10.2); CARBON DIOXIDE 27 mmol/L (22-30); CHLORIDE 109 mmol/L (98-107); GLUCOSE 180 mg/dL (75-110); POTASSIUM 3.8 mmol/L (3.6-5.0); SODIUM 147.1 mmol/L (137-145)
[2018-05-09 05:57] LABS: HEMATOCRIT 24.4 % (37.9-51.0); MEAN CORPUSCULAR HEMOGLOBIN 29.8 pg (27.0-33.4); MEAN CORPUSCULAR HGB CONC 32.1 g/dL (32.0-36.0); MEAN CORPUSCULAR VOLUME 93 fl (80-97); RED BLOOD COUNT 2.63 10^6/uL (4.35-5.55); RED CELL DISTRIBUTION WIDTH 17.9 % (11.5-14.0)
[2018-05-09 06:00] LABS: HEMOGLOBIN 7.8 g/dL (13.5-17.0)
[2018-05-09 06:21] LABS: ABSOLUTE MONOCYTES # (MANUAL) 0.3 10^3/uL (0.1-1.4); ABSOLUTE NEUTROPHILS# (MANUAL) 32.9 10^3/uL (1.7-8.2); BAND NEUTROPHILS % (MANUAL) 27 % (3-5); BASOPHILS % (MANUAL) 0 % (0-2); EOSINOPHILS % (MANUAL) 0 % (0-6); LYMPHOCYTES % (MANUAL) 3 % (13-45); MONOCYTES % (MANUAL) 1 % (3-13); SEGMENTED NEUTROPHILS % (MAN) 69 % (42-78); TOTAL CELLS COUNTED 100
[2018-05-09 06:26] LABS: ANISOCYTOSIS 1+; HYPOCHROMASIA SLIGHT; PLATELET CLUMPS PRESENT; PLATELET COMMENT ADEQUATE
[2018-05-09 06:27] LABS: PLATELET COUNT 395 10^3/uL (150-450)
[2018-05-09 06:50] LABS: WHITE BLOOD COUNT 34.3 10^3/uL (4.0-10.5)
--- NOTE | 2018-05-09 08:08 | PROGRESS NOTE E ---
Progress Note NAME: VALENTE MOJICA : 1975 AGE: 43Y DATE: 05/08/2018 ROOM: 606 SUBJECTIVE: Patient is a 43-year-old -[place] male, long-term alf resident with end-stage multiple sclerosis, status post hemorrhagic stroke. Nonverbal. Status post PEG tube placement. Chronic indwelling catheter. Came in from alf because of increased shortness of breath and acute respiratory failure, requiring noninvasive mechanical ventilation, currently on BiPAP of 12/6 with a rate of 8. There were no fever spikes over the last 24 hours, with a T-max of 97.7. The leukocytosis worsened over the last 24 hours from 28,400 yesterday to 34,900 today. OBJECTIVE: VITAL SIGNS: Currently, the patient is on BiPAP. Afebrile. Not in apparent respiratory distress. Tolerating the G-tube feedings, with a blood pressure of 97/55 still on vasopressors. Heart rate of 88, respiratory rate of 10 to 12 per minute, saturation of 97% on BiPAP therapy 12/6, and ventilator rate of 8, FiO2 of 40%. HEENT: Eyes: Conjunctivae with some pallor. Ears, nose, mouth and throat: No ear drainage. No nasal discharge. Currently using the BiPAP mask. CHEST AND LUNGS: No wheezing, no rhonchi, no coarse crackles. CARDIOVASCULAR: S1, S2 distinct. Normal rate and rhythm. ABDOMEN: Flabby. Positive bowel sounds. Soft, nondistended. EXTREMITIES: No joint swelling. No apparent cellulitis. DIAGNOSTICS: CBC done today showed a white count of 31,800 at 4:30 p.m., from 34,900 at 4:00 a.m. Hemoglobin of 7.4, hematocrit of 32.3 and platelet count of 217,000. Blood gas today showed pH of 7.34, pCO2 of 39.4, pO2 of 120, bicarb is 25.9 on 40%. The chemistry today showed sodium 144.5, potassium 3.2, chloride is 107, carbon dioxide is 26. BUN is 13, creatinine is 0.36. Glucose 144 and calcium is 8.7. TIBC 688. Folate 7.4, vitamin B12 is 920. ASSESSMENT: 1. WORSENING LEUKOCYTOSIS, PROBABLY RELATED TO WORSENING SEPSIS. Started on IV Primaxin and IV vancomycin. Suggesting inadequate antibiotic coverage. 2. ACUTE RESPIRATORY FAILURE, REQUIRING NONINVASIVE MECHANICAL VENTILATION/BIPAP THERAPY AT 12/6 AND RATE OF 8, FiO2 at 40%. 3. FEVER/SEPSIS, MOST LIKELY DUE TO PNEUMONIA AND POSSIBLE CONCOMITANT URINARY TRACT INFECTION. Unable to collect sputum at this time. 4. PNEUMONIA, RIGHT LUNG BASE. PLAN AND RECOMMENDATIONS: 1. Will do a urine culture today, catheterized urine. 2. Will add Genamicin t 80 mg IVPB every 8 hours, first dose now. Continue the IV Zosyn for now and IV vancomycin. 3. Time spent 35 mins, evaluating patient's condition, labs, medications, I/O, vital signs, medication reviews, orders, radiographic images, discussion with pharmacy about antibiotics. DICTATING PHYSICIAN: MAGDI LAGUNA MD,BRISA,MPH [id number] PHY#: [id number] ID: [id number] JOB#: [id number] ACCT: [id number] cc: > MTDD
[2018-05-09 08:27] LABS: ARTERIAL BLOOD BASE EXCESS -1.8 mmol/L; ARTERIAL BLOOD H2CO3 1.92 mmol/L (1.05-1.35); ARTERIAL BLOOD HCO3 26.1 mmol/L (20-26); ARTERIAL BLOOD O2 SATURATION 94.7 % (94-98); ARTERIAL BLOOD PCO2 63.7 mmHg (35-45); ARTERIAL BLOOD PH 7.23 (7.35-7.45); ARTERIAL BLOOD PO2 87.7 mmHg (80-100)
[2018-05-09 08:28] LABS: ARTERIAL BLOOD FIO2 60%
[2018-05-09] MEDS ORDERED: IRON SUCROSE COMPLEX INJ/PF 100 MG/5 ML SDV IV ONE (08:30)
[2018-05-09] MEDS: IPRATROPIUM/ALBUTEROL 0.5-2.5 MG/3 ML AMPUL NEB SCH ×2 (08:31→19:54)
[2018-05-09] MEDS: GENTAMICIN SULFATE 120 MG in DEXTROSE 5%-WATER 100 ML IV SCH ×2 (08:44→16:37)
[2018-05-09] MEDS: NORMAL SALINE 1000 ML 1,000 ML IV PRN (08:46)
--- NOTE | 2018-05-09 09:03 | RADIOLOGY REPORT (SQ) ---
EXAM DESCRIPTION: CHEST SINGLE VIEW COMPLETED DATE/TIME: 05/09/2018 8:46 am REASON FOR STUDY: Aspiration PNA COMPARISON: Chest films 02/19/2018, 04/19/2018, 05/06/2018, 05/07/2018 EXAM PARAMETERS: NUMBER OF VIEWS: One view. TECHNIQUE: Single frontal radiographic view of the chest acquired. RADIATION DOSE: NA LIMITATIONS: None. FINDINGS: LUNGS AND PLEURA: Dense consolidation in the right lower lobe is similar compared to 611 and 05/06/2018. Aspiration pneumonia should be considered. No gross right pleural effusion. Left lung well inflated and clear. Benign granuloma left lung base. No left pleural effusion. No right or left pneumothorax MEDIASTINUM AND HILAR STRUCTURES: No masses. Contour normal. HEART AND VASCULAR STRUCTURES: Heart normal in size. Normal vasculature. BONES: No acute findings. HARDWARE: Right jugular central line tip superior vena cava. Left supraclavicular surgical clips are present OTHER: No other significant finding. IMPRESSION: Dense consolidation throughout the right lower lobe similar compared to 05/07/2018 and 09/2018 TECHNICAL DOCUMENTATION: JOB ID: [id number] [employer]- All Rights Reserved Reading location - IP/workstation name: [email or web address]
[2018-05-09] MEDS: POLYETHYLENE GLYCOL 3350 POWDER 17 GM/1 PACKET PEG SCH (11:09)
[2018-05-09] MEDS: PHENYTOIN 100 MG/4 ML SUSP GT SCH ×2 (11:10→18:05)
[2018-05-09] MEDS: LEVETIRACETAM ORAL SOLN 500 MG/5 ML UDCUP PEG SCH ×2 (11:10→21:19)
[2018-05-09] MEDS: SERTRALINE HCL 50 MG TABLET PEG SCH (11:10)
[2018-05-09] MEDS ORDERED: PROPOFOL 1,000 MG/100 ML INFUS..BTL IV ONE (11:30)
[2018-05-09] MEDS ORDERED: SCOPOLAMINE HYDROBROMIDE 1.5 MG PATCH.TD72 TD SCH (12:15)
[2018-05-09 12:19] LABS: ARTERIAL BLOOD BASE EXCESS -2.5 mmol/L; ARTERIAL BLOOD H2CO3 1.72 mmol/L (1.05-1.35); ARTERIAL BLOOD HCO3 24.9 mmol/L (20-26); ARTERIAL BLOOD O2 SATURATION 99.5 % (94-98); ARTERIAL BLOOD PCO2 57.1 mmHg (35-45); ARTERIAL BLOOD PH 7.26 (7.35-7.45); ARTERIAL BLOOD PO2 270.3 mmHg (80-100); ARTERIAL BLOOD TOTAL CO2 26.6 mmol/L (23-27)
[2018-05-09 12:22] LABS: ARTERIAL BLOOD FIO2 100%
--- NOTE | 2018-05-09 12:40 | RADIOLOGY REPORT (SQ) ---
EXAM DESCRIPTION: CHEST SINGLE VIEW COMPLETED DATE/TIME: 05/09/2018 12:08 pm REASON FOR STUDY: ET tube placement COMPARISON: AP chest 05/09/2018, 05/07/2018 EXAM PARAMETERS: NUMBER OF VIEWS: One view. TECHNIQUE: Single frontal radiographic view of the chest acquired. RADIATION DOSE: NA LIMITATIONS: None. FINDINGS: LUNGS AND PLEURA: Complete opacification the right hemithorax due to right lung collapse. This is new compared to chest films 05/09/2018 0755 hours. Suspect mucous plugging with right upper lobe collapse superimposed on dense right lower lobe pneumonia. These findings were discussed with Roel george RN, patient's ICU nurse at 1215 hours, 05/09/2018. Left lung hyperinflated and clear with stable calcified lower lobe granuloma, benign. MEDIASTINUM AND HILAR STRUCTURES: Right lung collapse with shift of mediastinal structures into the r ight chest. HEART AND VASCULAR STRUCTURES: No cardiomegaly BONES: No acute findings. HARDWARE: Endotracheal tube tip 2 cm above the capri. Right jugular central line tip superior vena cava. Nasogastric tube tip and side port in the stomach OTHER: No other significant finding. IMPRESSION: Complete collapse right lung, new compared to 05/09/2018 at 0755 hours. Endotracheal tube tip 2 cm above the capri. Nasogastric tube tip and side port in the stomach. Rig ht jugular central line tip superior vena cava TECHNICAL DOCUMENTATION: JOB ID: [id number]- All Rights Reserved Reading location - IP/workstation name: [email or web address]
--- NOTE | 2018-05-09 12:44 | RADIOLOGY REPORT (SQ) ---
EXAM DESCRIPTION: KUB/ABDOMEN (SINGLE VIEW) COMPLETED DATE/TIME: 05/09/2018 12:08 pm REASON FOR STUDY: NG PLACEMENT COMPARISON: AP chest same date NUMBER OF VIEWS: One view. TECHNIQUE: Supine radiographic image of the abdomen acquired. LIMITATIONS: Film for NG tube placement, pelvis not included FINDINGS: BOWEL GAS PATTERN: Nasogastric tube tip and side port in the stomach. There is a left upp er quadrant gastrostomy tube present. No dilated bowel loops in the upper abdomen. CALCIFICATIONS: No suspicious calcifications. SOFT TISSUES: No gross mass or suggestion of organomegaly. HARDWARE: Pre-existing G-tube unchanged. BONES: No acute fracture. No worrisome bone lesions. OTHER: Complete collapse right lung is now present. This report was called to the patient's nurse Roberto Carlos carter in the ICU. . IMPRESSION: Nasogastric tube tip and side port in the stomach. TECHNICAL DOCUMENTATION: JOB ID: [id number] [employer] All Rights Reserved Reading location - IP/workstation name: [email or web address]
[2018-05-09] MEDS ORDERED: SUCCINYLCHOLINE CHLORIDE INJ 200 MG/10 ML VIAL ONE (13:23)
[2018-05-09] MEDS: FENTANYL CITRATE INJ/PF 100 MCG/2 ML AMPUL IV PRN (15:36)
[2018-05-09 15:42] LABS: ARTERIAL BLOOD BASE EXCESS -1.7 mmol/L; ARTERIAL BLOOD H2CO3 1.42 mmol/L (1.05-1.35); ARTERIAL BLOOD HCO3 24.3 mmol/L (20-26); ARTERIAL BLOOD O2 SATURATION 99.8 % (94-98); ARTERIAL BLOOD PCO2 47.1 mmHg (35-45); ARTERIAL BLOOD PH 7.33 (7.35-7.45); ARTERIAL BLOOD PO2 368.4 mmHg (80-100); ARTERIAL BLOOD TOTAL CO2 25.7 mmol/L (23-27)
--- NOTE | 2018-05-09 15:42 | RADIOLOGY REPORT (SQ) ---
EXAM DESCRIPTION: CHEST SINGLE VIEW COMPLETED DATE/TIME: 05/09/2018 3:29 pm REASON FOR STUDY: ET Tube Placement COMPARISON: AP chest 05/09/2018 1134 hours EXAM PARAMETERS: NUMBER OF VIEWS: One view. TECHNIQUE: Single frontal radiographic view of the chest acquired. RADIATION DOSE: NA LIMITATIONS: None. FINDINGS: LUNGS AND PLEURA: Partial re-expansion of the right upper lobe since the prior film. Righ t middle and lower lobe are still collapsed with consolidation. Left lung well inflated with stable basilar granuloma. No gross pleural effusions or pneumothorax. MEDIASTINUM AND HILAR STRUCTURES: No masses. Contour normal. HEART AND VASCULAR STRUCTURES: No gross cardiomegaly BONES: No acute findings. HARDWARE: Endotracheal tube tip is 5 cm above the capri. Nasogastric tube tip and side port in the stomach. Right jugular central venous catheter tip superior vena cava. OTHER: No other significant finding. IMPRESSION: Endotracheal tube has been pulled back with the tip 5 cm above the capri. Partial re-expansion of the right upper lobe. Persistent collapse and consolidation right middle and lower lobe. TECHNICAL DOCUMENTATION: JOB ID: [id number] [employer]- All Rights Reserved Reading location - IP/workstation name: [email or web address]
[2018-05-09 15:43] LABS: ARTERIAL BLOOD FIO2 100%
--- NOTE | 2018-05-09 16:38 | PDOC PROGRESS REPORT ---
Subjective Progress Note for:: 05/09/18 Subjective:: It appears sometimes during the night started having difficulty breathing and had to be placed on BiPAP. He continued on BiPAP when I saw him this morning but his respiration was pretty tedious. His white count also remains elevated at 34,000. Patient is on vancomycin, Zosyn and gentamicin. Of note there is no atypical coverage amongst his antibiotics. Chest x-ray shows persistent collapse and consolidation of right middle and lower lobe and partial reexpansion of the right upper lobe after the ET tube was pulled back. Chest x- ray prior to intubation that showed a dense consolidation throughout the right lower lobe grossly unchanged from the previous x-rays. Patient appeared to have some flailing of the left lung with minimal to paralyzed movement of the right side. He was subsequently intubated. Patient's condition remains pretty precarious. I was able to talk to his today and encouraged her to take that time to decide on his CODE STATUS. For now we will continue to be full code. Patient is back on Levophed Reason For Visit: ACUTE RESP FAILURE SEPSIS PNA Physical Exam Vital Signs: Temp Pulse Resp BP Pulse Ox 97.7 F 86 12 101/64 100 05/09/18 14:00 05/09/18 14:00 05/09/18 14:00 05/09/18 14:00 05/09/18 14:00 Intake & Output 05/08/18 05/09/18 05/10/18 06:59 06:59 06:59 Intake Total 4668 3687 Output Total 4300 2810 1150 Balance 368 877 -1150 Weight 66.7 kg 66.7 kg General appearance: PRESENT: other - Currently intubated and sedated Head exam: PRESENT: atraumatic Eye exam: PRESENT: PERRLA Mouth exam: PRESENT: other - Enlarged upper and lower lips Respiratory exam: PRESENT: clear to auscultation mirian - Diminished, retraction, tachypnea. ABSENT: unlabored, wheezes Cardiovascular exam: PRESENT: RRR, +S1, +S2 GI/Abdominal exam: PRESENT: other - PEG tube and urostomy tube Rectal exam: PRESENT: deferred Extremities exam: PRESENT: other - Inverted bilateral feet Neurological exam: PRESENT: other - Sedated Skin exam: PRESENT: other - Stage IV sacral decubitus Results Laboratory Results: 05/09/18 05:25 05/09/18 05:25 05/08/18 05/08/18 05/09/18 16:30 20:41 05:25 WBC 31.8 H* RBC 2.43 L Hgb 7.4 L Hct 22.3 L MCV 92 MCH 30.5 MCHC 33.1 RDW 18.3 H Plt Count 370 Seg Neutrophils % Lymphocytes % Monocytes % Eosinophils % Basophils % Absolute Neutrophils Absolute Lymphocytes Absolute Monocytes Absolute Eosinophils Absolute Basophils Carbonic Acid HCO3/H2CO3 Ratio ABG pH ABG pCO2 ABG pO2 ABG HCO3 ABG O2 Saturation ABG Base Excess FiO2 Sodium 144.9 147.1 H Potassium 4.3 D 3.8 Chloride 108 H 109 H Carbon Dioxide 25 27 Anion Gap 12 11 BUN 9 9 Creatinine 0.37 L 0.42 L Est GFR ( Amer) > 60 > 60 Est GFR (Non-Af Amer) > 60 > 60 Glucose 155 H 180 H Calcium 8.7 8.7 Magnesium 1.6 05/09/18 05/09/18 05/09/18 05:25 08:14 11:55 WBC 34.3 H* RBC 2.63 L Hgb 7.8 L Hct 24.4 L MCV 93 MCH 29.8 MCHC 32.1 RDW 17.9 H Plt Count 395 Seg Neutrophils % Not Reportable Lymphocytes % Not Reportable Monocytes % Not Reportable Eosinophils % Not Reportable Basophils % Not Reportable Absolute Neutrophils Not Reportable Absolute Lymphocytes Not Reportable Absolute Monocytes Not Reportable Absolute Eosinophils Not Reportable Absolute Basophils Not Reportable Carbonic Acid 1.92 H 1.72 H HCO3/H2CO3 Ratio 13:1 14:1 ABG pH 7.23 L 7.26 L ABG pCO2 63.7 H 57.1 H ABG pO2 87.7 270.3 H ABG HCO3 26.1 H 24.9 ABG O2 Saturation 94.7 99.5 H ABG Base Excess -1.8 -2.5 FiO2 60% 100% Sodium Potassium Chloride Carbon Dioxide Anion Gap BUN Creatinine Est GFR ( Amer) Est GFR (Non-Af Amer) Glucose Calcium Magnesium 05/09/18 15:35 WBC RBC Hgb Hct MCV MCH MCHC RDW Plt Count Seg Neutrophils % Lymphocytes % Monocytes % Eosinophils % Basophils % Absolute Neutrophils Absolute Lymphocytes Absolute Monocytes Absolute Eosinophils Absolute Basophils Carbonic Acid 1.42 H HCO3/H2CO3 Ratio 17:1 ABG pH 7.33 L ABG pCO2 47.1 H ABG pO2 368.4 H ABG HCO3 24.3 ABG O2 Saturation 99.8 H ABG Base Excess -1.7 FiO2 100% Sodium Potassium Chloride Carbon Dioxide Anion Gap BUN Creatinine Est GFR ( Amer) Est GFR (Non-Af Amer) Glucose Calcium Magnesium Impressions: Abdomen X-Ray 05/07/18 06:26 IMPRESSION: 1. Nonobstructive bowel gas pattern. 2. Gastrostomy tube overlying the stomach. 2010 [employer]- All Rights Reserved KUB X-Ray 05/09/18 00:00 IMPRESSION: Nasogastric tube tip and side port in the stomach. Chest X-Ray 05/09/18 15:15 IMPRESSION: Endotracheal tube has been pulled back with the tip 5 cm above the capri. Partial re-expansion of the right upper lobe. Persistent collapse and consolidation right middle and lower lobe. Assessment & Plan - Diagnosis (1) Catheter-associated urinary tract infection Is this a current diagnosis for this admission?: Yes Plan: Patient has a chronic urostomy tube. Will follow up on cultures (2) Anemia Qualifiers: Anemia type: iron deficiency Iron deficiency anemia type: chronic blood loss Qualified Code(s): D50.0 - Iron deficiency anemia secondary to blood loss (chronic) Is this a current diagnosis for this admission?: Yes Plan: Status post 2 units packed red blood cell transfusion as well as iron sucrose IV (3) Pneumonia Qualifiers: Pneumonia type: aspiration pneumonia Laterality: right Lung location: lower lobe of lung Qualified Code(s): J18.1 - Lobar pneumonia, unspecified organism Is this a current diagnosis for this admission?: Yes Plan: On triple antibiotics with gentamicin, vancomycin and Zosyn. Will follow up on cultures obtained from ET tube today (4) Severe sepsis Is this a current diagnosis for this admission?: Yes (5) Multiple sclerosis Is this a current diagnosis for this admission?: Yes (6) Decubitus ulcer Qualifiers: Pressure ulcer location: foot, unspecified location Pressure ulcer stage: stage 4 Is this a current diagnosis for this admission?: Yes Plan: There is no sign of infection noted (7) Sacral decubitus ulcer, stage IV Is this a current diagnosis for this admission?: Yes (8) Presence of intrathecal baclofen pump Is this a current diagnosis for this admission?: Yes (9) Sacral decubitus ulcer Qualifiers: Pressure ulcer stage: unspecified pressure ulcer stage Qualified Code(s): L89.159 - Pressure ulcer of sacral region, unspecified stage Is this a current diagnosis for this admission?: Yes (10) Acute respiratory failure with hypoxemia Is this a current diagnosis for this admission?: Yes Plan: Patient was intubated this morning due to progressive respiratory failure. Of note patient also has underlying multiple sclerosis which could certainly be a contributing factor - Time Time Spent with patient: 35 or more minutes Medications reviewed and adjusted accordingly: Yes Anticipated discharge: SNF Within: Other - Inpatient Certification Based on my medical assessment, after consideration of the patient's comorbidities, presenting symptoms, or acuity I expect that the services needed warrant INPATIENT care.: Yes Medical Necessity: Need for IV Antibiotics, Other - Mechanical l ventilation - Plan Summary Plan Summary: Patient's prognosis is very poor
[2018-05-09] MEDS ORDERED: LIDOCAINE 2% INJ (20 MG/ML) 20 ML MDV ONE (17:12)
[2018-05-09] MEDS ORDERED: EPINEPHRINE INJ/PF 1 MG/1 ML AMPULE ONE (17:12)
[2018-05-09] MEDS ORDERED: LIDOCAINE 2% JELLY 30 ML TUBE ONE (17:12)
[2018-05-09] MEDS ORDERED: NALOXONE HCL INJ/PF 0.4 MG/1 ML SDV ONE (17:13)
[2018-05-09] MEDS ORDERED: MIDAZOLAM 2 MG/2 ML INJ ONE (17:13)
[2018-05-09] MEDS ORDERED: FLUMAZENIL INJ 0.5 MG/5 ML VIAL ONE (17:14)
[2018-05-09] MEDS ORDERED: EPINEPHRINE INJ 1 MG/10 ML DISP.SYRIN ONE (17:14)
[2018-05-09] MEDS ORDERED: FENTANYL CITRATE INJ/PF 100 MCG/2 ML AMPUL ONE (17:14)
[2018-05-09] MEDS: PROPOFOL 1,000 MG/100 ML INFUS..BTL IV PRN (18:05)
[2018-05-09] MEDS: MIDAZOLAM 2 MG/2 ML INJ ONE ×2 (18:24→18:28)
[2018-05-09] MEDS ORDERED: MIDAZOLAM 2 MG/2 ML INJ IV ONE (19:30)
[2018-05-09] MEDS ORDERED: FENTANYL CITRATE INJ/PF 100 MCG/2 ML AMPUL IV ONE (19:30)
[2018-05-09] MEDS: QUETIAPINE FUMARATE 25 MG TABLET PEG SCH (21:19)
[2018-05-10] MEDS: GENTAMICIN SULFATE 120 MG in DEXTROSE 5%-WATER 100 ML IV SCH ×2 (00:34→11:28)
[2018-05-10] MEDS: VANCOMYCIN HCL 750 MG in DEXTROSE 5%-WATER 250 ML IV SCH ×3 (02:31→17:25)
[2018-05-10] MEDS: PIPERACILLIN SODIUM/TAZOBACTAM 3.375 GM in NORMAL SALINE 100 ML IV SCH ×3 (06:16→21:20)
[2018-05-10] MEDS: FAMOTIDINE INJ/PF 20 MG/2 ML SDV IV SCH ×2 (06:17→17:26)
[2018-05-10] MEDS: HEPARIN SOD (PORCINE) 5,000 UNIT/ML 1 ML SYRINGE SUBCUT SCH ×3 (06:17→21:21)
[2018-05-10] MEDS: BACLOFEN 10 MG TABLET PEG SCH ×3 (06:17→21:20)
[2018-05-10] MEDS: DEXTROSE 5%-WATER 250 ML with NOREPINEPHRINE BITARTRATE 4 MG IV PRN ×4 (06:32→17:10)
[2018-05-10 06:59] LABS: HEMATOCRIT 22.3 % (37.9-51.0); MEAN CORPUSCULAR HGB CONC 32.8 g/dL (32.0-36.0); MEAN CORPUSCULAR VOLUME 91 fl (80-97); PLATELET COUNT 385 10^3/uL (150-450); RED BLOOD COUNT 2.44 10^6/uL (4.35-5.55); RED CELL DISTRIBUTION WIDTH 17.9 % (11.5-14.0); WHITE BLOOD COUNT 20.8 10^3/uL (4.0-10.5)
[2018-05-10 07:07] LABS: ALANINE AMINOTRANSFERASE 33 U/L (21-72); ALBUMIN 2.6 g/dL (3.5-5.0); ALKALINE PHOSPHATASE 229 U/L (38-126); ANION GAP 13 (5-19); ASPARTATE AMINO TRANSFERASE 15 U/L (17-59); BILIRUBIN,DIRECT 0.5 mg/dL (0.0-0.4); BILIRUBIN,TOTAL 0.5 mg/dL (0.2-1.3); BLOOD UREA NITROGEN 10 mg/dL (7-20); CALCIUM 8.6 mg/dL (8.4-10.2); CARBON DIOXIDE 23 mmol/L (22-30); CHLORIDE 112 mmol/L (98-107); GLUCOSE 124 mg/dL (75-110); POTASSIUM 3.1 mmol/L (3.6-5.0); TOTAL PROTEIN 6.2 g/dL (6.3-8.2)
[2018-05-10 07:31] LABS: HEMOGLOBIN 7.3 g/dL (13.5-17.0)
[2018-05-10 07:34] LABS: ABSOLUTE LYMPHOCYTES# (MANUAL) 1.7 10^3/uL (0.5-4.7); ABSOLUTE MONOCYTES # (MANUAL) 0.2 10^3/uL (0.1-1.4); ABSOLUTE NEUTROPHILS# (MANUAL) 18.9 10^3/uL (1.7-8.2); ANISOCYTOSIS 2+; BAND NEUTROPHILS % (MANUAL) 1 % (3-5); BASOPHILS % (MANUAL) 0 % (0-2); EOSINOPHILS % (MANUAL) 0 % (0-6); HYPOCHROMASIA 1+; LYMPHOCYTES % (MANUAL) 8 % (13-45); MONOCYTES % (MANUAL) 1 % (3-13); NUCLEATED RED BLOOD CELLS 2 /100 WBC (0); PLATELET CLUMPS PRESENT; PLATELET LARGE PRESENT; POLYCHROMASIA 2+; ROULEAUX SLIGHT; SEGMENTED NEUTROPHILS % (MAN) 90 % (42-78); TOTAL CELLS COUNTED 100; TOXIC GRANULATION SLIGHT
--- NOTE | 2018-05-10 08:18 | RADIOLOGY REPORT (SQ) ---
EXAM DESCRIPTION: CHEST SINGLE VIEW COMPLETED DATE/TIME: 05/09/2018 7:29 pm REASON FOR STUDY: massive atelectasis, right lung s/p bronchoscopy COMPARISON: 05/09/2018 at 1523 hours. EXAM PARAMETERS: NUMBER OF VIEWS: One view. TECHNIQUE: Single frontal radiographic view of the chest acquired. RADIATION DOSE: NA LIMITATIONS: None. FINDINGS: LUNGS AND PLEURA: Continued density in the right lung but with improved aeration. Right p leural effusion. Left lung clear. MEDIASTINUM AND HILAR STRUCTURES: No masses. Contour normal. HEART AND VASCULAR STRUCTURES: Mild cardiomegaly. BONES: No acute findings. HARDWARE: Stable endotracheal tube, nasogastric tube, central line. OTHER: No other significant finding. IMPRESSION: CONTINUED DENSITY IN THE RIGHT LUNG WITH RIGHT PLEURAL EFFUSION, SOME IMPROVEMENT SINCE THE PRIOR STUDY. TECHNICAL DOCUMENTATION: JOB ID: [id number] [employer]- All Rights Reserved Reading location - IP/workstation name: [email or web address]
[2018-05-10] MEDS ORDERED: FUROSEMIDE INJ/PF 20 MG/2 ML SDV IV PRN (08:38)
[2018-05-10] MEDS ORDERED: NORMAL SALINE 250 ML IV PRN (08:38)
[2018-05-10] MEDS ORDERED: POTASSIUM CHLORIDE 20 MEQ/15 ML UDCUP PEG ONE (08:42)
[2018-05-10] MEDS: IPRATROPIUM/ALBUTEROL 0.5-2.5 MG/3 ML AMPUL NEB SCH ×2 (09:01→21:17)
--- NOTE | 2018-05-10 09:11 | RADIOLOGY REPORT (SQ) ---
EXAM DESCRIPTION: CHEST SINGLE VIEW COMPLETED DATE/TIME: 05/10/2018 5:12 am REASON FOR STUDY: massive atelectasis right lung, s/p bronchoscopy COMPARISON: 05/09/2018. EXAM PARAMETERS: NUMBER OF VIEWS: One view. TECHNIQUE: Single frontal radiographic view of the chest acquired. RADIATION DOSE: NA LIMITATIONS: None. FINDINGS: LUNGS AND PLEURA: Airspace disease in the right lung unchanged. Decrease in the right ple ural effusion. Left lung clear. MEDIASTINUM AND HILAR STRUCTURES: No masses. Contour normal. HEART AND VASCULAR STRUCTURES: Heart upper limits of normal in size. Normal vasculature. BONES: No acute findings. HARDWARE: Stable endotracheal tube, nasogastric tube, and central line. OTHER: No other significant finding. IMPRESSION: AIRSPACE DISEASE IN THE RIGHT LUNG. DECREASE IN THE RIGHT PLEURAL EFFUSION. TECHNICAL DOCUMENTATION: JOB ID: [id number] [employer]- All Rights Reserved Reading location - IP/workstation name: [email or web address]-[email or web address]
[2018-05-10] MEDS: PHENYTOIN 100 MG/4 ML SUSP GT SCH ×2 (10:26→17:26)
[2018-05-10] MEDS ORDERED: POTASSIUM CHLORIDE 20 MEQ/15 ML UDCUP ONE (10:29)
[2018-05-10] MEDS: LEVETIRACETAM ORAL SOLN 500 MG/5 ML UDCUP PEG SCH ×2 (10:36→21:19)
[2018-05-10] MEDS: POLYETHYLENE GLYCOL 3350 POWDER 17 GM/1 PACKET PEG SCH (10:36)
[2018-05-10] MEDS: SERTRALINE HCL 50 MG TABLET PEG SCH (10:37)
[2018-05-10] MEDS: PROPOFOL 1,000 MG/100 ML INFUS..BTL IV PRN ×2 (10:37→22:15)
[2018-05-10 11:13] LABS: GENTAMICIN-TROUGH 5.6 ug/mL (<2.0)
--- NOTE | 2018-05-10 14:44 | PDOC PROGRESS REPORT ---
Subjective Progress Note for:: 05/10/18 Subjective:: Patient remains intubated. His white count also remains elevated at 20,000. Patient is on vancomycin, Zosyn and gentamicin. Of note there is no atypical coverage amongst his antibiotics. Chest x-ray shows persistent collapse and consolidation of right middle and lower lobe and partial reexpansion of the right upper lobe after the ET tube was pulled back. Chest x-ray prior to intubation that showed a dense consolidation throughout the right lower lobe grossly unchanged from the previous x-rays. Patient appeared to have some flailing of the left lung with minimal to paralyzed movement of the right side. He was subsequently intubated. Patient's condition remains pretty precarious. I was able to talk to his and encouraged her to take that time to decide on his CODE STATUS. For now he will continue to be full code. Patient is back on Levophed Reason For Visit: ACUTE RESP FAILURE SEPSIS PNA Physical Exam Vital Signs: Temp Pulse Resp BP Pulse Ox 97.9 F 79 16 108/69 100 05/10/18 14:23 05/10/18 14:23 05/10/18 14:23 05/10/18 14:23 05/10/18 14:23 Intake & Output 05/09/18 05/10/18 05/11/18 06:59 06:59 06:59 Intake Total 3687 3604 350 Output Total 2810 2770 1320 Balance 877 834 -970 Weight 66.7 kg 67.7 kg General appearance: PRESENT: no acute distress Head exam: PRESENT: atraumatic Mouth exam: PRESENT: dry mucosa Respiratory exam: PRESENT: crackles, unlabored. ABSENT: wheezes Cardiovascular exam: PRESENT: RRR, +S1, +S2 Rectal exam: PRESENT: deferred Musculoskeletal exam: PRESENT: deformity - Left foot inversion Neurological exam: PRESENT: altered - Sedated, motor sensory deficit, aphasic. ABSENT: normal gait Skin exam: PRESENT: other - Stage IV sacral decubitus Results Laboratory Results: 05/10/18 06:35 05/10/18 06:35 05/08/18 05/09/18 05/10/18 06:02 15:35 06:35 WBC 20.8 H RBC 2.44 L Hgb 7.3 L Hct 22.3 L MCV 91 MCH 30.0 MCHC 32.8 RDW 17.9 H Plt Count 385 Seg Neutrophils % Not Reportable Lymphocytes % Not Reportable Monocytes % Not Reportable Eosinophils % Not Reportable Basophils % Not Reportable Absolute Neutrophils Not Reportable Absolute Lymphocytes Not Reportable Absolute Monocytes Not Reportable Absolute Eosinophils Not Reportable Absolute Basophils Not Reportable Carbonic Acid 1.42 H HCO3/H2CO3 Ratio 17:1 ABG pH 7.33 L ABG pCO2 47.1 H ABG pO2 368.4 H ABG HCO3 24.3 ABG O2 Saturation 99.8 H ABG Base Excess -1.7 FiO2 100% Sodium Potassium Chloride Carbon Dioxide Anion Gap BUN Creatinine Est GFR ( Amer) Est GFR (Non-Af Amer) Glucose Calcium Total Bilirubin AST ALT Alkaline Phosphatase Total Protein Albumin Blood Type O POSITIVE Antibody Screen NEGATIVE 05/10/18 06:35 WBC RBC Hgb Hct MCV MCH MCHC RDW Plt Count Seg Neutrophils % Lymphocytes % Monocytes % Eosinophils % Basophils % Absolute Neutrophils Absolute Lymphocytes Absolute Monocytes Absolute Eosinophils Absolute Basophils Carbonic Acid HCO3/H2CO3 Ratio ABG pH ABG pCO2 ABG pO2 ABG HCO3 ABG O2 Saturation ABG Base Excess FiO2 Sodium 148.0 H Potassium 3.1 L Chloride 112 H Carbon Dioxide 23 Anion Gap 13 BUN 10 Creatinine 0.47 L Est GFR ( Amer) > 60 Est GFR (Non-Af Amer) > 60 Glucose 124 H Calcium 8.6 Total Bilirubin 0.5 AST 15 L ALT 33 Alkaline Phosphatase 229 H Total Protein 6.2 L Albumin 2.6 L Blood Type Antibody Screen Impressions: Abdomen X-Ray 05/07/18 06:26 IMPRESSION: 1. Nonobstructive bowel gas pattern. 2. Gastrostomy tube overlying the stomach. [facility] [employer]- All Rights Reserved KUB X-Ray 05/09/18 00:00 IMPRESSION: Nasogastric tube tip and side port in the stomach. Chest X-Ray 05/10/18 06:00 IMPRESSION: AIRSPACE DISEASE IN THE RIGHT LUNG. DECREASE IN THE RIGHT PLEURAL EFFUSION. Assessment & Plan - Diagnosis (1) Catheter-associated urinary tract infection Is this a current diagnosis for this admission?: Yes Plan: Urine culture is yielding gram-negative rods. Patient is on gentamicin and Zosyn will continue with these (2) Anemia Qualifiers: Anemia type: iron deficiency Iron deficiency anemia type: chronic blood loss Qualified Code(s): D50.0 - Iron deficiency anemia secondary to blood loss (chronic) Is this a current diagnosis for this admission?: Yes Plan: There is no evidence of acute blood loss however patient's hemoglobin has decreased again likely from his acute infection. He has already received 2 units of packed red blood cells as well as intravenous iron. Will give him another 2 units of packed red blood cells today (3) Pneumonia Qualifiers: Pneumonia type: aspiration pneumonia Laterality: right Lung location: lower lobe of lung Qualified Code(s): J18.1 - Lobar pneumonia, unspecified organism Is this a current diagnosis for this admission?: Yes Plan: We will continue same antibiotics empirically for now and follow-up on sputum cultures (4) Severe sepsis Is this a current diagnosis for this admission?: Yes Plan: Continue Levophed as well as crystalloids (5) Multiple sclerosis Is this a current diagnosis for this admission?: Yes Plan: Chronic and underlying likely contributing to his respiratory failure also (6) Decubitus ulcer Qualifiers: Pressure ulcer location: foot, unspecified location Pressure ulcer stage: stage 4 Is this a current diagnosis for this admission?: Yes Plan: Chronic stage IV present and admission (7) Sacral decubitus ulcer, stage IV Is this a current diagnosis for this admission?: Yes (8) Presence of intrathecal baclofen pump Is this a current diagnosis for this admission?: Yes (9) Sacral decubitus ulcer Qualifiers: Pressure ulcer stage: unspecified pressure ulcer stage Qualified Code(s): L89.159 - Pressure ulcer of sacral region, unspecified stage Is this a current diagnosis for this admission?: Yes (10) Acute respiratory failure with hypoxemia Is this a current diagnosis for this admission?: Yes Plan: Patient is currently intubated. His respiratory failure likely secondary to anemia as well as possible respiratory muscle paralysis from his multiple sclerosis. Will continue with current management. Patient's condition remains pretty poor and prognosis is poor - Time Time Spent with patient: 15-24 minutes Medications reviewed and adjusted accordingly: Yes Anticipated discharge: SNF - Inpatient Certification Based on my medical assessment, after consideration of the patient's comorbidities, presenting symptoms, or acuity I expect that the services needed warrant INPATIENT care.: Yes Medical Necessity: Significant Comorbidiites Make Outpatient Treatment Too Risky , Risk of Complication if Not Cared For in Hospital, Risk of Diagnosis Which Will Require Inpatient Eval/Care/Monitoring
--- NOTE | 2018-05-10 15:17 | Progress Note ---
Provider Note Provider Note: ID Consult Note Asked to review patient's chart by Pharmacy. Pt not seen or examined. Reviewed VS, labs, medications, imaging and imaging reports, provider reports. Mr. Downing is a 43 year old man who is a [facility] resident who has PMH including MS, CVA, s/p PEG tube placement, chronic indwelling hodge, and chronic decubitus ulcers. He was admitted on 05/07/18 to [place] from his shelter for SOB, hypoxia, fever, and cough that developed after an episode of vomiting. Pt was found to have on CXR a RLL infiltrate. He was found to have hypotension and was given IV fluids and Levophed along with vancomycin and Zosyn empirically. He was managed with BiPAP. During his admission he has been afebrile or hypothermic. WBC count on day of admission was 28k, which increased to 35k on 05/08. At that time, empiric gentamicin was added. On 05/09, the patient required intubation, and his CXR at that time showed white out of the right lung, that improved after bronchoscopy later that day. Blood cultures have been negative. Tracheal aspirate obtained on 05/09 showed 3+ GPRs and rare GNRs on Gram stain and yielded growth of 3+ Corynebacterium striatum and 3 colonies of a Gram negative lizzie. Gram stain from the BAL performed on 05/09 showed no bacteria and culture has shown no growth to date. Impression/Recommendations The patient's presentation is consistent with aspiration pneumonia with onset of hypoxia and respiratory failure and finding a RLL infiltrate following an episode of vomiting. Aspiration pneumonia could be treated with Zosyn, without vancomycin or gentamicin. The patient has not grown MRSA. The significance of Corynebacterium striatum is questionable. The tracheal aspirate that showed growth of this was obtained after at least 2 days of broad spectrum antibiotic exposure, which may not reflect the initial bacterial load in the respiratory tract and might show overgrowth of other organisms that might be more resistant but that are colonizers and not directly involved in the initial process. Consider de-escalating to Zosyn alone. The question of whether the patient may need treatment active against atypical organisms was raised. Legionella can cause a severe pneumonia and would not be addressed by the patient's current regimen. Sending a urine Legionella antigen may be helpful. Lab features that are nonspecific but are more commonly found in Legionella pneumonia, such as hyponatremia or abnormal LFTs, were not present. Legionella can cause outbreaks in nursing homes or hospital settings or occur sporadically in community dwelling adults, but the patient was not from the community, and his presentation fits with aspiration pneumonia. Rony Collins MD [facility] Infectious Diseases pager [phone]
[2018-05-10 19:17] LABS: HEMATOCRIT 28.9 % (37.9-51.0); MEAN CORPUSCULAR HEMOGLOBIN 30.2 pg (27.0-33.4); MEAN CORPUSCULAR HGB CONC 33.4 g/dL (32.0-36.0); MEAN CORPUSCULAR VOLUME 91 fl (80-97); PLATELET COUNT 398 10^3/uL (150-450); RED BLOOD COUNT 3.19 10^6/uL (4.35-5.55); RED CELL DISTRIBUTION WIDTH 17.3 % (11.5-14.0); WHITE BLOOD COUNT 15.9 10^3/uL (4.0-10.5)
[2018-05-10 19:19] LABS: HEMOGLOBIN 9.6 g/dL (13.5-17.0)
[2018-05-10] MEDS: QUETIAPINE FUMARATE 25 MG TABLET PEG SCH (21:19)
[2018-05-11] MEDS: VANCOMYCIN HCL 750 MG in DEXTROSE 5%-WATER 250 ML IV SCH ×3 (01:45→18:13)
[2018-05-11] MEDS ORDERED: FAMOTIDINE INJ/PF 20 MG/2 ML SDV IV ONE (02:00)
[2018-05-11] MEDS ORDERED: DIPHENHYDRAMINE HCL 50 MG/ML VIAL IV ONE (02:15)
[2018-05-11] MEDS ORDERED: METHYLPREDNISOLONE INJ 125 MG/2 ML SDV IV ONE (02:15)
[2018-05-11] MEDS: PROPOFOL 1,000 MG/100 ML INFUS..BTL IV PRN ×3 (03:12→20:19)
[2018-05-11] MEDS: DEXTROSE 5%-WATER 250 ML with NOREPINEPHRINE BITARTRATE 4 MG IV PRN ×2 (03:12)
[2018-05-11] MEDS: NORMAL SALINE 1000 ML 1,000 ML IV PRN (03:14)
[2018-05-11 04:36] LABS: ABSOLUTE BASOPHILS # (AUTO) 0.1 10^3/uL (0.0-0.2); ABSOLUTE EOSINOPHILS # (AUTO) 0.3 10^3/uL (0.0-0.6); ABSOLUTE LYMPHOCYTES (AUTO) 0.9 10^3/uL (0.5-4.7); ABSOLUTE MONOCYTES (AUTO) 0.5 10^3/uL (0.1-1.4); ABSOLUTE NEUT (AUTO) 15.1 10^3/uL (1.7-8.2); BASOPHILS % (AUTO) 0.3 % (0-2); EOSINOPHILS % (AUTO) 1.5 % (0-6); HEMATOCRIT 28.2 % (37.9-51.0); HEMOGLOBIN 9.5 g/dL (13.5-17.0); LYMPHOCYTES % (AUTO) 5.2 % (13-45); MEAN CORPUSCULAR HGB CONC 33.6 g/dL (32.0-36.0); MEAN CORPUSCULAR VOLUME 89 fl (80-97); MONOCYTES % (AUTO) 2.9 % (3-13); PLATELET COUNT 392 10^3/uL (150-450); RED BLOOD COUNT 3.16 10^6/uL (4.35-5.55); SEGMENTED NEUTROPHILS % (AUTO) 90.1 % (42-78); TOTAL CELLS COUNTED % (AUTO) 100 %; WHITE BLOOD COUNT 16.8 10^3/uL (4.0-10.5)
[2018-05-11 04:53] LABS: ANION GAP 16 (5-19); BLOOD UREA NITROGEN 14 mg/dL (7-20); CALCIUM 8.7 mg/dL (8.4-10.2); CARBON DIOXIDE 24 mmol/L (22-30); CHLORIDE 113 mmol/L (98-107); GLUCOSE 125 mg/dL (75-110); POTASSIUM 3.3 mmol/L (3.6-5.0); SODIUM 152.6 mmol/L (137-145)
[2018-05-11] MEDS: BACLOFEN 10 MG TABLET PEG SCH ×3 (05:34→22:17)
[2018-05-11] MEDS: HEPARIN SOD (PORCINE) 5,000 UNIT/ML 1 ML SYRINGE SUBCUT SCH ×3 (05:35→22:19)
[2018-05-11] MEDS: PIPERACILLIN SODIUM/TAZOBACTAM 3.375 GM in NORMAL SALINE 100 ML IV SCH ×3 (05:35→22:18)
[2018-05-11] MEDS: FAMOTIDINE INJ/PF 20 MG/2 ML SDV IV SCH ×2 (05:35→18:14)
[2018-05-11] MEDS: DEXTROSE 5%-WATER 1000 ML 1,000 ML IV PRN (06:55)
[2018-05-11] MEDS ORDERED: POTASSIUM CHLORIDE 20 MEQ/15 ML UDCUP PO ONE (07:00)
[2018-05-11] MEDS: IPRATROPIUM/ALBUTEROL 0.5-2.5 MG/3 ML AMPUL NEB SCH ×2 (08:39→20:30)
[2018-05-11] MEDS: SERTRALINE HCL 50 MG TABLET PEG SCH (10:09)
[2018-05-11] MEDS: LEVETIRACETAM ORAL SOLN 500 MG/5 ML UDCUP PEG SCH ×2 (10:09→22:18)
[2018-05-11] MEDS: PHENYTOIN 100 MG/4 ML SUSP GT SCH ×2 (10:09→18:16)
[2018-05-11] MEDS: POLYETHYLENE GLYCOL 3350 POWDER 17 GM/1 PACKET PEG SCH (10:09)
[2018-05-11 11:48] LABS: GENTAMICIN-TROUGH 1.7 ug/mL (<2.0)
--- NOTE | 2018-05-11 15:30 | PDOC PROGRESS REPORT ---
Subjective Progress Note for:: 05/11/18 Subjective:: Patient remains intubated. His white count has impeoved to 16.8. Patient is on vancomycin, Zosyn and gentamicin. Infectious disease comments noted and I have discontinued the gentamicin. Tracheal aspirate is yielding gram-negative rods as well as gram-positive in clusters and is currently on vancomycin and Zosyn which will be continued. Patient is off Levophed as of about 4 AM this morning. Reason For Visit: ACUTE RESP FAILURE SEPSIS PNA Physical Exam Vital Signs: Temp Pulse Resp BP Pulse Ox 98.5 F 79 12 95/62 L 97 05/11/18 05:52 05/11/18 10:00 05/11/18 11:17 05/11/18 11:17 05/11/18 11:17 Intake & Output 05/10/18 05/11/18 05/12/18 06:59 06:59 06:59 Intake Total 3604 5239 50 Output Total 2770 4695 900 Balance 834 544 -850 Weight 67.7 kg 67.7 kg General appearance: PRESENT: no acute distress, other - Intubated Head exam: PRESENT: atraumatic Mouth exam: PRESENT: dry mucosa Respiratory exam: PRESENT: decreased breath sounds, rhonchi, unlabored, other - Mechanical intubation Cardiovascular exam: PRESENT: RRR, +S1, +S2 GI/Abdominal exam: PRESENT: normal bowel sounds, soft, other - PEG tube Urostomy tube. ABSENT: distended, guarding, mass, organolmegaly, rebound, tenderness Rectal exam: PRESENT: deferred Extremities exam: PRESENT: other - inverted L foot Neurological exam: PRESENT: other - sedated Results Laboratory Results: 05/11/18 04:28 05/11/18 04:28 05/10/18 05/10/18 05/11/18 18:55 18:55 04:28 WBC 15.9 H RBC 3.19 L Hgb 9.6 L D Hct 28.9 L MCV 91 MCH 30.2 MCHC 33.4 RDW 17.3 H Plt Count 398 Seg Neutrophils % Lymphocytes % Monocytes % Eosinophils % Basophils % Absolute Neutrophils Absolute Lymphocytes Absolute Monocytes Absolute Eosinophils Absolute Basophils Sodium 152.6 H Potassium 3.6 3.3 L Chloride 113 H Carbon Dioxide 24 Anion Gap 16 BUN 14 Creatinine 0.60 Est GFR ( Amer) > 60 Est GFR (Non-Af Amer) > 60 Glucose 125 H Calcium 8.7 Magnesium 1.7 05/11/18 04:28 WBC 16.8 H RBC 3.16 L Hgb 9.5 L Hct 28.2 L MCV 89 MCH 30.0 MCHC 33.6 RDW 17.0 H Plt Count 392 Seg Neutrophils % 90.1 H Lymphocytes % 5.2 L Monocytes % 2.9 L Eosinophils % 1.5 Basophils % 0.3 Absolute Neutrophils 15.1 H Absolute Lymphocytes 0.9 Absolute Monocytes 0.5 Absolute Eosinophils 0.3 Absolute Basophils 0.1 Sodium Potassium Chloride Carbon Dioxide Anion Gap BUN Creatinine Est GFR ( Amer) Est GFR (Non-Af Amer) Glucose Calcium Magnesium 05/09/18 11:40 Tracheal Aspirate Gram Stain - Final 05/09/18 18:42 Bronchial Washings Gram Stain - Final Impressions: Abdomen X-Ray 05/07/18 06:26 IMPRESSION: 1. Nonobstructive bowel gas pattern. 2. Gastrostomy tube overlying the stomach. 2010 [employer]- All Rights Reserved KUB X-Ray 05/09/18 00:00 IMPRESSION: Nasogastric tube tip and side port in the stomach. Chest X-Ray 05/10/18 06:00 IMPRESSION: AIRSPACE DISEASE IN THE RIGHT LUNG. DECREASE IN THE RIGHT PLEURAL EFFUSION. Assessment & Plan - Diagnosis (1) Catheter-associated urinary tract infection Is this a current diagnosis for this admission?: Yes (2) Anemia Qualifiers: Anemia type: iron deficiency Iron deficiency anemia type: chronic blood loss Qualified Code(s): D50.0 - Iron deficiency anemia secondary to blood loss (chronic) Is this a current diagnosis for this admission?: Yes Plan: There is no evidence of acute blood loss. H and H stable s/p 4 units PRBC and IV iron infusion (3) Pneumonia Qualifiers: Pneumonia type: aspiration pneumonia Laterality: right Lung location: lower lobe of lung Qualified Code(s): J18.1 - Lobar pneumonia, unspecified organism Is this a current diagnosis for this admission?: Yes (4) Severe sepsis Is this a current diagnosis for this admission?: Yes (5) Multiple sclerosis Is this a current diagnosis for this admission?: Yes Plan: Chronic and underlying likely contributing to his respiratory failure also (6) Decubitus ulcer Qualifiers: Pressure ulcer location: foot, unspecified location Pressure ulcer stage: stage 4 Is this a current diagnosis for this admission?: Yes Plan: Chronic stage IV present on admission (7) Sacral decubitus ulcer, stage IV Is this a current diagnosis for this admission?: Yes (8) Presence of intrathecal baclofen pump Is this a current diagnosis for this admission?: Yes (9) Sacral decubitus ulcer Qualifiers: Pressure ulcer stage: unspecified pressure ulcer stage Qualified Code(s): L89.159 - Pressure ulcer of sacral region, unspecified stage Is this a current diagnosis for this admission?: Yes (10) Acute respiratory failure with hypoxemia Is this a current diagnosis for this admission?: Yes (11) Hypernatremia Is this a current diagnosis for this admission?: Yes Plan: Increase free water in feeding (12) Hypokalemia Is this a current diagnosis for this admission?: Yes Plan: Replace, check mag - Time Time Spent with patient: 25-34 minutes Medications reviewed and adjusted accordingly: Yes Anticipated discharge: SNF Within: within 72 hours - Inpatient Certification Based on my medical assessment, after consideration of the patient's comorbidities, presenting symptoms, or acuity I expect that the services needed warrant INPATIENT care.: Yes Medical Necessity: Other - On mechanical ventilation
[2018-05-11] MEDS ORDERED: GENTAMICIN SULFATE 120 MG in DEXTROSE 5%-WATER 100 ML IV SCH (16:00)
[2018-05-11] MEDS ORDERED: GENTAMICIN SULFATE INJ 80 MG/2 ML VIAL IV PRN (18:43)
[2018-05-11] MEDS ORDERED: GENTAMICIN SULFATE INJ 80 MG/2 ML VIAL IV SCH (22:00)
[2018-05-11] MEDS: QUETIAPINE FUMARATE 25 MG TABLET PEG SCH (22:18)
[2018-05-11] MEDS: GENTAMICIN SULFATE 80 MG in DEXTROSE 5%-WATER 100 ML IV SCH (22:19)
--- NOTE | 2018-05-11 22:48 | RADIOLOGY REPORT (SQ) ---
EXAM DESCRIPTION: CHEST SINGLE VIEW COMPLETED DATE/TIME: 05/11/2018 8:40 pm REASON FOR STUDY: on ventilator; bilateral pneumonia; septic shock COMPARISON: 05/10/2018 EXAM PARAMETERS: NUMBER OF VIEWS: One view. TECHNIQUE: Single frontal radiographic view of the chest acquired. RADIATION DOSE: NA LIMITATIONS: None. FINDINGS: LUNGS AND PLEURA: Improved pulmonary exam demonstrating decreased opacification of the rig ht perihilar lung. No pneumothorax. No significant pleural effusion. MEDIASTINUM AND HILAR STRUCTURES: No masses. Contour normal. HEART AND VASCULAR STRUCTURES: Stable mild cardiomegaly. Normal central vasculature. BONES: No acute findings. HARDWARE: Endotracheal, enteric, and right cervical central vascular access devices appear stable in position and appearance. OTHER: No other significant finding. IMPRESSION: 1. Improved aeration of the right perihilar lung. 2. Stable lines and tubes. TECHNICAL DOCUMENTATION: JOB ID: [id number] 1870 [employer]- All Rights Reserved Reading location - IP/workstation name: [email or web address]
[2018-05-12] MEDS: VANCOMYCIN HCL 750 MG in DEXTROSE 5%-WATER 250 ML IV SCH ×3 (01:22→18:00)
[2018-05-12] MEDS: PROPOFOL 1,000 MG/100 ML INFUS..BTL IV PRN ×3 (01:23→16:28)
[2018-05-12] MEDS: DEXTROSE 5%-WATER 1000 ML 1,000 ML IV PRN (03:18)
[2018-05-12] MEDS: BACLOFEN 10 MG TABLET PEG SCH ×3 (05:23→21:14)
[2018-05-12] MEDS: FAMOTIDINE INJ/PF 20 MG/2 ML SDV IV SCH ×2 (05:24→16:27)
[2018-05-12] MEDS: PIPERACILLIN SODIUM/TAZOBACTAM 3.375 GM in NORMAL SALINE 100 ML IV SCH ×3 (05:24→21:15)
[2018-05-12] MEDS: GENTAMICIN SULFATE 80 MG in DEXTROSE 5%-WATER 100 ML IV SCH ×3 (05:24→21:14)
[2018-05-12] MEDS: HEPARIN SOD (PORCINE) 5,000 UNIT/ML 1 ML SYRINGE SUBCUT SCH ×3 (05:25→21:16)
[2018-05-12 05:59] LABS: ABSOLUTE BASOPHILS # (AUTO) 0.1 10^3/uL (0.0-0.2); ABSOLUTE EOSINOPHILS # (AUTO) 0.5 10^3/uL (0.0-0.6); ABSOLUTE LYMPHOCYTES (AUTO) 1.5 10^3/uL (0.5-4.7); ABSOLUTE MONOCYTES (AUTO) 0.9 10^3/uL (0.1-1.4); BASOPHILS % (AUTO) 0.4 % (0-2); EOSINOPHILS % (AUTO) 3.5 % (0-6); HEMATOCRIT 25.9 % (37.9-51.0); HEMOGLOBIN 8.7 g/dL (13.5-17.0); LYMPHOCYTES % (AUTO) 11.3 % (13-45); MEAN CORPUSCULAR HEMOGLOBIN 30.2 pg (27.0-33.4); MEAN CORPUSCULAR HGB CONC 33.5 g/dL (32.0-36.0); MEAN CORPUSCULAR VOLUME 90 fl (80-97); MONOCYTES % (AUTO) 7.2 % (3-13); PLATELET COUNT 312 10^3/uL (150-450); RED BLOOD COUNT 2.88 10^6/uL (4.35-5.55); RED CELL DISTRIBUTION WIDTH 17.1 % (11.5-14.0); SEGMENTED NEUTROPHILS % (AUTO) 77.6 % (42-78); TOTAL CELLS COUNTED % (AUTO) 100 %; WHITE BLOOD COUNT 12.9 10^3/uL (4.0-10.5)
[2018-05-12 06:24] LABS: ALANINE AMINOTRANSFERASE 28 U/L (21-72); ALBUMIN 2.3 g/dL (3.5-5.0); ALKALINE PHOSPHATASE 206 U/L (38-126); ANION GAP 14 (5-19); ASPARTATE AMINO TRANSFERASE 12 U/L (17-59); BILIRUBIN,DIRECT 0.2 mg/dL (0.0-0.4); BILIRUBIN,TOTAL 0.2 mg/dL (0.2-1.3); BLOOD UREA NITROGEN 19 mg/dL (7-20); CALCIUM 8.1 mg/dL (8.4-10.2); CARBON DIOXIDE 24 mmol/L (22-30); CHLORIDE 109 mmol/L (98-107); GLUCOSE 136 mg/dL (75-110); PHOSPHORUS 3.8 mg/dL (2.5-4.5); POTASSIUM 3.1 mmol/L (3.6-5.0); SODIUM 147.4 mmol/L (137-145); TOTAL PROTEIN 5.7 g/dL (6.3-8.2)
[2018-05-12] MEDS: IPRATROPIUM/ALBUTEROL 0.5-2.5 MG/3 ML AMPUL NEB SCH ×2 (08:45→19:53)
[2018-05-12] MEDS ORDERED: POTASSIUM CHLORIDE 20 MEQ/15 ML UDCUP ONE (09:28)
[2018-05-12 09:41] LABS: ARTERIAL BLOOD BASE EXCESS -1.7 mmol/L; ARTERIAL BLOOD H2CO3 1.06 mmol/L (1.05-1.35); ARTERIAL BLOOD HCO3 22.4 mmol/L (20-26); ARTERIAL BLOOD O2 SATURATION 96.5 % (94-98); ARTERIAL BLOOD PCO2 35.3 mmHg (35-45); ARTERIAL BLOOD PH 7.42 (7.35-7.45); ARTERIAL BLOOD PO2 83.4 mmHg (80-100); ARTERIAL BLOOD TOTAL CO2 23.5 mmol/L (23-27)
[2018-05-12] MEDS: POLYETHYLENE GLYCOL 3350 POWDER 17 GM/1 PACKET PEG SCH (09:43)
[2018-05-12] MEDS: PHENYTOIN 100 MG/4 ML SUSP GT SCH ×2 (09:43→16:27)
[2018-05-12] MEDS: SERTRALINE HCL 50 MG TABLET PEG SCH (09:43)
[2018-05-12] MEDS: LEVETIRACETAM ORAL SOLN 500 MG/5 ML UDCUP PEG SCH ×2 (09:43→21:14)
[2018-05-12 09:48] LABS: ARTERIAL BLOOD FIO2 24%
[2018-05-12] MEDS ORDERED: NORMAL SALINE 500 ML IV ONE (10:30)
--- NOTE | 2018-05-12 10:55 | PROGRESS NOTE E ---
Progress Note NAME: VALENTE MOJICA : 1975 AGE: 43Y DATE: 05/11/2018 ROOM: 606 SUBJECTIVE: The patient is a 43-year-old, male, who came in with acute respiratory failure requiring recent mechanical ventilation with septic shock, pneumonia bilateral. The patient appeared to be stable. Still on vasopressors. The patient has G-tube feedings at 15 mL/hr. No nausea, no vomiting, no diarrhea. The patient still getting a lot of intratracheal secretions. OBJECTIVE: GENERAL: The patient is afebrile, no acute severe respiratory distress. VITAL SIGNS: Temperature 98 degrees Fahrenheit with T-max of 99.4 degrees Fahrenheit. Heart rate is 71 beats/min, blood pressure 94/66, respirations 12, saturation 99% to 100% on FiO2 at 35%, SIMV of 12, tidal volume 500, pressor support of 10, peak airway pressure of 9. EYES: No jaundice or pallor. EARS, NOSE AND THROAT: No ear drainage noted. Endotracheal tube in place. NG tube is in place. CHEST AND LUNGS: No wheezing. No coarse crackles. No rhonchi noted. CARDIOVASCULAR: S1, S2 distinct. Normal rate and rhythm. ABDOMEN: Flabby. Positive bowel sounds. Soft, nondistended, nontender. EXTREMITIES: No joint swelling. No overt signs of cellulitis. LABORATORY DATA: CBC done today showed white count of 16.8, up from 15.9 yesterday. Hemoglobin 9.5, up from 7.3 yesterday status post blood transfusion. Hematocrit is 28.2, platelet count 292, bands/neutrophils 0. Chemistry today showed sodium 152, potassium 3.3 (status post 40 mEq of potassium chloride earlier), CO2 34, BUN 14, creatinine 0.6, glucose 125, calcium 8.7, magnesium 1.7. No chest x-ray done today. ASSESSMENT: 1. ACUTE RESPIRATORY FAILURE REQUIRING INVASIVE MECHANICAL VENTILATION. Currently appears to be stable. Still having a significant amount of intratracheal tube sections. 2. PNEUMONIA, BILATERAL, RIGHT GREATER THAN LEFT. Status post endotracheal intubation and invasive mechanical ventilation. Status post massive atelectasis right lung. 3. SEPTIC SHOCK - CURRENTLY ON VASOPRESSOR. 4. HISTORY OF SEVERE MULTIPLE SCLEROSIS AND HEMORRHAGIC STROKE. PLAN AND RECOMMENDATIONS: 1. Continue IV vancomycin and Zosyn. 2. We will restart IV gentamicin at 80 mg IV piggyback q.8 hours. The IV Gentamicin was apparently discontinued about May 10 by the pharmacist because of high trough levels. 3. We will continue to optimize mechanical ventilator support, hemodynamic and ventilatory support. DICTATING PHYSICIAN: MAGDI LAGUNA MD,BRISA,MPH [id number] PHY#: [id number] [id number] JOB#: [id number] ACCT: [id number] cc: > MTDD
[2018-05-12] MEDS ORDERED: NOREPINEPHRINE BITARTRATE INJ/PF 4 MG/4 ML SDV IV ONE (10:59)
[2018-05-12] MEDS: DEXTROSE 5%-WATER 250 ML with NOREPINEPHRINE BITARTRATE 4 MG IV PRN ×2 (11:12)
--- NOTE | 2018-05-12 15:45 | EKG REPORT ---
SEVERITY:- OTHERWISE NORMAL ECG - SINUS TACHYCARDIA : Confirmed by: Bryant Yost MD 12-May-2018 15:45:03
--- NOTE | 2018-05-12 16:11 | PDOC PROGRESS REPORT ---
Subjective Progress Note for:: 05/12/18 Subjective:: Patient remains intubated. He was noted to be hypotensive again today he was subsequently found to be febrile although this could be secondary to the bear hugger that we had been using. Patient is back on Levophed and remains intubated. He has been restarted on gentamicin. His white count is actually down and his hemoglobin is trending back down again Reason For Visit: ACUTE RESP FAILURE SEPSIS PNA Physical Exam Vital Signs: Temp Pulse Resp BP Pulse Ox 100.5 F H 83 20 109/68 97 05/12/18 14:00 05/12/18 10:00 05/12/18 14:00 05/12/18 13:59 05/12/18 14:00 Intake & Output 05/11/18 05/12/18 05/13/18 06:59 06:59 06:59 Intake Total 5239 3961 1318 Output Total 4695 3150 1375 Balance 544 811 -57 Weight 67.7 kg 69.2 kg General appearance: PRESENT: other - Ill looking and intubated Neck exam: ABSENT: JVD Respiratory exam: PRESENT: decreased breath sounds, other - Mechanical ventilation Cardiovascular exam: PRESENT: tachycardia GI/Abdominal exam: PRESENT: other - PEG tube and jejunostomy tube Rectal exam: PRESENT: deferred Neurological exam: PRESENT: motor sensory deficit - Left inverted foot with spastic paralysis, other - Sedated Results Laboratory Results: 05/12/18 05:45 05/12/18 05:45 05/12/18 05/12/18 05/12/18 05:45 05:45 09:25 WBC 12.9 H RBC 2.88 L Hgb 8.7 L Hct 25.9 L MCV 90 MCH 30.2 MCHC 33.5 RDW 17.1 H Plt Count 312 Seg Neutrophils % 77.6 Lymphocytes % 11.3 L Monocytes % 7.2 Eosinophils % 3.5 Basophils % 0.4 Absolute Neutrophils 10.0 H Absolute Lymphocytes 1.5 Absolute Monocytes 0.9 Absolute Eosinophils 0.5 Absolute Basophils 0.1 Carbonic Acid 1.06 HCO3/H2CO3 Ratio 21:1 ABG pH 7.42 ABG pCO2 35.3 ABG pO2 83.4 ABG HCO3 22.4 ABG O2 Saturation 96.5 ABG Base Excess -1.7 FiO2 24% Sodium 147.4 H Potassium 3.1 L Chloride 109 H Carbon Dioxide 24 Anion Gap 14 BUN 19 Creatinine 0.45 L Est GFR ( Amer) > 60 Est GFR (Non-Af Amer) > 60 Glucose 136 H Calcium 8.1 L Phosphorus 3.8 Total Bilirubin 0.2 AST 12 L ALT 28 Alkaline Phosphatase 206 H Total Protein 5.7 L Albumin 2.3 L 05/09/18 11:40 Tracheal Aspirate Gram Stain - Final 05/09/18 11:40 Tracheal Aspirate Sputum Culture - Final Pseudomonas Aeruginosa Mrsa (Meth Resis Staph Aureus) Proteus Mirabilis Corynebacterium Striatum Normal Olivia Absent 05/08/18 21:52 Catheterized Urine Urine Culture - Final Pseudomonas Aeruginosa Providencia Stuartii 05/09/18 18:42 Bronchial Washings Gram Stain - Final 05/09/18 18:42 Bronchial Washings Bronchial Washings Culture - Final Pseudomonas Aeruginosa Proteus Mirabilis Corynebacterium Striatum Normal Olivia Absent 05/09/18 18:42 Bronchial Washings AFB Smear Concentration - Final 05/09/18 18:42 Bronchial Washings Acid Fast Bacilli Smear - Final Impressions: Abdomen X-Ray 05/07/18 06:26 IMPRESSION: 1. Nonobstructive bowel gas pattern. 2. Gastrostomy tube overlying the stomach. 2011 [employer]- All Rights Reserved KUB X-Ray 05/09/18 00:00 IMPRESSION: Nasogastric tube tip and side port in the stomach. Chest X-Ray 05/11/18 20:00 IMPRESSION: 1. Improved aeration of the right perihilar lung. 2. Stable lines and tubes. Assessment & Plan - Diagnosis (1) Hypokalemia Is this a current diagnosis for this admission?: Yes (2) Catheter-associated urinary tract infection Is this a current diagnosis for this admission?: Yes (3) Anemia Qualifiers: Anemia type: iron deficiency Iron deficiency anemia type: chronic blood loss Qualified Code(s): D50.0 - Iron deficiency anemia secondary to blood loss (chronic) Is this a current diagnosis for this admission?: Yes Plan: There is no evidence of acute blood loss. H and H stable s/p 4 units PRBC and IV iron infusion although appears to be drifting down somewhat. Will continue to monitor and transfuse as needed (4) Pneumonia Qualifiers: Pneumonia type: aspiration pneumonia Laterality: right Lung location: lower lobe of lung Qualified Code(s): J18.1 - Lobar pneumonia, unspecified organism Is this a current diagnosis for this admission?: Yes Plan: We will continue same antibiotics empirically for now and follow-up on sputum cultures (5) Severe sepsis Is this a current diagnosis for this admission?: Yes Plan: Patient is back on Levophed today and is tachycardic. Not sure if this is recurrent sepsis but his white count had gone down we will keep an eye on this (6) Multiple sclerosis Is this a current diagnosis for this admission?: Yes (7) Decubitus ulcer Qualifiers: Pressure ulcer location: foot, unspecified location Pressure ulcer stage: stage 4 Is this a current diagnosis for this admission?: Yes Plan: Chronic stage IV present on admission (8) Sacral decubitus ulcer, stage IV Is this a current diagnosis for this admission?: Yes (9) Presence of intrathecal baclofen pump Is this a current diagnosis for this admission?: Yes (10) Sacral decubitus ulcer Qualifiers: Pressure ulcer stage: unspecified pressure ulcer stage Qualified Code(s): L89.159 - Pressure ulcer of sacral region, unspecified stage Is this a current diagnosis for this admission?: Yes (11) Acute respiratory failure with hypoxemia Is this a current diagnosis for this admission?: Yes Plan: Patient is currently intubated. His respiratory failure likely secondary to anemia as well as possible respiratory muscle paralysis from his multiple sclerosis. Will continue with current management. Patient's condition remains pretty poor and prognosis is poor (12) Hypernatremia Is this a current diagnosis for this admission?: Yes Plan: Improving. We will continue hypotonic IV fluids and water flushes - Time Time Spent with patient: 15-24 minutes Medications reviewed and adjusted accordingly: Yes Anticipated discharge: SNF Within: within 72 hours - Inpatient Certification Based on my medical assessment, after consideration of the patient's comorbidities, presenting symptoms, or acuity I expect that the services needed warrant INPATIENT care.: Yes Medical Necessity: Need For IV Fluids - Mechanical ventilation
[2018-05-12] MEDS: QUETIAPINE FUMARATE 25 MG TABLET PEG SCH (21:14)
[2018-05-13] MEDS: DEXTROSE 5%-WATER 1000 ML 1,000 ML IV PRN ×2 (01:16→17:08)
[2018-05-13] MEDS: VANCOMYCIN HCL 750 MG in DEXTROSE 5%-WATER 250 ML IV SCH ×2 (01:20→10:23)
[2018-05-13] MEDS: PROPOFOL 1,000 MG/100 ML INFUS..BTL IV PRN ×4 (04:05→20:44)
[2018-05-13] MEDS: PIPERACILLIN SODIUM/TAZOBACTAM 3.375 GM in NORMAL SALINE 100 ML IV SCH ×3 (05:50→22:30)
[2018-05-13] MEDS: FAMOTIDINE INJ/PF 20 MG/2 ML SDV IV SCH ×2 (05:51→17:09)
[2018-05-13] MEDS: HEPARIN SOD (PORCINE) 5,000 UNIT/ML 1 ML SYRINGE SUBCUT SCH ×3 (05:51→22:00)
[2018-05-13] MEDS: BACLOFEN 10 MG TABLET PEG SCH ×2 (05:51→13:55)
[2018-05-13 06:23] LABS: ANION GAP 13 (5-19); BLOOD UREA NITROGEN 20 mg/dL (7-20); CALCIUM 8.2 mg/dL (8.4-10.2); CARBON DIOXIDE 26 mmol/L (22-30); CHLORIDE 113 mmol/L (98-107); GLUCOSE 100 mg/dL (75-110); POTASSIUM 3.5 mmol/L (3.6-5.0); SODIUM 151.6 mmol/L (137-145)
[2018-05-13 06:28] LABS: GENTAMICIN-TROUGH 5.9 ug/mL (<2.0)
[2018-05-13] MEDS: GENTAMICIN SULFATE 80 MG in DEXTROSE 5%-WATER 100 ML IV SCH (06:30)
[2018-05-13 06:33] LABS: HEMATOCRIT 26.8 % (37.9-51.0); HEMOGLOBIN 8.9 g/dL (13.5-17.0); MEAN CORPUSCULAR HEMOGLOBIN 29.8 pg (27.0-33.4); MEAN CORPUSCULAR HGB CONC 33.1 g/dL (32.0-36.0); MEAN CORPUSCULAR VOLUME 90 fl (80-97); PLATELET COUNT 327 10^3/uL (150-450); RED BLOOD COUNT 2.98 10^6/uL (4.35-5.55); RED CELL DISTRIBUTION WIDTH 17.3 % (11.5-14.0); WHITE BLOOD COUNT 10.9 10^3/uL (4.0-10.5)
[2018-05-13 07:08] LABS: ABSOLUTE LYMPHOCYTES# (MANUAL) 1.5 10^3/uL (0.5-4.7); ABSOLUTE MONOCYTES # (MANUAL) 0.5 10^3/uL (0.1-1.4); ABSOLUTE NEUTROPHILS# (MANUAL) 8.2 10^3/uL (1.7-8.2); BAND NEUTROPHILS % (MANUAL) 1 % (3-5); BASOPHILS % (MANUAL) 2 % (0-2); EOSINOPHILS % (MANUAL) 4 % (0-6); LYMPHOCYTES % (MANUAL) 14 % (13-45); MONOCYTES % (MANUAL) 5 % (3-13); SEGMENTED NEUTROPHILS % (MAN) 74 % (42-78); TOTAL CELLS COUNTED 100
[2018-05-13 07:10] LABS: HYPOCHROMASIA 3+
[2018-05-13 07:11] LABS: PLATELET COMMENT ADEQUATE
[2018-05-13] MEDS: IPRATROPIUM/ALBUTEROL 0.5-2.5 MG/3 ML AMPUL NEB SCH ×2 (07:53→20:45)
[2018-05-13] MEDS: POLYETHYLENE GLYCOL 3350 POWDER 17 GM/1 PACKET PEG SCH (09:10)
[2018-05-13] MEDS: PHENYTOIN 100 MG/4 ML SUSP GT SCH ×2 (09:10→17:08)
[2018-05-13] MEDS: LEVETIRACETAM ORAL SOLN 500 MG/5 ML UDCUP PEG SCH ×2 (09:10→22:30)
[2018-05-13] MEDS: SERTRALINE HCL 50 MG TABLET PEG SCH (09:10)
[2018-05-13] MEDS: SCOPOLAMINE HYDROBROMIDE 1.5 MG PATCH.TD72 TD SCH (09:11)
[2018-05-13 09:51] LABS: GENTAMICIN-PEAK 8.5 ug/mL (5.0-10.0)
[2018-05-13 09:52] LABS: VANCOMYCIN,TROUGH 47.4 ug/mL (5.0-20.0)
--- NOTE | 2018-05-13 09:54 | PROGRESS NOTE E ---
Progress Note NAME: VALENTE MOJICA : 1975 AGE: 43Y DATE: 05/09/2018 ROOM: 606 SUBJECTIVE: Patient is a 43-year-old male who came in with acute respiratory failure requiring BiPAP therapy. This morning around 11:00, patient started desaturating to 84%. Breathing became asymptomatic and appeared to be more in respiratory distress. Anesthesia was called to intubate the patient. After the patient has been intubated post intubation chest x-ray showed the possibility of total opacity of the right lung and right lung atelectasis. Reviewed the chest x-ray this morning and ordered to withdraw the endotracheal tube by 2 cm, allowing improvement in the aeration of the right lung. Still marked opacity involving the right half of the lung. Profuse endotracheal tube secretions noted. OBJECTIVE: GENERAL: Patient appeared sedated, not in acute respiratory distress. VITAL SIGNS: Temperature is 97.7, T-max 97.7, heart rate is 82, blood pressure 104/68, respirations 12, and oxygen saturation is 100% on SIMV rate of 12, tidal volume 500, pressure support 10 above PEEP, and PEEP of 5, and fio2 100%. EYES: No jaundice or pallor. EARS, NOSE AND THROAT: No ear drainage noted. No nasal discharge. HEAD AND NECK: No scalp swelling. No neck deformity. CHEST AND LUNGS: No wheezing. No rhonchi. No coarse crackles. CARDIOVASCULAR: S1, S2 distinct. Tachycardic, regular rhythm. ABDOMEN: Flabby. EXTREMITIES: No joint swelling, cellulitis. LABORATORY DATA: CBC done today at 5:25 a.m. showed white count of 34.3; hemoglobin 7.8; hematocrit 74.4; basophils 27%. ABG done at 1:35 p.m. today showed pH of 7.23, pCO2 is 47, pO2 is 768, and saturation 99.8 on 110% FiO2. Chemistry done today showed sodium of 100.7, potassium 3.8, chloride 109, CO2 is 27, BUN is 9, creatinine is 0.42, glucose 180, and calcium is 8.7. Chest x-ray showed endotracheal tube is in place. opacity right upper lobe, moderate severe atelectasis. ASSESSMENT: 1. ACUTE RESPIRATORY FAILURE REQUIRING INVASIVE MECHANICAL VENTILATION. PATIENT APPEARED TO DETERIORATE EVEN ON BIPAP THERAPY. 2. MASSIVE ATELECTASIS, RIGHT LUNG, POSSIBLE WORSENING PNEUMONIA PLUS/MINUS ASPIRATION OF GASTRIC CONTENTS VERSUS MUCUS PLUG. 3. PNEUMONIA, WORSENING, BILATERAL, RIGHT GREATER THAN LEFT. 4. SEVERE SEPSIS. 5. SEPTIC SHOCK REQUIRING VASOPRESSORS. PLAN AND RECOMMENDATIONS: 1. Agree with endotracheal tube intubation. Recommend following ventilator settings. SIMV, PRBC with a pressure support of 10 and PEEP of 5, FiO2 80%, titrate to give saturation of 91-94%, tidal volume 500 and a ventilator rate of 12. 2. Continue IV antibiotics, IV vancomycin, Zosyn and IV gentamicin. 3. Consider collecting sputum for AFB and bacterial culture. 4. We will schedule the patient for bronchoscopy to aspirate possible foreign body and suction secretions and mucus plugs. DICTATING PHYSICIAN: MAGDI LAGUNA MD,BRISA,MPH [id number] PHY#: [id number] ID: [id number] JOB#: [id number] ACCT: [id number] cc: > MTDD
--- NOTE | 2018-05-13 09:55 | OPERATIVE REPORT E ---
Operative Report NAME: VALENTE MOJICA : 1975 AGE: 43Y DATE OF SURGERY: 05/09/2018 ROOM: 606 BRIEF HISTORY: The patient is a 43-year-old -[place]yp[place] male who came in with acute respiratory failure requiring invasive mechanical ventilation and septic shock. The patient had pneumonia, bilateral. Today, patient's condition worsened requiring endotracheal intubation and mechanical ventilation. Chest x-ray showed widening of the entire right lung. Endotracheal tube was withdrawn 2 cm, allows partial aeration of the right upper lobe. Patient underwent flexible bronchoscopy today with bronchial washing. PROCEDURE: Flexible bronchoscopy with bronchial washing. INDICATION: A complete whitening (or white out) of the right lung suggesting massive atelectasis, possible endobronchial lesion and possible aspiration of gastric contents.. Consent was obtained from the patient's . Patient's provided verbalized understanding of the indications, risks and potential complications of the procedure. BLOOD LOSS: None. PREOPERATIVE DIAGNOSIS: massive atelectasis , right lung POSTOPERATIVE DIAGNOSIS: Same. SURGEON: MAGDI LAGUNA M.D. TOPICAL ANESTHESIA: None. SEDATION: Patient is currently on IV propofol. Patient was given supplemental Versed 1 mg IV increments to a total dose of 4 mg. Fentanyl at 25 mcg IV to a total dose of 100 mcg. PROCEDURE: Patient is in the Intensive Care Unit currently endotracheal intubated, mechanically ventilated using endotracheal tube size 8. Patient was placed on 100% FiO2 SIMV with a rate of 12, tidal volume of 500, pressure support of 10 above PEEP and PEEP of 5. Flexible bronchoscope was inserted through an endotracheal tube adapter. The endotracheal tube and surrounding areas were sterilized with chlorhexidine wipes. Flexible bronchoscope was inserted through the adapter and endotracheal tube adapter allowed visualization of the capri which appeared sharp and midline. The left bronchial airways appeared normal. The right bronchial airway appeared with purulent yellow-green material. The purulent yellow-green material was suctioned out from the right mainstem bronchi. Right upper lobes, right middle lobe, and right lower lobe bronchi until the bronchial airway became patent. Patient seemed to tolerate the procedure very well, saturating 100%. Patient was biting the endotracheal tube during this procedure, hence patient was given Versed 1 mg IV dose increments to a total dose of 4 mg and Fentanyl was given in increments of 25 mcg for a total dose of 100 mcg to relax patient's bite on the endotracheal tube and the flexible bronchoscope. The patient's bronchoscope appeared functioning with good visualization of the airway after the bite. Patient bit the endotracheal tube three times, four times. Having difficulty passing the tube or withdrawing the tube. Having difficulty passing the bronchoscope or withdrawing the bronchoscope. The narrowing of the airways was noted. During the insertion of the bronchoscope, the patient's bite was biting the endotracheal tube. Patient was given IV Versed and Fentanyl to allow him to relax and get more sedation. DICTATING PHYSICIAN: MAGDI LAGUNA MD,BRISA,MPH [id number] PHY#: [id number] ID: [id number] JOB#: [id number] ACCT: [id number] cc:MAGDI LAGUNA M.D. > MTDD
--- NOTE | 2018-05-13 10:06 | PROGRESS NOTE E ---
Progress Note NAME: VALENTE MOJICA : 1975 AGE: 43Y DATE: 05/10/2018 ROOM: 606 SUBJECTIVE: Patient is a 43-year-old male who came in with acute respiratory failure requiring mechanical ventilation and pneumonia bilaterally and septic shock. Patient appeared to be stable over the last 24 hours. Patient still requiring vasopressor, IV Levophed. The patient still has a profuse amount of endotracheal secretions suctioned by respiratory therapist and ICU nurse. There was no fever spike over the last 24 hours. Patient tolerated NG tube feeding at 38 mL per hour. No vomiting, no diarrhea noted. OBJECTIVE: GENERAL: Patient appeared sedated, afebrile, not in acute respiratory distress. VITAL SIGNS: Temperature is 98.8 with a T-max of 98.8, heart rate is 75 beats per minute, blood pressure 140/86, respiratory rate of 15, and saturation is 100% on 30% Fi02. Patient currently on SIMV rate of 12, tidal volume of 500, pressor support 10 above PEEP, and PEEP of 5, and Fi02 of 30%. Patient total pressors 15. Peak airway pressor is 15. Spontaneous tidal volumes were 490 to 500 mL. His minute ventilation is 8.9 to 9.5. The peak airway pressure is 19. Total pressors 15. EYES: No jaundice or pallor. EARS, NOSE AND THROAT: No ear drainage noted. No nasal discharge. Endotracheal tube in place. CHEST AND LUNGS: No wheezing. No coarse crackles. No rhonchi noted. CARDIOVASCULAR: S1, S2 distinct. Normal rate and rhythm. ABDOMEN: Flabby. Positive bowel sounds. Soft, nondistended, nontender. EXTREMITIES: No joint swelling, cellulitis. LABORATORY DATA: CBC done today showed white count of 20,800 down from 34,000 yesterday; hemoglobin 7.3; hematocrit 32.3; platelet count is 785. Patient received 2 units of blood transfusion today. Bands went down to 1% from 27% yesterday. Chemistry done this morning showed sodium of 148, potassium 3.1; potassium chloride supplements, chloride 112, CO2 is 23, BUN is 10, creatinine is 0.44, glucose 134, and calcium is 8.6. Total bilirubin 0.5, direct bilirubin 0.5. SGOT is 15, SGPT is 33. Total protein 6.20, albumin is 2.6. Chest x-ray done this morning showed improved aeration involving the right lung. Left lung has no acute infiltrate noted. ASSESSMENT: 1. ACUTE RESPIRATORY FAILURE REQUIRING INVASIVE MECHANICAL VENTILATION. CURRENTLY REQUIRING LESS FIO2. NOTED SOME CLINICAL IMPROVEMENT. 2. PNEUMONIA, BILATERAL, RIGHT MORE THAN LEFT AND APPEARED TO BE IMPROVING. ATELECTASIS APPEARED TO BE IMPROVING WELL. 3. SEPTIC SHOCK STILL REQUIRING VASOPRESSORS. Currently on IV vancomycin, Zosyn, and azithromycin. Patient on GI prophylaxis and dvt prophylaxis. subcutaneous q.8 hours for DVT prophylaxis. PLAN AND RECOMMENDATIONS: 1. Continue IV gentamicin, Zosyn and vancomycin for now. 2. Continue titrating FiO2 to get saturation 91-94%. DICTATING PHYSICIAN: MAGDI LAGUNA MD,BRISA,MPH [id number] [id number] PHY#: [id number] ID: [id number] JOB#: [id number] ACCT: [id number] cc: > MTDD
[2018-05-13] MEDS: FENTANYL CITRATE INJ/PF 100 MCG/2 ML AMPUL IV PRN (13:53)
[2018-05-13] MEDS: DEXTROSE 5%-WATER 250 ML with NOREPINEPHRINE BITARTRATE 4 MG IV PRN ×2 (14:22)
--- NOTE | 2018-05-13 17:07 | Progress Note ---
Provider Note Provider Note: ID Consult Note Asked to review chart by Pharmacy. Pt not seen and examined. Reviewed imaging and provider reports, CXR images, labs, vitals. Mr. Downing has been in the hospital since 05/07 with pneumonia that followed an episode of vomiting at his long-term. He is intubated. He had a RLL infiltrate. He has been receiving vancomycin, Zosyn and gentamicin. He has needed vasopressor support. His WBC count was initially in the 20s, up to the 30s, and has now normalized. Over the past 24h, the patient was recorded as having low temperatures, which prompted use of a Imelda hugger for warming, and subsequent high temperatures, but his CXR has shown some improvement in R lung aeration and oxygen requirements have decreased. His tracheal aspirate on 05/09 grew 1+ Pseudomonas aeruginosa, 2+ MRSA, 3 colonies of Proteus mirabilis, and 3+ Corynebacterium striatum. His BAL on 05/09 grew 1+ Pseudomonas, aeruginosa 3 colonies of Proteus mirabilis and 2+ Corynebacterium. Impression/Recommendations - The patient's pneumonia should be able to be adequately treated with IV vancomycin plus either IV cefepime or IV Zosyn, without gentamicin, based on the susceptibility results for the patient's Pseudomonas and Proteus mirabilis isolates. Consider discontinuing gentamicin. Empiric double coverage may be appropriate depending on rates of resistance to a particular antipseudomonal antibiotic, but once susceptibility results are known, there is no real benefit to continuing double coverage, and vancomycin and gentamicin both carry the risk of nephrotoxicity. - Generally, duration of therapy is in the range of 7-8 days, but sometimes longer or shorter courses may be appropriate. Today is day 7 of treatment. Whether antimicrobial therapy needs to continue will need to be reassessed based on the patient's clinical progress. Rony Collins MD [facility] Infectious Diseases pager [phone]
--- NOTE | 2018-05-13 17:44 | PDOC PROGRESS REPORT ---
Subjective Progress Note for:: 05/13/18 Subjective:: Patient remains intubated. He was noted to be hypotensive again today he was subsequently found to be febrile although this could be secondary to the bear hugger that we had been using. Patient is back on Levophed and remains intubated. He has been restarted on gentamicin. His white count is actually down. ID notes greatly appreciated. Suggestion is for vancomycin and Zosyn or cefepime for about 7 days depending on patient's clinical course. Patient is still on gentamicin but I will leave this to the discretion of the liaison inspection laboratory assistant to decide what to do about it. Patient had been hypothymic a day or 2 ago and had a bear hugger placed but then subsequently became febrile with tachycardia. He received IV fluids and he was also started on Levophed. Today his heart rate is much better and he is afebrile. He however is noted to be hyponatremic with a sodium of 151 and hyperchloremic. Has been ordered water flushes and his hypotonic IV fluid is also being increased. Reason For Visit: ACUTE RESP FAILURE SEPSIS PNA Physical Exam Vital Signs: Temp Pulse Resp BP Pulse Ox 98.7 F 90 8 L 100/63 100 05/13/18 16:00 05/13/18 10:00 05/13/18 14:29 05/13/18 14:29 05/13/18 16:27 Intake & Output 05/12/18 05/13/18 05/14/18 06:59 06:59 06:59 Intake Total 3961 5285 Output Total 3150 5200 1750 Balance 811 85 -1750 Weight 69.2 kg 69.3 kg General appearance: PRESENT: no acute distress, other - Intubated Head exam: PRESENT: atraumatic Eye exam: PRESENT: PERRLA Mouth exam: PRESENT: other GI/Abdominal exam: PRESENT: normal bowel sounds, soft, other - PEG and urostomy tubes. ABSENT: distended, guarding, mass, organolmegaly, rebound, tenderness Rectal exam: PRESENT: deferred Extremities exam: PRESENT: other - inverted LLE Musculoskeletal exam: PRESENT: other - implanted pump Neurological exam: PRESENT: motor sensory deficit - spastic extremities, other - sedated Skin exam: PRESENT: other - sacral decubitus ulcer Results Laboratory Results: 05/13/18 05:45 05/13/18 05:45 05/13/18 05/13/18 05:45 05:45 WBC 10.9 H RBC 2.98 L Hgb 8.9 L Hct 26.8 L MCV 90 MCH 29.8 MCHC 33.1 RDW 17.3 H Plt Count 327 Seg Neutrophils % Not Reportable Lymphocytes % Not Reportable Monocytes % Not Reportable Eosinophils % Not Reportable Basophils % Not Reportable Absolute Neutrophils Not Reportable Absolute Lymphocytes Not Reportable Absolute Monocytes Not Reportable Absolute Eosinophils Not Reportable Absolute Basophils Not Reportable Sodium 151.6 H Potassium 3.5 L Chloride 113 H Carbon Dioxide 26 Anion Gap 13 BUN 20 Creatinine 0.57 Est GFR ( Amer) > 60 Est GFR (Non-Af Amer) > 60 Glucose 100 Calcium 8.2 L 05/09/18 11:40 Tracheal Aspirate Gram Stain - Final 05/09/18 11:40 Tracheal Aspirate Sputum Culture - Final Pseudomonas Aeruginosa Mrsa (Meth Resis Staph Aureus) Proteus Mirabilis Corynebacterium Striatum Normal Olivia Absent 05/08/18 21:52 Catheterized Urine Urine Culture - Final Pseudomonas Aeruginosa Providencia Stuartii Impressions: Abdomen X-Ray 05/07/18 06:26 IMPRESSION: 1. Nonobstructive bowel gas pattern. 2. Gastrostomy tube overlying the stomach. 2011 [employer]- All Rights Reserved KUB X-Ray 05/09/18 00:00 IMPRESSION: Nasogastric tube tip and side port in the stomach. Chest X-Ray 05/11/18 20:00 IMPRESSION: 1. Improved aeration of the right perihilar lung. 2. Stable lines and tubes. Assessment & Plan - Diagnosis (1) Hypokalemia Is this a current diagnosis for this admission?: Yes Plan: Continue to replace (2) Catheter-associated urinary tract infection Is this a current diagnosis for this admission?: Yes Plan: Urine culture is yielding Pseudomonas and Providencia, patient is on gentamicin and Zosyn. Please see discussions above (3) Anemia Qualifiers: Anemia type: iron deficiency Iron deficiency anemia type: chronic blood loss Qualified Code(s): D50.0 - Iron deficiency anemia secondary to blood loss (chronic) Is this a current diagnosis for this admission?: Yes Plan: He is status post 4 units of packed red blood cells as well as iron transfusion (4) Pneumonia Qualifiers: Pneumonia type: aspiration pneumonia Laterality: right Lung location: lower lobe of lung Qualified Code(s): J18.1 - Lobar pneumonia, unspecified organism Is this a current diagnosis for this admission?: Yes Plan: We will continue same antibiotics He has polymicrobial infection as per culture results including Pseudomonas, Proteus and MRSA. Please see ID comments (5) Severe sepsis Is this a current diagnosis for this admission?: Yes Plan: Intermittent need for Levophed however sepsis is resolving (6) Multiple sclerosis Is this a current diagnosis for this admission?: Yes Plan: Chronic and underlying likely contributing to his respiratory failure also (7) Decubitus ulcer Qualifiers: Pressure ulcer location: foot, unspecified location Pressure ulcer stage: stage 4 Is this a current diagnosis for this admission?: Yes Plan: Chronic stage IV present on admission (8) Sacral decubitus ulcer, stage IV Is this a current diagnosis for this admission?: Yes (9) Presence of intrathecal baclofen pump Is this a current diagnosis for this admission?: Yes (10) Acute respiratory failure with hypoxemia Is this a current diagnosis for this admission?: Yes Plan: Patient remains intubated. He is not able to be extubated at this time. We will continue respiratory support. He is really just on 24% FiO2 with 5 of PEEP and 500 tidal volume. Is on volume control with pressure support Appreciate pulmonology input (11) Hypernatremia Is this a current diagnosis for this admission?: Yes Plan: Hypochloremic hyponatremic dehydration we will increase free water via flushes and IV fluid - Time Time Spent with patient: 25-34 minutes Smoking Cessation Education: 3 to 10 minutes Medications reviewed and adjusted accordingly: Yes Anticipated discharge: SNF - Inpatient Certification Based on my medical assessment, after consideration of the patient's comorbidities, presenting symptoms, or acuity I expect that the services needed warrant INPATIENT care.: Yes Medical Necessity: Need For IV Fluids, Need for IV Antibiotics - Plan Summary Plan Summary: Patient remains a full code as per family wishes. Prognosis is pretty poor. Further discussions probably should be held with the regarding his CODE STATUS
[2018-05-13] MEDS ORDERED: BACLOFEN 10 MG TABLET PEG SCH (18:00)
[2018-05-13] MEDS: BACLOFEN 20 MG TABLET PEG SCH ×2 (18:27→23:45)
[2018-05-13] MEDS: QUETIAPINE FUMARATE 25 MG TABLET PEG SCH (22:30)
--- NOTE | 2018-05-13 23:54 | RADIOLOGY REPORT (SQ) ---
EXAM DESCRIPTION: CLINICAL HISTORY: Confirm ETT placement COMPARISON: 05/11/2018 FINDINGS: Single view of the chest is submitted. ET tube tip is at T1-2. Right IJ catheter tip is in the mid SVC. There is consolidation and worsening in the right midlung. Mild consolidation at the medial left lung. Cardiac silhouette is normal. IMPRESSION: Worsening right lung consolidation. ET tube is at T1-2 and repositioning may be desirable.
--- NOTE | 2018-05-14 01:32 | RADIOLOGY REPORT (SQ) ---
EXAM DESCRIPTION: XR CHEST 1 VIEW COMPLETED DATE/TME: 05/14/2018 00:48 CLINICAL HISTORY: 43 years Male, confirm ETT placement COMPARISON: One day prior. NUMBER OF VIEWS/TECHNIQUE: 1/AP FINDINGS: Moderate patchy airspace opacities of the mid and lower right lung field, normal cardiac silhouette, endotracheal tube tip is 6.8 cm from the capri, right jugular central line tip at the SVC, left supraclavicular clips. No pneumothorax. No acute bone defect. IMPRESSION: No significant change.
[2018-05-14] MEDS: PROPOFOL 1,000 MG/100 ML INFUS..BTL IV PRN ×4 (02:40→17:26)
[2018-05-14] MEDS: FENTANYL CITRATE INJ/PF 100 MCG/2 ML AMPUL IV PRN ×2 (03:25→19:46)
[2018-05-14] MEDS: BACLOFEN 20 MG TABLET PEG SCH ×3 (05:10→17:26)
[2018-05-14] MEDS: DEXTROSE 5%-WATER 1000 ML 1,000 ML IV PRN ×2 (05:13→14:19)
[2018-05-14] MEDS: PIPERACILLIN SODIUM/TAZOBACTAM 3.375 GM in NORMAL SALINE 100 ML IV SCH ×2 (05:15→21:50)
[2018-05-14] MEDS: FAMOTIDINE INJ/PF 20 MG/2 ML SDV IV SCH ×2 (05:17→17:26)
[2018-05-14] MEDS: HEPARIN SOD (PORCINE) 5,000 UNIT/ML 1 ML SYRINGE SUBCUT SCH ×3 (05:18→22:30)
[2018-05-14 06:19] LABS: HEMATOCRIT 25.2 % (37.9-51.0); HEMOGLOBIN 8.4 g/dL (13.5-17.0); MEAN CORPUSCULAR HEMOGLOBIN 30.3 pg (27.0-33.4); MEAN CORPUSCULAR HGB CONC 33.1 g/dL (32.0-36.0); MEAN CORPUSCULAR VOLUME 91 fl (80-97); PLATELET COUNT 325 10^3/uL (150-450); RED BLOOD COUNT 2.76 10^6/uL (4.35-5.55); RED CELL DISTRIBUTION WIDTH 17.2 % (11.5-14.0); WHITE BLOOD COUNT 11.4 10^3/uL (4.0-10.5)
[2018-05-14 06:23] LABS: ANION GAP 13 (5-19); BLOOD UREA NITROGEN 20 mg/dL (7-20); CALCIUM 8.3 mg/dL (8.4-10.2); CARBON DIOXIDE 27 mmol/L (22-30); CHLORIDE 110 mmol/L (98-107); GLUCOSE 118 mg/dL (75-110); POTASSIUM 3.5 mmol/L (3.6-5.0); SODIUM 150.3 mmol/L (137-145)
[2018-05-14] MEDS: IPRATROPIUM/ALBUTEROL 0.5-2.5 MG/3 ML AMPUL NEB SCH ×2 (08:23→20:55)
[2018-05-14 08:27] LABS: ABSOLUTE LYMPHOCYTES# (MANUAL) 2.5 10^3/uL (0.5-4.7); ABSOLUTE MONOCYTES # (MANUAL) 0.6 10^3/uL (0.1-1.4); ABSOLUTE NEUTROPHILS# (MANUAL) 7.2 10^3/uL (1.7-8.2); BASOPHILS % (MANUAL) 0 % (0-2); EOSINOPHILS % (MANUAL) 10 % (0-6); LYMPHOCYTES % (MANUAL) 21 % (13-45); METAMYELOCYTES % (MANUAL) 4 % (0); MONOCYTES % (MANUAL) 5 % (3-13); SEGMENTED NEUTROPHILS % (MAN) 59 % (42-78); TOTAL CELLS COUNTED 100
[2018-05-14 08:29] LABS: ANISOCYTOSIS 1+; PLATELET COMMENT ADEQUATE; ROULEAUX 1+; TARGET CELLS SLIGHT; TOXIC GRANULATION 1+
[2018-05-14 09:31] LABS: VANCOMYCIN,TROUGH 27.9 ug/mL (5.0-20.0)
[2018-05-14] MEDS: POLYETHYLENE GLYCOL 3350 POWDER 17 GM/1 PACKET PEG SCH (09:47)
[2018-05-14] MEDS: PHENYTOIN 100 MG/4 ML SUSP GT SCH ×2 (09:51→17:26)
[2018-05-14] MEDS: LEVETIRACETAM ORAL SOLN 500 MG/5 ML UDCUP PEG SCH ×2 (09:51→21:48)
[2018-05-14] MEDS: SERTRALINE HCL 50 MG TABLET PEG SCH (09:51)
[2018-05-14] MEDS ORDERED: GENTAMICIN SULFATE INJ 80 MG/2 ML VIAL IV SCH (10:00)
[2018-05-14 10:51] LABS: PATH REVIEW PATHOLOGIST REVIEWED
--- NOTE | 2018-05-14 12:01 | PROGRESS NOTE E ---
Progress Note NAME: VALENTE MOJICA : 1975 AGE: 43Y DATE: 05/13/2018 ROOM: 606 SUBJECTIVE: The patient is a 43-year-old -[place] male who came in acute respiratory failure requiring invasive mechanical ventilation, septic shock, and bilateral pneumonia. Bronchial washing culture showed pseudomonas aeruginosa, Proteus mirabilis, and Corynebacterium striatum. The tracheal aspirate culture also showed Pseudomonas aeruginosa and MRSA and Proteus mirabilis, and Corynebacterium striatum. Today the patient appeared to be doing well. Blood pressures have remained stable. Still requiring vasopressor of 3 mcg/min. No vomiting, no diarrhea. The patient is tolerating the G-tube feeding of 15 mL/hour. Saturations are about 100% on FiO2 of 35%. FiO2 decreased to 30%, saturation remained at 98-100%. OBJECTIVE: GENERAL: The patient appeared to be slightly sedated, afebrile, not in acute respiratory distress. VITAL SIGNS: Temperature of 98.2 with a T-max of 98.7, blood pressure is 100/61, pulse rate is 88, respiratory is 14, saturation 99% on FiO2 of 30%. SIMV rate of 12, tidal volume of 500, pressure support 10, PEEP of 5, and FiO2 of 30%. Peak airway pressure is 19, and plateau pressure is 16. Minute ventilation is 8-9. EYES: No jaundice or pallor. EARS, NOSE, AND THROAT: No ear drainage. No nasal discharge. HEAD AND NECK: No scalp swelling or erythema. CHEST AND LUNGS: No crackles, no wheezing, no rhonchi noted. CARDIOVASCULAR: S1, S2 is distinct. Normal rate, regular rhythm. ABDOMEN: Flabby, positive bowel sounds, soft, nondistended, nontender. EXTREMITIES: No joint swelling, no cellulitis. Feet are contracted. LABORATORY DATA: CBC done today showed a white count of 10.9 from 12.9 yesterday. Hemoglobin is 8.9, hematocrit is 26.8, platelet count is 757, no bands noted. Chemistry done today showed sodium 151, potassium is 3.5, chloride 113, CO2 is 26, BUN is 20, creatinine is 0.77, glucose 100, calcium is 8.2. Toxicology done this morning showed gentamicin trough 35.9 which is elevated at 5:45 a.m. The gentamicin peak about 8.5 at 9 a.m. which is the desired level. The vancomycin trough is 47.4. The vancomycin dosage held and the gentamicin dose is held. We will plan to repeat the gentamicin trough tonight at 7 p.m. and then the vancomycin trough tomorrow at 7 a.m. ASSESSMENT: 1. ACUTE RESPIRATORY FAILURE REQUIRING INVASIVE MECHANICAL VENTILATION. Improving and requiring less FiO2. 2. SEPTIC SHOCK. Currently still requiring IV pressors but improving. 3. PNEUMONIA, PSEUDOMONAS AND MRSA AND PROTEUS MIRABILIS AND CORYNEBACTERIUM STRIATUM. PLAN/RECOMMENDATION: 1. Continue to titrate FiO2 to keep the saturation to 91-94%. 2. We will hold gentamicin for the rest of the gentamicin today and repeat the gentamicin trough tonight and reevaluate dose, and may consider repeating the gentamicin trough also tomorrow morning at 7. 3. We are planning to do a vancomycin trough tomorrow morning at 7 a.m. DICTATING PHYSICIAN: MAGDI LAGUNA MD,BRISA,MPH [id number] PHY#: [id number] ID: [id number] JOB#: [id number] ACCT: [id number] cc: > MTDD
[2018-05-14] MEDS: GENTAMICIN SULFATE 80 MG in DEXTROSE 5%-WATER 100 ML IV SCH (14:18)
--- NOTE | 2018-05-14 20:16 | PDOC PROGRESS REPORT ---
Subjective Progress Note for:: 05/14/18 Subjective:: Patient is sedated and intubated. Apparently he is unresponsive at baseline. He is having a lot of oropharyngeal secretions. Reason For Visit: ACUTE RESP FAILURE SEPSIS PNA Physical Exam Vital Signs: Temp Pulse Resp BP Pulse Ox 97.7 F 95 12 107/65 97 05/14/18 19:44 05/14/18 18:00 05/14/18 18:01 05/14/18 18:00 05/14/18 18:01 Intake & Output 05/13/18 05/14/18 05/15/18 06:59 06:59 06:59 Intake Total 5285 4970 2496 Output Total 5200 1540 2920 Balance 85 420 -424 Weight 69.3 kg 70.6 kg General appearance: PRESENT: other - Sedated and intubated, disheveled. Apparently when the sedation is reduced his eyes tear up. Head exam: PRESENT: atraumatic, normocephalic, other - He has evidence of pressure sore scars on both sides of his face under his chin Respiratory exam: PRESENT: clear to auscultation mirian, unlabored. ABSENT: accessory muscle use, crackles, rhonchi, wheezes Cardiovascular exam: PRESENT: RRR. ABSENT: diastolic murmur, systolic murmur Vascular exam: PRESENT: normal capillary refill GI/Abdominal exam: PRESENT: diminished bowel sounds, soft. ABSENT: ascites, guarding, rebound, tenderness Extremities exam: PRESENT: other - He has evidence of muscle contractures in all of his extremities. His left foot is chronically externally rotated and everted. He has evidence of healed pressure sore scars on both sides of both feet. Results Laboratory Results: 05/14/18 05:25 05/14/18 05:25 05/14/18 05/14/18 05:25 05:25 WBC 11.4 H RBC 2.76 L Hgb 8.4 L Hct 25.2 L MCV 91 MCH 30.3 MCHC 33.1 RDW 17.2 H Plt Count 325 Seg Neutrophils % Not Reportable Lymphocytes % Not Reportable Monocytes % Not Reportable Eosinophils % Not Reportable Basophils % Not Reportable Absolute Neutrophils Not Reportable Absolute Lymphocytes Not Reportable Absolute Monocytes Not Reportable Absolute Eosinophils Not Reportable Absolute Basophils Not Reportable Sodium 150.3 H Potassium 3.5 L Chloride 110 H Carbon Dioxide 27 Anion Gap 13 BUN 20 Creatinine 0.53 Est GFR ( Amer) > 60 Est GFR (Non-Af Amer) > 60 Glucose 118 H Calcium 8.3 L 05/09/18 18:42 Bronchial Washings Fungal Smear - Final 05/09/18 18:42 Bronchial Washings Fungal Smear - Final 05/08/18 22:38 Blood Blood Culture - Final NO GROWTH IN 5 DAYS 05/08/18 22:31 Blood Blood Culture - Final NO GROWTH IN 5 DAYS 05/08/18 22:22 Blood Blood Culture - Final NO GROWTH IN 5 DAYS 05/08/18 20:53 Blood Blood Culture - Final NO GROWTH IN 5 DAYS Impressions: Abdomen X-Ray 05/07/18 06:26 IMPRESSION: 1. Nonobstructive bowel gas pattern. 2. Gastrostomy tube overlying the stomach. 2010 [employer]- All Rights Reserved KUB X-Ray 05/09/18 00:00 IMPRESSION: Nasogastric tube tip and side port in the stomach. Chest X-Ray 05/14/18 00:48 IMPRESSION: No significant change. Assessment & Plan - Diagnosis (1) Acute respiratory failure with hypoxemia Is this a current diagnosis for this admission?: Yes Plan: He does stable on the vent settings but whenever we try to wean him he fails. Because of the severity of his MS, I will think we are going to be able to get him off the ventilator. His is coming by tomorrow and I am going to try to catch her while she is here so I can have a conversation with her about his prognosis. (2) Severe sepsis Is this a current diagnosis for this admission?: Yes Plan: Continuing broad-spectrum antibiotics. (3) Pneumonia Qualifiers: Pneumonia type: aspiration pneumonia Aspiration pneumonia type: unspecified Laterality: right Lung location: lower lobe of lung Qualified Code(s): J69.0 - Pneumonitis due to inhalation of food and vomit Is this a current diagnosis for this admission?: Yes Plan: Broad-spectrum antibiotics as noted above. Cultures are pending. (4) Multiple sclerosis Is this a current diagnosis for this admission?: Yes Plan: He has had severe progressive functional decline for some time. Apparently he is unresponsive at baseline and cannot move. As noted above, I am going to talk to his tomorrow. - Time Time Spent with patient: 35 or more minutes
[2018-05-14] MEDS ORDERED: PIPERACILLIN/TAZOBACTAM 3.375 GM VIAL IV SCH (22:00)
[2018-05-14] MEDS: QUETIAPINE FUMARATE 25 MG TABLET PEG SCH (22:30)
--- NOTE | 2018-05-14 23:55 | CONSULTATION REPORT E ---
Consultation Report NAME: VALENTE MOJICA : 1975 AGE: 43Y DATE: 05/14/2018 606 A TO: CATHY SUBRAMANIAN PA-C FROM: MASOUD DIXON M.D. Requesting Physician CHIEF COMPLAINT: Pump evaluation. HISTORY OF PRESENT ILLNESS: This is a 43-year-old male that we have been consulted for to manage his current pump refill. Patient is currently intubated and sedated so unable to provide any type of information or medication history. Noted, he is currently using a Baclofen intrathecal pump for chronic spasticity secondary to multiple sclerosis. Previously was being managed by [facility] physician in Neurology prior to his hospitalization. Pump has been refilled consistently but it was seems that he was due for a refill last week but unable to obtain due to being hospitalized. Noted that we were being consulted for the possibility of this pump being depleted, so we were asked to review and assist with refilling his pump if at all possible. REVIEW OF SYSTEMS: Patient is sedated and intubated so unable to obtain. FAMILY HISTORY: As per chart. PAST MEDICAL HISTORY: As per chart. SOCIAL HISTORY: As per chart. MEDICATIONS: As per chart. PHYSICAL EXAMINATION: VITAL SIGNS: Seem to be stable, within normal limits. GENERAL: The patient is sedated and intubated for physical exam. ABDOMEN: Noted by a lower quadrant with a palpable intrathecal pump without any noticed swelling, erythema or other abnormalities. PROCEDURE: Pump analyzed and analysis was completed with [employer] SynchroMed II pump analyzer. The pump data indicated that he has about 1-day Baclofen left in his pump for medication use at the current rate in which he is using it. He is near reservoir depletion. It looks like his alarm has been activated since May 09, 2018. The residual volume is about 0.6 mL of Baclofen at 2000 mcg/mL dispersed at a rate of 564.2 mcg per day. Noted that his pump is due for complete surgical replacement in about 10 months. A copy of the interrogation will be available in the patient's chart for viewing as well. ASSESSMENT: Low Baclofen intrathecal pump. PLAN: 1. Will submit for medication refill via the hospital pharmacy for intrathecal Baclofen 2000 mcg/mL, dispense 40 mL for spinal use only. 2. Advise the use of Baclofen 20 mg via feeding tube every 6 hours for now. 3. Noted concern and will need to monitor for malignant hyperthermia and withdrawal side effects from Baclofen depletion. 4. Will schedule for pump refill once contacted by pharmacy that the pump medication is available for refill. 5. Please feel free to contact us in the office with any questions or concerns. Thank you for the opportunity in assisting with the care of this patient. DICTATING PHYSICIAN: CATHY SUBRAMANIAN PA-C [id number] PHY#: [id number] ID: [id number] JOB#: [id number] ACCT: [id number] cc:CATHY SUBRAMANIAN PA-C > MTDD
[2018-05-15] MEDS: BACLOFEN 20 MG TABLET PEG SCH ×4 (00:59→17:23)
[2018-05-15] MEDS: GENTAMICIN SULFATE 80 MG in DEXTROSE 5%-WATER 100 ML IV SCH ×2 (00:59→13:34)
[2018-05-15] MEDS: FENTANYL CITRATE INJ/PF 100 MCG/2 ML AMPUL IV PRN (02:26)
--- NOTE | 2018-05-15 04:40 | PROGRESS NOTE E ---
Progress Note NAME: VALENTE MOJICA : 1975 AGE: 43Y DATE: 05/14/2018 ROOM: 606 SUBJECTIVE: The patient is a 43-year-old -[place] male with a history of acute respiratory failure requiring invasive mechanical ventilation, bilateral pneumonia, multilobar, right greater than left, with multiple atelectases, status post bronchoscopy with improvement of the atelectasis; septic shock, and history of severe multiple sclerosis. The patient appeared to be doing well in the last 24 hours. Blood pressure has been still on the low side, still requiring IV Levophed. Still has profuse endotracheal tube secretions requiring suctioning every 1-2 hours per patient's ICU nurse. No vomiting. The patient tolerated G-tube feeding at 15 mL/h. No diarrhea noted. No fever noted. The patient's saturation is 99% to 100% on FiO2 of 35%. OBJECTIVE: GENERAL: The patient is sedated, afebrile, not in apparent distress, with a temperature 98.1, with a T-max of 98.5. Blood pressure is 107/65, heart rate of 63, respiratory rate is 12. Saturation is 97% on SIMV rate of 12, tidal volume of 500, pressure support of 10, PEEP of 5, and FiO2 of 35% EYES: No jaundice or pallor. EARS, NOSE, AND THROAT: No ear drainage noted. No nasal discharge. Oral tracheal tube is in place. CHEST AND LUNGS: No wheezing. No rhonchi. Coarse crackles. CARDIOVASCULAR: S1, S2 distant. Normal rate, regular rhythm. ABDOMEN: Flabby. Positive bowel sounds. Soft, nondistended, nontender. EXTREMITIES: No joint swelling and no cellulitis. LABORATORY: CBC done today showed white of 11.4, compared to yesterday 10.9. Hemoglobin is 8.4. Hematocrit is 35.2. Platelet count is 235. No bands noted. Chemistry showed sodium of 150, potassium is 3.5, chloride 110, CO2 is 37, BUN is 20, creatinine 0.53, glucose 118, and calcium 3.3. The gentamicin trough at 8:00 this morning was 2 mcg/mL. Gentamicin was started this morning. The vancomycin trough at 8:00 this morning was 37.9, so vancomycin still withheld. Will repeat the trough again tomorrow morning. The patient was started on Zosyn. The Zosyn IV orders today. ASSESSMENT: 1. ACUTE RESPIRATORY FAILURE REQUIRING INTUBATION AND MECHANICAL VENTILATION. The patient is not able to be extubated, still hypotensive, and shocky. 2. PNEUMONIA, BILATERAL, RIGHT GREATER THAN LEFT, STATUS POST MASSIVE ATELECTASIS RIGHT SIDE, STATUS POST BRONCHOSCOPY. Appear to be improving. 3. SEVERE MULTIPLE SCLEROSIS. PLAN/RECOMMENDATIONS: 1. Will continue IV vancomycin, IV Zosyn, and IV gentamicin. We are holding the vancomycin IV for now because of a high vancomycin trough level. We will plan to resume it tomorrow if the vancomycin trough goes down below 20. Will resume the gentamicin IV at 80 mg IV piggyback q. 12 hours. We will check the gentamicin trough sometime tomorrow evening or tomorrow, Sunday, or morning, and we will continue the IV Zosyn. 2. Will order sedation vacation and spontaneous breathing trial, every morning. 3. I will start spontaneous breathing trial tomorrow morning. DICTATING PHYSICIAN: MAGDI LAGUNA MD,BRISA,MPH [id number] PHY#: [id number] ID: [id number] JOB#: [id number] ACCT: [id number] cc: > MTDD
[2018-05-15] MEDS: HEPARIN SOD (PORCINE) 5,000 UNIT/ML 1 ML SYRINGE SUBCUT SCH ×3 (05:16→21:41)
[2018-05-15] MEDS: PIPERACILLIN SODIUM/TAZOBACTAM 3.375 GM in NORMAL SALINE 100 ML IV SCH ×3 (05:17→21:41)
[2018-05-15] MEDS: PROPOFOL 1,000 MG/100 ML INFUS..BTL IV PRN ×2 (05:17→14:30)
[2018-05-15] MEDS: DEXTROSE 5%-WATER 1000 ML 1,000 ML IV PRN ×2 (05:17→17:24)
[2018-05-15] MEDS: FAMOTIDINE INJ/PF 20 MG/2 ML SDV IV SCH ×2 (05:17→17:23)
[2018-05-15] MEDS: DEXTROSE 5%-WATER 250 ML with NOREPINEPHRINE BITARTRATE 4 MG IV PRN ×2 (05:18)
[2018-05-15 05:51] LABS: ARTERIAL BLOOD BASE EXCESS 4.3 mmol/L; ARTERIAL BLOOD FIO2 30%; ARTERIAL BLOOD H2CO3 1.44 mmol/L (1.05-1.35); ARTERIAL BLOOD HCO3 29.5 mmol/L (20-26); ARTERIAL BLOOD O2 SATURATION 95.9 % (94-98); ARTERIAL BLOOD PCO2 47.8 mmHg (35-45); ARTERIAL BLOOD PH 7.41 (7.35-7.45); ARTERIAL BLOOD PO2 80.9 mmHg (80-100)
[2018-05-15 06:06] LABS: ALBUMIN 2.6 g/dL (3.5-5.0); ANION GAP 10 (5-19); BLOOD UREA NITROGEN 21 mg/dL (7-20); CARBON DIOXIDE 30 mmol/L (22-30); CHLORIDE 107 mmol/L (98-107); GLUCOSE 107 mg/dL (75-110); PHOSPHORUS 4.8 mg/dL (2.5-4.5); POTASSIUM 3.5 mmol/L (3.6-5.0); SODIUM 147.3 mmol/L (137-145); TOTAL PROTEIN 6.5 g/dL (6.3-8.2)
[2018-05-15 06:07] LABS: ALANINE AMINOTRANSFERASE 55 U/L (21-72); ALKALINE PHOSPHATASE 202 U/L (38-126); ASPARTATE AMINO TRANSFERASE 56 U/L (17-59); BILIRUBIN,DIRECT 0.4 mg/dL (0.0-0.4); BILIRUBIN,TOTAL 0.4 mg/dL (0.2-1.3); CALCIUM 8.3 mg/dL (8.4-10.2)
[2018-05-15 06:08] LABS: HEMATOCRIT 25.8 % (37.9-51.0); HEMOGLOBIN 8.5 g/dL (13.5-17.0); MEAN CORPUSCULAR HEMOGLOBIN 29.9 pg (27.0-33.4); MEAN CORPUSCULAR HGB CONC 32.9 g/dL (32.0-36.0); MEAN CORPUSCULAR VOLUME 91 fl (80-97); PLATELET COUNT 334 10^3/uL (150-450); RED BLOOD COUNT 2.84 10^6/uL (4.35-5.55); RED CELL DISTRIBUTION WIDTH 17.1 % (11.5-14.0); WHITE BLOOD COUNT 16.6 10^3/uL (4.0-10.5)
[2018-05-15 06:09] LABS: VANCOMYCIN,TROUGH 18.8 ug/mL (5.0-20.0)
[2018-05-15 06:40] LABS: ABSOLUTE LYMPHOCYTES# (MANUAL) 2.2 10^3/uL (0.5-4.7); ABSOLUTE MONOCYTES # (MANUAL) 0.5 10^3/uL (0.1-1.4); ABSOLUTE NEUTROPHILS# (MANUAL) 13.1 10^3/uL (1.7-8.2); BASOPHILS % (MANUAL) 0 % (0-2); EOSINOPHILS % (MANUAL) 5 % (0-6); LYMPHOCYTES % (MANUAL) 13 % (13-45); MONOCYTES % (MANUAL) 3 % (3-13); SEGMENTED NEUTROPHILS % (MAN) 79 % (42-78); TOTAL CELLS COUNTED 100
[2018-05-15 06:42] LABS: PLATELET COMMENT ADEQUATE; POIKILOCYTOSIS 1+; TARGET CELLS 1+
[2018-05-15 06:43] LABS: HYPOCHROMASIA SLIGHT
[2018-05-15 06:44] LABS: ANISOCYTOSIS 1+
[2018-05-15] MEDS: IPRATROPIUM/ALBUTEROL 0.5-2.5 MG/3 ML AMPUL NEB SCH ×2 (08:42→20:07)
[2018-05-15] MEDS: POLYETHYLENE GLYCOL 3350 POWDER 17 GM/1 PACKET PEG SCH (09:27)
[2018-05-15] MEDS: SERTRALINE HCL 50 MG TABLET PEG SCH (10:09)
[2018-05-15] MEDS: PHENYTOIN 100 MG/4 ML SUSP GT SCH ×2 (10:10→17:23)
[2018-05-15] MEDS: LEVETIRACETAM ORAL SOLN 500 MG/5 ML UDCUP PEG SCH ×2 (10:10→21:41)
[2018-05-15] MEDS ORDERED: VANCOMYCIN HCL INJ 1000 MG VIAL IV SCH (13:15)
[2018-05-15] MEDS: VANCOMYCIN HCL 500 MG in DEXTROSE 5%-WATER 100 ML IV SCH (17:23)
--- NOTE | 2018-05-15 20:24 | PDOC PROGRESS REPORT ---
Subjective Progress Note for:: 05/15/18 Subjective:: He remains sedated and intubated. His blood pressure got a little low last night but apparently he got some fentanyl and this probably caused it. Whatever the case, he got put on some Levophed were able to wean him off of that this morning as it was a very low dose and his blood pressures are doing fine without it. Reason For Visit: ACUTE RESP FAILURE SEPSIS PNA Physical Exam Vital Signs: Temp Pulse Resp BP Pulse Ox 97.5 F 59 L 12 101/67 100 05/15/18 19:42 05/15/18 17:53 05/15/18 18:12 05/15/18 18:12 05/15/18 18:12 Intake & Output 05/14/18 05/15/18 05/16/18 06:59 06:59 06:59 Intake Total 4970 4975 1693 Output Total 4550 4895 2405 Balance 420 80 -712 Weight 70.6 kg 69 kg General appearance: PRESENT: disheveled, other - Head, intubated, loss of oral secretions. Head exam: PRESENT: atraumatic, normocephalic Respiratory exam: PRESENT: clear to auscultation mirian, other - When his respiratory rate was turned down to 2, he was only breathing about 6 or 7 times a minute on his own. ABSENT: rales, rhonchi, wheezes Cardiovascular exam: PRESENT: RRR. ABSENT: diastolic murmur, rubs, systolic murmur Vascular exam: PRESENT: normal capillary refill GI/Abdominal exam: PRESENT: normal bowel sounds, soft, other - PEG tube is in place, site appears clean dry and intact. ABSENT: distended, guarding, mass, organolmegaly, rebound, tenderness Extremities exam: PRESENT: other - He has muscle contractures in all of his extremities and he has evidence of old pressure sores with overlying scar on both of his lower extremities Results Laboratory Results: 05/15/18 05:25 05/15/18 05:25 05/15/18 05/15/18 05/15/18 05:25 05:25 05:25 WBC 16.6 H RBC 2.84 L Hgb 8.5 L Hct 25.8 L MCV 91 MCH 29.9 MCHC 32.9 RDW 17.1 H Plt Count 334 Seg Neutrophils % Not Reportable Lymphocytes % Not Reportable Monocytes % Not Reportable Eosinophils % Not Reportable Basophils % Not Reportable Absolute Neutrophils Not Reportable Absolute Lymphocytes Not Reportable Absolute Monocytes Not Reportable Absolute Eosinophils Not Reportable Absolute Basophils Not Reportable Carbonic Acid 1.44 H HCO3/H2CO3 Ratio 20:1 ABG pH 7.41 ABG pCO2 47.8 H ABG pO2 80.9 ABG HCO3 29.5 H ABG O2 Saturation 95.9 ABG Base Excess 4.3 FiO2 30% Sodium 147.3 H Potassium 3.5 L Chloride 107 Carbon Dioxide 30 Anion Gap 10 BUN 21 H Creatinine 0.60 Est GFR ( Amer) > 60 Est GFR (Non-Af Amer) > 60 Glucose 107 Calcium 8.3 L Phosphorus 4.8 H Magnesium 1.7 Total Bilirubin 0.4 AST 56 ALT 55 Alkaline Phosphatase 202 H Total Protein 6.5 Albumin 2.6 L Impressions: Abdomen X-Ray 05/07/18 06:26 IMPRESSION: 1. Nonobstructive bowel gas pattern. 2. Gastrostomy tube overlying the stomach. 2010 [employer]- All Rights Reserved KUB X-Ray 05/09/18 00:00 IMPRESSION: Nasogastric tube tip and side port in the stomach. Chest X-Ray 05/14/18 00:48 IMPRESSION: No significant change. Assessment & Plan - Diagnosis (1) Acute respiratory failure with hypoxemia Is this a current diagnosis for this admission?: Yes Plan: Still intubated. I do not think he can be able to come off the ventilator. Pulmonology been consulted for vent management. (2) Severe sepsis Is this a current diagnosis for this admission?: Yes Plan: I think a lot of his blood pressure issues have to do with his sedation and any other medications he gets. I think he probably tends to run a baseline low blood pressure. He is being treated empirically regardless. (3) Pneumonia Qualifiers: Pneumonia type: aspiration pneumonia Aspiration pneumonia type: unspecified Laterality: right Lung location: lower lobe of lung Qualified Code(s): J69.0 - Pneumonitis due to inhalation of food and vomit Is this a current diagnosis for this admission?: Yes Plan: He continues on antibiotic therapy. (4) Multiple sclerosis Is this a current diagnosis for this admission?: Yes Plan: He has had severe progressive functional decline for some time. Apparently he is unresponsive at baseline and cannot move. As noted above, I am going to talk to his tomorrow. - Time Time Spent with patient: 35 or more minutes Total Critical Time (Minutes): 25 Medications reviewed and adjusted accordingly: Yes
[2018-05-15] MEDS: QUETIAPINE FUMARATE 25 MG TABLET PEG SCH (21:41)
[2018-05-16] MEDS: BACLOFEN 20 MG TABLET PEG SCH ×4 (00:43→16:56)
[2018-05-16] MEDS: GENTAMICIN SULFATE 80 MG in DEXTROSE 5%-WATER 100 ML IV SCH (00:56)
[2018-05-16 01:31] LABS: GENTAMICIN-TROUGH 3.5 ug/mL (<2.0)
[2018-05-16 03:33] LABS: GENTAMICIN-PEAK 7.8 ug/mL (5.0-10.0)
[2018-05-16] MEDS: FAMOTIDINE INJ/PF 20 MG/2 ML SDV IV SCH ×2 (06:12→16:57)
[2018-05-16] MEDS: DEXTROSE 5%-WATER 1000 ML 1,000 ML IV PRN ×2 (06:15→16:27)
[2018-05-16] MEDS: HEPARIN SOD (PORCINE) 5,000 UNIT/ML 1 ML SYRINGE SUBCUT SCH ×3 (06:20→21:12)
[2018-05-16] MEDS: PIPERACILLIN SODIUM/TAZOBACTAM 3.375 GM in NORMAL SALINE 100 ML IV SCH ×3 (06:25→21:11)
[2018-05-16] MEDS: IPRATROPIUM/ALBUTEROL 0.5-2.5 MG/3 ML AMPUL NEB SCH ×2 (08:19→19:58)
[2018-05-16] MEDS: PHENYTOIN 100 MG/4 ML SUSP GT SCH ×2 (11:00→18:30)
[2018-05-16] MEDS: LEVETIRACETAM ORAL SOLN 500 MG/5 ML UDCUP PEG SCH ×2 (11:00→21:10)
[2018-05-16] MEDS: SERTRALINE HCL 50 MG TABLET PEG SCH (11:07)
[2018-05-16] MEDS: SCOPOLAMINE HYDROBROMIDE 1.5 MG PATCH.TD72 TD SCH (11:07)
[2018-05-16] MEDS: POLYETHYLENE GLYCOL 3350 POWDER 17 GM/1 PACKET PEG SCH (11:08)
[2018-05-16 12:21] LABS: HEMATOCRIT 24.6 % (37.9-51.0); HEMOGLOBIN 8.1 g/dL (13.5-17.0); MEAN CORPUSCULAR HEMOGLOBIN 30.2 pg (27.0-33.4); MEAN CORPUSCULAR HGB CONC 33.1 g/dL (32.0-36.0); MEAN CORPUSCULAR VOLUME 91 fl (80-97); PLATELET COUNT 351 10^3/uL (150-450); RED CELL DISTRIBUTION WIDTH 16.8 % (11.5-14.0)
[2018-05-16 12:36] LABS: ANION GAP 11 (5-19); BLOOD UREA NITROGEN 20 mg/dL (7-20); CALCIUM 8.3 mg/dL (8.4-10.2); CARBON DIOXIDE 30 mmol/L (22-30); CHLORIDE 106 mmol/L (98-107); GLUCOSE 115 mg/dL (75-110); POTASSIUM 3.5 mmol/L (3.6-5.0); SODIUM 146.6 mmol/L (137-145)
[2018-05-16 12:48] LABS: ABSOLUTE LYMPHOCYTES# (MANUAL) 1.7 10^3/uL (0.5-4.7); ABSOLUTE MONOCYTES # (MANUAL) 0.3 10^3/uL (0.1-1.4); ABSOLUTE NEUTROPHILS# (MANUAL) 12.8 10^3/uL (1.7-8.2); BASOPHILS % (MANUAL) 0 % (0-2); EOSINOPHILS % (MANUAL) 2 % (0-6); LYMPHOCYTES % (MANUAL) 11 % (13-45); MONOCYTES % (MANUAL) 2 % (3-13); SEGMENTED NEUTROPHILS % (MAN) 81 % (42-78); TOTAL CELLS COUNTED 100
[2018-05-16 12:50] LABS: MYELOCYTES % (MANUAL) 1 % (0); TOXIC GRANULATION SLIGHT; TOXIC VACUOLATION PRESENT
[2018-05-16 12:51] LABS: ANISOCYTOSIS SLIGHT; HYPOCHROMASIA SLIGHT; PLATELET COMMENT ADEQUATE; ROULEAUX SLIGHT
[2018-05-16 12:57] LABS: METAMYELOCYTES % (MANUAL) 3 % (0)
[2018-05-16] MEDS: FENTANYL CITRATE INJ/PF 100 MCG/2 ML AMPUL IV PRN (16:57)
[2018-05-16] MEDS: VANCOMYCIN HCL 500 MG in DEXTROSE 5%-WATER 100 ML IV SCH (16:57)
--- NOTE | 2018-05-16 18:14 | PDOC PROGRESS REPORT ---
Subjective Progress Note for:: 05/16/18 Subjective:: He remains sedated and intubated. His blood pressure got a little low last night and it looks like this happens whenever his sedation is turned up. He is on low-dose propofol right now and looks calm with a good blood pressure and his Levophed is off. He remains afebrile. Reason For Visit: ACUTE RESP FAILURE SEPSIS PNA Physical Exam Vital Signs: Temp Pulse Resp BP Pulse Ox 99.2 F 97 22 H 109/64 97 05/16/18 16:00 05/16/18 16:00 05/16/18 16:00 05/16/18 16:00 05/16/18 16:50 Intake & Output 05/15/18 05/16/18 05/17/18 06:59 06:59 06:59 Intake Total 4975 4154 Output Total 4891 4255 1655 Balance 80 -101 -1655 Weight 69 kg 68.7 kg General appearance: PRESENT: other - Sedated, intubated Head exam: PRESENT: atraumatic - Previously noted areas of healed pressure sores on his head and neck, normocephalic Respiratory exam: PRESENT: clear to auscultation mirian, other - When his respiratory rate is turned down his own generated respiratory rate eventually start to dwindle down as well. ABSENT: rales, rhonchi, wheezes Cardiovascular exam: PRESENT: RRR. ABSENT: diastolic murmur, rubs, systolic murmur GI/Abdominal exam: PRESENT: normal bowel sounds, soft, other - PEG tube site is unremarkable. ABSENT: distended, guarding, mass, organolmegaly, rebound, tenderness Extremities exam: PRESENT: calf tenderness, other - Has areas of scars from healed pressure sores on both feet, muscle contractures in both lower extremities, evidence of muscle wasting along with chronic internal rotation of the left foot. ABSENT: pedal edema Results Laboratory Results: 05/16/18 11:50 05/16/18 11:50 05/16/18 05/16/18 11:50 11:50 WBC 15.0 H RBC 2.70 L Hgb 8.1 L Hct 24.6 L MCV 91 MCH 30.2 MCHC 33.1 RDW 16.8 H Plt Count 351 Seg Neutrophils % Not Reportable Lymphocytes % Not Reportable Monocytes % Not Reportable Eosinophils % Not Reportable Basophils % Not Reportable Absolute Neutrophils Not Reportable Absolute Lymphocytes Not Reportable Absolute Monocytes Not Reportable Absolute Eosinophils Not Reportable Absolute Basophils Not Reportable Sodium 146.6 H Potassium 3.5 L Chloride 106 Carbon Dioxide 30 Anion Gap 11 BUN 20 Creatinine 0.66 Est GFR ( Amer) > 60 Est GFR (Non-Af Amer) > 60 Glucose 115 H Calcium 8.3 L Impressions: Abdomen X-Ray 05/07/18 06:26 IMPRESSION: 1. Nonobstructive bowel gas pattern. 2. Gastrostomy tube overlying the stomach. 2010 [employer]- All Rights Reserved KUB X-Ray 05/09/18 00:00 IMPRESSION: Nasogastric tube tip and side port in the stomach. Chest X-Ray 05/14/18 00:48 IMPRESSION: No significant change. Assessment & Plan - Diagnosis (1) Acute respiratory failure with hypoxemia Is this a current diagnosis for this admission?: Yes Plan: Still intubated. I do not think he can be able to come off the ventilator. Pulmonology been consulted for vent management. (2) Severe sepsis Is this a current diagnosis for this admission?: Yes Plan: I think a lot of his blood pressure issues have to do with his sedation and any other medications he gets. I think he probably tends to run a baseline low blood pressure. He is being treated empirically regardless. (3) Pneumonia Qualifiers: Pneumonia type: aspiration pneumonia Aspiration pneumonia type: unspecified Laterality: right Lung location: lower lobe of lung Qualified Code(s): J69.0 - Pneumonitis due to inhalation of food and vomit Is this a current diagnosis for this admission?: Yes Plan: He continues on antibiotic therapy. (4) Multiple sclerosis Is this a current diagnosis for this admission?: Yes Plan: He has had severe progressive functional decline for some time. Apparently he is unresponsive at baseline and cannot move. Plan on speaking to his this evening.
[2018-05-16] MEDS: DEXTROSE 5%-WATER 250 ML with NOREPINEPHRINE BITARTRATE 4 MG IV PRN ×2 (18:31)
[2018-05-16] MEDS: PROPOFOL 1,000 MG/100 ML INFUS..BTL IV PRN (19:33)
[2018-05-16] MEDS: GENTAMICIN SULFATE 110 MG in DEXTROSE 5%-WATER 100 ML IV SCH (21:11)
[2018-05-16] MEDS: QUETIAPINE FUMARATE 25 MG TABLET PEG SCH (21:11)
[2018-05-17] MEDS: BACLOFEN 20 MG TABLET PEG SCH ×4 (00:22→18:17)
[2018-05-17] MEDS: FENTANYL CITRATE INJ/PF 100 MCG/2 ML AMPUL IV PRN ×2 (04:30→21:13)
[2018-05-17] MEDS: DEXTROSE 5%-WATER 1000 ML 1,000 ML IV PRN ×2 (05:06→15:21)
[2018-05-17] MEDS: FAMOTIDINE INJ/PF 20 MG/2 ML SDV IV SCH ×2 (05:27→18:21)
[2018-05-17] MEDS: PIPERACILLIN SODIUM/TAZOBACTAM 3.375 GM in NORMAL SALINE 100 ML IV SCH ×3 (05:27→21:08)
[2018-05-17] MEDS: PROPOFOL 1,000 MG/100 ML INFUS..BTL IV PRN ×2 (05:27→15:21)
[2018-05-17] MEDS: HEPARIN SOD (PORCINE) 5,000 UNIT/ML 1 ML SYRINGE SUBCUT SCH ×3 (05:27→22:19)
[2018-05-17] MEDS: IPRATROPIUM/ALBUTEROL 0.5-2.5 MG/3 ML AMPUL NEB SCH ×2 (08:46→19:36)
[2018-05-17] MEDS: SERTRALINE HCL 50 MG TABLET PEG SCH (09:41)
[2018-05-17] MEDS: PHENYTOIN 100 MG/4 ML SUSP GT SCH ×2 (09:41→18:21)
[2018-05-17] MEDS: LEVETIRACETAM ORAL SOLN 500 MG/5 ML UDCUP PEG SCH ×2 (09:42→22:18)
[2018-05-17] MEDS: POLYETHYLENE GLYCOL 3350 POWDER 17 GM/1 PACKET PEG SCH (09:49)
[2018-05-17 11:20] LABS: PATH REVIEW PATHOLOGIST REVIEWED
[2018-05-17] MEDS ORDERED: BACLOFEN IT PRN ×2 (11:57→12:09)
--- NOTE | 2018-05-17 13:37 | PROGRESS NOTE E ---
Progress Note NAME: VALENTE MOJICA : 1975 AGE: 43Y DATE: 05/16/2018 ROOM: 606 SUBJECTIVE: The patient is a 43-year-old -[place] male who came in with acute respiratory failure requiring invasive mechanical ventilation, multilobar pneumonia, massive atelectasis right lung, status post bronchoscopy, severe septic shock. History of severe multiple sclerosis and hemorrhagic stroke. Currently, patient has been afebrile for the last 24-48 hours. Patient still has perfuse endotracheal tube secretions, purulent, requiring every 1 to 2 hours of suctioning. Patient tolerated the G tube feeding at 16 mL/hr. No vomiting. The patient tolerated spontaneous breating trial for about an hour but then started to become tachypneic and tachycardic, so patient was placed back on SIMV rate of 12. Patient's blood pressure has been improving, now requiring Levophed of 1 mcg/minute. OBJECTIVE: GENERAL: Patient appeared slightly sedated, afebrile. Not in acute respiratory distress. VITAL SIGNS: Temperature pf 98.6 with T-max of 99.2. Heart rate of 93 and blood pressure 101/70, respiratory rate of 17. Saturation is 100 on 30% FiO2, SIMV rate of 12, tidal volume of 500, pressure support of 10 above PEEP, PEEP of 5. Peak airway pressure of 17-18 cm H2O pressure and plateau pressure of 15, minute ventilation is 7-8, and exhaled and inhaled tidal volume of 450-550. EYES: No jaundice or pallor. EARS, NOSE, AND THROAT: No ear drainage noted. No nasal discharge. Oral tracheal tube is in place. CHEST AND LUNGS: No rhonchi, no coarse crackles. CARDIOVASCULAR: S1, S2 is distinct. Normal rate, regular rhythm. ABDOMEN: Flabby, positive bowel sounds, soft, nondistended. EXTREMITIES: No joint swelling or cellulitis. ASSESSMENT: 1. ACUTE RESPIRATORY FAILURE REQUIRING INVASIVE MECHANICAL VENTILATION. Currently appears to be improving. Fi02 decreasing. However, patient still not ready to be extubated. Has profuse endotracheal secretions. 2. MULTILOBAR PNEUMONIA WITH RIGHT MASSIVE ATELECTASIS, IMPROVING. White count is 15,000 but febrile. 3. SEVERE SEPSIS/SEPTIC SHOCK. Currently improving and currently on Levophed 1 mcg/mL. Patient is currently on IV Zosyn, gentamicin and vancomycin. IV vancomycin and gentamicin dose suggested by pharmacy. PLAN/RECOMMENDATION: Family discussion with discharge with today. Resulted to plan for DO NOT RESUSCITATE order and possible palliative care if patient cannot be extubated in 2 weeks time. appeared to be hesitant to have tracheostomy done for the patient. DICTATING PHYSICIAN: MAGDI LAGUNA MD,BRISA,MPH [id number] PHY#: [id number] ID: [id number] JOB#: [id number] ACCT: [id number] cc: > MTDD
--- NOTE | 2018-05-17 16:29 | PDOC PROGRESS REPORT ---
Subjective Progress Note for:: 05/17/18 Subjective:: He remains sedated and intubated. Turned up his sedation again last night he had to go back on Levophed. Vital signs been stable otherwise. He has had no real change in his condition. made him a DNR last night and wants to give him until next week to see if he is going to be able to make any more progress. Reason For Visit: ACUTE RESP FAILURE SEPSIS PNA Physical Exam Vital Signs: Temp Pulse Resp BP Pulse Ox 98.4 F 88 14 114/84 96 05/17/18 16:00 05/17/18 10:00 05/17/18 14:00 05/17/18 13:48 05/17/18 15:32 Intake & Output 05/16/18 05/17/18 05/18/18 06:59 06:59 06:59 Intake Total 4154 5114 Output Total 4255 4260 2950 Balance -101 854 -2950 Weight 68.7 kg 65.7 kg General appearance: PRESENT: no acute distress - Sedated, intubated, disheveled , well-developed Head exam: PRESENT: atraumatic - Evidence of healed pressure sores on his face and chin and neck, normocephalic Respiratory exam: PRESENT: rhonchi - Bibasilar, unlabored. ABSENT: rales, wheezes Cardiovascular exam: PRESENT: RRR. ABSENT: diastolic murmur, rubs, systolic murmur GI/Abdominal exam: PRESENT: normal bowel sounds, soft, other - PEG site is unremarkable. ABSENT: distended, guarding, mass, organolmegaly, rebound, tenderness Extremities exam: PRESENT: other - Some muscle wasting and contractures especially lower extremities, and he has a internal rotation of the left foot which is chronic. ABSENT: calf tenderness, clubbing, pedal edema Neurological exam: ABSENT: alert, awake - Sedated, intubated Results Laboratory Results: 05/16/18 11:50 05/16/18 11:50 05/09/18 18:42 Bronchial Washings Chlamydia pneumoniae (PCR) - Final Impressions: Abdomen X-Ray 05/07/18 06:26 IMPRESSION: 1. Nonobstructive bowel gas pattern. 2. Gastrostomy tube overlying the stomach. 2010 [employer]- All Rights Reserved KUB X-Ray 05/09/18 00:00 IMPRESSION: Nasogastric tube tip and side port in the stomach. Chest X-Ray 05/14/18 00:48 IMPRESSION: No significant change. Assessment & Plan - Diagnosis (1) Acute respiratory failure with hypoxemia Is this a current diagnosis for this admission?: Yes Plan: I told the that they could only leave the ET tube in place for up to 2 weeks. She was given full 2 weeks and then we can try to extubate him at that time and she said "then whatever happens, happens." (2) Severe sepsis Is this a current diagnosis for this admission?: Yes Plan: I think a lot of his blood pressure issues have to do with his sedation and any other medications he gets. I think he probably tends to run a baseline low blood pressure. He is being treated empirically regardless. (3) Pneumonia Qualifiers: Pneumonia type: aspiration pneumonia Aspiration pneumonia type: unspecified Laterality: right Lung location: lower lobe of lung Qualified Code(s): J69.0 - Pneumonitis due to inhalation of food and vomit Is this a current diagnosis for this admission?: Yes Plan: He continues on antibiotic therapy. (4) Multiple sclerosis Is this a current diagnosis for this admission?: Yes Plan: His is made of a DNR. She was to keep him extubated until of next week, at this point it will be 2 weeks and she was agreeable to him being extubated at that time, possibly with hospice services.
[2018-05-17] MEDS: VANCOMYCIN HCL 500 MG in DEXTROSE 5%-WATER 100 ML IV SCH (18:17)
[2018-05-17 19:10] LABS: VANCOMYCIN,TROUGH 12.2 ug/mL (5.0-20.0)
[2018-05-17] MEDS: DEXTROSE 5%-WATER 250 ML with NOREPINEPHRINE BITARTRATE 4 MG IV PRN ×2 (19:57)
[2018-05-17] MEDS: GENTAMICIN SULFATE 110 MG in DEXTROSE 5%-WATER 100 ML IV SCH (22:18)
[2018-05-17] MEDS: QUETIAPINE FUMARATE 25 MG TABLET PEG SCH (22:18)
[2018-05-17 22:26] LABS: GENTAMICIN-TROUGH 1.6 ug/mL (<2.0)
[2018-05-18] MEDS: BACLOFEN 20 MG TABLET PEG SCH ×5 (00:07→23:17)
[2018-05-18] MEDS: FAMOTIDINE INJ/PF 20 MG/2 ML SDV IV SCH ×2 (05:12→17:24)
[2018-05-18] MEDS: PIPERACILLIN SODIUM/TAZOBACTAM 3.375 GM in NORMAL SALINE 100 ML IV SCH ×3 (05:12→21:00)
[2018-05-18] MEDS: DEXTROSE 5%-WATER 1000 ML 1,000 ML IV PRN ×2 (05:13→16:16)
[2018-05-18] MEDS: HEPARIN SOD (PORCINE) 5,000 UNIT/ML 1 ML SYRINGE SUBCUT SCH ×3 (05:15→21:04)
[2018-05-18 06:52] LABS: HEMATOCRIT 24.9 % (37.9-51.0); HEMOGLOBIN 8.3 g/dL (13.5-17.0); MEAN CORPUSCULAR HGB CONC 33.5 g/dL (32.0-36.0); MEAN CORPUSCULAR VOLUME 93 fl (80-97); PLATELET COUNT 427 10^3/uL (150-450); RED BLOOD COUNT 2.69 10^6/uL (4.35-5.55); RED CELL DISTRIBUTION WIDTH 16.9 % (11.5-14.0); WHITE BLOOD COUNT 16.6 10^3/uL (4.0-10.5)
[2018-05-18 07:01] LABS: ANION GAP 13 (5-19); BLOOD UREA NITROGEN 20 mg/dL (7-20); CALCIUM 8.7 mg/dL (8.4-10.2); CARBON DIOXIDE 30 mmol/L (22-30); CHLORIDE 104 mmol/L (98-107); GLUCOSE 120 mg/dL (75-110); POTASSIUM 4.2 mmol/L (3.6-5.0); SODIUM 147.2 mmol/L (137-145)
[2018-05-18 07:51] LABS: ABSOLUTE MONOCYTES # (MANUAL) 0.2 10^3/uL (0.1-1.4); ABSOLUTE NEUTROPHILS# (MANUAL) 13.4 10^3/uL (1.7-8.2); BASOPHILS % (MANUAL) 0 % (0-2); EOSINOPHILS % (MANUAL) 6 % (0-6); LYMPHOCYTES % (MANUAL) 12 % (13-45); MONOCYTES % (MANUAL) 1 % (3-13); SEGMENTED NEUTROPHILS % (MAN) 81 % (42-78); TOTAL CELLS COUNTED 100
[2018-05-18] MEDS: IPRATROPIUM/ALBUTEROL 0.5-2.5 MG/3 ML AMPUL NEB SCH ×2 (07:51→19:41)
[2018-05-18 07:53] LABS: ANISOCYTOSIS 1+; TOXIC GRANULATION 1+
[2018-05-18 07:54] LABS: PLATELET COMMENT ADEQUATE
[2018-05-18] MEDS: POLYETHYLENE GLYCOL 3350 POWDER 17 GM/1 PACKET PEG SCH (09:07)
[2018-05-18] MEDS: PHENYTOIN 100 MG/4 ML SUSP GT SCH ×2 (09:07→17:25)
[2018-05-18] MEDS: LEVETIRACETAM ORAL SOLN 500 MG/5 ML UDCUP PEG SCH ×2 (09:08→21:01)
[2018-05-18] MEDS: SERTRALINE HCL 50 MG TABLET PEG SCH (09:08)
--- NOTE | 2018-05-18 09:29 | RADIOLOGY REPORT (SQ) ---
EXAM DESCRIPTION: CHEST SINGLE VIEW COMPLETED DATE/TIME: 05/18/2018 7:02 am REASON FOR STUDY: massive atelectasis, right lung s/p bronchoscopy COMPARISON: 05/14/2018. FINDINGS: AP portable upright timed approximately 0656 hours. Endotracheal tube appropriate. IJ line remains in place. Other external monitor leads look like art ifact. More rotated to the left, limiting. Persistent right infiltrates, unchanged. No pneumothorax. IMPRESSION: Stable chest, doubt change allowing for differences in technique. TECHNICAL DOCUMENTATION: JOB ID: [id number] Reading location - IP/workstation name: [email or web address]
[2018-05-18] MEDS: DEXTROSE 5%-WATER 250 ML with NOREPINEPHRINE BITARTRATE 4 MG IV PRN ×2 (16:14)
--- NOTE | 2018-05-18 16:55 | PDOC PROGRESS REPORT ---
Subjective Progress Note for:: 05/18/18 Subjective:: No adverse events overnight. His condition is unchanged. He still having to use some Levophed because the propofol for sedation is causing his blood pressure go a little bit low. Reason For Visit: ACUTE RESP FAILURE SEPSIS PNA Physical Exam Vital Signs: Temp Pulse Resp BP Pulse Ox 98.4 F 101 H 14 129/78 H 97 05/18/18 16:14 05/18/18 16:14 05/18/18 16:14 05/18/18 16:14 05/18/18 16:25 Intake & Output 05/17/18 05/18/18 05/19/18 06:59 06:59 06:59 Intake Total 5114 5295 Output Total 4273 5400 1525 Balance 854 -105 -1525 Weight 65.7 kg 64.2 kg General appearance: PRESENT: no acute distress, disheveled, well-developed Respiratory exam: PRESENT: rhonchi - Bilateral. ABSENT: rales, wheezes Cardiovascular exam: PRESENT: RRR. ABSENT: diastolic murmur, rubs, systolic murmur Vascular exam: PRESENT: normal capillary refill GI/Abdominal exam: PRESENT: normal bowel sounds, soft, other - PEG tube site is unremarkable. ABSENT: distended, guarding, mass, organolmegaly, rebound, tenderness Extremities exam: PRESENT: other - He has signs of scarring from healed pressure sores, and he has muscle contractures of the extremities as well mostly in the lower extremities. His left foot is chronically internally rotated. ABSENT: clubbing, pedal edema Neurological exam: PRESENT: other - Sedated, intubated, does not respond to verbal command or noxious stimuli Results Laboratory Results: 05/18/18 06:30 05/18/18 06:30 05/17/18 05/18/18 05/18/18 18:00 06:30 06:30 WBC 16.6 H RBC 2.69 L Hgb 8.3 L Hct 24.9 L MCV 93 MCH 31.0 MCHC 33.5 RDW 16.9 H Plt Count 427 Seg Neutrophils % Not Reportable Lymphocytes % Not Reportable Monocytes % Not Reportable Eosinophils % Not Reportable Basophils % Not Reportable Absolute Neutrophils Not Reportable Absolute Lymphocytes Not Reportable Absolute Monocytes Not Reportable Absolute Eosinophils Not Reportable Absolute Basophils Not Reportable Sodium 147.2 H Potassium 4.2 Chloride 104 Carbon Dioxide 30 Anion Gap 13 BUN 20 Creatinine 0.69 0.78 Est GFR ( Amer) > 60 > 60 Est GFR (Non-Af Amer) > 60 > 60 Glucose 120 H Calcium 8.7 Impressions: Abdomen X-Ray 05/07/18 06:26 IMPRESSION: 1. Nonobstructive bowel gas pattern. 2. Gastrostomy tube overlying the stomach. 2010 [employer]- All Rights Reserved KUB X-Ray 05/09/18 00:00 IMPRESSION: Nasogastric tube tip and side port in the stomach. Chest X-Ray 05/18/18 05:00 IMPRESSION: Stable chest, doubt change allowing for differences in technique. Assessment & Plan - Diagnosis (1) Acute respiratory failure with hypoxemia Is this a current diagnosis for this admission?: Yes Plan: I told the that they could only leave the ET tube in place for up to 2 weeks and then after that the mucosa tends to breakdown. She wants to give him a full 2 weeks and then we can try to extubate him at that time and she said "then whatever happens, happens." (2) Severe sepsis Is this a current diagnosis for this admission?: Yes Plan: I think a lot of his blood pressure issues have to do with his sedation and any other medications he gets. I think he probably tends to run a baseline low blood pressure. He is being treated empirically regardless. (3) Pneumonia Qualifiers: Pneumonia type: aspiration pneumonia Aspiration pneumonia type: unspecified Laterality: right Lung location: lower lobe of lung Qualified Code(s): J69.0 - Pneumonitis due to inhalation of food and vomit Is this a current diagnosis for this admission?: Yes Plan: He continues on antibiotic therapy. (4) Multiple sclerosis Is this a current diagnosis for this admission?: Yes Plan: His has made him a DNR. She wants to keep him intubated until of next week, at this point it will be 2 weeks and she was agreeable to him being extubated at that time, possibly with hospice services. - Time Time Spent with patient: 25-34 minutes Total Critical Time (Minutes): 15 Medications reviewed and adjusted accordingly: Yes
[2018-05-18] MEDS: VANCOMYCIN HCL 500 MG in DEXTROSE 5%-WATER 100 ML IV SCH (17:24)
[2018-05-18] MEDS: QUETIAPINE FUMARATE 25 MG TABLET PEG SCH (21:00)
[2018-05-18] MEDS: GENTAMICIN SULFATE 110 MG in DEXTROSE 5%-WATER 100 ML IV SCH (21:02)
[2018-05-18] MEDS ORDERED: DEXAMETHASONE SOD PHOS INJ 10 MG/1 ML VIAL IV ONE (21:10)
[2018-05-18] MEDS ORDERED: COSYNTROPIN INJ 0.25 MG VIAL ONE (21:20)
[2018-05-18] MEDS ORDERED: COSYNTROPIN INJ 0.25 MG VIAL IV ONE (22:00)
[2018-05-19 00:16] LABS: GENTAMICIN-PEAK 8.2 ug/mL (5.0-10.0)
[2018-05-19] MEDS: BACLOFEN 20 MG TABLET PEG SCH ×3 (05:03→17:11)
[2018-05-19] MEDS: PIPERACILLIN SODIUM/TAZOBACTAM 3.375 GM in NORMAL SALINE 100 ML IV SCH ×3 (05:03→21:51)
[2018-05-19] MEDS: DEXTROSE 5%-WATER 1000 ML 1,000 ML IV PRN ×2 (05:03→13:14)
[2018-05-19] MEDS: HEPARIN SOD (PORCINE) 5,000 UNIT/ML 1 ML SYRINGE SUBCUT SCH ×3 (05:03→21:50)
[2018-05-19] MEDS: FAMOTIDINE INJ/PF 20 MG/2 ML SDV IV SCH ×2 (05:03→17:11)
[2018-05-19 05:33] LABS: ABSOLUTE BASOPHILS # (AUTO) 0.1 10^3/uL (0.0-0.2); ABSOLUTE EOSINOPHILS # (AUTO) 0.1 10^3/uL (0.0-0.6); ABSOLUTE LYMPHOCYTES (AUTO) 1.2 10^3/uL (0.5-4.7); ABSOLUTE MONOCYTES (AUTO) 0.5 10^3/uL (0.1-1.4); ABSOLUTE NEUT (AUTO) 16.5 10^3/uL (1.7-8.2); BASOPHILS % (AUTO) 0.4 % (0-2); EOSINOPHILS % (AUTO) 0.5 % (0-6); HEMATOCRIT 24.2 % (37.9-51.0); HEMOGLOBIN 8.1 g/dL (13.5-17.0); LYMPHOCYTES % (AUTO) 6.7 % (13-45); MEAN CORPUSCULAR HEMOGLOBIN 31.2 pg (27.0-33.4); MEAN CORPUSCULAR HGB CONC 33.4 g/dL (32.0-36.0); MEAN CORPUSCULAR VOLUME 93 fl (80-97); MONOCYTES % (AUTO) 2.9 % (3-13); PLATELET COUNT 419 10^3/uL (150-450); SEGMENTED NEUTROPHILS % (AUTO) 89.5 % (42-78); TOTAL CELLS COUNTED % (AUTO) 100 %; WHITE BLOOD COUNT 18.4 10^3/uL (4.0-10.5)
[2018-05-19 06:20] LABS: ANION GAP 13 (5-19); BLOOD UREA NITROGEN 22 mg/dL (7-20); CALCIUM 8.8 mg/dL (8.4-10.2); CARBON DIOXIDE 31 mmol/L (22-30); CHLORIDE 103 mmol/L (98-107); GLUCOSE 128 mg/dL (75-110); POTASSIUM 3.9 mmol/L (3.6-5.0); SODIUM 147.4 mmol/L (137-145)
[2018-05-19] MEDS: IPRATROPIUM/ALBUTEROL 0.5-2.5 MG/3 ML AMPUL NEB SCH ×2 (08:19→19:44)
[2018-05-19] MEDS: POLYETHYLENE GLYCOL 3350 POWDER 17 GM/1 PACKET PEG SCH (09:34)
[2018-05-19] MEDS: SERTRALINE HCL 50 MG TABLET PEG SCH (09:34)
[2018-05-19] MEDS: LEVETIRACETAM ORAL SOLN 500 MG/5 ML UDCUP PEG SCH ×2 (09:35→21:52)
[2018-05-19] MEDS: SCOPOLAMINE HYDROBROMIDE 1.5 MG PATCH.TD72 TD SCH (09:35)
[2018-05-19] MEDS: PHENYTOIN 100 MG/4 ML SUSP GT SCH ×2 (09:35→17:11)
--- NOTE | 2018-05-19 13:46 | PDOC PROGRESS REPORT ---
Subjective Progress Note for:: 05/19/18 Subjective:: Patient is still intubated and still requiring intermittent Levophed for blood pressure stabilization. He is awake though. His white count appears to be trending down however it seems to be training somewhat up again. It appears new development is that he is a DO NOT RESUSCITATE and the wants to keep him intubated until May 23 and at that point she is agreeable to extubation possibly with hospice services We will continue to monitor patient. Reason For Visit: ACUTE RESP FAILURE SEPSIS PNA Physical Exam Vital Signs: Temp Pulse Resp BP Pulse Ox 97.9 F 91 9 L 104/69 98 05/19/18 12:00 05/19/18 08:21 05/19/18 10:00 05/19/18 09:49 05/19/18 12:10 Intake & Output 05/18/18 05/19/18 05/20/18 06:59 06:59 06:59 Intake Total 5295 4008 Output Total 5400 4000 1085 Balance -105 8 -1085 Weight 64.2 kg 66 kg General appearance: PRESENT: no acute distress, other - Intubated appears to be awake today Mouth exam: PRESENT: dry mucosa Neck exam: ABSENT: carotid bruit, JVD, lymphadenopathy, thyromegaly Respiratory exam: PRESENT: decreased breath sounds, unlabored. ABSENT: tachypnea, wheezes GI/Abdominal exam: PRESENT: normal bowel sounds, soft. ABSENT: distended, guarding, mass, organolmegaly, rebound, tenderness Neurological exam: PRESENT: awake, other - sedated Results Laboratory Results: 05/19/18 05:10 05/19/18 05:10 05/19/18 05/19/18 05:10 05:10 WBC 18.4 H RBC 2.60 L Hgb 8.1 L Hct 24.2 L MCV 93 MCH 31.2 MCHC 33.4 RDW 17.0 H Plt Count 419 Seg Neutrophils % 89.5 H Lymphocytes % 6.7 L Monocytes % 2.9 L Eosinophils % 0.5 Basophils % 0.4 Absolute Neutrophils 16.5 H Absolute Lymphocytes 1.2 Absolute Monocytes 0.5 Absolute Eosinophils 0.1 Absolute Basophils 0.1 Sodium 147.4 H Potassium 3.9 Chloride 103 Carbon Dioxide 31 H Anion Gap 13 BUN 22 H Creatinine 0.84 Est GFR ( Amer) > 60 Est GFR (Non-Af Amer) > 60 Glucose 128 H Calcium 8.8 Impressions: Abdomen X-Ray 05/07/18 06:26 IMPRESSION: 1. Nonobstructive bowel gas pattern. 2. Gastrostomy tube overlying the stomach. 2010 [employer]- All Rights Reserved KUB X-Ray 05/09/18 00:00 IMPRESSION: Nasogastric tube tip and side port in the stomach. Chest X-Ray 05/18/18 05:00 IMPRESSION: Stable chest, doubt change allowing for differences in technique. Assessment & Plan - Diagnosis (1) Hypokalemia Is this a current diagnosis for this admission?: Yes (2) Catheter-associated urinary tract infection Is this a current diagnosis for this admission?: Yes (3) Anemia Qualifiers: Anemia type: iron deficiency Iron deficiency anemia type: chronic blood loss Qualified Code(s): D50.0 - Iron deficiency anemia secondary to blood loss (chronic) Is this a current diagnosis for this admission?: Yes (4) Pneumonia Qualifiers: Pneumonia type: aspiration pneumonia Aspiration pneumonia type: unspecified Laterality: right Lung location: lower lobe of lung Qualified Code(s): J69.0 - Pneumonitis due to inhalation of food and vomit Is this a current diagnosis for this admission?: Yes (5) Severe sepsis Is this a current diagnosis for this admission?: Yes (6) Multiple sclerosis Is this a current diagnosis for this admission?: Yes (7) Decubitus ulcer Qualifiers: Pressure ulcer location: foot, unspecified location Pressure ulcer stage: stage 4 Is this a current diagnosis for this admission?: Yes (8) Sacral decubitus ulcer, stage IV Is this a current diagnosis for this admission?: Yes (9) Presence of intrathecal baclofen pump Is this a current diagnosis for this admission?: Yes (10) Acute respiratory failure with hypoxemia Is this a current diagnosis for this admission?: Yes (11) Hypernatremia Is this a current diagnosis for this admission?: Yes - Time Time Spent with patient: 15-24 minutes Medications reviewed and adjusted accordingly: Yes Anticipated discharge: SNF - Inpatient Certification Based on my medical assessment, after consideration of the patient's comorbidities, presenting symptoms, or acuity I expect that the services needed warrant INPATIENT care.: Yes Medical Necessity: Other - Intubated - Plan Summary Plan Summary: Prognosis poor
--- NOTE | 2018-05-19 14:07 | PROGRESS NOTE E ---
Progress Note NAME: VALENTE MOJICA : 1975 AGE: 43Y DATE: 05/17/2018 ROOM: 606 SUBJECTIVE: The patient is a 43-year-old -[place] female who came in acute respiratory failure requiring invasive mechanical ventilation, septic shock requiring vasopressor, pneumonia multilobar with right massive atelectasis, history of severe multiple sclerosis, and hemorrhagic stroke. The patient has no fever over the last 24 hours. Tolerated the G-tube feeding well. No vomiting noted. No seizures. The patient still has a profuse amount of endotracheal secretions requiring every 2 hour suctioning. Blood pressure has been stable but still requires a Levophed drip of 4 mcg/min. The patient tolerated the spontaneous breathing trial earlier today using SIMV rate of 2, lasting for about 6-7 hours, and virtually placed back to SIMV rate of 12. OBJECTIVE: GENERAL: The patient appeared sedated, afebrile, not in apparent respiratory distress. VITAL SIGNS: With a temperature of 98.8 with a T-max of 99 degrees Fahrenheit. Blood pressure is 111/24, heart rate is 96, respiratory 13, saturation is 93% on FiO2 of 30%, SIMV rate of 12, tidal volume 500, pressure support 10, PEEP of 5 with a peak airway pressure of 19, total pressure of 16, mid ventilation of 7-8 on inhaled tidal volume about 507-600 mL. EYES: No jaundice or pallor. EARS, NOSE, AND THROAT: No ear drainage noted. No nasal discharge. HEAD AND NECK: No scalp swelling. No neck swelling. Orotracheal tube is in place. CHEST AND LUNGS: No wheezing, no rhonchi, no coarse crackles. CARDIOVASCULAR: S1, S2 distinct. Normal rate, regular rhythm. ABDOMEN: Flabby, positive bowel sounds, soft, nondistended. EXTREMITIES: No joint swelling, no cellulitis. LABORATORY DATA: There is no CBC done today. No chemistry. The vancomycin trough was 12.2 today at 6 p.m. ASSESSMENT: 1. ACUTE RESPIRATORY FAILURE REQUIRING INVASIVE MECHANICAL VENTILATION. Currently not ready to be extubated yet. The patient may require a tracheostomy on a long-term basis because of severe multiple sclerosis and inadequate tidal volumes and increased tracheal secretions which may require regular suctioning. 2. PNEUMONIA, MULTILOBAR, BILATERAL. Appeared to be improving. Leukocytosis appeared to be decreasing and afebrile but the patient still has a profuse amount of endotracheal tube secretions which are purulent suggesting acute active infection, sputum culture positive for MRSA, pseudomonas, and Proteus mirabilis and corynebacterium striatum. 3. SEPTIC SHOCK. Still requiring IV Levophed or vasopressors at 4 mcg/min. 4. HISTORY OF SEVERE MULTIPLE SCLEROSIS AND HEMORRHAGIC STROKE. PLAN/RECOMMENDATIONS: 1. Continue IV vancomycin, gentamicin, and Zosyn for entire 2 weeks. 2. We will continue to optimize ventilator support and pressor support and hemodynamic support. 3. We will do a CBC with a differential and chemistry and chest x-ray tomorrow. DICTATING PHYSICIAN: MAGDI LAGUNA MD,BRISA,MPH [id number] [id number] PHY#: [id number] ID: [id number] JOB#: [id number] ACCT: [id number] cc: > MTDD
--- NOTE | 2018-05-19 14:20 | PROGRESS NOTE E ---
Progress Note NAME: VALENTE MOJICA : 1975 AGE: 43Y DATE: 05/18/2018 ROOM: 606 SUBJECTIVE: Patient is a 43-year-old male who came in acute respiratory failure, requiring invasive mechanical ventilation for multilobar pneumonia and septic shock, requiring vasopressors. Patient still requires vasopressor, using Levophed 4 mcg/min. White blood cell count today went up slightly to 16.6 from 15 yesterday. Tolerated G-tube feeding well. Patient still having copious endotracheal tube secretions, currently receiving IV vancomycin, IV gentamicin and IV Zosyn. No vomiting. No fever spike for the last 48 hours. OBJECTIVE: VITAL SIGNS: Patient is currently slightly sedated, afebrile, not in apparent respiratory distress, with a temperature of 98.4 and a T-max of 99.4. Heart rate is 103 to 108. Blood pressure is 109/60. Saturation is 98% on FiO2 of 28%, SIMV of 12, tidal volume 500, pressure support of 10 above PEEP, and PEEP of 5. Peak airway pressure is 17, plateau pressure of 14, MIP ventilation of 7 to 8, and inhaled and exhaled tidal volume of 450 to 250. EYES: No jaundice or pallor. EARS, NOSE AND THROAT: No ear drainage. No nasal discharge. Orotracheal tube is in place. CHEST AND LUNGS: No wheezing, no rhonchi, no coarse crackles. CARDIOVASCULAR: S1, S2 distinct. Normal rate, regular rhythm. ABDOMEN: Flabby. Positive bowel sounds. Soft, nondistended. EXTREMITIES: No joint swelling. No cellulitis. LABORATORY DATA: CBC again today showed white blood count is 16.6, hemoglobin is 8.3, hematocrit is 24.9, platelet count is 427,000. Segments are 81, lymphocytes 12, no bands noted. Chemistry done today showed sodium 147, potassium is 4.2, chloride 104, CO2 is 30, BUN 20, creatinine 0.78. Glucose 120 and calcium is 8.7. Random cortisol level today was 6.7, which is low, causing patient's critical illness. Chest x-ray showed no new infiltrate, no pleural effusion, and stable pulmonary infiltrate, right lung. No pneumothorax. ASSESSMENT: 1. ACUTE RESPIRATORY FAILURE, REQUIRING INVASIVE MECHANICAL VENTILATION. Currently, patient is still not ready to be extubated. Has copious purulent endotracheal tube secretions. 2. PNEUMONIA, MULTILOBAR, MOSTLY RIGHT. Currently appears to be stable radiologically. 3. SEPTIC SHOCK. Still remains hypotensive, requiring vasopressors. Serum cortisol level appeared to be relatively low. 4. HISTORY OF SEVERE MULTIPLE SCLEROSIS AND HEMORRHAGIC STROKE. PLAN/RECOMMENDATIONS: 1. Continue IV antibiotics, IV vancomycin, Zosyn and gentamicin for now. 2. Will give patient dexamethasone 10 mg IV push now and re-do a serum cortisol level 1 hour after the cosyntropin injection, and consider IV hydrocortisone replacement later. 3. Will continue to optimize hemodynamic support. DICTATING PHYSICIAN: MAGDI LAGUNA MD,BRISA,MPH [id number] PHY#: [id number] ID: [id number] JOB#: [id number] ACCT: [id number] cc: > MTDD
[2018-05-19] MEDS: VANCOMYCIN HCL 500 MG in NORMAL SALINE 100 ML IV SCH (17:10)
--- NOTE | 2018-05-19 19:35 | PROGRESS NOTE E ---
Progress Note NAME: VALENTE MOJICA : 1975 AGE: 43Y DATE: 05/19/2018 ROOM: 606 SUBJECTIVE: Patient is a 43-year-old -[place] male, who came in acute respiratory failure, requiring invasive mechanical ventilation; pneumonia, multilobar; septic shock; history of severe multiple sclerosis; hemorrhagic stroke. Patient appeared to be doing well over the last 24 hours. Patient has had no fever over the last 24 to 48 hours. Patient tolerated G-tube feeding well. Patient still has a copious amount of purulent endotracheal secretions, which appear to be slightly better than yesterday. No vomiting noted. Patient is now weaned off of IV Levophed at 0.5 mcg/min. The patient was off propofol drip last night, and appeared to be more awake at this time. Has been doing well on a spontaneous breathing trial using SIMV rate of 2, currently on FiO2 of 25%, saturating above 99%. OBJECTIVE: GENERAL: Patient appeared to be awake, but nonverbal, breathing comfortably. VITAL SIGNS: Afebrile, with a temperature of 97.9, with a T-max of 98.6, blood pressure is 104/69, heart rate of 86, respiratory rate of 12, 13, 14, saturating 98% on FiO2 of 25%. SIMV rate of 2, tidal volume of 500, pressure support of 10 from a PEEP of 5, a peak airway pressure of 17, mid ventilation of 7 to 8, and inhaled and exhaled tidal volume about 450 to 510 mL. EYES: No jaundice or pallor. EARS, NOSE AND THROAT: No ear drainage noted. No nasal discharge. HEAD AND NECK: No neck swelling. Orotracheal tube is in place. No scalp swelling. CHEST AND LUNGS: No wheezing, no rhonchi, no coarse crackles. CARDIOVASCULAR: S1, S2 distinct. No murmur heard. ABDOMEN: Flabby. Positive bowel sounds. Soft, nondistended. EXTREMITIES: No joint swelling. No cellulitis. LABORATORY DATA: CBC done today showed white count up to 18.4 from 16.6, probably due to the dexamethasone given yesterday. Hemoglobin of 8.1 and hematocrit is 24.2, platelet count is 419,000. Chemistry done today showed sodium 147, potassium 3.9, chloride 103, CO2 of 31, BUN 22, creatinine 0.84, glucose 128 and calcium is 8.8. Gentamicin peak at 11:30 last night was 8.2, which is okay, and trough was about 1.6 yesterday, which is okay. Vancomycin 12.2; the day before yesterday, it was 12.2, which is also acceptable. Chest x-ray done yesterday had stable findings. No new infiltrate. No pleural effusion. Endotracheal tube is in place and no signs of pneumothorax. No evidence of a pleural effusion. ASSESSMENT: 1. LEUKOCYTOSIS, SAID TO BE WORSENING, PROBABLY DUE TO IV STEROIDS GIVEN. PNEUMONIA, CONCURRENT OR NEW INFECTION CANNOT BE COMPLETELY EXCLUDED AT THIS TIME. 2. ACUTE RESPIRATORY FAILURE, REQUIRING INVASIVE MECHANICAL VENTILATION. Current appeared to be improving, with an FiO2 requirement of about 55% only, saturating about 98%, but still having profuse endotracheal tube secretions. 3. PNEUMONIA. Seems to be improving, but white count still increasing, uncertain whether it is coming from the lungs or not. The lung sounds okay and sounds normal. Will do a sputum culture today. 4. SEVERE SEPSIS WITH SEPTIC SHOCK. Currently appears to be improving and requiring less IV vasopressor. Currently still on IV vancomycin, gentamicin and Zosyn. 5. WATERY STOOLS APPEAR TO BE FORMING TODAY. Will do a stool test for Clostridium difficile. 6. HISTORY OF SEVERE MULTIPLE SCLEROSIS AND HEMORRHAGIC STROKE. PLAN: Continue IV antibiotics. Will send a sputum for culture today and will do a stool exam for Clostridium difficile also today. Will continue with hemodynamic support and nutritional support. The secretions may be better tomorrow. If the patient is still doing okay, still breathing comfortably, no fever, white count improving, then might schedule the patient for possible extubation in the next few days. I think patient may require a tracheostomy, because of the increased secretions. The patient may also need chronic ventilation and possible placement in a long-term care ventilator facility. DICTATING PHYSICIAN: MAGDI LAGUNA MD,BRISA,MPH [id number] PHY#: [id number] ID: [id number] JOB#: [id number] ACCT: [id number] cc: > [facility]
[2018-05-19] MEDS: GENTAMICIN SULFATE 80 MG in DEXTROSE 5%-WATER 100 ML IV SCH (21:51)
[2018-05-19] MEDS: QUETIAPINE FUMARATE 25 MG TABLET PEG SCH (21:52)
[2018-05-19] MEDS: FENTANYL CITRATE INJ/PF 100 MCG/2 ML AMPUL IV PRN (22:09)
[2018-05-20] MEDS: BACLOFEN 20 MG TABLET PEG SCH ×4 (00:13→17:36)
[2018-05-20] MEDS: HEPARIN SOD (PORCINE) 5,000 UNIT/ML 1 ML SYRINGE SUBCUT SCH ×3 (05:04→22:04)
[2018-05-20] MEDS: DEXTROSE 5%-WATER 1000 ML 1,000 ML IV PRN ×2 (05:05→16:24)
[2018-05-20] MEDS: FAMOTIDINE INJ/PF 20 MG/2 ML SDV IV SCH ×2 (05:05→17:36)
[2018-05-20] MEDS: PIPERACILLIN SODIUM/TAZOBACTAM 3.375 GM in NORMAL SALINE 100 ML IV SCH ×3 (05:05→22:02)
[2018-05-20 05:48] LABS: ARTERIAL BLOOD H2CO3 1.43 mmol/L (1.05-1.35); ARTERIAL BLOOD O2 SATURATION 95.3 % (94-98); ARTERIAL BLOOD PCO2 47.6 mmHg (35-45); ARTERIAL BLOOD PH 7.43 (7.35-7.45); ARTERIAL BLOOD PO2 75.3 mmHg (80-100); ARTERIAL BLOOD TOTAL CO2 32.4 mmol/L (23-27)
[2018-05-20 05:56] LABS: ARTERIAL BLOOD FIO2 28%
[2018-05-20 06:03] LABS: ABSOLUTE BASOPHILS # (AUTO) 0.1 10^3/uL (0.0-0.2); ABSOLUTE EOSINOPHILS # (AUTO) 0.3 10^3/uL (0.0-0.6); ABSOLUTE LYMPHOCYTES (AUTO) 1.4 10^3/uL (0.5-4.7); ABSOLUTE MONOCYTES (AUTO) 0.9 10^3/uL (0.1-1.4); ABSOLUTE NEUT (AUTO) 12.4 10^3/uL (1.7-8.2); ANION GAP 11 (5-19); BASOPHILS % (AUTO) 0.6 % (0-2); BLOOD UREA NITROGEN 21 mg/dL (7-20); CALCIUM 8.4 mg/dL (8.4-10.2); CARBON DIOXIDE 31 mmol/L (22-30); CHLORIDE 104 mmol/L (98-107); EOSINOPHILS % (AUTO) 2.2 % (0-6); GLUCOSE 119 mg/dL (75-110); LYMPHOCYTES % (AUTO) 9.1 % (13-45); MEAN CORPUSCULAR HEMOGLOBIN 31.7 pg (27.0-33.4); MEAN CORPUSCULAR HGB CONC 33.9 g/dL (32.0-36.0); MEAN CORPUSCULAR VOLUME 94 fl (80-97); MONOCYTES % (AUTO) 5.7 % (3-13); PLATELET COUNT 403 10^3/uL (150-450); POTASSIUM 3.8 mmol/L (3.6-5.0); RED BLOOD COUNT 2.25 10^6/uL (4.35-5.55); SEGMENTED NEUTROPHILS % (AUTO) 82.4 % (42-78); SODIUM 145.7 mmol/L (137-145); TOTAL CELLS COUNTED % (AUTO) 100 %; WHITE BLOOD COUNT 15.1 10^3/uL (4.0-10.5)
[2018-05-20 06:11] LABS: HEMOGLOBIN 7.1 g/dL (13.5-17.0)
[2018-05-20] MEDS: IPRATROPIUM/ALBUTEROL 0.5-2.5 MG/3 ML AMPUL NEB SCH ×2 (07:52→20:11)
[2018-05-20] MEDS ORDERED: NORMAL SALINE 250 ML IV PRN ×2 (07:55)
[2018-05-20] MEDS ORDERED: LORAZEPAM INJ 2 MG/1 ML VIAL IV PRN (08:00)
[2018-05-20] MEDS: LORAZEPAM INJ 2 MG/1 ML VIAL IV PRN ×2 (08:50→13:45)
--- NOTE | 2018-05-20 09:06 | RADIOLOGY REPORT (SQ) ---
EXAM DESCRIPTION: CHEST SINGLE VIEW COMPLETED DATE/TIME: 05/20/2018 6:46 am REASON FOR STUDY: massive atelectasis, right lung s/p bronchoscopy COMPARISON: 05/18/2018. EXAM PARAMETERS: NUMBER OF VIEWS: One view. TECHNIQUE: Single frontal radiographic view of the chest acquired. RADIATION DOSE: NA LIMITATIONS: None. FINDINGS: LUNGS AND PLEURA: Right perihilar infiltrate or pneumonia. Calcified granuloma left lung base. MEDIASTINUM AND HILAR STRUCTURES: No masses. Contour normal. HEART AND VASCULAR STRUCTURES: The heart is normal. Uncoiling thoracic aorta. HARDWARE: None in the chest. OTHER: Endotracheal tube above capri. Right IJ line overlying SVC. IMPRESSION: NO ACUTE RADIOGRAPHIC FINDING IN THE CHEST. TECHNICAL DOCUMENTATION: JOB ID: [id number] SC-[id number] 2010 [employer]- All Rights Reserved Reading location - IP/workstation name: [email or web address]
[2018-05-20] MEDS: LEVETIRACETAM ORAL SOLN 500 MG/5 ML UDCUP PEG SCH ×2 (09:57→22:02)
[2018-05-20] MEDS: PHENYTOIN 100 MG/4 ML SUSP GT SCH ×2 (09:59→17:36)
[2018-05-20] MEDS: SERTRALINE HCL 50 MG TABLET PEG SCH (10:12)
[2018-05-20] MEDS: POLYETHYLENE GLYCOL 3350 POWDER 17 GM/1 PACKET PEG SCH (10:13)
[2018-05-20] MEDS ORDERED: LEVETIRACETAM 1000 MG/NACL-ISO 1,000 MG/100 ML RTUPB IV SCH (10:15)
[2018-05-20] MEDS: VANCOMYCIN HCL INJ 500 MG VIAL PO SCH ×2 (12:02→17:35)
[2018-05-20] MEDS ORDERED: MIDAZOLAM HCL 50 MG/100 ML RTUINJ IV-INFUSE PRN (13:54)
--- NOTE | 2018-05-20 14:10 | PDOC PROGRESS REPORT ---
Subjective Progress Note for:: 05/20/18 Subjective:: Patient has been having seizures today which started approximately around 630 this morning. He has had veering periods of seizures lasting from a few seconds about 2 minutes as per nursing report. He did receive alprazolam twice. It is unclear what actually change as patient had been seizure-free since admission. He has been on Keppra as well as Dilantin and he has been off propofol and Levaquin. He is currently on vancomycin, gentamicin as well as Zosyn day 13. His condition remains pretty grave. At this time I will not pursue any imaging studies or EEG as obviously patient does have a history of seizures. He has been afebrile. I will place him on midazolam drip and see if this has an effect on his seizure focus. Patient apparently also was positive for C. difficile colitis and he has been started on oral vancomycin. Reason For Visit: ACUTE RESP FAILURE SEPSIS PNA Physical Exam Vital Signs: Temp Pulse Resp BP Pulse Ox 98.7 F 90 12 104/67 98 05/20/18 13:19 05/20/18 13:20 05/20/18 13:20 05/20/18 13:19 05/20/18 13:20 Intake & Output 05/19/18 05/20/18 05/21/18 06:59 06:59 06:59 Intake Total 4008 4906 350 Output Total 4000 3610 825 Balance 8 1296 -475 Weight 66 kg 66.5 kg General appearance: PRESENT: no acute distress, other - Intubated occasionally awake but no purposeful movement Mouth exam: PRESENT: tongue midline Cardiovascular exam: PRESENT: RRR. ABSENT: diastolic murmur, rubs, systolic murmur GI/Abdominal exam: PRESENT: other - PEG and urostomy tubes Extremities exam: PRESENT: other - L foot inversion Neurological exam: PRESENT: awake, motor sensory deficit. ABSENT: reflexes normal, CN II-XII grossly intact Results Laboratory Results: 05/20/18 05:15 05/20/18 05:15 05/20/18 05/20/18 05/20/18 05:15 05:15 05:15 WBC 15.1 H RBC 2.25 L Hgb 7.1 L Hct 21.0 L MCV 94 MCH 31.7 MCHC 33.9 RDW 17.0 H Plt Count 403 Seg Neutrophils % 82.4 H Lymphocytes % 9.1 L Monocytes % 5.7 Eosinophils % 2.2 Basophils % 0.6 Absolute Neutrophils 12.4 H Absolute Lymphocytes 1.4 Absolute Monocytes 0.9 Absolute Eosinophils 0.3 Absolute Basophils 0.1 Carbonic Acid 1.43 H HCO3/H2CO3 Ratio 21:1 ABG pH 7.43 ABG pCO2 47.6 H ABG pO2 75.3 L ABG HCO3 31.0 H ABG O2 Saturation 95.3 ABG Base Excess 6.0 FiO2 28% Sodium 145.7 H Potassium 3.8 Chloride 104 Carbon Dioxide 31 H Anion Gap 11 BUN 21 H Creatinine 0.71 Est GFR ( Amer) > 60 Est GFR (Non-Af Amer) > 60 Glucose 119 H Calcium 8.4 Magnesium 1.9 Blood Type Antibody Screen 05/20/18 08:40 WBC RBC Hgb Hct MCV MCH MCHC RDW Plt Count Seg Neutrophils % Lymphocytes % Monocytes % Eosinophils % Basophils % Absolute Neutrophils Absolute Lymphocytes Absolute Monocytes Absolute Eosinophils Absolute Basophils Carbonic Acid HCO3/H2CO3 Ratio ABG pH ABG pCO2 ABG pO2 ABG HCO3 ABG O2 Saturation ABG Base Excess FiO2 Sodium Potassium Chloride Carbon Dioxide Anion Gap BUN Creatinine Est GFR ( Amer) Est GFR (Non-Af Amer) Glucose Calcium Magnesium Blood Type O POSITIVE Antibody Screen NEGATIVE Impressions: Abdomen X-Ray 05/07/18 06:26 IMPRESSION: 1. Nonobstructive bowel gas pattern. 2. Gastrostomy tube overlying the stomach. [address] [place], [place] [id number]- All Rights Reserved KUB X-Ray 05/09/18 00:00 IMPRESSION: Nasogastric tube tip and side port in the stomach. Chest X-Ray 05/20/18 05:00 IMPRESSION: NO ACUTE RADIOGRAPHIC FINDING IN THE CHEST. Assessment & Plan - Diagnosis (1) Hypokalemia Is this a current diagnosis for this admission?: Yes (2) Catheter-associated urinary tract infection Is this a current diagnosis for this admission?: Yes (3) Anemia Qualifiers: Anemia type: iron deficiency Iron deficiency anemia type: chronic blood loss Qualified Code(s): D50.0 - Iron deficiency anemia secondary to blood loss (chronic) Is this a current diagnosis for this admission?: Yes Plan: Patient is to be transfused today as his hemoglobin has dropped again (4) Pneumonia Qualifiers: Pneumonia type: aspiration pneumonia Aspiration pneumonia type: unspecified Laterality: right Lung location: lower lobe of lung Qualified Code(s): J69.0 - Pneumonitis due to inhalation of food and vomit Is this a current diagnosis for this admission?: Yes (5) Severe sepsis Is this a current diagnosis for this admission?: Yes (6) Multiple sclerosis Is this a current diagnosis for this admission?: Yes (7) Decubitus ulcer Qualifiers: Pressure ulcer location: foot, unspecified location Pressure ulcer stage: stage 4 Is this a current diagnosis for this admission?: Yes (8) Sacral decubitus ulcer, stage IV Is this a current diagnosis for this admission?: Yes (9) Presence of intrathecal baclofen pump Is this a current diagnosis for this admission?: Yes (10) Acute respiratory failure with hypoxemia Is this a current diagnosis for this admission?: Yes (11) Hypernatremia Is this a current diagnosis for this admission?: Yes (12) Status epilepticus Is this a current diagnosis for this admission?: Yes (13) Colitis, Clostridium difficile Is this a current diagnosis for this admission?: Yes - Time Time Spent with patient: 35 or more minutes Medications reviewed and adjusted accordingly: Yes Anticipated discharge: SNF - Inpatient Certification Based on my medical assessment, after consideration of the patient's comorbidities, presenting symptoms, or acuity I expect that the services needed warrant INPATIENT care.: Yes Medical Necessity: Significant Comorbidiites Make Outpatient Treatment Too Risky , Need Close Monitoring Due to Risk of Patient Decompensation, Need For Continuous Telemetry Monitoring, Need for IV Antibiotics - Plan Summary Plan Summary: Prognosis remains very poor. We will discuss with the again keep you informed of current happenings
[2018-05-20] MEDS: FENTANYL CITRATE INJ/PF 100 MCG/2 ML AMPUL IV PRN (14:37)
[2018-05-20] MEDS: MIDAZOLAM HCL 50 MG/100 ML RTUINJ IV PRN (14:42)
[2018-05-20 18:37] LABS: VANCOMYCIN,TROUGH 9.6 ug/mL (5.0-20.0)
[2018-05-20] MEDS: VANCOMYCIN HCL 500 MG in NORMAL SALINE 100 ML IV SCH (18:57)
[2018-05-20 21:03] LABS: HEMATOCRIT 25.2 % (37.9-51.0); HEMOGLOBIN 8.4 g/dL (13.5-17.0); MEAN CORPUSCULAR HEMOGLOBIN 30.4 pg (27.0-33.4); MEAN CORPUSCULAR HGB CONC 33.4 g/dL (32.0-36.0); MEAN CORPUSCULAR VOLUME 91 fl (80-97); PLATELET COUNT 458 10^3/uL (150-450); RED BLOOD COUNT 2.77 10^6/uL (4.35-5.55); WHITE BLOOD COUNT 12.1 10^3/uL (4.0-10.5)
[2018-05-20] MEDS ORDERED: LEVETIRACETAM 500 MG/NACL-ISO 500 MG/100 ML RTUPB IV SCH (22:00)
[2018-05-20] MEDS: QUETIAPINE FUMARATE 25 MG TABLET PEG SCH (22:02)
[2018-05-20] MEDS: GENTAMICIN SULFATE 80 MG in DEXTROSE 5%-WATER 100 ML IV SCH (22:03)
[2018-05-21] MEDS: BACLOFEN 20 MG TABLET PEG SCH ×4 (00:12→18:28)
[2018-05-21] MEDS: VANCOMYCIN HCL INJ 500 MG VIAL PO SCH ×4 (00:13→18:27)
[2018-05-21] MEDS: DEXTROSE 5%-WATER 1000 ML 1,000 ML IV PRN ×2 (04:14→14:33)
[2018-05-21] MEDS: PIPERACILLIN SODIUM/TAZOBACTAM 3.375 GM in NORMAL SALINE 100 ML IV SCH ×2 (05:34→13:52)
[2018-05-21] MEDS: FAMOTIDINE INJ/PF 20 MG/2 ML SDV IV SCH ×2 (05:35→18:28)
[2018-05-21] MEDS: HEPARIN SOD (PORCINE) 5,000 UNIT/ML 1 ML SYRINGE SUBCUT SCH ×3 (05:35→21:31)
[2018-05-21 06:12] LABS: ABSOLUTE BASOPHILS # (AUTO) 0.1 10^3/uL (0.0-0.2); ABSOLUTE EOSINOPHILS # (AUTO) 0.4 10^3/uL (0.0-0.6); ABSOLUTE LYMPHOCYTES (AUTO) 1.2 10^3/uL (0.5-4.7); ABSOLUTE MONOCYTES (AUTO) 0.9 10^3/uL (0.1-1.4); ABSOLUTE NEUT (AUTO) 7.3 10^3/uL (1.7-8.2); BASOPHILS % (AUTO) 0.8 % (0-2); EOSINOPHILS % (AUTO) 4.3 % (0-6); HEMATOCRIT 23.9 % (37.9-51.0); HEMOGLOBIN 8.1 g/dL (13.5-17.0); LYMPHOCYTES % (AUTO) 12.1 % (13-45); MEAN CORPUSCULAR HEMOGLOBIN 30.9 pg (27.0-33.4); MEAN CORPUSCULAR VOLUME 91 fl (80-97); MONOCYTES % (AUTO) 9.1 % (3-13); PLATELET COUNT 488 10^3/uL (150-450); RED BLOOD COUNT 2.63 10^6/uL (4.35-5.55); RED CELL DISTRIBUTION WIDTH 17.9 % (11.5-14.0); SEGMENTED NEUTROPHILS % (AUTO) 73.7 % (42-78); TOTAL CELLS COUNTED % (AUTO) 100 %; WHITE BLOOD COUNT 9.9 10^3/uL (4.0-10.5)
[2018-05-21 06:24] LABS: ALANINE AMINOTRANSFERASE 39 U/L (21-72); ALKALINE PHOSPHATASE 196 U/L (38-126); ANION GAP 12 (5-19); ASPARTATE AMINO TRANSFERASE 30 U/L (17-59); BILIRUBIN,DIRECT 0.4 mg/dL (0.0-0.4); BILIRUBIN,TOTAL 0.4 mg/dL (0.2-1.3); BLOOD UREA NITROGEN 20 mg/dL (7-20); CALCIUM 8.8 mg/dL (8.4-10.2); CARBON DIOXIDE 30 mmol/L (22-30); CHLORIDE 104 mmol/L (98-107); GLUCOSE 115 mg/dL (75-110); POTASSIUM 3.7 mmol/L (3.6-5.0); SODIUM 146.2 mmol/L (137-145)
--- NOTE | 2018-05-21 07:55 | PROGRESS NOTE E ---
Progress Note NAME: VALENTE MOJICA : 1975 AGE: 43Y DATE: 05/20/2018 ROOM: 606 SUBJECTIVE: The patient is a 43-year-old -[place] male who came in with acute respiratory failure requiring invasive mechanical ventilation, pneumonia bilateral, right greater than left, and septic shock. The patient had seizures, about 3 episodes this morning, lasting for a few seconds to a minute. Has been placed on Versed. The patient is on Keppra and Dilantin. The patient's blood pressure has been stable and off IV Levophed for the last 2 days. The patient tolerated the G-tube feeding, no vomiting noted. Stool examine for C. diff was positive yesterday. The patient was started on oral vancomycin. The patient is still receiving IV Zosyn, IV gentamicin, and IV vancomycin. Sputum culture was done yesterday, it shows positive for gram-negative organism. OBJECTIVE: GENERAL: The patient appears currently slightly sedated on IV Versed. Afebrile, not in acute respiratory distress. VITAL SIGNS: Temperature of 98.4 with a T-max of 98.4, blood pressure 106/70, heart rate 82, respiratory rate of 12, saturation 100% on FiO2 of 28, SIMV rate of 12, tidal volume of 500, pressure support of 10 above PEEP, and PEEP of 5. Peak airway pressure is 14, total pressure is 11, and mid ventilation is 8. Exhaled and inhaled tidal volume is 450-500 of 40. EYES: No jaundice or pallor. EARS, NOSE, AND THROAT: No ear drainage noted. No nasal discharge. Oral tracheal tube is in place. Endotracheal tube size 8. LUNGS: No wheezing, no rhonchi, no coarse crackles. CARDIOVASCULAR: S1, S2 is distinct. Normal rate, regular rhythm. ABDOMEN: Flabby, positive bowel sounds, soft, nondistended. EXTREMITIES: No joint swelling. LABORATORY DATA: CBC done previously done this morning showed a white count of 15.1, hemoglobin 7.1, hematocrit is 21, platelet count is 403, no bandemia noted. The patient received blood transfusion with hemoglobin going up to 8.4. White count is down to 12.1 and platelet count is 458. ABG done at 5 a.m. this morning showed a pH of 7.43, pCO2 is 47.6, pO2 is 25.3, bicarb is 32.4, saturation is 95%. Chemistry done today showed sodium is 125, potassium 3.8, chloride is 104, CO2 is 31, BUN is 21, creatinine is 0.21, glucose is 119, and calcium is 8.4. Vancomycin trough is 9.6. Phenytoin level is 3.8. Stool exam for C. diff which was done last night was positive. ASSESSMENT: 1. ACUTE RESPIRATORY FAILURE REQUIRING INVASIVE MECHANICAL VENTILATION. Patient still has copious amount of endotracheal tube secretions requiring almost hourly suctioning of moderate amount of secretions. The patient appeared to be able to tolerate the spontaneous breathing trial of SIMV rate of 1 for about 2 hours. However, had a seizure a few minutes later. 2. PNEUMONIA, RIGHT GREATER THAN LEFT, MULTILOBAR. No new infiltrates on the chest x-ray today. Still has copious endotracheal tube secretions and yesterday sputum was still positive with gram-negative organisms. Currently on IV Zosyn, IV gentamicin, and IV vancomycin. The patient may complete at least 2 weeks of therapy. 3. LEUKOCYTOSIS. Appeared to be improving. Probably due to C. diff colitis and just started with oral vancomycin. 4. SEPTIC SHOCK. Currently improving. Currently not requiring vasopressors. 5. SEIZURES. Currently on Keppra and Dilantin. PLAN/RECOMMENDATION: 1. I will continue IV Zosyn, IV gentamicin, IV vancomycin for now. 2. Agree with oral vancomycin for C. diff diarrhea. 3. May require tracheostomy tube to support or protect his airway. 4. Still patient has copious endotracheal tube secretions and may require tracheostomy for adequate suctioning and high risk for recurrent/ aspiration pneumonia , and may require chronic ventilatory support. 5. Recommend follow up with discussion with the family members, his , who is leaning for palliative care and comfort measures. DICTATING PHYSICIAN: MAGDI LAGUNA MD,BRISA,MPH [id number] PHY#: [id number] ID: [id number] JOB#: [id number] ACCT: [id number] cc: > [facility]
[2018-05-21] MEDS: IPRATROPIUM/ALBUTEROL 0.5-2.5 MG/3 ML AMPUL NEB SCH ×2 (08:40→19:56)
[2018-05-21] MEDS: POLYETHYLENE GLYCOL 3350 POWDER 17 GM/1 PACKET PEG SCH (10:52)
[2018-05-21] MEDS: DEXTROSE 5%-WATER 250 ML with NOREPINEPHRINE BITARTRATE 4 MG IV PRN ×2 (10:57)
[2018-05-21] MEDS: LEVETIRACETAM ORAL SOLN 500 MG/5 ML UDCUP PEG SCH ×2 (10:58→21:30)
[2018-05-21] MEDS: PHENYTOIN 100 MG/4 ML SUSP GT SCH ×2 (10:59→18:28)
[2018-05-21] MEDS: SERTRALINE HCL 50 MG TABLET PEG SCH (10:59)
--- NOTE | 2018-05-21 15:49 | PDOC PROGRESS REPORT ---
Subjective Progress Note for:: 05/21/18 Subjective:: Patient has been having seizures today which started approximately around 630 this morning. He has had veering periods of seizures lasting from a few seconds about 2 minutes as per nursing report. He did receive alprazolam twice. It is unclear what actually change as patient had been seizure-free since admission. He has been on Keppra as well as Dilantin and he has been off propofol and Levaquin. He is currently on vancomycin, gentamicin as well as Zosyn day 13. His condition remains pretty grave. At this time I will not pursue any imaging studies or EEG as obviously patient does have a history of seizures. He has been afebrile. I will place him on midazolam drip and see if this has an effect on his seizure focus. Patient apparently also was positive for C. difficile colitis and he has been started on oral vancomycin. Patient remains critically ill and prognosis is grave. I had an extended conversation with his yesterday and I was able to bring up today and reassure her about current findings. She is aware of the pretty poor prognosis. As of now she still wants to give him a chance through and then think of possible hospice care Reason For Visit: ACUTE RESP FAILURE SEPSIS PNA Physical Exam Vital Signs: Temp Pulse Resp BP Pulse Ox 98.2 F 65 12 92/58 L 100 05/21/18 12:00 05/21/18 09:27 05/21/18 14:07 05/21/18 14:07 05/21/18 14:07 Intake & Output 05/20/18 05/21/18 05/22/18 06:59 06:59 06:59 Intake Total 4906 5334 Output Total 3610 3135 850 Balance 1296 2199 -850 Weight 66.5 kg 68.4 kg General appearance: PRESENT: no acute distress, other - Intubated Head exam: PRESENT: atraumatic Mouth exam: PRESENT: dry mucosa Respiratory exam: PRESENT: decreased breath sounds Cardiovascular exam: PRESENT: RRR. ABSENT: diastolic murmur, rubs, systolic murmur GI/Abdominal exam: PRESENT: other - PEG, urostomy tubes Gentrourinary exam: PRESENT: indwelling catheter Neurological exam: PRESENT: other - sedated Results Laboratory Results: 05/21/18 05:45 05/21/18 05:45 05/20/18 05/21/18 05/21/18 20:52 05:45 05:45 WBC 12.1 H 9.9 RBC 2.77 L 2.63 L Hgb 8.4 L 8.1 L Hct 25.2 L 23.9 L MCV 91 91 MCH 30.4 30.9 MCHC 33.4 34.0 RDW 18.0 H 17.9 H Plt Count 458 H 488 H Seg Neutrophils % 73.7 Lymphocytes % 12.1 L Monocytes % 9.1 Eosinophils % 4.3 Basophils % 0.8 Absolute Neutrophils 7.3 Absolute Lymphocytes 1.2 Absolute Monocytes 0.9 Absolute Eosinophils 0.4 Absolute Basophils 0.1 Sodium 146.2 H Potassium 3.7 Chloride 104 Carbon Dioxide 30 Anion Gap 12 BUN 20 Creatinine 0.74 Est GFR ( Amer) > 60 Est GFR (Non-Af Amer) > 60 Glucose 115 H Calcium 8.8 Total Bilirubin 0.4 AST 30 ALT 39 Alkaline Phosphatase 196 H Total Protein 7.0 Albumin 3.0 L Impressions: Abdomen X-Ray 05/07/18 06:26 IMPRESSION: 1. Nonobstructive bowel gas pattern. 2. Gastrostomy tube overlying the stomach. 2010 [employer]- All Rights Reserved KUB X-Ray 05/09/18 00:00 IMPRESSION: Nasogastric tube tip and side port in the stomach. Chest X-Ray 05/20/18 05:00 IMPRESSION: NO ACUTE RADIOGRAPHIC FINDING IN THE CHEST. Assessment & Plan - Diagnosis (1) Hypokalemia Is this a current diagnosis for this admission?: Yes (2) Catheter-associated urinary tract infection Is this a current diagnosis for this admission?: Yes (3) Anemia Qualifiers: Anemia type: iron deficiency Iron deficiency anemia type: chronic blood loss Qualified Code(s): D50.0 - Iron deficiency anemia secondary to blood loss (chronic) Is this a current diagnosis for this admission?: Yes (4) Pneumonia Qualifiers: Pneumonia type: aspiration pneumonia Aspiration pneumonia type: unspecified Laterality: right Lung location: lower lobe of lung Qualified Code(s): J69.0 - Pneumonitis due to inhalation of food and vomit Is this a current diagnosis for this admission?: Yes (5) Severe sepsis Is this a current diagnosis for this admission?: Yes (6) Multiple sclerosis Is this a current diagnosis for this admission?: Yes (7) Decubitus ulcer Qualifiers: Pressure ulcer location: foot, unspecified location Pressure ulcer stage: stage 4 Is this a current diagnosis for this admission?: Yes (8) Sacral decubitus ulcer, stage IV Is this a current diagnosis for this admission?: Yes (9) Presence of intrathecal baclofen pump Is this a current diagnosis for this admission?: Yes (10) Acute respiratory failure with hypoxemia Is this a current diagnosis for this admission?: Yes (11) Hypernatremia Is this a current diagnosis for this admission?: Yes (12) Status epilepticus Is this a current diagnosis for this admission?: Yes Plan: no further seizures. Remains on Versed drip (13) Colitis, Clostridium difficile Is this a current diagnosis for this admission?: Yes - Time Time Spent with patient: 15-24 minutes Medications reviewed and adjusted accordingly: Yes - Inpatient Certification Based on my medical assessment, after consideration of the patient's comorbidities, presenting symptoms, or acuity I expect that the services needed warrant INPATIENT care.: Yes Medical Necessity: Need for IV Antibiotics
[2018-05-21] MEDS: GENTAMICIN SULFATE 80 MG in DEXTROSE 5%-WATER 100 ML IV SCH (21:29)
[2018-05-21] MEDS: QUETIAPINE FUMARATE 25 MG TABLET PEG SCH (21:30)
--- NOTE | 2018-05-21 23:22 | Progress Note ---
Provider Note Provider Note: Palliative Care Consult Visit Appreciate PC consult for this very unfortunate young man who has end stage MS and has been resident of SNF for many months. He is admitted with aspiration pneumonia and sacral stage IV decubitus, currently on ventilator. Attempted to see patient and meet with family for support. Patient, is of course non-responsive and family is not available at hospital this afternoon. Consulted with nurse about patient and plans to extubate on . I will try to reach patient's to see when she will be at hospital to meet her. Will offer support and discuss comfort care following extubation.
[2018-05-21] MEDS ORDERED: PIPERACILLIN/TAZOBACTAM 3.375 GM VIAL IV PRN (23:23)
[2018-05-21] MEDS ORDERED: PIPERACILLIN/TAZOBACTAM 3.375 GM VIAL IV ONE (23:30)
[2018-05-22] MEDS: VANCOMYCIN HCL INJ 500 MG VIAL PO SCH ×4 (00:19→17:34)
[2018-05-22] MEDS: BACLOFEN 20 MG TABLET PEG SCH ×4 (00:20→17:34)
[2018-05-22] MEDS ORDERED: PIPERACILLIN/TAZOBACTAM 3.375 GM VIAL IV ONE (00:22)
[2018-05-22 05:49] LABS: ABSOLUTE BASOPHILS # (AUTO) 0.1 10^3/uL (0.0-0.2); ABSOLUTE EOSINOPHILS # (AUTO) 0.5 10^3/uL (0.0-0.6); ABSOLUTE LYMPHOCYTES (AUTO) 1.3 10^3/uL (0.5-4.7); ABSOLUTE MONOCYTES (AUTO) 0.9 10^3/uL (0.1-1.4); ABSOLUTE NEUT (AUTO) 8.1 10^3/uL (1.7-8.2); EOSINOPHILS % (AUTO) 4.7 % (0-6); HEMATOCRIT 24.7 % (37.9-51.0); HEMOGLOBIN 8.2 g/dL (13.5-17.0); LYMPHOCYTES % (AUTO) 12.2 % (13-45); MEAN CORPUSCULAR HEMOGLOBIN 30.4 pg (27.0-33.4); MEAN CORPUSCULAR HGB CONC 33.3 g/dL (32.0-36.0); MEAN CORPUSCULAR VOLUME 92 fl (80-97); MONOCYTES % (AUTO) 8.5 % (3-13); PLATELET COUNT 543 10^3/uL (150-450); RED CELL DISTRIBUTION WIDTH 18.1 % (11.5-14.0); SEGMENTED NEUTROPHILS % (AUTO) 73.6 % (42-78); TOTAL CELLS COUNTED % (AUTO) 100 %
[2018-05-22] MEDS: FAMOTIDINE INJ/PF 20 MG/2 ML SDV IV SCH ×2 (05:58→17:34)
[2018-05-22] MEDS: DEXTROSE 5%-WATER 1000 ML 1,000 ML IV PRN ×2 (05:59→13:10)
[2018-05-22] MEDS: HEPARIN SOD (PORCINE) 5,000 UNIT/ML 1 ML SYRINGE SUBCUT SCH ×3 (05:59→22:08)
[2018-05-22 06:02] LABS: ANION GAP 12 (5-19); BLOOD UREA NITROGEN 20 mg/dL (7-20); CALCIUM 8.7 mg/dL (8.4-10.2); CARBON DIOXIDE 31 mmol/L (22-30); CHLORIDE 104 mmol/L (98-107); GLUCOSE 106 mg/dL (75-110); POTASSIUM 3.5 mmol/L (3.6-5.0); SODIUM 146.5 mmol/L (137-145)
[2018-05-22] MEDS ORDERED: FENTANYL CITRATE INJ/PF 100 MCG/2 ML AMPUL IV PRN (09:59)
[2018-05-22] MEDS ORDERED: VANCOMYCIN HCL INJ 1000 MG VIAL IV SCH (10:00)
[2018-05-22] MEDS ORDERED: PIPERACILLIN/TAZOBACTAM 3.375 GM VIAL IV SCH (10:00)
[2018-05-22] MEDS: POLYETHYLENE GLYCOL 3350 POWDER 17 GM/1 PACKET PEG SCH (10:17)
--- NOTE | 2018-05-22 10:22 | PROGRESS NOTE E ---
Progress Note NAME: VALENTE MOJICA : 1975 AGE: 43Y DATE: 05/21/2018 ROOM: 606 SUBJECTIVE: The patient is a 43-year-old -[place] male who came in with acute respiratory failure requiring invasive mechanical ventilation, septic shock; pneumonia, bilateral, right greater than left; massive atelectasis. History of severe multiple sclerosis, history of hemorrhagic stroke. The patient had a seizure yesterday about 2 or 3 times, and overnight. Since last night, there was no seizure noted. The patient's blood pressure went down to the 70s earlier today and Levophed was started in the afternoon. IV vancomycin was given. The last dose of vancomycin was given at 2 p.m. today, and the Zosyn was discontinued. The patient is presenting with copious endotracheal tube secretions, which showed proteus mirabilis and other gram-negative rods 2 days ago. Stools appear to be well formed. No vomiting noted, and the patient started G-tube feeding. OBJECTIVE: GENERAL: The patient appeared sedated, afebrile, not in current respiratory distress. VITAL SIGNS: Temperature 99 degrees Fahrenheit, but it came up to 100.4 at 8 p.m. Heart rate is 90. Respiratory rate is 13. Saturation 99% on PPI, 99% of FiO2 of 38, SIMV rate of 12, tidal volume of 500, pressure support 10, PEEP of 5. EYES: No jaundice or pallor. EARS, NOSE, AND THROAT: No ear drainage noted. No nasal discharge. NECK: No neck swelling. No neck tenderness. CHEST AND LUNGS: No wheezing. No rhonchi. No coarse crackles. CARDIOVASCULAR: Normal rate, regular rhythm. ABDOMEN: Flabby and nondistended. Positive bowel sounds. Soft. EXTREMITIES: No joint swelling or cellulitis. LABORATORY DATA: CBC today showed white count of 9.9, which went down from 12.1 yesterday. Hemoglobin is 8.1, hematocrit is 33.9, platelet count is 188. Chemistry today showed sodium 166, potassium 3.7, chloride 104, carbon dioxide 30, BUN 20, creatinine is 0.74, glucose 115. Calcium is 8.4, total bilirubin 0.4, direct bilirubin 0.4. CPK 39, alkaline phosphatase 196. ASSESSMENT: 1. ACUTE RESPIRATORY FAILURE REQUIRING INVASIVE MECHANICAL VENTILATION. Still not ready to be extubated at this time. The patient still has a profuse amount of endotracheal tube secretions. Had seizures yesterday and is being loaded with Dilantin, currently on Keppra. The patient became hypotensive this afternoon requiring resumption of IV Levophed infusion. 2. PNEUMONIA, APPEARS TO BE IMPROVING, RIGHT GREATER THAN LEFT. Positive sputum culture for Pseudomonas aeruginosa, Proteus mirabilis, and MRSA. Recent sputum culture May 19, 2018, about 2 days ago, showed still positive for Proteus mirabilis and another gram-negative lizzie. 3. SEVERE SEPSIS WITH SEPTIC SHOCK. He is still not completely well. We just recently resumed IV Levophed infusion. On IV Zosyn and IV gentamicin and IV vancomycin. Zosyn and IV vancomycin were discontinued today, was deferred earlier today. I think the patient will still require another week of IV Zosyn and IV gentamicin. May consider not resuming IV vancomycin. I think MRSA may be already eradicated. White count has been improving down, normalizing, but there was a fever spike this evening at 8 p.m. 4. SEIZURES. Apparently seems to be controlled on Dilantin and Keppra. PLAN AND RECOMMENDATIONS: 1. Would continue the IV Zosyn and IV gentamicin probably for another few days or a week. 2. Will continue to do spontaneous breathing trial every morning. 3. Recommend a family meeting to discuss about possible tracheostomy or palliative care or versus comfort measures. 4. We will continue to optimize nutritional support and ventilator support. DICTATING PHYSICIAN: MAGDI LAGUNA MD,BRISA,MPH [id number] PHY#: [id number] ID: [id number] JOB#: [id number] ACCT: [id number] cc: > [facility]
[2018-05-22] MEDS: IPRATROPIUM/ALBUTEROL 0.5-2.5 MG/3 ML AMPUL NEB SCH ×2 (10:27→21:37)
[2018-05-22] MEDS: SCOPOLAMINE HYDROBROMIDE 1.5 MG PATCH.TD72 TD SCH (10:47)
[2018-05-22] MEDS: PHENYTOIN 100 MG/4 ML SUSP GT SCH ×2 (10:48→17:40)
[2018-05-22] MEDS: SERTRALINE HCL 50 MG TABLET PEG SCH (10:48)
[2018-05-22] MEDS: LEVETIRACETAM ORAL SOLN 500 MG/5 ML UDCUP PEG SCH ×2 (10:48→22:15)
[2018-05-22] MEDS: MIDAZOLAM HCL 50 MG/100 ML RTUINJ IV PRN (13:10)
--- NOTE | 2018-05-22 14:55 | PDOC PROGRESS REPORT ---
Subjective Progress Note for:: 05/22/18 Subjective:: Patient has been having seizures today which started approximately around 630 this morning. He has had veering periods of seizures lasting from a few seconds about 2 minutes as per nursing report. He did receive alprazolam twice. It is unclear what actually change as patient had been seizure-free since admission. He has been on Keppra as well as Dilantin and he has been off propofol and Levaquin. He is currently on vancomycin, gentamicin as well as Zosyn day 13. His condition remains pretty grave. At this time I will not pursue any imaging studies or EEG as obviously patient does have a history of seizures. He has been afebrile. I will place him on midazolam drip and see if this has an effect on his seizure focus. Patient apparently also was positive for C. difficile colitis and he has been started on oral vancomycin. Patient remains critically ill and prognosis is grave. I had an extended conversation with his again today and she is aware answer plans to go with the planned extubation for tomorrow. I have advised her that it is possible that patient may not last long after that however if he does the plan is to take him home with her. Reason For Visit: ACUTE RESP FAILURE SEPSIS PNA Physical Exam Vital Signs: Temp Pulse Resp BP Pulse Ox 97.8 F 86 12 108/83 100 05/22/18 12:00 05/22/18 12:00 05/22/18 12:00 05/22/18 12:00 05/22/18 12:17 Intake & Output 05/21/18 05/22/18 05/23/18 06:59 06:59 06:59 Intake Total 5334 3699 Output Total 0678 4510 800 Balance 2199 -586 -800 Weight 68.4 kg 67.9 kg General appearance: PRESENT: no acute distress, other - Chronically ill looking Head exam: PRESENT: atraumatic Neck exam: PRESENT: other. ABSENT: JVD Respiratory exam: PRESENT: other - Mechanical ventilation Cardiovascular exam: PRESENT: RRR, +S1, +S2 GI/Abdominal exam: PRESENT: other - PEG tube intact Rectal exam: PRESENT: deferred Gentrourinary exam: PRESENT: indwelling catheter, other - Urostomy tube draining clear urine Musculoskeletal exam: PRESENT: deformity, other - Left foot inversion. ABSENT: ambulatory Psychiatric exam: PRESENT: other - Mildly sedated Skin exam: PRESENT: other - Sacral decubitus stage IV Results Laboratory Results: 05/22/18 05:34 05/22/18 05:34 05/22/18 05/22/18 05:34 05:34 WBC 11.0 H RBC 2.70 L Hgb 8.2 L Hct 24.7 L MCV 92 MCH 30.4 MCHC 33.3 RDW 18.1 H Plt Count 543 H Seg Neutrophils % 73.6 Lymphocytes % 12.2 L Monocytes % 8.5 Eosinophils % 4.7 Basophils % 1.0 Absolute Neutrophils 8.1 Absolute Lymphocytes 1.3 Absolute Monocytes 0.9 Absolute Eosinophils 0.5 Absolute Basophils 0.1 Sodium 146.5 H Potassium 3.5 L Chloride 104 Carbon Dioxide 31 H Anion Gap 12 BUN 20 Creatinine 0.64 Est GFR ( Amer) > 60 Est GFR (Non-Af Amer) > 60 Glucose 106 Calcium 8.7 05/19/18 13:45 Tracheal Aspirate Gram Stain - Final 05/19/18 13:45 Tracheal Aspirate Sputum Culture - Final Proteus Mirabilis Escherichia Coli Esbl Normal Olivia Absent Impressions: Abdomen X-Ray 05/07/18 06:26 IMPRESSION: 1. Nonobstructive bowel gas pattern. 2. Gastrostomy tube overlying the stomach. 2011 [employer]- All Rights Reserved KUB X-Ray 05/09/18 00:00 IMPRESSION: Nasogastric tube tip and side port in the stomach. Chest X-Ray 05/20/18 05:00 IMPRESSION: NO ACUTE RADIOGRAPHIC FINDING IN THE CHEST. Assessment & Plan - Diagnosis (1) Hypokalemia Is this a current diagnosis for this admission?: Yes (2) Catheter-associated urinary tract infection Is this a current diagnosis for this admission?: Yes (3) Anemia Qualifiers: Anemia type: iron deficiency Iron deficiency anemia type: chronic blood loss Qualified Code(s): D50.0 - Iron deficiency anemia secondary to blood loss (chronic) Is this a current diagnosis for this admission?: Yes (4) Pneumonia Qualifiers: Pneumonia type: aspiration pneumonia Aspiration pneumonia type: unspecified Laterality: right Lung location: lower lobe of lung Qualified Code(s): J69.0 - Pneumonitis due to inhalation of food and vomit Is this a current diagnosis for this admission?: Yes (5) Severe sepsis Is this a current diagnosis for this admission?: Yes (6) Multiple sclerosis Is this a current diagnosis for this admission?: Yes (7) Decubitus ulcer Qualifiers: Pressure ulcer location: foot, unspecified location Pressure ulcer stage: stage 4 Is this a current diagnosis for this admission?: Yes Plan: Present on admission (8) Sacral decubitus ulcer, stage IV Is this a current diagnosis for this admission?: Yes (9) Presence of intrathecal baclofen pump Is this a current diagnosis for this admission?: Yes (10) Acute respiratory failure with hypoxemia Is this a current diagnosis for this admission?: Yes Plan: Patient remains on the vent after 2 weeks. The probability of him surviving for prolonged. After extubation is very minimal. Plan is to extubate tomorrow with palliative care. (11) Hypernatremia Is this a current diagnosis for this admission?: Yes Plan: Continue free water (12) Status epilepticus Is this a current diagnosis for this admission?: Yes (13) Colitis, Clostridium difficile Is this a current diagnosis for this admission?: Yes - Time Time Spent with patient: 25-34 minutes Medications reviewed and adjusted accordingly: Yes Anticipated discharge: Home Within: within 48 hours - Inpatient Certification Based on my medical assessment, after consideration of the patient's comorbidities, presenting symptoms, or acuity I expect that the services needed warrant INPATIENT care.: Yes Medical Necessity: Need Close Monitoring Due to Risk of Patient Decompensation, Risk of Complication if Not Cared For in Hospital - Plan Summary Plan Summary: Patient has been on antibiotics for about 2 weeks at this time he has completed his course of antibiotics and is really no indication for to continue this IV antibiotics. Garamycin, piperacillin tazobactam and vancomycin have been discontinued. We will continue oral vancomycin for C. difficile colitis
[2018-05-22] MEDS: LORAZEPAM INJ 2 MG/1 ML VIAL IV PRN (19:22)
[2018-05-22] MEDS: QUETIAPINE FUMARATE 25 MG TABLET PEG SCH (22:14)
--- NOTE | 2018-05-22 23:54 | Palliative Consultation Report ---
Consultation From:: SUNIL CHAUHAN Consult Reason: Palliative Care - HPI HPI: Palliative care consult visit 05/22/18 5:15 PM Appreciate palliative care consult with this 43 year old man who has suffered with Multiple Sclerosis for the past decade. He also has had hemorrhagic CVA. He has had to live at [facility] for the past year due to profound weakness and need for total care. He was admitted to [facility] 2 weeks ago with aspiration pneumonia severe sepsis, stage IV sacral decubitus and respiratory distress. He had to be intubated as the Biap was not sufficient. He has been on the ventilator for the past 2 weeks. I met with his today at the bedside. She has decided that rather than do a tracheostomy, the more merciful course of action is to extubate the patietn and provide comfort measures for him. This decision has been and remains very difficult for her as he does still open his eyes and she thinks he may be aware of more than he can let us know. We talked about that being an even stronger argument for comfort care if indeed, he is aware but cannot respond or make his needs met. Mrs. Downing has a deep richy and a deep love for Mr. Downing and wants to make the best decision for him. They have three children who are supportive of her decision and want the best for their father. Mrs. Downing is aware that patient may soon after extubation. She wants to be sure that he is premedicated as she watched her father be extubated and struggle until he . I told her I was sure the doctors and nurses will give him medications such as Ativan and Morphine before pulling his ET tube so he can be relaxed and not feel air hunger or struggle to conserve his oxygen. She also is aware that he may live for a while and discussed possibility of transferring him to hospice care center for end of life care. She knows he will have to be stable enough for transport the 60 miles to [place]. We discussed that comfort measures can be provided here until such time he is determined to be stable for transfer. She wants to be with him sa much as possible. She said she was not emotionally able to take him home and watch him there. Patient did open his eyes often during our conversation but did not seem to focus. He coughed a few times against the tube but settled easily on his own. He had some shaking of his left forearm, but no seizure activity. Onset: Just prior to arrival Onset/Duration: Gradual Associated Symptoms: Shortness of breath, Weakness Past Medical History(Consults) - General Information Source: Relative, [facility] Records Home Medications: Clonidine HCl [Catapres 0.1 mg Tablet] 0.1 mg PEG DAILY 05/07/18 Ferrous Sulfate [Ferrous Sulfate Liquid 300 Mg/5 Ml Udcup] 325 mg PEG DAILY 11/12 Hydrocortisone/Oatmeal/Aloe/E [Hydrocortisone 1% Cream] 1 applic TP BID Interferon Beta-1A/Albumin [Avonex Inj 30 Mcg Kit] 30 mcg IM TH@1000 05/07/18 Levetiracetam 1,000 mg PEG BID 05/07/18 Petrolatum,White [Aquaphor] 1 applic TP BID 05/07/18 Phenobarbital [Phenobarbital 64.8 Mg Tablet] 64.8 mg PEG Q6 05/07/18 Phenytoin [Dilantin Susp 100 Mg/4 Ml Udcup] 200 mg PEG Q12A 05/07/18 Polyethylene Glycol 3350 [Miralax Powder 17 gm/Packet] 1 packet PEG DAILY Quetiapine Fumarate [Seroquel 25 mg Tablet] 25 mg PEG QHS 05/07/18 Sennosides [Senna] 8.6 mg PEG DAILY 05/07/18 Sertraline HCl [Zoloft] 100 mg PEG DAILY 05/07/18 Silver Sulfadiazine [Silvadene 1% Cream 25 gm] 1 applic TP BID 05/07/18 Silver Sulfadiazine [Silvadene 1% Cream 25 gm] 1 applic TP DAILYP PRN 05/07/18 Allergies/Adverse Reactions: Sulfa (Sulfonamide Antibiotics) Allergy (Verified 04/19/18 15:15) - Social History Lives with: [facility] Family History: Reviewed & Not Pertinent, Other - Unobtainable Parental Family History Reviewed: No Children Family History Reviewed: No Sibling(s) Family History Reviewed.: No Smoking Status: Unknown if Ever Smoked Frequency of Alcohol Use: None Drugs: None Hx Prescription Drug Abuse: No - Past Medical History Cardiac Medical History: Reports: Hx Hypertension Denies: Hx Coronary Artery Disease, Hx DVT, Hx Heart Attack, Hx Hypercholesterolemia, Hx Pulmonary Embolism Pulmonary Medical History: Denies: Hx Asthma, Hx COPD Neurological Medical History: Denies: Hx Seizures Endocrine Medical History: Denies: Hx Diabetes Mellitus Type 1, Hx Diabetes Mellitus Type 2, Hx Hyperthyroidism, Hx Hypothyroidism Renal/ Medical History: Denies: Hx Peritoneal Dialysis GI Medical History: Reports: Hx Gastroesophageal Reflux Disease. Denies: Hx Cirrhosis, Hx Hepatitis Musculoskeltal Medical History: Reports Hx Multiple Sclerosis Psychiatric Medical History: Reports: Hx Depression - PTSD Infectious Medical History: Denies: Hx Hepatitis Hematology: Reports: Anemia - Surgical History Past Surgical History: Reports: Hx Abdominal Surgery, Other - Implantation of baclofen pump Review of systems ROS unobtainable: due to endotracheal tube Ojective:Exam Vital Signs: Temp Pulse Resp BP Pulse Ox 99.2 F 95 14 95/55 L 98 05/22/18 22:00 05/22/18 22:00 05/22/18 22:38 05/22/18 22:38 05/22/18 22:38 Intake & Output 05/21/18 05/22/18 05/23/18 06:59 06:59 06:59 Intake Total 5334 3699 1233 Output Total 3130 4875 1900 Balance 4803 -213 -248 Weight 68.4 kg 67.9 kg - General General Appearance: Unresponsive In distress: None - Respiratory Respiratory Status: Intubated - Neurological Cognition: Other Motor exam: Weakness Neurological Note: Unresponsive Objective-Diagnostic Laboratory: 05/22/18 05:34 05/22/18 05:34 05/22/18 05/22/18 05:34 05:34 WBC 11.0 H RBC 2.70 L Hgb 8.2 L Hct 24.7 L MCV 92 MCH 30.4 MCHC 33.3 RDW 18.1 H Plt Count 543 H Seg Neutrophils % 73.6 Lymphocytes % 12.2 L Monocytes % 8.5 Eosinophils % 4.7 Basophils % 1.0 Absolute Neutrophils 8.1 Absolute Lymphocytes 1.3 Absolute Monocytes 0.9 Absolute Eosinophils 0.5 Absolute Basophils 0.1 Sodium 146.5 H Potassium 3.5 L Chloride 104 Carbon Dioxide 31 H Anion Gap 12 BUN 20 Creatinine 0.64 Est GFR ( Amer) > 60 Est GFR (Non-Af Amer) > 60 Glucose 106 Calcium 8.7 05/19/18 13:45 Tracheal Aspirate Gram Stain - Final 05/19/18 13:45 Tracheal Aspirate Sputum Culture - Final Proteus Mirabilis Escherichia Coli Esbl Normal Olivia Absent Plan and Recommendation Plan and Recommendation: Mrs. Downing is going to spend the night with Mr. Downing and expects their children to come in the morning. She is anxious about the extubation process and patients reaction but is resolve in her decision an concerned only for his comfort. I gave her my number in case she had questions or needed to talk tonight. Consulted with RN who will also be here tomorrow. She is taking good care of both the patient and Mrs. Downing and I appreciate her caring and support. I will follow tomorrow. - Time Spent with Patient Time spent with patient: 40 to 60 Minutes Time: 50 minutes
--- NOTE | 2018-05-23 00:20 | PROGRESS NOTE E ---
Progress Note NAME: VALENTE MOJICA : 1975 AGE: 43Y DATE: 05/22/2018 ROOM: 606 SUBJECTIVE: The patient is a 43-year-old -[place] male who came in with acute respiratory failure requiring invasive mechanical ventilation, pneumonia right greater than left, status post massive atelectasis right side. Positive for MRSA, Pseudomonas aeruginosa, Proteus mirabilis organisms in the sputum. History of septic shock. Patient has history of severe multiple sclerosis and hemorrhagic stroke. There was no fever for the last 24-48 hours. There was no seizure today noted. I spoke to patient's this morning and she reiterated that they are leaning towards palliative care or hospice care tomorrow. IV antibiotics were discontinued this morning. Patient tolerated the G tube feeding. No vomiting noted. No diarrhea noted. Will sign off tonight. CODE STATUS: The patient is going to hospice/ comofrt measures tomorrow. If you have any questions,please feel free to call me. DICTATING PHYSICIAN: MAGDI LAGUNA MD,BRISA,MPH [id number] PHY#: [id number] ID: [id number] JOB#: [id number] ACCT: [id number] cc: > [facility]
[2018-05-23] MEDS: VANCOMYCIN HCL INJ 500 MG VIAL PO SCH ×3 (00:58→11:20)
[2018-05-23] MEDS: DEXTROSE 5%-WATER 1000 ML 1,000 ML IV PRN (01:39)
[2018-05-23] MEDS: HEPARIN SOD (PORCINE) 5,000 UNIT/ML 1 ML SYRINGE SUBCUT SCH (05:58)
[2018-05-23] MEDS: FAMOTIDINE INJ/PF 20 MG/2 ML SDV IV SCH (05:58)
[2018-05-23] MEDS: IPRATROPIUM/ALBUTEROL 0.5-2.5 MG/3 ML AMPUL NEB SCH ×2 (08:22→20:35)
[2018-05-23] MEDS: LEVETIRACETAM ORAL SOLN 500 MG/5 ML UDCUP PEG SCH ×2 (11:20→21:38)
[2018-05-23] MEDS: SERTRALINE HCL 50 MG TABLET PEG SCH (11:20)
[2018-05-23] MEDS: PHENYTOIN 100 MG/4 ML SUSP GT SCH ×2 (11:20→17:02)
[2018-05-23] MEDS: POLYETHYLENE GLYCOL 3350 POWDER 17 GM/1 PACKET PEG SCH (11:20)
[2018-05-23] MEDS: MORPHINE SULFATE 10 MG/ML INJ IV PRN ×3 (12:55→21:38)
[2018-05-23] MEDS ORDERED: LORAZEPAM INJ 2 MG/1 ML VIAL ONE (15:31)
--- NOTE | 2018-05-23 15:40 | PDOC PROGRESS REPORT ---
Subjective Progress Note for:: 05/23/18 Subjective:: Patient extubated today under palliative care. The plan is to continue supportive care and to transfer him to [facility] with hospice Reason For Visit: ACUTE RESP FAILURE SEPSIS PNA Physical Exam Vital Signs: Temp Pulse Resp BP Pulse Ox 98.4 F 72 16 119/78 100 05/23/18 13:00 05/23/18 13:10 05/23/18 14:00 05/23/18 13:10 05/23/18 14:00 Intake & Output 05/22/18 05/23/18 05/24/18 06:59 06:59 06:59 Intake Total 3699 2367 Output Total 4175 2900 720 Balance -226 -533 -720 Weight 67.9 kg 67.9 kg General appearance: PRESENT: no acute distress, cooperative - 1 Respiratory exam: PRESENT: crackles, decreased breath sounds, rhonchi, tachypnea. ABSENT: chest wall tenderness Cardiovascular exam: PRESENT: tachycardia GI/Abdominal exam: PRESENT: normal bowel sounds, other - PEG. ABSENT: distended , guarding, mass, organolmegaly, rebound, tenderness Rectal exam: PRESENT: deferred Gentrourinary exam: PRESENT: other - urostostomy tube Musculoskeletal exam: PRESENT: deformity, other - l foot inversion Neurological exam: PRESENT: alert, awake. ABSENT: oriented to person, oriented to place, oriented to time, reflexes normal Results Laboratory Results: 05/22/18 05:34 05/22/18 05:34 05/19/18 13:45 Tracheal Aspirate Gram Stain - Final 05/19/18 13:45 Tracheal Aspirate Sputum Culture - Final Proteus Mirabilis Escherichia Coli Esbl Normal Olivia Absent Impressions: Abdomen X-Ray 05/07/18 06:26 IMPRESSION: 1. Nonobstructive bowel gas pattern. 2. Gastrostomy tube overlying the stomach. 2010 [employer]- All Rights Reserved KUB X-Ray 05/09/18 00:00 IMPRESSION: Nasogastric tube tip and side port in the stomach. Chest X-Ray 05/20/18 05:00 IMPRESSION: NO ACUTE RADIOGRAPHIC FINDING IN THE CHEST. Assessment & Plan - Diagnosis (1) Hypokalemia Is this a current diagnosis for this admission?: Yes (2) Catheter-associated urinary tract infection Is this a current diagnosis for this admission?: Yes (3) Anemia Qualifiers: Anemia type: iron deficiency Iron deficiency anemia type: chronic blood loss Qualified Code(s): D50.0 - Iron deficiency anemia secondary to blood loss (chronic) Is this a current diagnosis for this admission?: Yes (4) Pneumonia Qualifiers: Pneumonia type: aspiration pneumonia Aspiration pneumonia type: unspecified Laterality: right Lung location: lower lobe of lung Qualified Code(s): J69.0 - Pneumonitis due to inhalation of food and vomit Is this a current diagnosis for this admission?: Yes (5) Severe sepsis Is this a current diagnosis for this admission?: Yes (6) Multiple sclerosis Is this a current diagnosis for this admission?: Yes (7) Decubitus ulcer Qualifiers: Pressure ulcer location: foot, unspecified location Pressure ulcer stage: stage 4 Is this a current diagnosis for this admission?: Yes (8) Sacral decubitus ulcer, stage IV Is this a current diagnosis for this admission?: Yes (9) Presence of intrathecal baclofen pump Is this a current diagnosis for this admission?: Yes (10) Acute respiratory failure with hypoxemia Is this a current diagnosis for this admission?: Yes (11) Hypernatremia Is this a current diagnosis for this admission?: Yes (12) Status epilepticus Is this a current diagnosis for this admission?: Yes (13) Colitis, Clostridium difficile Is this a current diagnosis for this admission?: Yes - Time Time Spent with patient: 25-34 minutes Medications reviewed and adjusted accordingly: Yes Anticipated discharge: Hospice Within: within 48 hours - Inpatient Certification Based on my medical assessment, after consideration of the patient's comorbidities, presenting symptoms, or acuity I expect that the services needed warrant INPATIENT care.: Yes Medical Necessity: Significant Comorbidiites Make Outpatient Treatment Too Risky - Plan Summary Plan Summary: Patient is to be transferred out of the ICU as he has been extubated and is now comfort care. was at the bedside. They understand the plan
[2018-05-23 22:38] VITALS: BP 117/78
[2018-05-23] MEDS: LORAZEPAM INJ 2 MG/1 ML VIAL IV PRN (22:54)
[2018-05-24] MEDS: MORPHINE SULFATE 10 MG/ML INJ IV PRN ×3 (05:55→14:04)
--- NOTE | 2018-05-24 08:19 | Progress Note ---
Provider Note Provider Note: Palliative Care Follow up note. 05/23/18 12:05- 1:35 PM Mr. Downing is a 43 year old man who is in ICU due to respiratory failure due to advanced stage MS, and aspiration pneumonia. He has been intubated and on venilator for two weeks. He has been treated for sepsis from the pneumonia and stage IV sacral decubitus ulcer. [facility] at a [facility] for the past year as his condition has continued to deteriorate. Mrs Downing has decided to have patient extubated instead of having tracheostomy. He has been able to pass some ventilator weaning trials for short times but has copious secretions. He has scopolamine TD patch to help with that. Immediate family has been supportive of her decision although some remote family members have expressed opposition to the decision. Mrs. Downing is a very faithful woman who has daily been at her husbands side watching his decline and suffering and she has resolve in her decision. We talked for a long while last night for support. While we were discussing this at bedside, terra had eyes opened, but did not focus on us or seem to have any understanding of what we were discussing. She told me that the doctors expected him to after his CVA but he did not. She feels sure that if he is extubated, he will live if it is God's will. Mr. Downing continued on ventilator during the night with no new problems. After his children arrived, patient was premedicated and extubated about 1:00 pm and tolerated well. He remains stable on 100% oxygen per nasal cannula. He did not show any signs of distress in the following 30 minutes and I returned after another hour and he continued to be stable with family at his bedside. If Mr. Downing remains stable overnight, would like to have him transferred to [facility] in [place] for care. Will follow tomorrow for support.
[2018-05-24] MEDS ORDERED: IPRATROPIUM/ALBUTEROL 0.5-2.5 MG/3 ML AMPUL NEB PRN (09:30)
[2018-05-24] MEDS: LORAZEPAM INJ 2 MG/1 ML VIAL IV PRN ×2 (09:46→14:04)
[2018-05-24] MEDS: LEVETIRACETAM ORAL SOLN 500 MG/5 ML UDCUP PEG SCH (09:46)
[2018-05-24] MEDS: IPRATROPIUM/ALBUTEROL 0.5-2.5 MG/3 ML AMPUL NEB PRN (09:46)
[2018-05-24] MEDS: PHENYTOIN 100 MG/4 ML SUSP GT SCH (09:46)
--- NOTE | 2018-05-24 13:29 | PDOC TRANSFER SUMMARY ---
General - Admit/Disc Date/PCP Admission Date/Primary Care Provider: 05/07/18 00:37 FLORINA LYNCH Discharge Date: 05/24/18 - Discharge Diagnosis (1) Hypokalemia Is this a current diagnosis for this admission?: Yes (2) Catheter-associated urinary tract infection Is this a current diagnosis for this admission?: Yes (3) Anemia Is this a current diagnosis for this admission?: Yes (4) Pneumonia Is this a current diagnosis for this admission?: Yes (5) Severe sepsis Is this a current diagnosis for this admission?: Yes (6) Multiple sclerosis Is this a current diagnosis for this admission?: Yes (7) Decubitus ulcer Is this a current diagnosis for this admission?: Yes (8) Sacral decubitus ulcer, stage IV Is this a current diagnosis for this admission?: Yes (9) Presence of intrathecal baclofen pump Is this a current diagnosis for this admission?: Yes (10) Acute respiratory failure with hypoxemia Is this a current diagnosis for this admission?: Yes (11) Hypernatremia Is this a current diagnosis for this admission?: Yes (12) Status epilepticus Is this a current diagnosis for this admission?: Yes (13) Colitis, Clostridium difficile Is this a current diagnosis for this admission?: Yes (14) Hospice care Is this a current diagnosis for this admission?: Yes (15) Electrolyte abnormality Is this a current diagnosis for this admission?: Yes - Additional Information Resuscitation Status: Do Not Resuscitate Discharge Activity: Bedrest Home Medications: Phenytoin [Dilantin 100 mg/4 ml Susp] 200 mg GT BID udc 05/24/18 Scopolamine Hydrobromide [Transderm-Scop 1.5 mg Patch] 1 each TD Q3D@1000 patch.[id number] 05/24/18 History of Present Illness Admission Date/PCP: 05/07/18 00:37 FLORINA LYNCH History of Present Illness: VICTOR Scott MOJICA is a 43 year old male AYDEN Scott MOJICA is a 43 year old male long-term senior living resident for end- stage multiple sclerosis status post hemorrhagic CVA, nonverbal state, PEG tube dependent, chronic indwelling Garcia, 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 Patient presents from nursing facility after an episode of vomiting resulting in hypoxia and fever. In the emergency room he is found to have right lower lobe infiltrate, hypotension and tachycardia. A grave prognosis is explained however His CODE STATUS is verified to be full code per patient's and power of assistant county attorney at bedside. A central line is placed, he started on BiPAP, IV fluid bolus, Levophed and empiric antibiotics. He is referred to the hospitalist for admission. Hospital Course Hospital Course: This unfortunate gentleman presented to the emergency room with respiratory distress and difficulty breathing and was ultimately intubated. He has since been in the intensive care unit for management of sepsis as well as pneumonia and urinary tract infection and Clostridium difficile colitis amongst other illnesses. Patient's condition was pretty serious with the dismal prognosis due to his underlying sclerosis. He failed to wean off the mechanical ventilation. After discussion with family and palliative care patient was extubated terminally on May 23 with him being transitioned to hospice care. Patient was also treated for status epilepticus while in hospital. Had a full course of antibiotics and was seen by terminal gauger supervisor who helped to manage his mechanical ventilation. Patient also had a sacral decubitus that was present on admission. And multiple organisms grow in his urine as well as blood including Pseudomonas, Proteus, MRSA and ESBL E. coli. At this time patient has been terminally extubated due to his dismal prognosis and is been transferred to hospice care Physical Exam Vital Signs: Temp Pulse Resp BP Pulse Ox 98.4 F 96 13 117/78 100 05/23/18 13:00 05/24/18 10:00 05/24/18 10:00 05/23/18 20:11 05/24/18 10:00 Intake & Output 05/23/18 05/24/18 05/25/18 06:59 06:59 06:59 Intake Total 2367 20 Output Total 2900 1140 1600 Balance -533 -1120 -1600 Weight 67.9 kg General appearance: PRESENT: no acute distress, thin, other - Chronically ill looking Head exam: PRESENT: atraumatic Neck exam: ABSENT: JVD Respiratory exam: PRESENT: crackles, rhonchi, unlabored. ABSENT: accessory muscle use, chest wall tenderness, tachypnea Cardiovascular exam: PRESENT: tachycardia GI/Abdominal exam: PRESENT: other - PEG tube Rectal exam: PRESENT: deferred Gentrourinary exam: PRESENT: other - Urostomy tube Extremities exam: PRESENT: other - Left foot inversion Neurological exam: PRESENT: alert, awake, motor sensory deficit, aphasic. ABSENT: oriented to person, oriented to time, oriented to situation, CN II-XII grossly intact Skin exam: PRESENT: other - Sacral decubitus stage IV Results Laboratory Results: 05/22/18 05:34 05/22/18 05:34 Impressions: Abdomen X-Ray 05/07/18 06:26 IMPRESSION: 1. Nonobstructive bowel gas pattern. 2. Gastrostomy tube overlying the stomach. 2011 [employer]- All Rights Reserved KUB X-Ray 05/09/18 00:00 IMPRESSION: Nasogastric tube tip and side port in the stomach. Chest X-Ray 05/20/18 05:00 IMPRESSION: NO ACUTE RADIOGRAPHIC FINDING IN THE CHEST. Transfer Plan - Disposition Transfer Plan: Transfer to hospice - Time Spent with Patient Time spent with patient: Greater than 30 Minutes Qualifiers - * PATIENT BEING DISCHARGED WITH ANY OF THE FOLLOWING DIAGNOSIS: No Plan Time Spent: Greater than 30 Minutes
--- NOTE | 2018-05-24 19:52 | Progress Note ---
Provider Note Provider Note: Palliative care follow up 05/24/18 11:30AM - 1:30 PM Mr. Downing is doing very well today, not even using oxygen per N/C. He was extubated at 1:00 PM yesterday and had a good night with no distress and only one episode of jerking/seizure activity which responded well to ativan. Today, his eyes are open most of the time and he is looking various places, unsure if he ca focus. No facial expressions or evidence of pain. He is breathing easily but does have rhonchi in all lobes. Heart rate is staying in 90's and regular and oxygen saturation has been good on room air. Mrs. Downing stayed with patient last night and has gone home to shower. I have come to assess for stability of patient for transport and to talk to to see if she still wants him transferred to [facility] in [place]. When she arrived, she did indeed want him to be transported and feels he can get comfort care with family around him. Hospice consents were signed and sent to [facility] Mrs. Downing is very glad that he is doing so well but she is also aware that this probably will not last as the Pneumonia is likely to get worse without the antibiotics and he still has risk of aspiration. She says if he does remain stable s like him to be sent to a different SNF. She realizes that this could o either way and says it is in Gods hands. She only says she does not want him to suffer as he has already suffered enough all these years. Their family is supportive. Nurse is going to medicate patient with morphine and ativan when ambulance arrives for transport, about 2:00 pm. I really appreciate the wonderful work of this RN and the ICU. I will check on patient at [facility] tomorrow.
== END 2018-05-24 14:12 | disposition hospice, inpatient (51) | DRG 853 ==
LOC: ER 21:43 → EH 05-07 00:37 → ICU 05-07 03:37
PROVIDERS: ADMIT Internal Medicine; ATTEND Internal Medicine
PROC: 02HV33Z Insertion of Infusion Device into Superior Vena Cava, Percutaneous Approach (ICD-10-PCS; 2018-05-07)
PROC: 30233N1 Transfusion of Nonautologous Red Blood Cells into Peripheral Vein, Percutaneous Approach (ICD-10-PCS; 2018-05-08)
PROC: 5A1955Z Respiratory Ventilation, Greater than 96 Consecutive Hours (ICD-10-PCS; 2018-05-09)
PROC: 0B9C8ZX Drainage of Right Upper Lung Lobe, Via Natural or Artificial Opening Endoscopic, Diagnostic (ICD-10-PCS; 2018-05-09)
PROC: 0B9D8ZX Drainage of Right Middle Lung Lobe, Via Natural or Artificial Opening Endoscopic, Diagnostic (ICD-10-PCS; 2018-05-09)
PROC: 0BH17EZ Insertion of Endotracheal Airway into Trachea, Via Natural or Artificial Opening (ICD-10-PCS; 2018-05-09)
PROC: 0B9F8ZX Drainage of Right Lower Lung Lobe, Via Natural or Artificial Opening Endoscopic, Diagnostic (ICD-10-PCS; principal; 2018-05-09 18:15)
PROC: 30233N1 Transfusion of Nonautologous Red Blood Cells into Peripheral Vein, Percutaneous Approach (ICD-10-PCS; 2018-05-10)
PROC: 30233N1 Transfusion of Nonautologous Red Blood Cells into Peripheral Vein, Percutaneous Approach (ICD-10-PCS; 2018-05-20)
DX: A41.9 Sepsis, unspecified organism (principal); G93.41 Metabolic encephalopathy; R65.21 Severe sepsis with septic shock; J69.0 Pneumonitis due to inhalation of food and vomit; L89.154 Pressure ulcer of sacral region, stage 4; J96.01 Acute respiratory failure with hypoxia; T83.511A Infection and inflammatory reaction due to indwelling urethral catheter, initial encounter; N39.0 Urinary tract infection, site not specified; E87.0 Hyperosmolality and hypernatremia; J98.11 Atelectasis; A04.72 Enterocolitis due to Clostridium difficile, not specified as recurrent; G35 Multiple sclerosis; Y84.6 Urinary catheterization as the cause of abnormal reaction of the patient, or of later complication, without mention of misadventure at the time of the procedure; D50.0 Iron deficiency anemia secondary to blood loss (chronic); B96.4 Proteus (mirabilis) (morganii) as the cause of diseases classified elsewhere; B95.62 Methicillin resistant Staphylococcus aureus infection as the cause of diseases classified elsewhere; B96.5 Pseudomonas (aeruginosa) (mallei) (pseudomallei) as the cause of diseases classified elsewhere; B96.89 Other specified bacterial agents as the cause of diseases classified elsewhere; Z93.1 Gastrostomy status; B96.20 Unspecified Escherichia coli [E. coli] as the cause of diseases classified elsewhere; K21.9 Gastro-esophageal reflux disease without esophagitis; Z93.6 Other artificial openings of urinary tract status; I69.128 Other speech and language deficits following nontraumatic intracerebral hemorrhage; E87.6 Hypokalemia; Z22.322 Carrier or suspected carrier of Methicillin resistant Staphylococcus aureus; Z66 Do not resuscitate; G40.901 Epilepsy, unspecified, not intractable, with status epilepticus; Z78.1 Physical restraint status; Z88.2 Allergy status to sulfonamides; Z74.01 Bed confinement status; I10 Essential (primary) hypertension; Z45.1 Encounter for adjustment and management of infusion pump; Z79.899 Other long term (current) drug therapy; F43.10 Post-traumatic stress disorder, unspecified
CPT/HCPCS: 31624; 36415; 36430; 36600; 70450; 71045; 74018; 74019; 80048; 80053; 80076; 80170; 80177; 80185; 80202; 81001; 82533; 82565; 82607; 82728; 82746; 82803; 82962; 83540; 83550; 83605; 83735; 84100; 84132; 85025; 85027; 85045; 86850; 86900; 86901; 86920; 87015; 87040; 87070; 87077; 87086; 87088; 87101; 87116; 87186; 87205; 87206; 87486; 87493; 93005; 93010; 94002; 94003; 94640; 94660; 96361; 96365; 99291; C1751; J0171; J0330; J0475; J0834; J1100; J1200; J1580; J1644; J1756; J1940; J2060; J2250; J2270; J2310; J2543; J2704; J2930; J3010; J3370; J3480; J3490; J7030; J7040; J7060; J7620; P9016; S0028